=== PATIENT | male | born 1945 | race Caucasian/White ===

== ENCOUNTER → 2020-08-27 12:02 | Outpatient (BNVA) | payer OTHER, SELFPAY | PROVIDERS: PCP Internal Medicine; Referring Provider Internal Medicine; Visit Provider Internal Medicine Gastroenterology | DX: Z76.89 Persons encountering health services in other specified circumstances (principal) ==

== ENCOUNTER → 2020-09-02 10:36 | Outpatient (BNVA) | payer OTHER, SELFPAY | PROVIDERS: PCP Internal Medicine; Referring Provider Internal Medicine; Visit Provider Internal Medicine Cardiovascular Disease | DX: E11.22 Type 2 diabetes mellitus with diabetic chronic kidney disease (principal); I12.9 Hypertensive chronic kidney disease with stage 1 through stage 4 chronic kidney disease, or unspecified chronic kidney disease; I25.10 Atherosclerotic heart disease of native coronary artery without angina pectoris; N18.2 Chronic kidney disease, stage 2 (mild); I48.20 Chronic atrial fibrillation, unspecified; E78.5 Hyperlipidemia, unspecified; E66.9 Obesity, unspecified; R20.0 Anesthesia of skin; Z88.8 Allergy status to other drugs, medicaments and biological substances; Z87.891 Personal history of nicotine dependence; Z79.899 Other long term (current) drug therapy | CPT/HCPCS: 93005 ==

== ENCOUNTER 2020-09-09 13:27 | Outpatient (REF) | payer MEDICARE, SELFPAY ==
--- NOTE | 2020-09-09 13:35 | US_ITS ---
EXAMINATION: NONINVASIVE ASSESSMENT OF THE ARTERIES OF BOTH LOWER EXTREMITIES Costa Garcia MD CLINICAL INFORMATION: Anesthesia of skin TECHNIQUE: Bilateral lower extremity duplex ultrasound was performed with velocity measurements and waveform analysis in the common femoral arteries, profunda femoris arteries, proximal mid and distal superficial femoral arteries, popliteal arteries and tibial vessels. This study was performed only at rest. COMPARISON: None FINDINGS: Velocities in cm/sec and phasicity as well as the presence of plaque are reported below. Some minimal plaque is present in the right common femoral artery and left SFA but waveforms are normal and multiphasic flow is present throughout. RIGHT LEG: Common Femoral: 174 Profunda Femoris: 65 Proximal SFA: 120 Mid SFA: 106 Distal SFA: 108 Popliteal: 71 Tibial: 40 LEFT LEG: Common Femoral: 120 Profunda Femoris: 63 Proximal SFA: 119 Mid SFA: 190 Distal SFA: 89 Popliteal: 100 Tibial: 70 US/US arterial duplex LE IMPRESSION: There is no evidence of any hemodynamically significant lower extremity arterial disease by pressure, waveform or duplex Doppler criteria at rest.
== END 2020-09-09 13:28 | disposition home or self-care (01) ==
LOC: HO.US 13:27
PROVIDERS: PCP Internal Medicine; Visit Provider Internal Medicine Cardiovascular Disease
DX: R20.0 Anesthesia of skin (principal)
CPT/HCPCS: 93925

== ENCOUNTER 2020-11-23 09:00 | Outpatient (REF) | payer MEDICARE, SELFPAY ==
[2020-11-23 12:10] LABS: Estimated Average Glucose 171 mg/dL; Hemoglobin A1c % 7.6 %
== END 2020-11-23 09:01 | disposition home or self-care (01) ==
LOC: HO.LAB 09:00
PROVIDERS: PCP Internal Medicine; Visit Provider Nurse Practitioner Gerontology
DX: E11.22 Type 2 diabetes mellitus with diabetic chronic kidney disease (principal); E11.42 Type 2 diabetes mellitus with diabetic polyneuropathy; N18.2 Chronic kidney disease, stage 2 (mild); E78.5 Hyperlipidemia, unspecified; I10 Essential (primary) hypertension; E66.9 Obesity, unspecified; I25.10 Atherosclerotic heart disease of native coronary artery without angina pectoris; Z87.891 Personal history of nicotine dependence; Z88.8 Allergy status to other drugs, medicaments and biological substances; Z79.4 Long term (current) use of insulin; Z79.899 Other long term (current) drug therapy
CPT/HCPCS: 36415; 83036; Q3014

== ENCOUNTER 2020-12-23 06:12 | Outpatient (REF) | payer MEDICARE, SELFPAY ==
[2020-12-23 06:58] LABS: MANUAL DIFF FLAG NO
[2020-12-23 07:04] LABS: Basophils Absolute Auto 0.1 X10*3/uL (0.0-0.2); Basophils Percent Auto 0.8 % (0-2); Eosinophils Absolute Auto 0.2 X10*3/uL (0.0-0.4); Eosinophils Percent Auto 2.4 % (0-4); Hematocrit 50.8 % (42-52); Hemoglobin 16.8 g/dl (14.0-18.0); Imm Gran Abs Auto 0.03 X10*3/uL (0.00-0.03); Imm Gran Pct Auto 0.4 % (0.0-0.4); Lymphocytes Absolute Auto 2.1 X10*3/uL (1.2-4.9); Lymphocytes Percent Auto 26.3 % (20-40); Mean Corpuscular HGB Conc 33.1 g/dl (31.0-36.0); Mean Corpuscular Hemoglobin 27.4 pg (27.0-33.0); Mean Corpuscular Volume 82.7 fL (80-98); Monocytes Absolute Auto 0.5 X10*3/uL (0.1-1.2); Monocytes Percent Auto 6.1 % (2-11); Platelet Count 188 X10*3/uL (160-400); Red Blood Count 6.14 X10*6/uL (4.60-5.80); Red Cell Distribution Width 14.1 % (11.0-16.0); White Blood Count 7.8 X10*3/uL (4.8-10.8)
[2020-12-23 07:21] LABS: Glucose Urine UA NEG (NEG); Leukocyte Esterase Urine NEG (NEG); Nitrite Urine NEG (NEG); Urine Blood 3+ (NEG); Urine Ketones NEG (NEG); Urine Protein NEG (NEG-TRACE)
[2020-12-23 07:24] LABS: Appearance Urine CLOUDY; Color Urine YELLOW
[2020-12-23 07:37] LABS: Creatinine Urine 85.89 mg/dL; Microalbum/Creatinine Ratio Ur 48.8 ug/mg cr
[2020-12-23 07:41] LABS: Alanine Aminotransferase 17 U/L (0-40); Albumin Level 3.7 g/dL (3.5-5.0); Alkaline Phosphatase 119 U/L (39-117); Aspartate Amino Transferase 14 U/L (5-37); Bilirubin Total 0.6 mg/dL (0.0-1.0); Blood Urea Nitrogen 18 mg/dL (9-16); Calcium 8.7 mg/dL (8.4-10.2); Cholesterol 136 mg/dL; Estimated Glomerular Filt Rate 55; Glucose Fasting 148 mg/dL (60-99); HDL Cholesterol 32 mg/dL; LDL Cholesterol Calculated 72 mg/dl; Total Protein 6.4 g/dL (6.5-8.0); Triglycerides 163 mg/dL
[2020-12-23 07:45] LABS: Anion Gap 14 (12-20); Carbon Dioxide 29 mmol/L (22-29); Chloride 103 mmol/L (96-108); Potassium 3.7 mmol/L (3.3-5.1); Sodium 142 mmol/L (135-145)
[2020-12-23 07:51] LABS: TSH reflex Free T4 3.17 uIU/mL (0.32-4.0)
[2020-12-23 07:52] LABS: Ferritin 104 ng/mL (20-250)
[2020-12-23 09:10] LABS: Bacteria Urine TRACE /LPF; RBC Urine 50-75 /HPF (0); Squamous Epithelial Cell Urine TRACE /LPF
== END 2020-12-23 06:13 | disposition home or self-care (01) ==
LOC: HO.LAB 06:12
PROVIDERS: Internal Medicine Gastroenterology; Visit Provider Internal Medicine
DX: E11.22 Type 2 diabetes mellitus with diabetic chronic kidney disease (principal); N18.2 Chronic kidney disease, stage 2 (mild); D50.0 Iron deficiency anemia secondary to blood loss (chronic); D63.1 Anemia in chronic kidney disease; E66.9 Obesity, unspecified; E78.00 Pure hypercholesterolemia, unspecified; I10 Essential (primary) hypertension; Z79.4 Long term (current) use of insulin
CPT/HCPCS: 36415; 80053; 80061; 81001; 81003; 82043; 82728; 84443; 85025

== ENCOUNTER 2021-01-25 10:47 | Outpatient (REF) | payer MEDICARE, SELFPAY ==
[2021-01-25 14:40] LABS: MANUAL DIFF FLAG NO
[2021-01-25 14:47] LABS: Basophils Absolute Auto 0.1 X10*3/uL (0.0-0.2); Eosinophils Absolute Auto 0.4 X10*3/uL (0.0-0.4); Eosinophils Percent Auto 5.3 % (0-4); Hematocrit 53.1 % (42-52); Hemoglobin 17.1 g/dl (14.0-18.0); Imm Gran Abs Auto 0.04 X10*3/uL (0.00-0.03); Imm Gran Pct Auto 0.5 % (0.0-0.4); Lymphocytes Absolute Auto 1.5 X10*3/uL (1.2-4.9); Lymphocytes Percent Auto 18.5 % (20-40); Mean Corpuscular HGB Conc 32.2 g/dl (31.0-36.0); Mean Corpuscular Hemoglobin 26.9 pg (27.0-33.0); Mean Corpuscular Volume 83.6 fL (80-98); Mean Platelet Volume 10.7 fL (9.4-12.4); Monocytes Absolute Auto 0.6 X10*3/uL (0.1-1.2); Monocytes Percent Auto 6.9 % (2-11); Neutrophils Absolute Auto 5.6 X10*3/uL (2.0-8.3); Neutrophils Percent Auto 67.8 % (45-73); Platelet Count 174 X10*3/uL (160-400); Red Blood Count 6.35 X10*6/uL (4.60-5.80); Red Cell Distribution Width 14.6 % (11.0-16.0); White Blood Count 8.2 X10*3/uL (4.8-10.8)
[2021-01-25 15:31] LABS: Anion Gap 17 (12-20); Blood Urea Nitrogen 17 mg/dL (9-16); Carbon Dioxide 28 mmol/L (22-29); Chloride 104 mmol/L (96-108); Estimated Glomerular Filt Rate > 60; Glucose Random 134 mg/dL (60-115); Potassium 3.8 mmol/L (3.3-5.1); Sodium 145 mmol/L (135-145)
[2021-01-25 15:41] LABS: Glucose Urine UA NEG (NEG); Leukocyte Esterase Urine NEG (NEG); Nitrite Urine NEG (NEG); Urine Blood 3+ (NEG); Urine Ketones NEG (NEG); Urine Protein NEG (NEG-TRACE)
[2021-01-25 15:48] LABS: Appearance Urine CLEAR; Color Urine YELLOW
[2021-01-25 17:02] LABS: RBC Urine 50-75 /HPF (0); WBC Urine 0 /HPF (0-4)
== END 2021-01-25 10:48 | disposition home or self-care (01) ==
LOC: HO.LAB 10:47
PROVIDERS: Internal Medicine; Visit Provider Nurse Practitioner Family
DX: E11.22 Type 2 diabetes mellitus with diabetic chronic kidney disease (principal); I12.9 Hypertensive chronic kidney disease with stage 1 through stage 4 chronic kidney disease, or unspecified chronic kidney disease; N18.2 Chronic kidney disease, stage 2 (mild); N20.0 Calculus of kidney; R31.9 Hematuria, unspecified; Z79.4 Long term (current) use of insulin
CPT/HCPCS: 36415; 80048; 81001; 81003; 85025; 87086

== ENCOUNTER 2021-01-25 10:57 | Outpatient (REF) | payer MEDICARE, SELFPAY | END 2021-01-25 10:58 | disposition home or self-care (01) | LOC: HO.HMGCLDS 10:57 | PROVIDERS: PCP Internal Medicine; Visit Provider Nurse Practitioner Family | DX: Z13.89 Encounter for screening for other disorder (principal) ==

== ENCOUNTER → 2021-02-15 07:14 | Outpatient (REF) | payer MEDICARE, SELFPAY ==
--- NOTE | ~2021-02-15 | US_ITS ---
EXAMINATION: US RETROPERITONEAL LIMITED (RENAL ONLY) CLINICAL INFORMATION: Hematuria. COMPARISON: March 17, 2020 and October 18, 2017 TECHNIQUE: Renal ultrasound FINDINGS: RIGHT KIDNEY: 12.2 x 5.6 x 5.3 cm (SAG x AP x TRV). The kidney is normal in size, contour, and echogenicity. Renal cortical thickness is normal. No calculi or focal parenchymal lesions. No hydronephrosis. Previously noted right renal upper pole cyst is not included on imaging today. LEFT KIDNEY: 11.8 x 5.6 x 5.8 cm (SAG x AP x TRV). The kidney is normal in size, contour, and echogenicity. Renal cortical thickness is normal. No calculi identified. No hydronephrosis. Within the lower pole there is a 1.1 x 0.8 x 1.1 cm hypoechoic lesion which is exophytic without increased distal sound enhancement and I cannot definitely tell whether this may be a cystic or solid lesion. Within the upper pole there is a 2.3 x 2.1 x 1.9 cm hypoechoic structure without distal sound enhancement and with what appears be some septations within it which may represent a complex cyst or solid structure which on previous study measured approximately 1.3 x 1.4 x 1.6 cm in size. US/US renal BI IMPRESSION: 2 left renal lesions which I cannot definitely say represent cysts or minimally complex cyst such as a Bosniak 2 or 2F. MRI may be of help in further evaluation of these findings.
--- NOTE | 2021-02-15 07:17 | CA_ITS ---
Transthoracic Echocardiogram Patient (Last, First, Middle): Kamlesh Clement, Gender: Male Date of : 1945 Age: 75 Procedure Date: 02/15/2021 Procedure Type: Transthoracic Echocardiogram Location: OP Height: 175.26 cm Weight: 118.84 kg BSA: 2.32 m2 Heart Rate: bpm BP: 168 / 74 mmHg [id number] Architect: Referring MD: Delano Rosales MD Symptoms: I25.10 - Atherosclerotic heart disease of [place] coronary artery without angina pectoris Study Quality: Fair ECG Rhythm: Atrial Fibrillation Conclusions: - The left ventricular systolic function is normal. The visually estimated ejection fraction is between 65-70%. - The left atrium is moderately dilated. - There is moderate calcification of the aortic valve. - There is moderate mitral annular calcification. Findings Procedure Information Contrast agent, definity, is being given per protocol without apparent complications. Left Ventricle Normal left ventricular cavity size. The left ventricular systolic function is normal. The visually estimated ejection fraction is between 65-70%. There is no evidence of regional wall motion abnormalities. Diastolic function is indeterminate on the basis of available data. There is focal hypertrophy of the basal septum. Otherwise, there is no significant left ventricular hypertrophy. Right Ventricle Normal right ventricular cavity size and systolic function. Atria The left atrium is moderately dilated. The right atrium is mildly dilated. Aortic Valve There is moderate calcification of the aortic valve. There is no aortic valve stenosis. There is trace (trivial) aortic valve regurgitation. Mitral Valve There is moderate mitral annular calcification. There is trace mitral valve regurgitation. There is no mitral valve stenosis. Pulmonic Valve The pulmonic valve was not well visualized. Tricuspid Valve Normal tricuspid valve structure. There is trace tricuspid valve regurgitation. The pulmonary artery systolic pressure is normal. Great Vessels The aortic annulus, sinuses of valsalva, and asc aorta are normal in size. Venous The inferior vena cava is normal in size and collapses greater than 50% with inspiration. Pericardium/Pleural There is no evidence of pericardial effusion. Prior Study Comparison No significant change compared to prior study dated: 07/01/2019. Measurements 2D Linear Measurements RVIDd: 3.47 RVIDd Index: 1.50 IVSd: 1.56 0.6-0.9/0.6-1.0 cm LVIDd: 4.10 3.9-5.3/4.2-5.9 cm LVIDd Index: 1.77 2.4-3.2/2.2-3.1 cm/m2 LVIDs: 3.06 2.0-3.6 cm LVPWd: 1.61 0.7-1.1 cm Ao Root: 3.20 2.1-3.5 cm LA Diam: 5.00 2.7-3.8/3.0-4.0 cm LAIDs Index: 2.16 1.5-2.3 cm/m2 LV Mass: 327.93 67-162/88-224 g LV Mass Index: 141.35 43-95/49-115 g/m2 LVOT Diam: 1.90 3.0+(-)1.3 cm 2D Systolic Function EF 4C: 61.90 >55% EF 2C: 60.70 >55% EF BiP: 61.10 >55% Aortic Valve AoV Pk David: 1.67 AoV Mn David: 1.19 AoV VTI: 0.32 AoV Pk Grad: 11.00 Aov Mn Grad: 6.00 EVANS Cont.VTI: 1.84 LVOT LVOT Pk David: 0.90 LVOT Mn David: 0.73 LVOT VTI: 0.21 LVOT Pk Grad: 3.00 LVOT Mn Grad: 2.00 LVOT Diam: 1.90 LVOT Area: 2.84 Tricuspid Valve TR Pk David: 2.67 TR Pk Grad: 29.00 RA Press: 3.00 RVSP: 32.00 Great Vessels Aorta Ao Root-2D: 3.20 2.0-3.7 cm Ao Asc: 3.00 2.1-3.4 cm Ao Arch: 3.00 Updated in Other Vendor System with Status of Final Osmar Rodriguez MD electronically signed on 02/15/2021 11:21:24 AM with status of Final
== END ==
LOC: HO.CARD 07:14
PROVIDERS: Visit Provider Internal Medicine Cardiovascular Disease
DX: I48.20 Chronic atrial fibrillation, unspecified (principal); I25.10 Atherosclerotic heart disease of native coronary artery without angina pectoris; I10 Essential (primary) hypertension; N20.0 Calculus of kidney; R31.9 Hematuria, unspecified
CPT/HCPCS: 76775; 93306; Q9957

== ENCOUNTER → 2021-02-25 08:58 | Outpatient (BNVA) | payer MEDICARE, SELFPAY | PROVIDERS: PCP Internal Medicine; Visit Provider Nurse Practitioner Family | DX: I48.20 Chronic atrial fibrillation, unspecified (principal); I25.10 Atherosclerotic heart disease of native coronary artery without angina pectoris; I10 Essential (primary) hypertension; E11.9 Type 2 diabetes mellitus without complications; E78.5 Hyperlipidemia, unspecified; E66.9 Obesity, unspecified; R31.9 Hematuria, unspecified; Z79.01 Long term (current) use of anticoagulants | CPT/HCPCS: 99212 ==

== ENCOUNTER → 2021-03-01 09:22 | Outpatient (BNVA) | payer MEDICARE, SELFPAY | PROVIDERS: PCP Internal Medicine; Visit Provider Nurse Practitioner Gerontology | DX: E11.42 Type 2 diabetes mellitus with diabetic polyneuropathy (principal); Z79.4 Long term (current) use of insulin; E78.5 Hyperlipidemia, unspecified; I10 Essential (primary) hypertension; E66.9 Obesity, unspecified; R74.8 Abnormal levels of other serum enzymes | CPT/HCPCS: 82947; 99212 ==

== ENCOUNTER 2021-03-02 07:45 | Outpatient (REF) | payer MEDICARE, SELFPAY ==
[2021-03-07 22:06] LABS: Alk.Phos Iso. Macrohepatic 0 % (<=0); Alk.Phos Isoenzymes Bone 21 % (28-66); Alk.Phos Isoenzymes Intest 20 % (1-24); Alk.Phos Isoenzymes Liver 58 % (25-69); Alk.Phos Isoenzymes Placental 0 % (<=0); Alk.Phos Isoenzymes Total 125 U/L (35-144)
== END 2021-03-02 07:46 | disposition home or self-care (01) ==
LOC: HO.10HDL 07:45
PROVIDERS: Visit Provider Nurse Practitioner Gerontology
DX: R74.8 Abnormal levels of other serum enzymes (principal)
CPT/HCPCS: 36415; 84080

== ENCOUNTER → 2021-03-11 10:37 | Outpatient (BNVA) | payer MEDICARE, SELFPAY | PROVIDERS: PCP Internal Medicine; Visit Provider Urology | DX: N32.0 Bladder-neck obstruction (principal); C67.9 Malignant neoplasm of bladder, unspecified; R31.9 Hematuria, unspecified; N28.1 Cyst of kidney, acquired | CPT/HCPCS: 99202 ==

== ENCOUNTER 2021-03-19 08:47 | Outpatient (REF) | payer MEDICARE, SELFPAY ==
--- NOTE | ~2021-03-19 | CT_ITS ---
EXAMINATION: CT ABDOMEN AND PELVIS WITHOUT AND WITH CONTRAST CLINICAL INFORMATION: Kidney cysts COMPARISON: Previous renal ultrasound most recent February 2021 TECHNIQUE: Multidetector volumetric imaging was performed of the abdomen and pelvis before and after the IV administration of 85 mL of Omnipaque 350 intravenous contrast. Sagittal and coronal reformatted images were obtained on the technologist's workstation. This CT examination was performed using dose optimization techniques as appropriate, variously including the following: *Automated exposure control *Adjustment of mA and/or kV according to patient size (this includes techniques or standardized protocols for targeted exams where dose is matched to indication/reason for exam; i.e. extremities or head) *Use of iterative reconstruction technique DLP: 1112 mGy-cm FINDINGS: LUNG BASES: The visualized lung bases are unremarkable. LIVER, GALLBLADDER, AND BILIARY TREE: The liver is normal in size, shape, and attenuation. No focal hepatic lesion or biliary ductal dilatation is present. The gallbladder is unremarkable with no evidence of radiopaque gallstones, gallbladder wall thickening, or obvious pericholecystic inflammatory changes. PANCREAS: Unremarkable SPLEEN: Unremarkable ADRENAL GLANDS: Unremarkable KIDNEYS AND URETERS: There is a 1.7 cm low-attenuation lesion exophytic to the upper pole the right kidney. Hounsfield units precontrast measure 12. Hounsfield units postcontrast measure 21. Appearance is suggestive of a complex cyst. The kidneys are otherwise unremarkable. No renal stone, mass or hydronephrosis is seen. BLADDER: There is asymmetric abnormal wall thickening seen along the right UVJ region. There is a high attenuation material seen just medial to this measuring approximately 1.4 cm axial image 192 series 4. This area is not imaged precontrast. It is appearance is concerning for polypoid mass and a small calcification. It is possible this could represent excreted contrast entering the bladder however no other excreted contrast is seen. GASTROINTESTINAL TRACT: There is diverticulosis of the colon. . No evidence of diverticulitis is seen. There are duodenal diverticuli seen. The appendix is normal. The stomach is normal. ABDOMINAL WALL: No significant hernia is appreciated. LYMPH NODES: Normal VASCULAR: There is evidence of atherosclerotic disease. PELVIC VISCERA: The prostate gland is enlarged and measures 5 cm in AP and transverse dimension. OSSEOUS STRUCTURES: Unremarkable CT/CT abdomen pelvis wo/w con IMPRESSION: 1.7 cm complex cyst exophytic to the upper pole of the right kidney. Asymmetric wall thickening along the right posterior lateral bladder wall just superior to the UVJ region and question associated polypoid partially calcified mass measuring 1.4 cm. Enlarged prostate gland. Diverticulosis.
== END 2021-03-19 08:48 | disposition home or self-care (01) ==
LOC: HO.CT 08:47
PROVIDERS: PCP Internal Medicine; Visit Provider Urology
DX: N28.1 Cyst of kidney, acquired (principal)
CPT/HCPCS: 74178

== ENCOUNTER 2021-03-24 06:16 | Outpatient (REF) | payer MEDICARE, SELFPAY ==
[2021-03-24 07:18] LABS: MANUAL DIFF FLAG NO
[2021-03-24 07:21] LABS: Basophils Absolute Auto 0.1 X10*3/uL (0.0-0.2); Basophils Percent Auto 0.6 % (0-2); Eosinophils Absolute Auto 0.2 X10*3/uL (0.0-0.4); Eosinophils Percent Auto 2.4 % (0-4); Hematocrit 45.7 % (42-52); Hemoglobin 14.8 g/dl (14.0-18.0); Imm Gran Abs Auto 0.04 X10*3/uL (0.00-0.03); Imm Gran Pct Auto 0.5 % (0.0-0.4); Lymphocytes Percent Auto 23.8 % (20-40); Mean Corpuscular HGB Conc 32.4 g/dl (31.0-36.0); Mean Corpuscular Hemoglobin 27.4 pg (27.0-33.0); Mean Corpuscular Volume 84.6 fL (80-98); Monocytes Absolute Auto 0.6 X10*3/uL (0.1-1.2); Monocytes Percent Auto 7.1 % (2-11); Neutrophils Absolute Auto 5.6 X10*3/uL (2.0-8.3); Neutrophils Percent Auto 65.6 % (45-73); Platelet Count 170 X10*3/uL (160-400); Red Cell Distribution Width 14.6 % (11.0-16.0); White Blood Count 8.5 X10*3/uL (4.8-10.8)
[2021-03-24 07:28] LABS: Glucose Urine UA NEG (NEG); Leukocyte Esterase Urine NEG (NEG); Nitrite Urine NEG (NEG); Specific Gravity - Urine >= 1.030 (1.005-1.025); Urine Blood 3+ (NEG); Urine Ketones NEG (NEG); Urine Protein 2+ MG/DL (NEG-TRACE)
[2021-03-24 07:37] LABS: Appearance Urine TURBID; Color Urine BROWN
[2021-03-24 07:38] LABS: PH 5.5 (5.0-8.0)
[2021-03-24 07:44] LABS: Estimated Average Glucose 154 mg/dL
[2021-03-24 07:54] LABS: Alanine Aminotransferase 17 U/L (0-40); Albumin Level 3.5 g/dL (3.5-5.0); Alkaline Phosphatase 122 U/L (39-117); Anion Gap 10 (12-20); Aspartate Amino Transferase 14 U/L (5-37); Bilirubin Total 0.5 mg/dL (0.0-1.0); Blood Urea Nitrogen 17 mg/dL (9-16); Calcium 9.3 mg/dL (8.4-10.2); Carbon Dioxide 32 mmol/L (22-29); Chloride 106 mmol/L (96-108); Cholesterol 122 mg/dL; Estimated Glomerular Filt Rate 52; Glucose Fasting 97 mg/dL (60-99); HDL Cholesterol 32 mg/dL; LDL Cholesterol Calculated 59 mg/dl; Potassium 4.3 mmol/L (3.3-5.1); Sodium 144 mmol/L (135-145); Triglycerides 159 mg/dL
[2021-03-24 08:00] LABS: RBC Urine TNTC /HPF (0)
[2021-03-24 08:08] LABS: Creatinine Urine 137.28 mg/dL; Microalbum/Creatinine Ratio Ur 248.3 ug/mg cr
[2021-03-24 08:20] LABS: TSH reflex Free T4 5.34 uIU/mL (0.32-4.0)
[2021-03-24 09:06] LABS: Free T4 (Free Thyroxine) 0.74 ng/dL (0.71-1.85)
== END 2021-03-24 06:17 | disposition home or self-care (01) ==
LOC: HO.LAB 06:16
PROVIDERS: Urology; PCP Internal Medicine; Visit Provider Internal Medicine
DX: I12.9 Hypertensive chronic kidney disease with stage 1 through stage 4 chronic kidney disease, or unspecified chronic kidney disease (principal); E11.22 Type 2 diabetes mellitus with diabetic chronic kidney disease; N18.2 Chronic kidney disease, stage 2 (mild); E78.00 Pure hypercholesterolemia, unspecified; N28.1 Cyst of kidney, acquired; N40.1 Benign prostatic hyperplasia with lower urinary tract symptoms; N13.8 Other obstructive and reflux uropathy; I48.0 Paroxysmal atrial fibrillation; G62.9 Polyneuropathy, unspecified; Z79.4 Long term (current) use of insulin; Z12.5 Encounter for screening for malignant neoplasm of prostate
CPT/HCPCS: 36415; 80053; 80061; 81001; 82043; 83036; 84153; 84439; 84443; 85025

== ENCOUNTER 2021-04-01 07:43 | Outpatient (REF) | payer MEDICARE, SELFPAY ==
[2021-04-01 08:32] LABS: Glucose Urine UA NEG (NEG); Leukocyte Esterase Urine NEG (NEG); Nitrite Urine NEG (NEG); Urine Blood 3+ (NEG); Urine Ketones NEG (NEG); Urine Protein TRACE MG/DL (NEG-TRACE)
[2021-04-01 08:33] LABS: Appearance Urine TURBID; Color Urine AMBER
[2021-04-01 08:53] LABS: Blood Urea Nitrogen 17 mg/dL (9-16); Estimated Glomerular Filt Rate 56
[2021-04-01 08:55] LABS: RBC Urine TNTC /HPF (0); WBC Urine 0 /HPF (0-4)
== END 2021-04-01 07:44 | disposition home or self-care (01) ==
LOC: HO.LAB 07:43
PROVIDERS: PCP Internal Medicine; Visit Provider Urology
DX: N26.1 Atrophy of kidney (terminal) (principal); N28.1 Cyst of kidney, acquired
CPT/HCPCS: 36415; 81001; 82565; 84520

== ENCOUNTER → 2021-04-29 13:51 | Outpatient (BNVA) | payer MEDICARE, SELFPAY | PROVIDERS: PCP Internal Medicine; Visit Provider Urology | DX: N28.1 Cyst of kidney, acquired (principal); C67.9 Malignant neoplasm of bladder, unspecified | CPT/HCPCS: 52000; 99212 ==

== ENCOUNTER 2021-05-02 08:25 | Inpatient (IN) | payer MEDICARE, SELFPAY ==
[2021-05-02] VITALS (17 sets, daily range): BP systolic 87–141; BP diastolic 33–74; PULSE 89–112; RESP 14–24; TEMP 36.8–37; O2SAT 94–98; BMI 40.4
--- NOTE | ~2021-05-02 | XR_ITS ---
EXAMINATION: XR CHEST CLINICAL INFORMATION: Weakness COMPARISON: Chest x-ray 07/01/2019 TECHNIQUE: Frontal view of the chest was obtained. FINDINGS: There is mild cardiomegaly with normal pulmonary vascularity. Both lungs are expanded and clear. No gross bony abnormality. XR/XR chest 1V IMPRESSION: Cardiomegaly. Otherwise no acute process seen.
--- NOTE | ~2021-05-02 | CT_ITS ---
EXAMINATION: CT HEAD WITHOUT CONTRAST CLINICAL INFORMATION: AMS COMPARISON: CT brain 07/01/2019 TECHNIQUE: Contiguous axial imaging was performed from the skull base to vertex without intravenous administration of contrast. This CT examination was performed using dose optimization techniques as appropriate, variously including the following: *Automated exposure control *Adjustment of mA and/or kV according to patient size (this includes techniques or standardized protocols for targeted exams where dose is matched to indication/reason for exam; i.e. extremities or head) *Use of iterative reconstruction technique DLP: 867 mGy-cm FINDINGS: There is no evidence of acute intracranial hemorrhage or territorial infarction. No abnormal mass effect or midline shift is seen. Pina to white matter differentiation is well preserved. No extra-axial fluid collections are identified. The ventricles are normal in size. There is no abnormal attenuation within the brain parenchyma. The osseous structures and soft tissues are normal. The mastoid air cells and visualized portions of the paranasal sinuses are well aerated. CT/CT head/brain wo con IMPRESSION: No acute intracranial process seen. No major change compared to previous study 07/01/2019.
--- NOTE | ~2021-05-02 | CT_ITS ---
EXAMINATION: CT ABDOMEN AND PELVIS WITHOUT CONTRAST CLINICAL INFORMATION: Altered white count. Recent cystoscopy. COMPARISON: None TECHNIQUE: Multidetector volumetric imaging was performed from the superior aspect of the liver through the pubic symphysis. Sagittal and coronal reformatted images were obtained on the technologist's workstation. This CT examination was performed using dose optimization techniques as appropriate, variously including the following: *Automated exposure control *Adjustment of mA and/or kV according to patient size (this includes techniques or standardized protocols for targeted exams where dose is matched to indication/reason for exam; i.e. extremities or head) *Use of iterative reconstruction technique DLP: 1150 mGy-cm FINDINGS: LUNG BASES: There is right middle lobe and bibasilar dependent atelectasis. The heart size is normal. There are coronary artery calcifications present. LIVER, GALLBLADDER, AND BILIARY TREE: The liver is normal in size, shape, and attenuation. No focal hepatic lesion or biliary ductal dilatation is present. The gallbladder is unremarkable with no evidence of radiopaque gallstones, gallbladder wall thickening, or obvious pericholecystic inflammatory changes. PANCREAS: Unremarkable. SPLEEN: Unremarkable. ADRENAL GLANDS: Unremarkable. KIDNEYS AND URETERS: The kidneys are normal in size, shape, and attenuation. No hydronephrosis, hydroureter, or calculi seen. No perinephric stranding. There is a 1.8 x 1.7 cm exophytic lesion upper pole right kidney measuring 12 Hounsfield units. BLADDER: The bladder is nondistended with diffuse bladder wall thickening with a radiopaque curvilinear to round density arising off the right of bladder almost simulating a foreign body or bladder mass measuring 1.9 cm. It was noted on the previous study. The bladder wall in on most 1 cm thick. GASTROINTESTINAL TRACT: There is scattered colonic diverticulosis most prominent in the sigmoid colon without mild mural thickening. Rest of the colon is unremarkable. The small bowel loops unremarkable. There is small duodenal diverticulum present. The appendix is normal. Small bowel loops are normal. Fat stranding is seen surrounding the bladder wall. ABDOMINAL WALL: No significant hernia is appreciated. LYMPH NODES: Normal. VASCULAR: Unremarkable. PELVIC VISCERA: The prostate gland is moderately enlarged. No abnormal pelvic lymph nodes. No free fluid. Nonspecific thickening of the rectal and distal sigmoid wall is noted. OSSEOUS STRUCTURES: Degenerative disc changes with vacuum disc phenomena L4-L5 disc level. There is mild ventral spondylosis lower dorsal and lower lumbar spine. CT/CT abdomen pelvis wo con IMPRESSION: Contracted but abnormal urinary bladder. There is diffuse bladder wall thickening and pericolic bladder fat stranding suggestive of cystitis or inflammatory process. There is a round partially calcified bladder lesion. It was noted on the previous CT abdomen 03/19/2021. Recommend urology consult. There is no bladder perforation or free fluid. Exophytic cyst upper pole right kidney measures 12 Hounsfield units. Diffuse sigmoid and scattered rest of colon diverticulosis.
--- NOTE | 2021-05-02 08:33 | ECG_ITS ---
Test Reason : WEAKNES Blood Pressure : / mmHG Vent. Rate : 095 BPM Atrial Rate : 394 BPM P-R Int : 000 ms QRS Dur : 080 ms QT Int : 346 ms P-R-T Axes : 000 239 108 degrees QTc Int : 434 ms Atrial fibrillation Right superior axis deviation Inferior infarct , age undetermined Abnormal ECG When compared with ECG of 01-APR-2020 17:51, No significant change was found Referred By: Drea Yeh Electronically Signed By:Sharif Forrester
--- NOTE | 2021-05-02 08:35 | ED_ITS ---
HPI - Weakness General Chief complaint: Weakness Stated complaint: weakness, diarrhea Time Seen by Provider: 05/02/21 08:26 Source: patient and EMS Mode of arrival: EMS Limitations: no limitations History of Present Illness HPI Narrative: 75 yo male with hx of afib on eliquis, CAD, HTN, CKD, recurrent bladder cancer plan was for TURBT after reading Urology notes on 04/29, DM, anemia comes in with weakness for the past day or two was trying to ambulate today did not fall per EMS but he was so weak that he defecated on himself, he cannot localize anything to me but family states he has never been this weak before. He is not eating or drinking. Patient had a cystoscopy on 04/29 he states he was never given the antibiotic in the office that was ordered by Dr. Valderrama. Complaint: generalized weakness Onset (ago): day(s) (2) Duration: constant Location: generalized Severity: severe Relieving factors: movement Exacerbating factors: none Context: new medication and recent illness Associated symptoms: confusion, loss of appetite, nausea/vomiting and myalgias Related Data Home Medications Medication Instructions Recorded Confirmed furosemide 20 mg tablet 20 mg PO DAILY 08/20/20 05/02/21 latanoprost 0.005 % eye drops 1 drp OPHTHALMIC (EYE) BEDTIME 08/20/20 04/21/21 lisinopril 40 mg tablet 40 mg PO DAILY 08/25/20 05/02/21 nitroglycerin 0.4 mg sublingual 0.4 mg SUBLINGUAL Q5M PRN 08/25/20 04/21/21 tablet Previous Rx's Medication Instructions Recorded insulin glargine 100 unit/mL 54 unit SUBCUT DAILY 30 Days #20 ml 08/20/20 subcutaneous solution sildenafil 50 mg tablet 50 mg PO DAILY PRN 30 Days #10 tab 08/25/20 tadalafil 20 mg tablet 20 mg PO DAILY PRN 30 Days #10 tab 10/02/20 cholecalciferol (vitamin D3) 25 25 mcg PO DAILY #90 tab 10/07/20 mcg (1,000 unit) tablet metoprolol tartrate 100 mg tablet 100 mg PO BID #180 tab 11/25/20 insulin syringe-needle U-100 1 mL 1 ml MISCELLANEOUS BID #100 ea 12/20/20 31 gauge x 03/21 gabapentin 100 mg capsule 100 mg PO BEDTIME #90 cap 02/11/21 dulaglutide 0.75 mg/0.5 mL 0.75 mg SUBCUT QWEEK 30 Days #2.5 02/19/21 subcutaneous pen injector ml atorvastatin 40 mg tablet 40 mg PO DAILY 90 Days #90 tab 02/22/21 insulin lispro 100 unit/mL See Rx Instructions SUBCUT 03/07/21 subcutaneous solution .COMPLEX 90 Days #120 ml rivaroxaban 20 mg tablet 20 mg PO DAILY #30 tab 03/09/21 tamsulosin 0.4 mg capsule 0.4 mg PO DAILY #30 cap 03/09/21 flash glucose sensor 1 ea TOPICAL Q2W #2 ea 04/07/21 ferrous sulfate 325 mg (65 mg 325 mg PO DAILY #30 tab 04/19/21 iron) tablet terazosin 5 mg capsule 10 mg PO BEDTIME 30 Days #60 cap 04/29/21 Allergies Allergy/AdvReac Type Severity Reaction Status Date / Time colesevelam [From WelChol] AdvReac Mild constipatio Verified 05/02/21 08:41 n Review of Systems Review of Systems: Constitutional : No Weight loss, No Fever, No Chills, pos Fatigue, pos Malaise ENT/Mouth : No sore throat, No Rhinorrhea Eyes: No Eye Pain, No Swelling, No Redness Cardiovascular : No Chest Pain, No SOB, No Dyspnea on Exertion, No Orthopnea, No Edema, No Palpitations Respiratory : No Cough, No Sputum, No Wheezing Gastrointestinal : pos Nausea, No Vomiting, pos Diarrhea, No Constipation, No abdominal Pain, No Hematochezia, No Melena Genitourinary : No Dysuria, No Urinary Frequency, No Hematuria, Musculoskeletal : No joint pain, pos Myalgias, No Joint Swelling Skin : No Skin Lesions, No rash Neuro : pos Weakness, No Numbness, No Dizziness, No Headache Psych : No Anxiety/Panic, No Depression Heme/Lymph: No Bruising, No Bleeding,No Lymphadenopathy Endocrine : No Polyuria, No Polydipsia All other systems reviewed and are negative [facility] Past Medical History Attestation statement: The following information was validated with the patient. 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 Surgical History History of cataract surgery History of endoscopy Hx of colonoscopy Hx of removal of cyst Family History Family History Father Medical history unknown Mother Diabetes Daughter In good health Son In good health Sister In good health Sister In good health Brother In good health Brother In good health Brother In good health Social History Social History Household Members: Spouse Housing: House Alcohol intake: never Patient Tobacco Use Status: Former Tobacco user Use of substances other than those prescribed or required for medical reasons: No Advance Directives: No Advance Directives Information Provided: No service: No Current occupational status: retired Physical Exam Vital Signs: Vital Signs: Last Vital Signs Temp 98.2 F 05/02/21 13:02 Pulse 95 05/02/21 13:31 Resp 18 05/02/21 13:31 BP 111/55 L 05/02/21 14:00 Pulse Ox 96 05/02/21 13:31 Body Mass Index 40.4 Appearance: Alert. Oriented X2. Mild acute distress. Eyes: Pupils equal, round and reactive to light. ENT: Pharynx normal. Neck: Normal inspection. Neck supple. CVS: tachycardic and irregular heart rate and rhythm. Pulses normal. Respiratory: No respiratory distress. Breath sounds normal. Abdomen: Soft and nontender. Skin: Skin warm and dry. pale skin color. Normal skin turgor. Extremities: No lower extremity edema. No calf ttp Neuro: Oriented X 2. No motor deficit. No sensory deficit. seems to be staring off Course Course Course Narrative: patient is obese IBW should be 71kg - at this time 30cc/kg bolus would be 2130 BP 100/55 the patient looks much better, he is mentating much better GCS 15 alert and oriented x 3 now, color improved, BP trending up, repeat lactic acid pending lactic acid trending down focused exam for sepsis performed at 1246pm patient is still with soft blood pressures - did request ICU to evaluate recommends giving albumin BP up to 100 now MAP good, will recheck in half hour BP doing better likely admit to [facility] 111/55 BP over 100 for the last hour, can admit to [facility] reassessed by ICU at 2pm MDM - Weakness MDM Narrative Medical decision making narrative: 75 yo male with hx of afib on eliquis, CAD, HTN, CKD, recurrent bladder cancer plan was for TURBT after reading Urology notes on 04/29, DM, anemia comes in with weakness for the past day or two was trying to ambulate today did not fall per EMS but he was so weak that he defecated on himself, he cannot localize anything to me but family states he has never been this week before had cystoscopy on 04/29 - at this time will obtain labs, 30cc/kg bolus based off IBW, empiric ceftriaxone for possible UTI given recent procedure, cultures, CT scan of head for ICH given confusion, CXR, planned admit Lab Data Result diagrams: 05/02/21 08:54 05/02/21 08:54 Labs: Lab Results 05/02/21 05/02/21 05/02/21 Range/Units 08:53 08:54 08:54 WBC 29.5 H (4.8-10.8) X10*3/uL RBC 5.22 (4.60-5.80) X10*6/uL Hgb 14.7 (14.0-18.0) g/dl Hct 44.6 (42-52) % MCV 85.4 (80-98) fL MCH 28.2 (27.0-33.0) pg MCHC 33.0 (31.0-36.0) g/dl RDW 14.6 (11.0-16.0) % Plt Count 164 (160-400) X10*3/uL MPV 11.8 (9.4-12.4) fL Immature Gran % (Auto) Cancelled Neut % (Auto) Cancelled Lymph % (Auto) Cancelled [place] % (Auto) Cancelled Eos % (Auto) Cancelled Baso % (Auto) Cancelled Lymph # (Auto) Cancelled [place] # (Auto) Cancelled Eos # (Auto) Cancelled Baso # (Auto) Cancelled Abs Immat Gran (auto) Cancelled Absolute Neuts (auto) Cancelled Absolute Nucleated RBC 0.000 (0.0-0.012) X10*3/uL Nucleated RBC % (auto) 0.0 (0.0-0.2) /100WBC Neutrophils % (Manual) 76 H (45-73) % Band Neutrophils % 14 H (3-5) % Lymphocytes % (Manual) 4 L (20-40) % Monocytes % (Manual) 6 (2-11) % Abs Neuts (Manual) 26.6 H (2.2-7.9) X10*3/uL Lymphocytes # (Manual) 1.2 (0.6-4.8) X10*3/uL Monocytes # (Manual) 1.8 H (0.0-1.2) X10*3/uL Platelet Estimate SLIGHTLY DECREASED (NORMAL) Plt Morphology Comment NORMAL RBC Morphology NOTED Acanthocytes (Spur) 1+ (0-2) /OIF PT 19.9 H (10.8-13.0) SEC INR 1.7 H (0.9-1.1) APTT 36.1 (24.1-38.0) SEC Sodium (135-145) mmol/L Potassium (3.3-5.1) mmol/L Chloride (96-108) mmol/L Carbon Dioxide (22-29) mmol/L Anion Gap (12-20) BUN (9-16) mg/dL Creatinine (0.5-1.4) mg/dL Estim Creat Clear Calc Estimated GFR Random Glucose (60-115) mg/dL Lactic Acid (0.5-2.0) mmol/L Lactic Acid Fup @ 2Hr (0.5-2.0) mmol/L Calcium (8.4-10.2) mg/dL Magnesium (1.6-2.6) mg/dL Total Bilirubin (0.0-1.0) mg/dL Direct Bilirubin (0.0-0.5) mg/dL AST (5-37) U/L ALT (0-40) U/L Alkaline Phosphatase (39-117) U/L Troponin I High Sens (<3.5-35.0) ng/L Total Protein (6.5-8.0) g/dL Albumin (3.5-5.0) g/dL Lipase (8-78) U/L Urine Color Urine Appearance Urine pH (5.0-8.0) Ur Specific [place] Urine Protein Urine Glucose (UA) Urine Ketones Urine Blood (NEG) Urine Nitrite Ur Leukocyte Esterase COVID-19 (CHRISTIANO) Negative (Negative) COVID-19 Clin Com See Note 05/02/21 05/02/21 05/02/21 Range/Units 08:54 08:54 08:54 WBC (4.8-10.8) X10*3/uL RBC (4.60-5.80) X10*6/uL Hgb (14.0-18.0) g/dl Hct (42-52) % MCV (80-98) fL MCH (27.0-33.0) pg MCHC (31.0-36.0) g/dl RDW (11.0-16.0) % Plt Count (160-400) X10*3/uL MPV (9.4-12.4) fL Immature Gran % (Auto) Neut % (Auto) Lymph % (Auto) [place] % (Auto) Eos % (Auto) Baso % (Auto) Lymph # (Auto) [place] # (Auto) Eos # (Auto) Baso # (Auto) Abs Immat Gran (auto) Absolute Neuts (auto) Absolute Nucleated RBC (0.0-0.012) X10*3/uL Nucleated RBC % (auto) (0.0-0.2) /100WBC Neutrophils % (Manual) (45-73) % Band Neutrophils % (3-5) % Lymphocytes % (Manual) (20-40) % Monocytes % (Manual) (2-11) % Abs Neuts (Manual) (2.2-7.9) X10*3/uL Lymphocytes # (Manual) (0.6-4.8) X10*3/uL Monocytes # (Manual) (0.0-1.2) X10*3/uL Platelet Estimate (NORMAL) Plt Morphology Comment RBC Morphology Acanthocytes (Spur) /OIF PT (10.8-13.0) SEC INR (0.9-1.1) APTT (24.1-38.0) SEC Sodium 140 (135-145) mmol/L Potassium 4.0 (3.3-5.1) mmol/L Chloride 103 (96-108) mmol/L Carbon Dioxide 22 (22-29) mmol/L Anion Gap 19 (12-20) BUN 32 H D (9-16) mg/dL Creatinine 2.15 H (0.5-1.4) mg/dL Estim Creat Clear Calc 39.2 Estimated GFR 30 Random Glucose 226 H D (60-115) mg/dL Lactic Acid 6.2 H* (0.5-2.0) mmol/L Lactic Acid Fup @ 2Hr (0.5-2.0) mmol/L Calcium 8.6 D (8.4-10.2) mg/dL Magnesium 1.6 (1.6-2.6) mg/dL Total Bilirubin 1.1 H (0.0-1.0) mg/dL Direct Bilirubin 0.6 H (0.0-0.5) mg/dL AST 8 D (5-37) U/L ALT < 6 (0-40) U/L Alkaline Phosphatase 94 D (39-117) U/L Troponin I High Sens 18.2 (<3.5-35.0) ng/L Total Protein 5.9 L (6.5-8.0) g/dL Albumin 3.3 L (3.5-5.0) g/dL Lipase 6 L (8-78) U/L Urine Color Urine Appearance Urine pH (5.0-8.0) Ur Specific [place] Urine Protein Urine Glucose (UA) Urine Ketones Urine Blood (NEG) Urine Nitrite Ur Leukocyte Esterase COVID-19 (CHRISTIANO) (Negative) COVID-19 Clin Com 05/02/21 05/02/21 Range/Units 11:20 13:35 WBC (4.8-10.8) X10*3/uL RBC (4.60-5.80) X10*6/uL Hgb (14.0-18.0) g/dl Hct (42-52) % MCV (80-98) fL MCH (27.0-33.0) pg MCHC (31.0-36.0) g/dl RDW (11.0-16.0) % Plt Count (160-400) X10*3/uL MPV (9.4-12.4) fL Immature Gran % (Auto) Neut % (Auto) Lymph % (Auto) [place] % (Auto) Eos % (Auto) Baso % (Auto) Lymph # (Auto) [place] # (Auto) Eos # (Auto) Baso # (Auto) Abs Immat Gran (auto) Absolute Neuts (auto) Absolute Nucleated RBC (0.0-0.012) X10*3/uL Nucleated RBC % (auto) (0.0-0.2) /100WBC Neutrophils % (Manual) (45-73) % Band Neutrophils % (3-5) % Lymphocytes % (Manual) (20-40) % Monocytes % (Manual) (2-11) % Abs Neuts (Manual) (2.2-7.9) X10*3/uL Lymphocytes # (Manual) (0.6-4.8) X10*3/uL Monocytes # (Manual) (0.0-1.2) X10*3/uL Platelet Estimate (NORMAL) Plt Morphology Comment RBC Morphology Acanthocytes (Spur) /OIF PT (10.8-13.0) SEC INR (0.9-1.1) APTT (24.1-38.0) SEC Sodium (135-145) mmol/L Potassium (3.3-5.1) mmol/L Chloride (96-108) mmol/L Carbon Dioxide (22-29) mmol/L Anion Gap (12-20) BUN (9-16) mg/dL Creatinine (0.5-1.4) mg/dL Estim Creat Clear Calc Estimated GFR Random Glucose (60-115) mg/dL Lactic Acid (0.5-2.0) mmol/L Lactic Acid Fup @ 2Hr 3.2 H* (0.5-2.0) mmol/L Calcium (8.4-10.2) mg/dL Magnesium (1.6-2.6) mg/dL Total Bilirubin (0.0-1.0) mg/dL Direct Bilirubin (0.0-0.5) mg/dL AST (5-37) U/L ALT (0-40) U/L Alkaline Phosphatase (39-117) U/L Troponin I High Sens (<3.5-35.0) ng/L Total Protein (6.5-8.0) g/dL Albumin (3.5-5.0) g/dL Lipase (8-78) U/L Urine Color RED Urine Appearance TURBID Urine pH 6.5 (5.0-8.0) Ur Specific [place] TNP Urine Protein TNP Urine Glucose (UA) TNP Urine Ketones TNP Urine Blood 3+ H (NEG) Urine Nitrite TNP Ur Leukocyte Esterase TNP COVID-19 (CHRISTIANO) (Negative) COVID-19 Clin Com ECG Data Attestation: I personally reviewed and interpreted this ECG as follows: ECG interpretation date: 05/02/21 ECG interpretation time: 08:48 Interpretation: Rate: 95 Rhythm: afib [place]: right Normal P waves. Normal STEPHANIE. Normal QRS complex. ST T wave : nonspecific, no JAIDEN qTC: normal prior studies: no acute ischemia The study has been interpreted contemporaneously by me. . Critical Care Time Critical Care Time Critical Care Time: Yes Total Critical Care Time: 60 Attestation: 2L of IVF resuscitation, empiric antibiotics, review of records I attest to this time spent taking care of the patient Discharge Plan Discharge Clinical Impression: Leukocytosis, Weakness, ANAHI (acute kidney injury), Acidosis, lactic, Acute hypotension Patient Disposition: Admitted As Inpatient
[2021-05-02] MEDS: 0.9 % Sodium Chloride 1,000 ML 999 ML IVCONT ×3 (08:55→10:52)
[2021-05-02 09:02] LABS: Hematocrit 44.6 % (42-52); Hemoglobin 14.7 g/dl (14.0-18.0); Mean Corpuscular Hemoglobin 28.2 pg (27.0-33.0); Mean Corpuscular Volume 85.4 fL (80-98); Mean Platelet Volume 11.8 fL (9.4-12.4); Platelet Count 164 X10*3/uL (160-400); Red Blood Count 5.22 X10*6/uL (4.60-5.80); Red Cell Distribution Width 14.6 % (11.0-16.0); White Blood Count 29.5 X10*3/uL (4.8-10.8)
[2021-05-02 09:14] LABS: INTERNATIONAL NORM RATIO 1.7 (0.9-1.1); Prothrombin Time 19.9 SEC (10.8-13.0)
[2021-05-02] MEDS: Acetaminophen 325 MG TABLET 650 MG PO (09:15)
[2021-05-02] MEDS: cefTRIAXone sodium 1 GM in 0.9 % Sodium Chloride 50 ML IV (09:15)
[2021-05-02 09:16] LABS: Partial Thromboplastin Time 36.1 SEC (24.1-38.0)
[2021-05-02 09:18] LABS: COVID-19 Test Negative (Negative); IDNOW Serial# 9DD0AD1C
[2021-05-02 09:21] LABS: Lactic Acid 6.2 mmol/L (0.5-2.0)
[2021-05-02 09:29] LABS: Troponin-I High Sensitivity 18.2 ng/L (<3.5-35.0)
[2021-05-02 09:31] LABS: Alanine Aminotransferase < 6 U/L (0-40); Albumin Level 3.3 g/dL (3.5-5.0); Alkaline Phosphatase 94 U/L (39-117); Anion Gap 19 (12-20); Aspartate Amino Transferase 8 U/L (5-37); Bilirubin Direct 0.6 mg/dL (0.0-0.5); Bilirubin Total 1.1 mg/dL (0.0-1.0); Blood Urea Nitrogen 32 mg/dL (9-16); Calcium 8.6 mg/dL (8.4-10.2); Carbon Dioxide 22 mmol/L (22-29); Chloride 103 mmol/L (96-108); Creatinine Clr Calc Pharmacy 39.2; Estimated Glomerular Filt Rate 30; Glucose Random 226 mg/dL (60-115); Lipase 6 U/L (8-78); Magnesium 1.6 mg/dL (1.6-2.6); Sodium 140 mmol/L (135-145); Total Protein 5.9 g/dL (6.5-8.0)
--- NOTE | 2021-05-02 09:33 | PC.NURSE ---
pt from home for weakness, states today he was too weak to walk. He is alert, oriented X4. denies pain. Lung sounds clear bilaterally in upper lobes and diminished in bases. Abdomen obese, round, non tender on palaption.
[2021-05-02 09:41] LABS: Band Neutrophils Percent 14 % (3-5); Lymphocytes Absolute Manual 1.2 X10*3/uL (0.6-4.8); Lymphocytes Percent Manual 4 % (20-40); Monocytes Absolute Manual 1.8 X10*3/uL (0.0-1.2); Monocytes Percent Manual 6 % (2-11); Neutrophils Absolute Manual 26.6 X10*3/uL (2.2-7.9); Neutrophils Percent Manual 76 % (45-73)
[2021-05-02 09:43] LABS: Acanthocytes 1+ (0-2) /OIF; Platelet Estimate SLIGHTLY DECREASED (NORMAL); Platelet Morphology Comment NORMAL; RBC Morphology NOTED
[2021-05-02] MEDS: 0.9 % Sodium Chloride 500 ML IV ×2 (09:53→12:35)
[2021-05-02 10:58] LABS: Reflex Lactate? Lactic Acid Added
[2021-05-02 11:55] LABS: ~Lactic Acid-LAB USE ONLY 3.2 mmol/L (0.5-2.0)
--- NOTE | 2021-05-02 12:20 | PC.NURSE ---
called pharmacy to deliver levofloxacin, unavaillable in either ER pyxis.
[2021-05-02] MEDS: levoFLOXacin/D5W 250 MG/50 ML PIGGYBACK 50 MG IV (12:25)
--- NOTE | 2021-05-02 13:06 | PC.NURSE ---
dr. lam at bedside, pt/family aware of plan of care for admission. pt states last ate a little bit on monday, not much po fluids
[2021-05-02] MEDS: Albumin Human 25 % 100 ML IV ×2 (13:20→14:29)
[2021-05-02 13:23] LABS: Reflex Lactate? 2 Y
[2021-05-02 13:57] LABS: PH 6.5 (5.0-8.0); UACC Culture Trigger YES; Urine Blood 3+ (NEG)
[2021-05-02 13:59] LABS: Appearance Urine TURBID; Color Urine RED
[2021-05-02 14:03] LABS: RBC Urine TNTC /HPF (0)
[2021-05-02 14:04] LABS: Amorphous Sediment Urine 3+ /LPF; Bacteria Urine 2+ /LPF; Mucus Urine 1+ /LPF; Squamous Epithelial Cell Urine 1+ /LPF
--- NOTE | 2021-05-02 14:06 | PM.CCN ---
Critical Care Event Note Summary Date of Service: 05/02/21 Code activated: No Narrative: 75-year-old gentleman with recent cystoscopy being admitted for poor p.o. intake and sepsis with likely source. Patient's initial hypotension responded to IV fluid and albumin resuscitation improving to systolic blood pressure in 110's. At this time patient does not require intensive care level of service. Please notify for re-evaluation, if patient's condition changes. Critical Care Time (minutes): 0
[2021-05-02 14:21] LABS: ~Lactic Acid-LAB USE ONLY 2.4 mmol/L (0.5-2.0)
--- NOTE | 2021-05-02 14:28 | P.HPHOSP_ITS ---
History of Present Illness Date of Service: 05/02/21 Chief Complaint: weakness 75M presented with 1-2 days of severe weakness, diarrhea. patient had been feeling well. 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 on evening of 04/30 he started to feel weak, nauseous, decreased appetite, next day started having significant diarrhea. on day of admission, patient felt so weak he was unable to get up from bed. in ED patient was hypotensive 87/33, responded after albumin and 4L of fluid. given levaquin and cefriaxone. WBC 29, lactate 6.2. Review of Systems Review of Systems: Constitutional: Denies fever, denies Chills Eyes: denies blurry vision ENT: denies sore throat CVS: denies chest pain Respiratory: Denies dyspnea GI: diarrhea : denies dysuria MSK: denies neck pain Skin: denies rash Neuro: denies specific motor weakness Psych: denies suicidal ideation Endocrine: denies heat/cold intoleratnce Hematologic: denies easy bleeding Allergy: denies hives [facility] Medical History Benign essential hypertension CAD (coronary artery disease) Chronic anticoagulation Chronic atrial fibrillation Chronic kidney disease (CKD), stage II (mild) Diabetes mellitus Erectile dysfunction History of colon polyps History of penile cancer Hyperlipidemia LDL goal <70 Iron deficiency anemia jail (current) use of insulin Obesity (BMI 30-39.9) Pure hypercholesterolemia 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 Family History Father Medical history unknown Mother Diabetes Daughter In good health Son In good health Sister In good health Sister In good health Brother In good health Brother In good health Brother In good health Surgical History History of cataract surgery History of endoscopy Hx of colonoscopy Hx of removal of cyst Social History Household Members: Spouse Housing: House Alcohol intake: never Patient Tobacco Use Status: Former Tobacco user Use of substances other than those prescribed or required for medical reasons: No Advance Directives: No Advance Directives Information Provided: No service: No Current occupational status: retired Meds Allergies Allergy/AdvReac Type Severity Reaction Status Date / Time colesevelam [From WelChol] AdvReac Mild constipatio Verified 05/02/21 08:41 n Active Medications: Current Medications Generic Name Dose Route Start Last Admin Trade Name Freq PRN Reason Stop Dose Admin Albumin Human 100 mls @ 100 mls/hr 05/02/21 13:15 05/02/21 13:20 Kedbumin 25 % IV 05/02/21 15:14 100 mls/hr Q1H ROBERT Administration Home Medications Medication Instructions Recorded Confirmed Last Taken Type furosemide 20 mg tablet 20 mg PO DAILY 08/20/20 05/02/21 Unknown History latanoprost 0.005 % eye drops 1 drp OPHTHALMIC (EYE) BEDTIME 08/20/20 04/21/21 Unknown History lisinopril 40 mg tablet 40 mg PO DAILY 08/25/20 05/02/21 Unknown History nitroglycerin 0.4 mg sublingual 0.4 mg SUBLINGUAL Q5M PRN 08/25/20 04/21/21 Unknown History tablet Physical Exam Vital Signs and Narrative: Vital Signs: Last Vital Signs Temp 98.2 F 05/02/21 13:02 Pulse 95 05/02/21 13:31 Resp 18 05/02/21 13:31 BP 111/55 L 05/02/21 14:00 Pulse Ox 96 05/02/21 13:31 Body Mass Index 40.4 General: weak, ill appearing, alert HEENT: atraumatic Neck: normal to visual inspection CVS: S1, S2, RRR Resp: CTA bilateral Chest: non tender GI: soft, non tender, non distended : no CVA tenderness Skin: no rashes Extremities: no edema Neuro: Oriented X3, grossly intact Psych: cooperative Results Labs CBC and Chem 7: 05/02/21 08:54 05/02/21 08:54 Labs: Laboratory Results - last 24 hr 05/02/21 05/02/21 05/02/21 08:53 08:54 08:54 MCV 85.4 MCH 28.2 MCHC 33.0 RDW 14.6 Plt Count 164 MPV 11.8 Immature Gran % (Auto) Cancelled Neut % (Auto) Cancelled Lymph % (Auto) Cancelled Tucker % (Auto) Cancelled Eos % (Auto) Cancelled Baso % (Auto) Cancelled Lymph # (Auto) Cancelled Tucker # (Auto) Cancelled Eos # (Auto) Cancelled Baso # (Auto) Cancelled Abs Immat Gran (auto) Cancelled Absolute Neuts (auto) Cancelled Absolute Nucleated RBC 0.000 Nucleated RBC % (auto) 0.0 Neutrophils % (Manual) 76 H Band Neutrophils % 14 H Lymphocytes % (Manual) 4 L Monocytes % (Manual) 6 Abs Neuts (Manual) 26.6 H Lymphocytes # (Manual) 1.2 Monocytes # (Manual) 1.8 H Platelet Estimate SLIGHTLY DECREASED Plt Morphology Comment NORMAL RBC Morphology NOTED Acanthocytes (Spur) 1+ (0-2) PT 19.9 H INR 1.7 H APTT 36.1 Anion Gap Estim Creat Clear Calc Estimated GFR Random Glucose Lactic Acid Lactic Acid Fup @ 2Hr Lactic Acid Fup @ 4Hr Calcium Magnesium Total Bilirubin Direct Bilirubin AST ALT Alkaline Phosphatase Troponin I High Sens Total Protein Albumin Lipase Urine Color Urine Appearance Urine pH Ur Specific [place] Urine Protein Urine Glucose (UA) Urine Ketones Urine Blood Urine Nitrite Ur Leukocyte Esterase Urine RBC Urine WBC Ur Squamous Epith Cells Amorphous Sediment Urine Bacteria Urine Mucus COVID-19 (CHRISTIANO) Negative COVID-19 Clin Com See Note 05/02/21 05/02/21 05/02/21 08:54 08:54 08:54 MCV MCH MCHC RDW Plt Count MPV Immature Gran % (Auto) Neut % (Auto) Lymph % (Auto) Tucker % (Auto) Eos % (Auto) Baso % (Auto) Lymph # (Auto) Tucker # (Auto) Eos # (Auto) Baso # (Auto) Abs Immat Gran (auto) Absolute Neuts (auto) Absolute Nucleated RBC Nucleated RBC % (auto) Neutrophils % (Manual) Band Neutrophils % Lymphocytes % (Manual) Monocytes % (Manual) Abs Neuts (Manual) Lymphocytes # (Manual) Monocytes # (Manual) Platelet Estimate Plt Morphology Comment RBC Morphology Acanthocytes (Spur) PT INR APTT Anion Gap 19 Estim Creat Clear Calc 39.2 Estimated GFR 30 Random Glucose 226 H D Lactic Acid 6.2 H* Lactic Acid Fup @ 2Hr Lactic Acid Fup @ 4Hr Calcium 8.6 D Magnesium 1.6 Total Bilirubin 1.1 H Direct Bilirubin 0.6 H AST 8 D ALT < 6 Alkaline Phosphatase 94 D Troponin I High Sens 18.2 Total Protein 5.9 L Albumin 3.3 L Lipase 6 L Urine Color Urine Appearance Urine pH Ur Specific [place] Urine Protein Urine Glucose (UA) Urine Ketones Urine Blood Urine Nitrite Ur Leukocyte Esterase Urine RBC Urine WBC Ur Squamous Epith Cells Amorphous Sediment Urine Bacteria Urine Mucus COVID-19 (CHRISTIANO) COVID-19 Clin Com 05/02/21 05/02/21 05/02/21 11:20 13:35 13:51 MCV MCH MCHC RDW Plt Count MPV Immature Gran % (Auto) Neut % (Auto) Lymph % (Auto) Tucker % (Auto) Eos % (Auto) Baso % (Auto) Lymph # (Auto) Tucker # (Auto) Eos # (Auto) Baso # (Auto) Abs Immat Gran (auto) Absolute Neuts (auto) Absolute Nucleated RBC Nucleated RBC % (auto) Neutrophils % (Manual) Band Neutrophils % Lymphocytes % (Manual) Monocytes % (Manual) Abs Neuts (Manual) Lymphocytes # (Manual) Monocytes # (Manual) Platelet Estimate Plt Morphology Comment RBC Morphology Acanthocytes (Spur) PT INR APTT Anion Gap Estim Creat Clear Calc Estimated GFR Random Glucose Lactic Acid Lactic Acid Fup @ 2Hr 3.2 H* Lactic Acid Fup @ 4Hr 2.4 H* Calcium Magnesium Total Bilirubin Direct Bilirubin AST ALT Alkaline Phosphatase Troponin I High Sens Total Protein Albumin Lipase Urine Color RED Urine Appearance TURBID Urine pH 6.5 Ur Specific [place] TNP Urine Protein TNP Urine Glucose (UA) TNP Urine Ketones TNP Urine Blood 3+ H Urine Nitrite TNP Ur Leukocyte Esterase TNP Urine RBC TNTC H Urine WBC 76-150 H Ur Squamous Epith Cells 1+ Amorphous Sediment 3+ Urine Bacteria 2+ Urine Mucus 1+ COVID-19 (CHRISTIANO) COVID-19 Clin Com Imaging Radiologist's Impressions: Impressions Chest X-Ray 05/02/21 08:33 IMPRESSION: Cardiomegaly. Otherwise no acute process seen. Head CT 05/02/21 08:38 IMPRESSION: No acute intracranial process seen. No major change compared to previous study 07/01/2019. Abdomen/Pelvis CT 05/02/21 09:15 IMPRESSION: Contracted but abnormal urinary bladder. There is diffuse bladder wall thickening and pericolic bladder fat stranding suggestive of cystitis or inflammatory process. There is a round partially calcified bladder lesion. It was noted on the previous CT abdomen 03/19/2021. Recommend urology consult. There is no bladder perforation or free fluid. Exophytic cyst upper pole right kidney measures 12 Hounsfield units. Diffuse sigmoid and scattered rest of colon diverticulosis. Assessment and Plan (1) Leukocytosis: Qualifiers: Leukocytosis type: bandemia Qualified Code(s): D72.825 - Bandemia Status: Acute 75M presented with weakness severe sepsis poa due to UTI post cystoscopy +/- cdif sepsis exam performed, s/p 30cc/kg fluids continue ceftriaxone, follow up cultures, cdif pcr consult CAD xarelto, statin DM basal bolus insulin ANAHI on CKD II due to hypoperfusion monitor hold nakia-i afib metoprolol xarelto Quality Stroke Does the patient have a stroke diagnosis?: No VTE Prior VTE?: No VTE Risk Level:: Medical - moderate - high VTE Device Contraindication: Treatment Not Indicated VTE Drug Contraindication: N/A - Med Ordered
[2021-05-02 19:10] LABS: CDiff Gene PCR NEGATIVE (Negative)
[2021-05-02 21:50] LABS: Glucose, Whole Blood 182 mg/dL (60-115)
--- NOTE | 2021-05-02 22:19 | PC.NURSE ---
[facility] W/HOSP. PLAN TO HOLD METOPROLOL TONIGHT D/T HYPOTENSION THROUGHOUT THE DAY
[2021-05-02] MEDS: Gabapentin 100 MG CAPSULE PO (22:29)
[2021-05-02] MEDS: Insulin Glargine,Hum.rec.anlog 100 UNIT/ML 10 ML VIAL 15 UNIT SUBCUT (22:36)
[2021-05-03] VITALS (9 sets, daily range): BP systolic 123–159; BP diastolic 59–89; PULSE 86–128; RESP 18–20; TEMP 36.4–37.4; O2SAT 94–99
[2021-05-03] MEDS: Metoprolol Tartrate 100 MG TABLET PO ×2 (04:52→08:26)
--- NOTE | 2021-05-03 05:21 | PC.NURSE ---
ADMIT TO [facility]- APPROX 12AM...ALERT..ORIENTED X3..SPEECH CLEAR....SBP 140'S-150'S...ATRIAL FIB HR 100'S-110'S....SAHNI DRAINING SEDIMENTED LEXIS URINE...DENIES DISCOMFORT..HR TRENDING UPWARDS OVERNIGHT...HR 120'S-130'S...BP STABLE...PATIENT DID NOT RECEIVE LOPRESSOR IN ER DEPT D/T PREVIOUS HYPOTENSION...DR ALFARO UPDATED...PER 9AM LOPRESSOR 100MG PO DOSE GIVEN EARLY AT 5AM..ASYMPTOMATIC..CURRENTLY ATRIAL FIB HR 100'S-110'S ..
[2021-05-03 06:51] LABS: Hematocrit 38.6 % (42-52); Hemoglobin 12.6 g/dl (14.0-18.0); Mean Corpuscular HGB Conc 32.6 g/dl (31.0-36.0); Mean Corpuscular Hemoglobin 27.6 pg (27.0-33.0); Mean Corpuscular Volume 84.5 fL (80-98); Mean Platelet Volume 12.5 fL (9.4-12.4); Platelet Count 127 X10*3/uL (160-400); Red Blood Count 4.57 X10*6/uL (4.60-5.80); Red Cell Distribution Width 14.6 % (11.0-16.0); White Blood Count 21.2 X10*3/uL (4.8-10.8)
[2021-05-03 07:17] LABS: Anion Gap 13 (12-20); Blood Urea Nitrogen 33 mg/dL (9-16); Calcium 7.9 mg/dL (8.4-10.2); Carbon Dioxide 22 mmol/L (22-29); Chloride 110 mmol/L (96-108); Estimated Glomerular Filt Rate 51; Glucose Fasting 176 mg/dL (60-99); Magnesium 1.9 mg/dL (1.6-2.6); Potassium 4.2 mmol/L (3.3-5.1); Sodium 141 mmol/L (135-145)
[2021-05-03 07:39] LABS: Glucose, Whole Blood 197 mg/dL (60-115)
[2021-05-03] MEDS: Insulin Lispro 100 UNIT/ML 3 ML VIAL SUBCUT ×4 (08:23→21:31)
[2021-05-03] MEDS: 0.9 % Sodium Chloride Flush 3 ML SYRINGE IVFLUSH ×3 (08:25→23:37)
[2021-05-03] MEDS: Atorvastatin Calcium 40 MG TABLET PO (08:25)
[2021-05-03] MEDS: Tamsulosin HCL 0.4 MG CAPSULE PO (08:26)
[2021-05-03] MEDS: Rivaroxaban 20 MG TABLET PO (08:26)
[2021-05-03] MEDS: cefTRIAXone sodium 1 GM in 0.9 % Sodium Chloride 50 ML IV (08:28)
--- NOTE | 2021-05-03 10:10 | P.PNIM_ITS ---
Subjective Subjective Date of Service: 05/03/21 Interval History: still weak and having diarrhea, but much improved Cardiovascular Cardiovascular: Reports no additional cardiovascular complaints Respiratory Respiratory: Reports no additional respiratory complaints Physical Exam Vital Signs: Vital Signs: Last Vital Signs Temp 98.7 F 05/03/21 08:00 Pulse 99 05/03/21 08:26 Resp 20 05/03/21 08:00 BP 144/79 H 05/03/21 08:26 Pulse Ox 95 05/03/21 08:00 Body Mass Index 40.4 General: AO X 3, no acute distress, weak appearing Resp: CTA bilateral CVS: S1,S2,RRR GI: soft, non tender, non distended Neuro: motor grossly intact Psych: appropriate affect Objective Data Current Medications Generic Name Dose Route Start Last Admin Trade Name Jacksonq PRN Reason Stop Dose Admin Atorvastatin Calcium 40 mg 05/03/21 09:00 05/03/21 08:25 Atorvastatin Calcium 40 Mg Tablet PO 40 mg DAILY ROBERT Administration Gabapentin 100 mg 05/02/21 21:34 05/02/21 22:29 Gabapentin 100 Mg Capsule PO 100 mg BEDTIME ROBERT Administration Ceftriaxone Sodium 1 gm/ 50 mls @ 100 mls/hr 05/03/21 09:00 05/03/21 08:28 Sodium Chloride IV 100 mls/hr DAILY ROBERT Administration Insulin Glargine 15 unit 05/02/21 21:34 05/02/21 22:36 Insulin Glargine,Hum.Rec.Anlog 100 Unit/Ml 10 Ml Vial SUBCUT 15 unit BEDTIME ROBERT Administration Insulin Human Lispro 0 unit 05/02/21 21:34 05/03/21 08:23 Insulin Lispro 100 Unit/Ml 3 Ml Vial SUBCUT 2 unit QIDACHS ROBERT Administration Protocol Metoprolol Tartrate 100 mg 05/02/21 21:34 05/03/21 08:26 Metoprolol Tartrate 100 Mg Tablet PO 100 mg BID ROBERT Administration Protocol Rivaroxaban 20 mg 05/03/21 09:00 05/03/21 08:26 Rivaroxaban 20 Mg Tablet PO 20 mg DAILY ROBERT Administration Sodium Chloride 3 ml 05/02/21 21:34 05/03/21 08:25 0.9 % Sodium Chloride Flush 3 Ml Syringe IVFLUSH 3 ml QSHIFT ROBERT Administration Tamsulosin HCl 0.4 mg 05/03/21 09:00 05/03/21 08:26 Tamsulosin Hcl 0.4 Mg Capsule PO 0.4 mg DAILY ROBERT Administration Labs CBC & Chem 7: 05/03/21 05:48 05/03/21 05:48 Labs: Laboratory Results - last 24 hr 05/02/21 05/02/21 05/02/21 08:54 11:20 13:35 WBC RBC Hgb Hct MCV MCH MCHC RDW Plt Count MPV Absolute Nucleated RBC Nucleated RBC % (auto) PT 19.9 H INR 1.7 H APTT 36.1 Sodium Potassium Chloride Carbon Dioxide Anion Gap BUN Creatinine Estim Creat Clear Calc Estimated GFR POC Glucose Fasting Glucose Lactic Acid Fup @ 2Hr 3.2 H* Lactic Acid Fup @ 4Hr Calcium Magnesium Urine Color RED Urine Appearance TURBID Urine pH 6.5 Ur Specific [place] TNP Urine Protein TNP Urine Glucose (UA) TNP Urine Ketones TNP Urine Blood 3+ H Urine Nitrite TNP Ur Leukocyte Esterase TNP Urine RBC TNTC H Urine WBC 76-150 H Ur Squamous Epith Cells 1+ Amorphous Sediment 3+ Urine Bacteria 2+ Urine Mucus 1+ C. difficile Tox B Gene 05/02/21 05/02/21 05/02/21 13:51 17:55 21:44 WBC RBC Hgb Hct MCV MCH MCHC RDW Plt Count MPV Absolute Nucleated RBC Nucleated RBC % (auto) PT INR APTT Sodium Potassium Chloride Carbon Dioxide Anion Gap BUN Creatinine Estim Creat Clear Calc Estimated GFR POC Glucose 182 H Fasting Glucose Lactic Acid Fup @ 2Hr Lactic Acid Fup @ 4Hr 2.4 H* Calcium Magnesium Urine Color Urine Appearance Urine pH Ur Specific [place] Urine Protein Urine Glucose (UA) Urine Ketones Urine Blood Urine Nitrite Ur Leukocyte Esterase Urine RBC Urine WBC Ur Squamous Epith Cells Amorphous Sediment Urine Bacteria Urine Mucus C. difficile Tox B Gene NEGATIVE 05/03/21 05/03/21 05/03/21 05:48 05:48 07:19 WBC 21.2 H RBC 4.57 L Hgb 12.6 L Hct 38.6 L MCV 84.5 MCH 27.6 MCHC 32.6 RDW 14.6 Plt Count 127 L MPV 12.5 H Absolute Nucleated RBC 0.000 Nucleated RBC % (auto) 0.0 PT INR APTT Sodium 141 Potassium 4.2 Chloride 110 H Carbon Dioxide 22 Anion Gap 13 BUN 33 H Creatinine 1.36 Estim Creat Clear Calc 62.0 Estimated GFR 51 POC Glucose 197 H Fasting Glucose 176 H D Lactic Acid Fup @ 2Hr Lactic Acid Fup @ 4Hr Calcium 7.9 L D Magnesium 1.9 Urine Color Urine Appearance Urine pH Ur Specific [place] Urine Protein Urine Glucose (UA) Urine Ketones Urine Blood Urine Nitrite Ur Leukocyte Esterase Urine RBC Urine WBC Ur Squamous Epith Cells Amorphous Sediment Urine Bacteria Urine Mucus C. difficile Tox B Gene Microbiology Microbiology Results: Microbiology 05/02/21 Unknown Urine Culture - Final Urine clean catch - Urine [place] top Quality Stroke Does the patient have a stroke diagnosis?: No VTE Prior VTE?: No VTE Risk Level:: Medical - moderate - high VTE Device Contraindication: Treatment Not Indicated VTE Drug Contraindication: N/A - Med Ordered Assessment and Plan (1) Acidosis, lactic: Status: Acute Assessment and Plan: 75M presented with weakness severe sepsis poa due to UTI post cystoscopy received 30cc/kg fluids in ED as well as albumin and lactate and blood pressure improved continue ceftriaxone, follow up cultures eval diarrhea cdif negative can use imodium if needed CAD xarelto, statin DM basal bolus insulin ANAHI on CKD II due to hypoperfusion improving hold nakia-i afib metoprolol xarelto
[2021-05-03 11:03] LABS: Glucose, Whole Blood 226 mg/dL (60-115)
--- NOTE | 2021-05-03 11:54 | MHC.CM.PN ---
CM MET WITH PT WHO REPORTS HE LIVES WITH HIS AND IS INDEPENDENT WITH ALL CARE. PT REPORTS HE HAS A CANE HE USES PRN AND NO OTHER DME WELL NO HOME SERVICES. PT HAS A HCP ON FILE AND HE CONFIRMS HIS PCP IS [facility] R[facility]HE[facility]. PT REPORTS ALTHOUGH HIS HCP NAMES HIS AND DAUGHTER HE WOULD LIKE INFORMATION GIVEN TO HIS DAUGHTER IN LAW AND SON IF THEY CALL WELL. IMM DELIVERED. CURRENT DC PLAN IS HOME WITH NO SERVICES VS HOME WITH [facility] WILL TRANSPORT
[2021-05-03 16:13] LABS: Glucose, Whole Blood 193 mg/dL (60-115)
--- NOTE | 2021-05-03 16:13 | PC.NURSE ---
Skin/Assessment completed today. No skin issues found. Skin is intact and dry.
[2021-05-03 19:57] LABS: Glucose, Whole Blood 181 mg/dL (60-115)
[2021-05-03] MEDS: Gabapentin 100 MG CAPSULE PO (21:29)
[2021-05-03] MEDS: Insulin Glargine,Hum.rec.anlog 100 UNIT/ML 10 ML VIAL 15 UNIT SUBCUT (21:30)
[2021-05-04] VITALS (8 sets, daily range): BP systolic 146–198; BP diastolic 69–94; PULSE 83–111; RESP 18–20; TEMP 36.7–37.1; O2SAT 95–98
[2021-05-04 06:43] LABS: Hematocrit 39.5 % (42-52); Hemoglobin 12.9 g/dl (14.0-18.0); Mean Corpuscular HGB Conc 32.7 g/dl (31.0-36.0); Mean Corpuscular Hemoglobin 27.4 pg (27.0-33.0); Mean Corpuscular Volume 83.9 fL (80-98); Mean Platelet Volume 11.9 fL (9.4-12.4); Platelet Count 156 X10*3/uL (160-400); Red Blood Count 4.71 X10*6/uL (4.60-5.80); Red Cell Distribution Width 14.4 % (11.0-16.0); White Blood Count 15.4 X10*3/uL (4.8-10.8)
[2021-05-04 06:50] LABS: Anion Gap 13 (12-20); Blood Urea Nitrogen 26 mg/dL (9-16); Carbon Dioxide 24 mmol/L (22-29); Chloride 107 mmol/L (96-108); Creatinine Clr Calc Pharmacy 78.8; Estimated Glomerular Filt Rate > 60; Glucose Fasting 166 mg/dL (60-99); Potassium 3.3 mmol/L (3.3-5.1); Sodium 141 mmol/L (135-145)
[2021-05-04 07:33] LABS: Glucose, Whole Blood 161 mg/dL (60-115)
[2021-05-04] MEDS: 0.9 % Sodium Chloride Flush 3 ML SYRINGE IVFLUSH ×3 (08:24→21:01)
[2021-05-04] MEDS: cefTRIAXone sodium 1 GM in 0.9 % Sodium Chloride 50 ML IV (08:25)
[2021-05-04] MEDS: Rivaroxaban 20 MG TABLET PO ×2 (08:25→08:26)
[2021-05-04] MEDS: Insulin Lispro 100 UNIT/ML 3 ML VIAL SUBCUT ×4 (08:25→21:00)
[2021-05-04] MEDS: Metoprolol Tartrate 100 MG TABLET PO ×2 (08:26→21:01)
[2021-05-04] MEDS: Tamsulosin HCL 0.4 MG CAPSULE PO (08:27)
[2021-05-04] MEDS: Atorvastatin Calcium 40 MG TABLET PO (08:27)
[2021-05-04] MEDS: Loperamide HCl 2 MG CAPSULE PO ×3 (09:32→21:00)
--- NOTE | 2021-05-04 11:03 | HO.PM.IMPN ---
Subjective Subjective Date of Service: 05/04/21 Interval History: still with diarrhea Cardiovascular Cardiovascular: Reports no additional cardiovascular complaints Gastrointestinal Gastrointestinal: Reports no additional gastrointestinal complaints Physical Exam Vital Signs: Vital Signs: Last Vital Signs Temp 98.7 F 05/04/21 07:21 Pulse 105 H 05/04/21 08:26 Resp 20 05/04/21 07:21 BP 172/80 H 05/04/21 08:26 Pulse Ox 95 05/04/21 07:21 Body Mass Index 40.4 General: AO X 3, no acute distress, weak appearing Resp: CTA bilateral CVS: S1,S2,RRR GI: soft, non tender, non distended Neuro: motor grossly intact Psych: appropriate affect Objective Data Current Medications Generic Name Dose Route Start Last Admin Trade Name Freq PRN Reason Stop Dose Admin Atorvastatin Calcium 40 mg 05/03/21 09:00 05/04/21 08:27 Atorvastatin Calcium 40 Mg Tablet PO 40 mg DAILY ROBERT Administration Gabapentin 100 mg 05/02/21 21:34 05/03/21 21:29 Gabapentin 100 Mg Capsule PO 100 mg BEDTIME ROBERT Administration Ceftriaxone Sodium 1 gm/ 50 mls @ 100 mls/hr 05/03/21 09:00 05/04/21 09:09 Sodium Chloride IV Infused DAILY ROBERT Infusion Insulin Glargine 15 unit 05/02/21 21:34 05/03/21 21:30 Insulin Glargine,Hum.Rec.Anlog 100 Unit/Ml 10 Ml Vial SUBCUT 15 unit BEDTIME ROBERT Administration Insulin Human Lispro 0 unit 05/02/21 21:34 05/04/21 08:25 Insulin Lispro 100 Unit/Ml 3 Ml Vial SUBCUT 2 unit QIDACHS ROBERT Administration Protocol Loperamide HCl 2 mg 05/03/21 20:52 05/04/21 09:32 Loperamide Hcl 2 Mg Capsule PO 2 mg Q4H PRN Administration Diarrhea Metoprolol Tartrate 100 mg 05/02/21 21:34 05/04/21 08:26 Metoprolol Tartrate 100 Mg Tablet PO 100 mg BID ROBERT Administration Protocol Rivaroxaban 20 mg 05/03/21 09:00 05/04/21 08:26 Rivaroxaban 20 Mg Tablet PO 20 mg DAILY ROBERT Administration Sodium Chloride 3 ml 05/02/21 21:34 05/04/21 08:24 0.9 % Sodium Chloride Flush 3 Ml Syringe IVFLUSH 3 ml QSHIFT ROBERT Administration Tamsulosin HCl 0.4 mg 05/03/21 09:00 05/04/21 08:27 Tamsulosin Hcl 0.4 Mg Capsule PO 0.4 mg DAILY ROBERT Administration Labs CBC & Chem 7: 05/04/21 05:22 05/04/21 05:22 Labs: Laboratory Results - last 24 hr 05/03/21 05/03/21 05/03/21 10:52 16:07 19:51 WBC RBC Hgb Hct MCV MCH MCHC RDW Plt Count MPV Absolute Nucleated RBC Nucleated RBC % (auto) Sodium Potassium Chloride Carbon Dioxide Anion Gap BUN Creatinine Estim Creat Clear Calc Estimated GFR POC Glucose 226 H 193 H 181 H Fasting Glucose Calcium 05/04/21 05/04/21 05/04/21 05:22 05:22 07:23 WBC 15.4 H RBC 4.71 Hgb 12.9 L Hct 39.5 L MCV 83.9 MCH 27.4 MCHC 32.7 RDW 14.4 Plt Count 156 L MPV 11.9 Absolute Nucleated RBC 0.000 Nucleated RBC % (auto) 0.0 Sodium 141 Potassium 3.3 D Chloride 107 Carbon Dioxide 24 Anion Gap 13 BUN 26 H Creatinine 1.07 Estim Creat Clear Calc 78.8 Estimated GFR > 60 POC Glucose 161 H Fasting Glucose 166 H Calcium 8.0 L Microbiology Microbiology Results: Microbiology 05/02/21 08:54 Blood Culture - Preliminary Blood - Venous No growth after 24 hours. 05/02/21 08:53 Blood Culture - Preliminary Blood - Venous No growth after 24 hours. 05/02/21 Unknown Urine Culture - Final Urine clean catch - Urine [place] top Quality Stroke Does the patient have a stroke diagnosis?: No VTE Prior VTE?: No VTE Risk Level:: Medical - moderate - high VTE Device Contraindication: Treatment Not Indicated VTE Drug Contraindication: N/A - Med Ordered Assessment and Plan (1) Acidosis, lactic: Status: Acute Assessment and Plan: 75M presented with weakness severe sepsis present on admission due to UTI post cystoscopy received 30cc/kg fluids in ED as well as albumin and lactate and blood pressure improved continue ceftriaxone, follow up cultures eval diarrhea cdif negative imodium CAD xarelto, statin DM basal bolus insulin ANAHI on CKD II due to hypoperfusion improving holding nakia-i afib metoprolol xarelto
[2021-05-04 11:33] LABS: Glucose, Whole Blood 173 mg/dL (60-115)
[2021-05-04 16:01] LABS: Glucose, Whole Blood 172 mg/dL (60-115)
[2021-05-04 20:10] LABS: Glucose, Whole Blood 215 mg/dL (60-115)
[2021-05-04] MEDS: Gabapentin 100 MG CAPSULE PO (21:00)
[2021-05-04] MEDS: Insulin Glargine,Hum.rec.anlog 100 UNIT/ML 10 ML VIAL 15 UNIT SUBCUT (21:01)
[2021-05-05] VITALS (10 sets, daily range): BP systolic 136–210; BP diastolic 66–96; PULSE 83–117; RESP 18–85; TEMP 36.1–36.9; O2SAT 94–97
[2021-05-05 06:50] LABS: Hematocrit 40.6 % (42-52); Hemoglobin 13.3 g/dl (14.0-18.0); Mean Corpuscular HGB Conc 32.8 g/dl (31.0-36.0); Mean Corpuscular Hemoglobin 27.4 pg (27.0-33.0); Mean Corpuscular Volume 83.5 fL (80-98); Mean Platelet Volume 12.2 fL (9.4-12.4); Platelet Count 147 X10*3/uL (160-400); Red Blood Count 4.86 X10*6/uL (4.60-5.80); Red Cell Distribution Width 14.4 % (11.0-16.0); White Blood Count 11.6 X10*3/uL (4.8-10.8)
[2021-05-05 07:03] LABS: Anion Gap 17 (12-20); Blood Urea Nitrogen 18 mg/dL (9-16); Calcium 8.3 mg/dL (8.4-10.2); Carbon Dioxide 24 mmol/L (22-29); Chloride 105 mmol/L (96-108); Creatinine Clr Calc Pharmacy 81.9; Estimated Glomerular Filt Rate > 60; Glucose Fasting 169 mg/dL (60-99); Potassium 3.7 mmol/L (3.3-5.1); Sodium 142 mmol/L (135-145)
[2021-05-05 07:24] LABS: Glucose, Whole Blood 171 mg/dL (60-115)
[2021-05-05] MEDS: Atorvastatin Calcium 40 MG TABLET PO (08:09)
[2021-05-05] MEDS: Insulin Lispro 100 UNIT/ML 3 ML VIAL SUBCUT ×4 (08:09→21:01)
[2021-05-05] MEDS: 0.9 % Sodium Chloride Flush 3 ML SYRINGE IVFLUSH ×3 (08:09→23:46)
[2021-05-05] MEDS: cefTRIAXone sodium 1 GM in 0.9 % Sodium Chloride 50 ML IV (08:10)
[2021-05-05] MEDS: Rivaroxaban 20 MG TABLET PO (08:10)
[2021-05-05] MEDS: Metoprolol Tartrate 100 MG TABLET PO ×2 (08:13→20:13)
--- NOTE | 2021-05-05 08:34 | PM.UROCN ---
History of Present Illness Consult details Consult date: 05/03/21 Narrative: Kamlesh is a pleasant 75-year-old male recent outpatient cystoscopy appears to have developed UTI due to incomplete emptying admitted and treated with IV antibiotics and improving has known bladder cancer and is being scheduled for TURBT discussed findings again with kamlesh today interestingly microbiology has been negative Review of Systems Constitutional: Constitutional: Denies chills and Denies fever(s) Cardiovascular: Cardiovascular: Reports no additional cardiovascular complaints and Denies syncope Respiratory: Respiratory: Denies cough Gastrointestinal: Gastrointestinal: Denies abdominal pain and Denies heartburn Genitourinary: Genitourinary: Reports as per HPI and Denies change in libido Neurologic: Denies syncope Psychiatric: Psychiatric: Denies change in libido Endocrine: Endocrine: Denies change in libido [facility] Past Medical History Medical History Benign essential hypertension CAD (coronary artery disease) Chronic anticoagulation Chronic atrial fibrillation Chronic kidney disease (CKD), stage II (mild) Diabetes mellitus Erectile dysfunction History of colon polyps History of penile cancer Hyperlipidemia LDL goal <70 Iron deficiency anemia correction (current) use of insulin Obesity (BMI 30-39.9) Pure hypercholesterolemia 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 Family History Family History Father Medical history unknown Mother Diabetes Daughter In good health Son In good health Sister In good health Sister In good health Brother In good health Brother In good health Brother In good health Surgical History Surgical History History of cataract surgery History of endoscopy Hx of colonoscopy Hx of removal of cyst Social History Social History Household Members: Spouse Housing: House Alcohol intake: never Patient Tobacco Use Status: Former Tobacco user Use of substances other than those prescribed or required for medical reasons: No Currently Displaying Signs/Symptoms of Drug Intoxication Withdrawal: No Advance Directives: No Advance Directives Information Provided: No Do you have thoughts of harming others: None Do you have a plan to hurt others: No Plan service: No Current occupational status: retired Meds Allergies Allergy/AdvReac Type Severity Reaction Status Date / Time colesevelam [From [facility]] AdvReac Mild constipatio Verified 05/02/21 08:41 n Active Medications: Current Medications Generic Name Dose Route Start Last Admin Trade Name Rosalino PRN Reason Stop Dose Admin Atorvastatin Calcium 40 mg 05/03/21 09:00 05/05/21 08:09 Atorvastatin Calcium 40 Mg Tablet PO 40 mg DAILY ROBERT Administration Gabapentin 100 mg 05/02/21 21:34 05/04/21 21:00 Gabapentin 100 Mg Capsule PO 100 mg BEDTIME ROBERT Administration Ceftriaxone Sodium 1 gm/ 50 mls @ 100 mls/hr 05/03/21 09:00 05/05/21 08:10 Sodium Chloride IV 100 mls/hr DAILY ROBERT Administration Insulin Glargine 15 unit 05/02/21 21:34 05/04/21 21:01 Insulin Glargine,Hum.Rec.Anlog 100 Unit/Ml 10 Ml Vial SUBCUT 15 unit BEDTIME ROBERT Administration Insulin Human Lispro 0 unit 05/02/21 21:34 05/05/21 08:09 Insulin Lispro 100 Unit/Ml 3 Ml Vial SUBCUT 4 unit QIDACHS ROBERT Administration Protocol Loperamide HCl 2 mg 05/03/21 20:52 05/04/21 21:00 Loperamide Hcl 2 Mg Capsule PO 2 mg Q4H PRN Administration Diarrhea Metoprolol Tartrate 100 mg 05/02/21 21:34 05/05/21 08:13 Metoprolol Tartrate 100 Mg Tablet PO 100 mg BID ROBERT Administration Protocol Rivaroxaban 20 mg 05/03/21 09:00 05/05/21 08:10 Rivaroxaban 20 Mg Tablet PO 20 mg DAILY ROBERT Administration Sodium Chloride 3 ml 05/02/21 21:34 05/05/21 08:09 0.9 % Sodium Chloride Flush 3 Ml Syringe IVFLUSH 3 ml QSHIFT ROBERT Administration Tamsulosin HCl 0.4 mg 05/03/21 09:00 05/04/21 08:27 Tamsulosin Hcl 0.4 Mg Capsule PO 0.4 mg DAILY ROBERT Administration Home Medications Medication Instructions Recorded Confirmed Last Taken Type furosemide 20 mg tablet 20 mg PO DAILY 08/20/20 05/02/21 Unknown History latanoprost 0.005 % eye drops 1 drp OPHTHALMIC (EYE) BEDTIME 08/20/20 04/21/21 Unknown History lisinopril 40 mg tablet 40 mg PO DAILY 08/25/20 05/02/21 Unknown History nitroglycerin 0.4 mg sublingual 0.4 mg SUBLINGUAL Q5M PRN 08/25/20 04/21/21 Unknown History tablet Physical Exam Vital Signs: Vital Signs: Last Vital Signs Temp 98 F 05/05/21 07:09 Pulse 100 05/05/21 08:13 Resp 20 05/05/21 07:09 BP 180/90 H 05/05/21 08:13 Pulse Ox 97 05/05/21 07:09 Body Mass Index 40.4 Const: General: cooperative, healthy appearing, comfortable and no acute distress Orientation/consciousness: patient oriented x3 HENMT: Face and sinus: Yes normal facial exam Mouth: moist mucous membranes Neck: Neck: Yes normal visual inspection, Yes full ROM and Yes trachea midline Chest: Chest palpation & inspection: normal inspection of the chest Resp: Effort & Inspection: normal respiratory effort, able to speak in complete sentences and no respiratory distress GI: Inspection: Yes normal to inspection Back/Spine/Pelvis: Cervical Spine: normal cervical lordosis Thoracic/Lumbar Spine: thoracic and lumbar spine normal to inspection Skin: General skin exam: no rashes or lesions noted Neuro: General: patient oriented x3, gait normal, tone normal and moves all extremities Extrem: General: Yes normal to inspection and Yes capillary refill normal Results Labs Result diagrams: 05/05/21 05:24 05/05/21 05:24 Labs: Abnormal lab results 05/04/21 05/04/21 05/04/21 Range/Units 11:29 15:53 20:00 WBC (4.8-10.8) X10*3/uL Hgb (14.0-18.0) g/dl Hct (42-52) % Plt Count (160-400) X10*3/uL BUN (9-16) mg/dL POC Glucose 173 H 172 H 215 H (60-115) mg/dL Fasting Glucose (60-99) mg/dL Calcium (8.4-10.2) mg/dL 05/05/21 05/05/21 05/05/21 Range/Units 05:24 05:24 07:08 WBC 11.6 H (4.8-10.8) X10*3/uL Hgb 13.3 L (14.0-18.0) g/dl Hct 40.6 L (42-52) % Plt Count 147 L (160-400) X10*3/uL BUN 18 H (9-16) mg/dL POC Glucose 171 H (60-115) mg/dL Fasting Glucose 169 H (60-99) mg/dL Calcium 8.3 L (8.4-10.2) mg/dL Short CBC 05/05/21 Range/Units 05:24 WBC 11.6 H (4.8-10.8) X10*3/uL Hgb 13.3 L (14.0-18.0) g/dl Hct 40.6 L (42-52) % Plt Count 147 L (160-400) X10*3/uL BMP 05/05/21 05:24 Sodium 142 Potassium 3.7 Chloride 105 Carbon Dioxide 24 BUN 18 H Creatinine 1.03 Calcium 8.3 L Urine 05/02/21 Range/Units 13:35 Urine Color RED Urine Appearance TURBID Urine pH 6.5 (5.0-8.0) Ur Specific [place] TNP Urine Protein TNP Urine Glucose (UA) TNP All other labs normal. Assessment and Plan (1) Leukocytosis: Qualifiers: Leukocytosis type: bandemia Qualified Code(s): D72.825 - Bandemia Status: Acute (2) ANAHI (acute kidney injury): Status: Acute (3) Acidosis, lactic: Status: Acute improvement with IV antibiotics and rehydration presumed complicated UTI planning for bladder cancer Procedure Procedures Date of Service Date of Service: 05/03/21
[2021-05-05] MEDS: Tamsulosin HCL 0.4 MG CAPSULE PO (10:50)
[2021-05-05] MEDS: lisinopriL 40 MG TABLET PO (10:50)
[2021-05-05 11:14] LABS: Glucose, Whole Blood 242 mg/dL (60-115)
--- NOTE | 2021-05-05 14:37 | MHC.CM.PN ---
CM INFORMED PT WILL NEED [facility] AT DC FOR NEW [facility]HNI CATH AND BLOOD PRESSURE. REFERRAL PLACED UPON ADMISSION, [facility] FOLLOWING CURRENT DC PLAN IS HOME WITH [facility]
--- NOTE | 2021-05-05 15:34 | HO.PM.IMPN ---
Subjective Subjective Date of Service: 05/05/21 Interval History: the patient was seen and evaluated this morning Laying in bed, feels comfortable overall with burning sensation in the urine Denies any fever, chills or shortness of breath No reported other overnight events. Systemic review: No fever, chills or weakness No chest pain, palpitation No shortness of breath or coughing No abdominal pain, nausea or vomiting still has hematuria in the Marie catheter No any rash or wounds Physical Exam Vital Signs: Vital Signs: Last Vital Signs Temp 97.8 F 05/05/21 15:24 Pulse 97 05/05/21 15:24 Resp 20 05/05/21 15:24 BP 148/67 H 05/05/21 15:24 Pulse Ox 96 05/05/21 15:24 Body Mass Index 40.4 Const: Other: Constitutional : Alert, oriented, not in distress Neck : Normal inspection, Supple Cardiovascular : RRR, S1 S2, no lower extremity edema Respiratory : Good bilateral air entry, no crackles, wheezes or rhonchi Gastrointestinal: soft, lax, Normal bowel sounds, Non tender Skin : Warm/Dry, No rash, hematuria in Marie catheter Neurological : Alert & oriented x3, No focal deficit Objective Data Current Medications Generic Name Dose Route Start Last Admin Trade Name Freq PRN Reason Stop Dose Admin Amlodipine Besylate 5 mg 05/06/21 09:00 Amlodipine Besylate 5 Mg Tablet PO DAILY [facility] Protocol Atorvastatin Calcium 40 mg 05/03/21 09:00 05/05/21 08:09 Atorvastatin Calcium 40 Mg Tablet PO 40 mg DAILY ROBERT Administration Gabapentin 100 mg 05/02/21 21:34 05/04/21 21:00 Gabapentin 100 Mg Capsule PO 100 mg BEDTIME ROBERT Administration Ceftriaxone Sodium 1 gm/ 50 mls @ 100 mls/hr 05/03/21 09:00 05/05/21 10:51 Sodium Chloride IV Infused DAILY ROBERT Infusion Insulin Glargine 15 unit 05/02/21 21:34 05/04/21 21:01 Insulin Glargine,Hum.Rec.Anlog 100 Unit/Ml 10 Ml Vial SUBCUT 15 unit BEDTIME ROBERT Administration Insulin Human Lispro 0 unit 05/02/21 21:34 05/05/21 11:35 Insulin Lispro 100 Unit/Ml 3 Ml Vial SUBCUT 4 unit QIDACHS ROBERT Administration Protocol Loperamide HCl 2 mg 05/03/21 20:52 05/04/21 21:00 Loperamide Hcl 2 Mg Capsule PO 2 mg Q4H PRN Administration Diarrhea Metoprolol Tartrate 100 mg 05/02/21 21:34 05/05/21 08:13 Metoprolol Tartrate 100 Mg Tablet PO 100 mg BID ROBERT Administration Protocol Rivaroxaban 20 mg 05/03/21 09:00 05/05/21 08:10 Rivaroxaban 20 Mg Tablet PO 20 mg DAILY ROBERT Administration Sodium Chloride 3 ml 05/02/21 21:34 05/05/21 08:09 0.9 % Sodium Chloride Flush 3 Ml Syringe IVFLUSH 3 ml QSHIFT ROBERT Administration Tamsulosin HCl 0.4 mg 05/03/21 09:00 05/05/21 10:50 Tamsulosin Hcl 0.4 Mg Capsule PO 0.4 mg DAILY ROBERT Administration Labs CBC & Chem 7: 05/05/21 05:24 05/05/21 05:24 Labs: Laboratory Results - last 24 hr 05/04/21 05/04/21 05/05/21 15:53 20:00 05:24 WBC 11.6 H RBC 4.86 Hgb 13.3 L Hct 40.6 L MCV 83.5 MCH 27.4 MCHC 32.8 RDW 14.4 Plt Count 147 L MPV 12.2 Absolute Nucleated RBC 0.000 Nucleated RBC % (auto) 0.0 Sodium Potassium Chloride Carbon Dioxide Anion Gap BUN Creatinine Estim Creat Clear Calc Estimated GFR POC Glucose 172 H 215 H Fasting Glucose Calcium 05/05/21 05/05/21 05/05/21 05:24 07:08 11:01 WBC RBC Hgb Hct MCV MCH MCHC RDW Plt Count MPV Absolute Nucleated RBC Nucleated RBC % (auto) Sodium 142 Potassium 3.7 Chloride 105 Carbon Dioxide 24 Anion Gap 17 BUN 18 H Creatinine 1.03 Estim Creat Clear Calc 81.9 Estimated GFR > 60 POC Glucose 171 H 242 H Fasting Glucose 169 H Calcium 8.3 L Quality Stroke Does the patient have a stroke diagnosis?: No VTE Prior VTE?: No VTE Risk Level:: Medical - moderate - high VTE Device Contraindication: Treatment Not Indicated VTE Drug Contraindication: N/A - Med Ordered Assessment and Plan (1) Acidosis, lactic: Status: Acute Assessment and Plan: 75M presented with weakness severe sepsis,on admission due to UTI post cystoscopy received 30cc/kg fluids in ED as well as albumin and lactate and blood pressure improved continue ceftriaxone, pending cultures gloria appreciated, for outpatient evaluation diarrhea cdif negative imodium CAD xarelto, statin DM basal bolus insulin ANAHI on CKD II due to hypoperfusion improving holding nakia-i afib metoprolol xarelto
[2021-05-05] MEDS: Acetaminophen 325 MG TABLET 650 MG PO (16:15)
[2021-05-05] MEDS: Phenazopyridine HCL 100 MG TABLET PO (16:21)
[2021-05-05 16:34] LABS: Glucose, Whole Blood 226 mg/dL (60-115)
--- NOTE | 2021-05-05 18:00 | PC.NURSE ---
Patient reported that his alcocer cath was leaking around insertion site 3 times since last night. This afternoon pt sat up in the bed and large amount of urine leaked out on the floor. Patient reported pressure in the lower abdomen prior passing urine. No blood clots noted in the alcocer cath bag or tubing. RN called DR Valderrama and ordered to remove urinary cath and do the voiding trial. Chatheter was removed at 18:00, alcocer bag emptied for 200ml maroon color urine
[2021-05-05] MEDS: Gabapentin 100 MG CAPSULE PO (20:13)
[2021-05-05 20:31] LABS: Glucose, Whole Blood 205 mg/dL (60-115)
[2021-05-05] MEDS: Insulin Glargine,Hum.rec.anlog 100 UNIT/ML 10 ML VIAL 15 UNIT SUBCUT (21:00)
[2021-05-06 03:18] VITALS: BP 150/70; PULSE 94; RESP 18; TEMP 36.4; O2SAT 97
[2021-05-06 06:59] LABS: Hematocrit 39.8 % (42-52); Hemoglobin 13.3 g/dl (14.0-18.0); Mean Corpuscular HGB Conc 33.4 g/dl (31.0-36.0); Mean Corpuscular Hemoglobin 27.9 pg (27.0-33.0); Mean Corpuscular Volume 83.6 fL (80-98); Mean Platelet Volume 11.5 fL (9.4-12.4); Platelet Count 160 X10*3/uL (160-400); Red Blood Count 4.76 X10*6/uL (4.60-5.80); Red Cell Distribution Width 14.2 % (11.0-16.0); White Blood Count 10.4 X10*3/uL (4.8-10.8)
[2021-05-06 07:16] LABS: Glucose, Whole Blood 208 mg/dL (60-115)
[2021-05-06 07:29] VITALS: BP 152/84; PULSE 85; RESP 17; TEMP 36.1; O2SAT 97
[2021-05-06 07:54] LABS: Anion Gap 13 (12-20); Blood Urea Nitrogen 14 mg/dL (9-16); Calcium 8.5 mg/dL (8.4-10.2); Carbon Dioxide 28 mmol/L (22-29); Chloride 105 mmol/L (96-108); Creatinine Clr Calc Pharmacy 89.7; Estimated Glomerular Filt Rate > 60; Glucose Random 197 mg/dL (60-115); Potassium 3.4 mmol/L (3.3-5.1); Sodium 143 mmol/L (135-145)
[2021-05-06] MEDS: Insulin Lispro 100 UNIT/ML 3 ML VIAL SUBCUT (08:45)
[2021-05-06] MEDS: Rivaroxaban 20 MG TABLET PO (08:46)
[2021-05-06] MEDS: Atorvastatin Calcium 40 MG TABLET PO (08:46)
[2021-05-06 08:47] VITALS: BP 152/84; PULSE 85
[2021-05-06] MEDS: Metoprolol Tartrate 100 MG TABLET PO (08:47)
[2021-05-06] MEDS: amLODIPine Besylate 5 MG TABLET PO (08:47)
[2021-05-06] MEDS: Phenazopyridine HCL 100 MG TABLET PO (08:47)
[2021-05-06] MEDS: Tamsulosin HCL 0.4 MG CAPSULE PO (08:47)
[2021-05-06] MEDS: 0.9 % Sodium Chloride Flush 3 ML SYRINGE IVFLUSH (08:48)
[2021-05-06] MEDS: cefTRIAXone sodium 1 GM in 0.9 % Sodium Chloride 50 ML IV (08:48)
--- NOTE | 2021-05-06 11:24 | PM.DS ---
DS: Providers Provider Date of Service: 05/06/21 Date of admission: 05/02/21 14:27 Primary care physician: Guido Andrade MD Consults: 05/02/21 21:34 Consult to Urology Routine Consulting Provider: Aquiles Valderrama Reason for consultation: recent cystoscopy, sepsis, bladder ca planned for TURBT DS: Diagnosis Discharge Diagnosis (1) Acidosis, lactic: Status: Acute (2) ANAHI (acute kidney injury): Status: Acute (3) Weakness: Status: Acute (4) UTI (urinary tract infection): Status: Acute DS: Medications Discharge Medications Home Medications: Home Medications Medication Instructions Recorded Confirmed furosemide 20 mg tablet 20 mg PO DAILY 08/20/20 05/02/21 latanoprost 0.005 % eye drops 1 drp OPHTHALMIC (EYE) BEDTIME 08/20/20 04/21/21 lisinopril 40 mg tablet 40 mg PO DAILY 08/25/20 05/02/21 nitroglycerin 0.4 mg sublingual 0.4 mg SUBLINGUAL Q5M PRN 08/25/20 04/21/21 tablet Previous Rx's Medication Instructions Recorded insulin glargine 100 unit/mL 54 unit SUBCUT DAILY 30 Days #20 ml 08/20/20 subcutaneous solution sildenafil 50 mg tablet 50 mg PO DAILY PRN 30 Days #10 tab 08/25/20 tadalafil 20 mg tablet 20 mg PO DAILY PRN 30 Days #10 tab 10/02/20 cholecalciferol (vitamin D3) 25 25 mcg PO DAILY #90 tab 10/07/20 mcg (1,000 unit) tablet metoprolol tartrate 100 mg tablet 100 mg PO BID #180 tab 11/25/20 insulin syringe-needle U-100 1 mL 1 ml MISCELLANEOUS BID #100 ea 12/20/20 31 gauge x 03/21 gabapentin 100 mg capsule 100 mg PO BEDTIME #90 cap 02/11/21 dulaglutide 0.75 mg/0.5 mL 0.75 mg SUBCUT QWEEK 30 Days #2.5 02/19/21 subcutaneous pen injector ml atorvastatin 40 mg tablet 40 mg PO DAILY 90 Days #90 tab 02/22/21 insulin lispro 100 unit/mL See Rx Instructions SUBCUT 03/07/21 subcutaneous solution .COMPLEX 90 Days #120 ml rivaroxaban 20 mg tablet 20 mg PO DAILY #30 tab 03/09/21 tamsulosin 0.4 mg capsule 0.4 mg PO DAILY #30 cap 03/09/21 flash glucose sensor 1 ea TOPICAL Q2W #2 ea 04/07/21 ferrous sulfate 325 mg (65 mg 325 mg PO DAILY #30 tab 04/19/21 iron) tablet terazosin 5 mg capsule 5 mg PO BEDTIME 30 Days #30 cap 05/05/21 cefuroxime axetil 500 mg PO BID #10 tab 05/06/21 DS: Summary Hospital Course Hospital Course: admission note HPI 75M presented with 1-2 days of severe weakness, diarrhea. patient had been feeling well. 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 on evening of 04/30 he started to feel weak, nauseous, decreased appetite, next day started having significant diarrhea. on day of admission, patient felt so weak he was unable to get up from bed. in ED patient was hypotensive 87/33, responded after albumin and 4L of fluid. given levaquin and cefriaxone. WBC 29, lactate 6.2. Hospital course The patient was admitted to the hospital for severe sepsis secondary to UTI. Treated with IV fluids for lactic acidosis with good response as the blood pressure improved. Treated with IV anti biotics of ceftriaxone at the blood and urine cultures remain negative. Evaluated by urologist Dr. Valderrama who recommended outpatient follow-up for further workup of the bladder masses. Marie catheter was leaking and removed during the hospital stay with the patient able to pass urine freely after that with no reported problems. To be discharged home on 5 more days of Ceftin. Time Spent with Patient Time attestation: Total time spent providing and/or coordinating discharge services: Discharge coordination time: Greater than 30 minutes Quality: Stroke Does the patient have a stroke diagnosis?: No Physical Exam Vital Signs: Vital Signs: Last Vital Signs Temp 97 F 05/06/21 07:29 Pulse 85 05/06/21 08:47 Resp 17 05/06/21 07:29 BP 152/84 H 05/06/21 08:47 Pulse Ox 97 05/06/21 07:29 Body Mass Index 40.4 Const: Other: Constitutional : Alert, oriented, not in distress Neck : Normal inspection, Supple Cardiovascular : RRR, S1 S2, no lower extremity edema Respiratory : Good bilateral air entry, no crackles, wheezes or rhonchi Gastrointestinal: soft, lax, Normal bowel sounds, Non tender Skin : Warm/Dry, No rash Neurological : Alert & oriented x3, No focal deficit DS: Data Data Completed and Pending Labs on day of discharge: Laboratory Results - last 24 hr 05/05/21 05/05/21 05/06/21 16:15 20:22 05:32 WBC 10.4 RBC 4.76 Hgb 13.3 L Hct 39.8 L MCV 83.6 MCH 27.9 MCHC 33.4 RDW 14.2 Plt Count 160 MPV 11.5 Absolute Nucleated RBC 0.000 Nucleated RBC % (auto) 0.0 Sodium Potassium Chloride Carbon Dioxide Anion Gap BUN Creatinine Estim Creat Clear Calc Estimated GFR POC Glucose 226 H 205 H Random Glucose Calcium 05/06/21 05/06/21 05:32 07:09 WBC RBC Hgb Hct MCV MCH MCHC RDW Plt Count MPV Absolute Nucleated RBC Nucleated RBC % (auto) Sodium 143 Potassium 3.4 Chloride 105 Carbon Dioxide 28 Anion Gap 13 BUN 14 Creatinine 0.94 Estim Creat Clear Calc 89.7 Estimated GFR > 60 POC Glucose 208 H Random Glucose 197 H Calcium 8.5 Preliminary micro results at discharge 05/02/21 08:54 Blood Culture - Preliminary Blood - Venous No growth after 48 hours. 05/02/21 08:53 Blood Culture - Preliminary Blood - Venous No growth after 48 hours. Discharge Plan Discharge Patient Disposition: Home, Self-Care Discharge Diagnosis: Urinary tract infection Acute kidney injury Bladder mass Referrals: Jennifer KEYES [Outside] - 1 Week Guido Andrade MD [Primary Care Provider] - 1 Week Discharge Medications: New cefuroxime axetil 500 mg tablet 500 mg PO BID Qty: 10 RF: 0 Continued tadalafil 20 mg tablet 20 mg PO DAILY PRN (Reason: sexual activity) 30 Days Qty: 10 RF: 1 cholecalciferol (vitamin D3) [Vitamin D3] 25 mcg (1,000 unit) tablet 25 mcg PO DAILY Qty: 90 RF: 2 metoprolol tartrate 100 mg tablet 100 mg PO BID Qty: 180 RF: 1 insulin syringe-needle U-100 [BD Insulin Syringe Ultra-Fine] 1 mL 31 gauge x 5/16 syringe 1 ml miscellaneous BID Qty: 100 RF: 2 gabapentin 100 mg capsule 100 mg PO BEDTIME Qty: 90 RF: 0 Trulicity 0.75 mg/0.5 mL pen injector 0.75 mg subcut QWEEK 30 Days Qty: 2.5 RF: 5 atorvastatin 40 mg tablet 40 mg PO DAILY 90 Days Qty: 90 RF: 3 insulin lispro 100 unit/mL solution See Rx Instructions subcut .COMPLEX 90 Days Qty: 120 RF: 3 tamsulosin 0.4 mg capsule 0.4 mg PO DAILY Qty: 30 RF: 2 Xarelto 20 mg tablet 20 mg PO DAILY Qty: 30 RF: 2 flash glucose sensor [FreeStyle Alina 14 Day Sensor] Kit 1 ea topical Q2W Qty: 2 RF: 3 ferrous sulfate [FeroSul] 325 mg (65 mg iron) tablet 325 mg PO DAILY Qty: 30 RF: 3 terazosin 5 mg capsule 5 mg PO BEDTIME 30 Days Qty: 30 RF: 1 nitroglycerin 0.4 mg tablet, sublingual 0.4 mg sublingual Q5M PRNRF: 0 lisinopril 40 mg tablet 40 mg PO DAILY RF: 0 sildenafil 50 mg tablet 50 mg PO DAILY PRN (Reason: sexual activity) 30 Days Qty: 10 RF: 1 latanoprost 0.005 % drops 1 drp ophthalmic (eye) BEDTIME RF: 0 furosemide 20 mg tablet 20 mg PO DAILY RF: 0 Lantus U-100 Insulin 100 unit/mL solution 54 unit subcut DAILY 30 Days Qty: 20 RF: 3 Discharge Orders: Discharge Order (Routine); Ordered 05/06/21 Ordered By: Cordelia Hammer Diet: advance to usual diet Activity on Discharge: As tolerated Stand Alone Forms: Patient Portal Discharge page Care Plan Goals: Read below Health Concerns: Read below Plan of Treatment: you were admitted to the hospital for treatment of urinary tract infection. Found to have acute kidney injury and low blood pressure readings. Treated with IV antibiotics with good response over the course of hospital stay. Assessment: Continue Ceftin for 5 more days To follow-up with Dr. Valderrama as outpatient for treatment plan of the bladder masses
--- NOTE | 2021-05-06 11:30 | MHC.CM.PN ---
Patient has been medically cleared for dc to home today, no services. CM attempted to address second IMM, but Patient had already left the hospital 5 minutes ago (per [employer]).Last IMM addressed on 05/03/21.
== END 2021-05-06 11:15 | disposition home or self-care (01) | DRG 872 ==
LOC: HO.ED 10:39 → HO.EDOVER 14:33 → HO.IMC 23:01
PROVIDERS: Admitting Provider Internal Medicine; Emergency Provider Emergency Medicine; PCP Internal Medicine; Visit Provider Student in an Organized Health Care Education/Training Program
DX: A41.9 Sepsis, unspecified organism (principal); N17.9 Acute kidney failure, unspecified; E87.2 Acidosis; N39.0 Urinary tract infection, site not specified; D72.825 Bandemia; D72.829 Elevated white blood cell count, unspecified; R65.20 Severe sepsis without septic shock; I25.10 Atherosclerotic heart disease of native coronary artery without angina pectoris; I48.91 Unspecified atrial fibrillation; I12.9 Hypertensive chronic kidney disease with stage 1 through stage 4 chronic kidney disease, or unspecified chronic kidney disease; R19.7 Diarrhea, unspecified; C67.9 Malignant neoplasm of bladder, unspecified; E11.22 Type 2 diabetes mellitus with diabetic chronic kidney disease; N18.2 Chronic kidney disease, stage 2 (mild); Z87.891 Personal history of nicotine dependence; Z20.822 Contact with and (suspected) exposure to COVID-19; Z79.4 Long term (current) use of insulin; Z79.899 Other long term (current) drug therapy
CPT/HCPCS: 36415; 70450; 71045; 74176; 80048; 80076; 81001; 81003; 82947; 83605; 83690; 83735; 84484; 85007; 85027; 85610; 85730; 87040; 87086; 87493; 87635; 93005; 99285; J0696; J1956; P9047

== ENCOUNTER 2021-05-31 07:41 | Day surgery (SDC) | payer MEDICARE, SELFPAY ==
[2021-05-24 13:53] VITALS: BMI 40.1
--- NOTE | 2021-05-28 09:42 | P.CONAN_ITS ---
Documented by User: Whitney Roque 05/28/21 09:48 HPI - Anesthesia Eval Consult details Narrative: 75yo M for Bilateral TUR Bladder Tumor with Retrograde Xarelto for afib [facility] [place]06 for urosepsis after diagnostic cysto PMFSH Active Problems Active Problems: All Active Problems (Updated 05/24/21 @ 13:35 by Marleny Cruz) Essential hypertension (Acute) Urinary frequency (Acute) Neuropathy (Acute) Iron deficiency anemia due to chronic blood loss (Acute) CAD (coronary artery disease) (Acute) Hematuria (Acute) Renal stones (Acute) Elevated alkaline phosphatase level (Acute) Bladder cancer (Acute) Bladder outlet obstruction (Acute) Complex renal cyst (Acute) UTI (urinary tract infection) (Acute) Chronic atrial fibrillation (Acute) Diabetes mellitus (Acute) Chronic kidney disease (CKD), stage II (mild) (Acute) Hyperlipidemia LDL goal <70 (Acute) Obesity (BMI 30-39.9) (Acute) Chronic anticoagulation (Acute) History of colon polyps (Acute) Erectile dysfunction (Acute) Benign essential hypertension (Acute) Pure hypercholesterolemia (Acute) Iron deficiency anemia (Acute) 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 (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) Type 2 diabetes mellitus with diabetic chronic kidney disease (Acute) Type 2 diabetes mellitus with diabetic polyneuropathy (Acute) Past Medical History Medical History Anemia Benign essential hypertension CAD (coronary artery disease) Chronic anticoagulation Chronic atrial fibrillation Chronic kidney disease (CKD), stage II (mild) Diabetes mellitus Erectile dysfunction History of colon polyps 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 Hyperlipidemia LDL goal <70 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 Obesity (BMI 30-39.9) On beta nahid at home Pure hypercholesterolemia 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 Family History Family History Father Medical history unknown Mother Diabetes Daughter In good health Son In good health Sister In good health Sister In good health Brother In good health Brother In good health Brother In good health Surgical History Surgical History History of cataract surgery History of cystoscopy History of endoscopy Hx of colonoscopy Hx of removal of cyst Social History Social History Household Members: Spouse Housing: House Are you a primary healthcare project manager to a significant other at home: No Do you presently have visiting nurse or other home services: No Alcohol intake: never Patient Tobacco Use Status: Former Tobacco user Tobacco use type: Cigarette Years Smoked: 40 yrs ago Use of substances other than those prescribed or required for medical reasons: No Have you been hit, kicked, punched, or otherwise hurt by someone within the past year? If so, by whom?: No Are you DNR?: No Advance Directives: No Advance Directives Information Provided: No Advance Directives on File: No Recently lost weight without trying: No Eating poorly because of decreased appetite: No Nutrition Risks: No Nutritional Risk service: No Current occupational status: retired [employer] Allergies Allergy/AdvReac Type Severity Reaction Status Date / Time colesevelam [From WelChol] AdvReac Mild constipatio Verified 05/24/21 13:40 n Home Medications Medication Instructions Recorded Confirmed Last Taken Type furosemide 20 mg tablet 20 mg PO DAILY 08/20/20 05/24/21 Unknown History latanoprost 0.005 % eye drops 1 drp OPHTHALMIC (EYE) BEDTIME 08/20/20 05/24/21 Unknown History lisinopril 40 mg tablet 40 mg PO DAILY 08/25/20 05/24/21 Unknown History nitroglycerin 0.4 mg sublingual 0.4 mg SUBLINGUAL Q5M PRN 08/25/20 05/24/21 Unknown History tablet Lantus U-100 Insulin 54 unit SUBCUT DAILY 05/24/21 05/24/21 Unknown History Exam Exam Date and Time: May 28, 2021 0942 Height,Weight and Vital Signs: Height 5 ft 9 in Weight 123.377 kg Pertinent Lab Results Pertinent Lab Results: Laboratory Tests 05/06/21 05/06/21 05:32 05:32 WBC 10.4 Hgb 13.3 L Hct 39.8 L Plt Count 160 Sodium 143 Potassium 3.4 Chloride 105 Carbon Dioxide 28 BUN 14 Creatinine 0.94 Narrative Narrative: EKG 04/2021 Vent. Rate : 095 BPM Atrial Rate : 394 BPM P-R Int : 000 ms QRS Dur : 080 ms QT Int : 346 ms P-R-T Axes : 000 239 108 degrees QTc Int : 434 ms Atrial fibrillation Right superior axis deviation Inferior infarct , age undetermined Abnormal ECG When compared with ECG of 01-APR-2020 17:51, No significant change was found ECHO 02/2021 Conclusions: - The left ventricular systolic function is normal. The visually estimated ejection fraction is between 65-70%. - The left atrium is moderately dilated. - There is moderate calcification of the aortic valve. - There is moderate mitral annular calcification. 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 Obesity (BMI 30-39.9) On beta nahid at home Pure hypercholesterolemia 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 Family History Family History Father Medical history unknown Mother Diabetes Daughter In good health Son In good health Sister In good health Sister In good health Brother In good health Brother In good health Brother In good health Surgical History Surgical History History of cataract surgery History of cystoscopy History of endoscopy Hx of colonoscopy Hx of removal of cyst Social History Social History Household Members: Spouse Housing: House Are you a primary healthcare project manager to a significant other at home: No Do you presently have visiting nurse or other home services: No Alcohol intake: never Patient Tobacco Use Status: Former Tobacco user Tobacco use type: Cigarette Years Smoked: 40 yrs ago Use of substances other than those prescribed or required for medical reasons: No Have you been hit, kicked, punched, or otherwise hurt by someone within the past year? If so, by whom?: No Are you DNR?: No Advance Directives: No Advance Directives Information Provided: No Advance Directives on File: No Recently lost weight without trying: No Eating poorly because of decreased appetite: No Nutrition Risks: No Nutritional Risk service: No Current occupational status: retired Meds Allergies Allergy/AdvReac Type Severity Reaction Status Date / Time colesevelam [From WelChol] AdvReac Mild constipatio Verified 05/24/21 13:40 n Home Medications Medication Instructions Recorded Confirmed Last Taken Type furosemide 20 mg tablet 20 mg PO DAILY 08/20/20 05/24/21 Unknown History latanoprost 0.005 % eye drops 1 drp OPHTHALMIC (EYE) BEDTIME 08/20/20 05/24/21 Unknown History lisinopril 40 mg tablet 40 mg PO DAILY 08/25/20 05/24/21 Unknown History nitroglycerin 0.4 mg sublingual 0.4 mg SUBLINGUAL Q5M PRN 08/25/20 05/24/21 Unknown History tablet Lantus U-100 Insulin 54 unit SUBCUT DAILY 05/24/21 05/24/21 Unknown History Exam Airway Mallampati Class: II TM Dist: >3cm Neck ROM: Full Assessment and Plan Assessment Anesthesia Assessment: Anesthesia Plan Discussed and Chart Reviewed Final Anesthetic Review NPO: Yes ASA Class: III Final Preanesthetic Review: No Changes in Pt Med Stat, Meds/Allgs Chart Reviewed, Consent Obtained/Reviewed and Anes Risks/Benef Reviewed Patient Risk: Intermediate Procedure Risk: Low Assessment/Block/Sedation in SS: Assess/Block/Sedation-SS Anesthetic Plan Anesthetic Plan: GA Disposition: Standard PACU
[2021-05-31] VITALS (7 sets, daily range): BP systolic 132–149; BP diastolic 63–81; PULSE 66–81; RESP 12–18; TEMP 36.4–36.7; O2SAT 92–99
--- NOTE | ~2021-05-31 | FL_ITS ---
EXAMINATION: XR FLUOROSCOPY WITH IMAGES CLINICAL INFORMATION: TURBT. COMPARISON: CT abdomen 05/02/2021 TECHNIQUE: Fluoroscopy performed by Dr. Aquiles Valderrama. Fluoroscopy time: 0.2 minutes DAP: 5.3 mGy-cm2 Images: 2 FINDINGS: There is contrast opacifying the right and left kidney pelvis with no intraluminal filling defects seen involving either kidney pelvis. There are gas bubbles visualized in the left UPJ and right proximal ureter. Visualized calyces are normal. There are no images of the bladder. FL/FL guidance in OR IMPRESSION: Contrast opacifying the right and left kidney pelvis which appears unremarkable. There are small filling defects in the left UPJ and right proximal ureter, likely gas bubbles.
[2021-05-31 08:29] LABS: Glucose, Whole Blood 152 mg/dL (60-115)
--- NOTE | 2021-05-31 08:48 | MHC.SHP ---
Pre-Procedural Eval Section A Date of Service: 05/31/21 Section B Chief Complaint: malignant neoplasm of bladder Details of Present Illness: Recurrent bladder cancer Initial resection performed 10-15 years ago Relevant Social History: Tobacco Use Present Medications: see Short Stay Collaborative assessment Medical History: Significant History History of Previous Operations: Relevant previous surgery/procedure and date(s) Allergies: Allergies Allergy/AdvReac Type Severity Reaction Status Date / Time colesevelam [From WelChol] AdvReac Mild constipatio Verified 05/24/21 13:40 n Review of Systems Sugical H&P ROS: Negative: Constitution, Cardiovascular, Respiratory, Neurological, Psychiatric, Hem-Onc, Allergic/Immunologic, Gastrointestinal, Genitourinary, Musculoskeletal, Integumentary, Endocrine and Eyes/Ears/Nose/Throat Exam Surgical H&P Exam: Normal: HEENT, Normal: Heart, Normal: Lungs, Normal: Extremities, Normal: Abdomen, Normal: Skin and Normal: Neurological Plan Diagnosis/Plan: Unchanged (TURBT with bilateral retrogrades) I have reviewed the history and physical and performed a pertinent physical examination on my patient. No changes have occurred unless specified.
[2021-05-31] MEDS: Lactated Ringers 1,000 ML 50 ML IVCONT (08:53)
[2021-05-31] MEDS: levoFLOXacin 500 MG TABLET PO (08:55)
--- NOTE | 2021-05-31 09:49 | P.OP_ITS ---
Operative Note Operative Note Date of Service: 05/31/21 Narrative: PreOperative Diagnosis: bladder cancer Post Operative Diagnosis: bladder cancer Procedure: TURBT with bilateral retrograde Surgeon: Dr Aquiles Valderrama Anesthesia: general Indications for procedure: This is a 75-year-old male. Previous bladder cancer approximately 10-15 years ago. Had been cleared by prior urologist. Had episode of hematuria. On examination found to have recurrent lesion on right hand side of dome. Scheduled for TURBT with bilateral retrograde. Risks and benefits were understood. Procedure: After informed consent was verified the patient was brought to the operating room and placed in a supine position. Anesthesia was administered per protocol. The patient was placed in a modified dorsal lithotomy position and prepped and draped in a sterile fashion. Safety pause time-out was performed. Antibiotics were confirmed. Twenty-two Setswana cystoscope was inserted per urethra. Both ureteric orifice were normal position. Due to slight of the orifice the aLBERANZ deflector was required to perform bilateral retrograde. No filling defects were noted. Prompt egress of dye was seen. Slight narrowing was noted of the meatus. This was dilated using a balloon dilator. A 26 Setswana continuous flow well lubricated resectoscope was inserted per urethra. The visual obturator was used in order to minimize potential for urethral damage. The primary lesion was on the right side of the dome and superior portion of the right bladder wall. This was resected fully. This was a large lesion with a satellite lesion. Approximately 5 cm in diameter. Resection was taken down with no visible tumor. Edges were fulgurated. Specimen was irrigated using a Juan syringe and sent for pathology. At the completion of the procedure the bladder was irrigated. The patient Tolerated the procedure well. They were extubated in the operating room and transferred in stable condition to the recovery area. Pathology: Bladder tumor with clot Drains: None
[2021-05-31] MEDS: traMADoL HCL 50 MG TABLET PO (10:39)
== END 2021-05-31 11:26 | disposition home or self-care (01) ==
PROVIDERS: PCP Internal Medicine; Visit Provider Urology
PROC: 0TBB8ZZ Excision of Bladder, Via Natural or Artificial Opening Endoscopic (ICD-10-PCS; CPT 52235; principal; 2021-05-31 09:50)
DX: C67.8 Malignant neoplasm of overlapping sites of bladder (principal); E11.22 Type 2 diabetes mellitus with diabetic chronic kidney disease; I12.9 Hypertensive chronic kidney disease with stage 1 through stage 4 chronic kidney disease, or unspecified chronic kidney disease; N18.2 Chronic kidney disease, stage 2 (mild); E11.42 Type 2 diabetes mellitus with diabetic polyneuropathy; Z85.59 Personal history of malignant neoplasm of other urinary tract organ; I25.10 Atherosclerotic heart disease of native coronary artery without angina pectoris; I48.20 Chronic atrial fibrillation, unspecified; D64.9 Anemia, unspecified; Z79.01 Long term (current) use of anticoagulants; Z79.4 Long term (current) use of insulin; Z79.899 Other long term (current) drug therapy; Z87.891 Personal history of nicotine dependence; Z86.19 Personal history of other infectious and parasitic diseases
CPT/HCPCS: 52235; 82947; 88307; 88342; J1100; J2250; J2370; J2405; J3010; Q9967

== ENCOUNTER → 2021-06-10 09:58 | Outpatient (BNVA) | payer MEDICARE, SELFPAY | PROVIDERS: PCP Internal Medicine; Visit Provider Urology | DX: C67.9 Malignant neoplasm of bladder, unspecified (principal) | CPT/HCPCS: Q3014 ==

== ENCOUNTER → 2021-08-26 08:59 | Outpatient (BNVA) | payer MEDICARE, SELFPAY | PROVIDERS: PCP Internal Medicine; Referring Provider Internal Medicine; Visit Provider Internal Medicine Cardiovascular Disease | DX: I48.20 Chronic atrial fibrillation, unspecified (principal); I25.10 Atherosclerotic heart disease of native coronary artery without angina pectoris | CPT/HCPCS: 99212 ==

== ENCOUNTER → 2021-08-30 09:23 | Outpatient (BNVA) | payer MEDICARE, SELFPAY | PROVIDERS: PCP Internal Medicine; Visit Provider Nurse Practitioner Gerontology | DX: E11.65 Type 2 diabetes mellitus with hyperglycemia (principal); E11.22 Type 2 diabetes mellitus with diabetic chronic kidney disease; E11.42 Type 2 diabetes mellitus with diabetic polyneuropathy; I12.9 Hypertensive chronic kidney disease with stage 1 through stage 4 chronic kidney disease, or unspecified chronic kidney disease; N18.2 Chronic kidney disease, stage 2 (mild); I25.10 Atherosclerotic heart disease of native coronary artery without angina pectoris; E78.00 Pure hypercholesterolemia, unspecified; E66.9 Obesity, unspecified; R80.9 Proteinuria, unspecified; Z68.39 Body mass index [BMI] 39.0-39.9, adult; Z88.8 Allergy status to other drugs, medicaments and biological substances; Z79.4 Long term (current) use of insulin; Z79.899 Other long term (current) drug therapy | CPT/HCPCS: 82947; 83036; 99212 ==

== ENCOUNTER 2021-09-06 05:58 | Day surgery (SDC) | payer MEDICARE, SELFPAY ==
[2021-08-30 14:32] VITALS: BMI 39.7
--- NOTE | 2021-08-31 15:00 | P.CONAN_ITS ---
Documented by User: Whitney Roque NP 08/31/21 15:14 HPI - Anesthesia Eval Consult details Narrative: 76yo M for TUR Bladder Tumor Xarelto for afib Stable at routine cardiology OV 08/26/21 [facility] Active Problems Active Problems: All Active Problems (Updated 08/30/21 @ 10:04 by COLLINS Knowles) Essential hypertension (Acute) Urinary frequency (Acute) Neuropathy (Acute) Iron deficiency anemia due to chronic blood loss (Acute) CAD (coronary artery disease) (Acute) Hematuria (Acute) Renal stones (Acute) Elevated alkaline phosphatase level (Acute) Bladder outlet obstruction (Acute) Complex renal cyst (Acute) UTI (urinary tract infection) (Acute) Bladder cancer (Acute) Chronic atrial fibrillation (Acute) Diabetes mellitus (Acute) Chronic kidney disease (CKD), stage II (mild) (Acute) Hyperlipidemia LDL goal <70 (Acute) Obesity (BMI 30-39.9) (Acute) Chronic anticoagulation (Acute) History of colon polyps (Acute) Erectile dysfunction (Acute) Benign essential hypertension (Acute) Pure hypercholesterolemia (Acute) Iron deficiency anemia (Acute) [facility] (current) use of insulin (Acute) Type 2 diabetes mellitus with diabetic chronic kidney disease (Acute) Type 2 diabetes mellitus with diabetic polyneuropathy (Acute) Past Medical History Medical History Anemia Benign essential hypertension Bladder cancer CAD (coronary artery disease) Chronic anticoagulation Chronic atrial fibrillation Chronic kidney disease (CKD), stage II (mild) Diabetes mellitus Erectile dysfunction History of colon polyps 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 Hyperlipidemia LDL goal <70 Iron deficiency anemia [facility] (current) use of insulin Obesity (BMI 30-39.9) On beta nahid at home Pure hypercholesterolemia 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 Family History Family History Father Medical history unknown Mother Diabetes Daughter In good health Son In good health Sister In good health Sister In good health Brother In good health Brother In good health Brother In good health Surgical History Surgical History History of cataract surgery History of cystoscopy History of endoscopy History of esophagogastroduodenoscopy (EGD) Hx of colonoscopy Hx of cystoscopy Hx of removal of cyst Social History Social History Household Members: Spouse Housing: House Are you a primary patient care assistant to a significant other at home: No Do you presently have visiting nurse or other home services: No Alcohol intake: former Patient Tobacco Use Status: Former Tobacco user Quit Date: age 36 Tobacco use type: Cigarette Years Smoked: 40 yrs ago Use of substances other than those prescribed or required for medical reasons: No Substance Use Type: Former Substance User and Marijuana Have you been hit, kicked, punched, or otherwise hurt by someone within the past year? If so, by whom?: No Are you DNR?: No Advance Directives: Yes Advance Directives Information Provided: Yes Advance Directives on File: Yes Advance Directives Date on File: 07/01/19 Recently lost weight without trying: No Eating poorly because of decreased appetite: No Nutrition Risks: Surgical patient >75years service: No Current occupational status: retired Meds Allergies Allergy/AdvReac Type Severity Reaction Status Date / Time colesevelam [From WelChol] AdvReac Mild constipatio Verified 08/30/21 10:00 n Home Medications Medication Instructions Recorded Confirmed Last Taken Type latanoprost 0.005 % eye drops 1 drp OPHTHALMIC (EYE) BEDTIME 08/20/20 08/30/21 Unknown History nitroglycerin 0.4 mg sublingual 0.4 mg SUBLINGUAL Q5M PRN 08/25/20 08/30/21 Unknown History tablet insulin glargine 100 unit/mL 54 unit SUBCUT QPM 05/24/21 08/30/21 Unknown History subcutaneous solution (Lantus U-100 Insulin) cyanocobalamin (vitamin B-12) 1,000 mcg PO DAILY 06/28/21 08/30/21 Unknown History 1,000 mcg tablet (Vitamin B-12) Exam Exam Date and Time: August 31, 2021 1500 Height,Weight and Vital Signs: Height 5 ft 9 in Weight 122.016 kg Pertinent Lab Results Pertinent Lab Results: Laboratory Tests 05/06/21 05/06/21 05:32 05:32 WBC 10.4 Hgb 13.3 L Hct 39.8 L Plt Count 160 Sodium 143 Potassium 3.4 Chloride 105 Carbon Dioxide 28 BUN 14 Creatinine 0.94 Narrative Narrative: EKG 04/2021 Vent. Rate : 095 BPM ? ? Atrial Rate : 394 BPM ?? P-R Int : 000 ms? QRS Dur : 080 ms ? ? QT Int : 346 ms ? ? ? P-R-T Axes : 000 239 108 degrees ?? QTc Int : 434 ms ? Atrial fibrillation Right superior axis deviation Inferior infarct , age undetermined Abnormal ECG When compared with ECG of 01-APR-2020 17:51, No significant change was found ECHO 02/2021 Conclusions: - The left ventricular systolic function is normal.? The visually estimated ejection fraction is between 65-70%. ? - The left atrium is moderately dilated. ? - There is moderate calcification of the aortic valve. ? - There is moderate mitral annular calcification.?? 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 Hyperlipidemia LDL goal <70 Iron deficiency anemia [facility] (current) use of insulin Obesity (BMI 30-39.9) On beta nahid at home Pure hypercholesterolemia 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 Family History Family History Father Medical history unknown Mother Diabetes Daughter In good health Son In good health Sister In good health Sister In good health Brother In good health Brother In good health Brother In good health Surgical History Surgical History History of cataract surgery History of cystoscopy History of endoscopy History of esophagogastroduodenoscopy (EGD) Hx of colonoscopy Hx of cystoscopy Hx of removal of cyst History of Problems with Anesthesia: No Social History Social History Household Members: Spouse Housing: House Are you a primary patient care assistant to a significant other at home: No Do you presently have visiting nurse or other home services: No Alcohol intake: former Patient Tobacco Use Status: Former Tobacco user Quit Date: age 36 Tobacco use type: Cigarette Years Smoked: 40 yrs ago Use of substances other than those prescribed or required for medical reasons: No Substance Use Type: Former Substance User and Marijuana Have you been hit, kicked, punched, or otherwise hurt by someone within the past year? If so, by whom?: No Are you DNR?: No Advance Directives: Yes Advance Directives Information Provided: Yes Advance Directives on File: Yes Advance Directives Date on File: 07/01/19 Recently lost weight without trying: No Eating poorly because of decreased appetite: No Nutrition Risks: Surgical patient >75years service: No Current occupational status: retired Meds Allergies Allergy/AdvReac Type Severity Reaction Status Date / Time colesevelam [From WelChol] AdvReac Mild constipatio Verified 08/30/21 10:00 n Home Medications Medication Instructions Recorded Confirmed Last Taken Type latanoprost 0.005 % eye drops 1 drp OPHTHALMIC (EYE) BEDTIME 08/20/20 08/30/21 Unknown History nitroglycerin 0.4 mg sublingual 0.4 mg SUBLINGUAL Q5M PRN 08/25/20 08/30/21 Unknown History tablet insulin glargine 100 unit/mL 54 unit SUBCUT QPM 05/24/21 08/30/21 Unknown History subcutaneous solution (Lantus U-100 Insulin) cyanocobalamin (vitamin B-12) 1,000 mcg PO DAILY 06/28/21 08/30/21 Unknown History 1,000 mcg tablet (Vitamin B-12) Exam Airway Mallampati Class: II (Edentulous) TM Dist: >3cm Neck ROM: Full Denture: Upper and Lower Loose/Missing/Broken Teeth: Yes, Upper and Lower Heart: irreg irregular Lungs: CTA Assessment and Plan Assessment Anesthesia Assessment: Anesthesia Plan Discussed Final Anesthetic Review History of Problems with Anesthesia: No ASA Class: III Final Preanesthetic Review: Meds/Allgs Chart Reviewed, Consent Obtained/Reviewed and Anes Risks/Benef Reviewed Patient Risk: Intermediate Procedure Risk: Low Anesthetic Plan Anesthetic Plan: GA Disposition: Standard PACU
[2021-09-06] VITALS (7 sets, daily range): BP systolic 106–161; BP diastolic 51–78; PULSE 68–88; RESP 16–17; TEMP 36.1–36.6; O2SAT 95–99
[2021-09-06 06:22] LABS: Glucose, Whole Blood 159 mg/dL (60-115)
[2021-09-06] MEDS: Lactated Ringers 1,000 ML 100 ML IVCONT (06:30)
--- NOTE | 2021-09-06 07:36 | MHC.SHP ---
Pre-Procedural Eval Section A Date of Service: 09/06/21 Section B Chief Complaint: malignant neoplasm of bladder Details of Present Illness: 3m surveillance Relevant Social History: None Present Medications: see Short Stay Collaborative assessment Medical History: Significant History History of Previous Operations: Relevant previous surgery/procedure and date(s) Allergies: Allergies Allergy/AdvReac Type Severity Reaction Status Date / Time colesevelam [From WelChol] AdvReac Mild constipatio Verified 08/30/21 10:00 n Review of Systems Sugical H&P ROS: Negative: Constitution, Cardiovascular, Respiratory, Neurological, Psychiatric, Hem-Onc, Allergic/Immunologic, Gastrointestinal, Genitourinary, Musculoskeletal, Integumentary, Endocrine and Eyes/Ears/Nose/Throat Exam Surgical H&P Exam: Normal: HEENT, Normal: Heart, Normal: Lungs, Normal: Extremities, Normal: Abdomen, Normal: Skin and Normal: Neurological Plan Diagnosis/Plan: Unchanged (cysto, bladder biopsy and fulgeration) I have reviewed the history and physical and performed a pertinent physical examination on my patient. No changes have occurred unless specified.
[2021-09-06] MEDS: levoFLOXacin 500 MG TABLET PO (07:37)
--- NOTE | 2021-09-06 08:08 | P.OP_ITS ---
Operative Note Operative Note Date of Service: 09/06/21 Narrative: PreOperative Diagnosis: Superficial bladder cancer Post Operative Diagnosis: Superficial bladder cancer Procedure: Cystoscopy with extensive fulguration Surgeon: Dr Aquiles Valderrama Anesthesia: General Indications for procedure: Recurrent high-grade superficial bladder cancer TURBT completed 3 months ago w ith induction gemcitabine. He is here for initial re-evaluation of bladder and TURBT and fulguration as required. Procedure: After informed consent was verified the patient was brought to the operating room and placed in a supine position. Anesthesia was administered per protocol. Patient was placed in modified dorsal lithotomy position and prepped and draped in sterile fashion. Safety pause time-out was performed. Antibiotics being given. Meatal narrowing was present. Meatus was dilated with the meatal dilator. Resectoscope placed into bladder. No abnormality noted the anterior posterior urethra. Bladder was examined in its entirety. Areas of prior scarring was seen. The appeared to be mucosal change on the edges of these areas. One was posterior right bladder wall. Dome left side. High right side bladder wall. Each of these areas were was fulgurated with the TURBT loop taking an area approximately 2-3 cm. No definitive new lesions was seen. He tolerated the procedure well was extubated in operating room transferred in stable condition to recovery area. Will need boost gemcitabine in 1-2 weeks. Pathology: None Drains: None
[2021-09-06] MEDS: Acetaminophen 325 MG TABLET 650 MG PO (08:34)
[2021-09-06] MEDS: Phenazopyridine HCL 100 MG TABLET PO (08:35)
== END 2021-09-06 09:42 | disposition home or self-care (01) ==
PROVIDERS: PCP Internal Medicine; Visit Provider Urology
PROC: 0TBB8ZZ Excision of Bladder, Via Natural or Artificial Opening Endoscopic (ICD-10-PCS; CPT 52235; principal; 2021-09-06 07:30)
DX: C67.9 Malignant neoplasm of bladder, unspecified (principal); E11.22 Type 2 diabetes mellitus with diabetic chronic kidney disease; I12.9 Hypertensive chronic kidney disease with stage 1 through stage 4 chronic kidney disease, or unspecified chronic kidney disease; N18.2 Chronic kidney disease, stage 2 (mild); E11.42 Type 2 diabetes mellitus with diabetic polyneuropathy; Z79.4 Long term (current) use of insulin; D64.9 Anemia, unspecified; N52.9 Male erectile dysfunction, unspecified; D50.9 Iron deficiency anemia, unspecified; I48.20 Chronic atrial fibrillation, unspecified; Z79.01 Long term (current) use of anticoagulants; Z79.899 Other long term (current) drug therapy; Z88.8 Allergy status to other drugs, medicaments and biological substances; Z87.891 Personal history of nicotine dependence
CPT/HCPCS: 52235; 82947; 88307; J1100; J2370; J2405; J3010

== ENCOUNTER → 2021-09-14 09:56 | Outpatient (BNVA) | payer MEDICARE, SELFPAY | PROVIDERS: Visit Provider Urology | DX: C67.9 Malignant neoplasm of bladder, unspecified (principal) | CPT/HCPCS: Q3014 ==

== ENCOUNTER 2021-10-19 07:25 | Outpatient (REF) | payer MEDICARE, SELFPAY ==
[2021-10-19 07:43] LABS: MANUAL DIFF FLAG NO
[2021-10-19 08:14] LABS: Basophils Absolute Auto 0.1 X10*3/uL (0.0-0.2); Basophils Percent Auto 0.9 % (0-2); Eosinophils Absolute Auto 0.3 X10*3/uL (0.0-0.4); Eosinophils Percent Auto 3.4 % (0-4); Hematocrit 46.6 % (42.0-52.0); Hemoglobin 14.9 g/dl (14.0-18.0); Imm Gran Abs Auto 0.02 X10*3/uL (0.00-0.03); Imm Gran Pct Auto 0.3 % (0.0-0.4); Lymphocytes Absolute Auto 1.7 X10*3/uL (1.2-4.9); Lymphocytes Percent Auto 22.7 % (20-40); Mean Corpuscular Hemoglobin 26.5 pg (27.0-33.0); Mean Corpuscular Volume 82.8 fL (80.0-98.0); Mean Platelet Volume 10.9 fL (9.4-12.4); Monocytes Absolute Auto 0.6 X10*3/uL (0.1-1.2); Monocytes Percent Auto 8.1 % (2-11); Neutrophils Absolute Auto 4.9 x10*3/uL (2.0-8.3); Neutrophils Percent Auto 64.6 % (45-73); Platelet Count 178 X10*3/uL (160-400); Red Blood Count 5.63 X10*6/uL (4.60-5.80); Red Cell Distribution Width 15.3 % (11.0-16.0); White Blood Count 7.7 X10*3/uL (4.8-10.8)
[2021-10-19 08:24] LABS: Estimated Average Glucose 157 mg/dL; Hemoglobin A1c % 7.1 %
[2021-10-19 08:43] LABS: Alanine Aminotransferase 12 U/L (0-40); Albumin Level 3.5 g/dL (3.5-5.0); Alkaline Phosphatase 130 U/L (39-117); Anion Gap 13 (12-20); Aspartate Amino Transferase 14 U/L (5-37); Bilirubin Total 0.5 mg/dL (0.0-1.0); Blood Urea Nitrogen 13 mg/dL (9-16); Calcium 9.3 mg/dL (8.4-10.2); Carbon Dioxide 30 mmol/L (22-29); Chloride 104 mmol/L (96-108); Cholesterol 113 mg/dL; Estimated Glomerular Filt Rate 52; Glucose Fasting 124 mg/dL (60-99); HDL Cholesterol 31 mg/dL; LDL Cholesterol Calculated 57 mg/dl; Sodium 143 mmol/L (135-145); Total Protein 6.3 g/dL (6.5-8.0); Triglycerides 128 mg/dL
[2021-10-19 09:05] LABS: Thyroid Stimulating Hormone 3.11 uIU/mL (0.32-4.0); Vitamin D 25-OH Total 35.8 ng/mL (>30)
[2021-10-19 09:33] LABS: Appearance Urine CLEAR; Color Urine YELLOW; Glucose Urine UA 100 MG/DL (NEG); Leukocyte Esterase Urine NEG (NEG); Nitrite Urine NEG (NEG); Specific Gravity - Urine 1.025 (1.005-1.025); UACC Culture Trigger NO; Urine Blood 1+ (NEG); Urine Ketones NEG (NEG); Urine Protein NEG (NEG-TRACE)
[2021-10-19 09:57] LABS: Creatinine Urine 129.11 mg/dL; WBC Urine 0-2 /HPF (0-4)
[2021-10-19 10:28] LABS: Folate 8.3 ng/mL (> or = 4.0); Vitamin B12 701 pg/mL (200-900)
== END 2021-10-19 07:26 | disposition home or self-care (01) ==
LOC: HO.LAB 07:25
PROVIDERS: PCP Internal Medicine; Visit Provider Internal Medicine
DX: E11.22 Type 2 diabetes mellitus with diabetic chronic kidney disease (principal); I12.9 Hypertensive chronic kidney disease with stage 1 through stage 4 chronic kidney disease, or unspecified chronic kidney disease; N18.2 Chronic kidney disease, stage 2 (mild); I48.20 Chronic atrial fibrillation, unspecified; R79.89 Other specified abnormal findings of blood chemistry; E55.9 Vitamin D deficiency, unspecified; E66.9 Obesity, unspecified; E78.00 Pure hypercholesterolemia, unspecified; G62.9 Polyneuropathy, unspecified; D50.8 Other iron deficiency anemias; Z79.4 Long term (current) use of insulin
CPT/HCPCS: 36415; 80053; 80061; 81001; 82043; 82306; 82607; 82746; 83036; 84439; 84443; 85025

== ENCOUNTER 2021-12-08 12:46 | Outpatient (REF) | payer MEDICARE, SELFPAY ==
[2021-12-08 16:42] LABS: Urine Cytology See Pathology rpt
== END 2021-12-08 12:47 | disposition home or self-care (01) ==
LOC: HO.LAB 12:46
PROVIDERS: PCP Internal Medicine; Visit Provider Urology
DX: E11.69 Type 2 diabetes mellitus with other specified complication (principal); N52.1 Erectile dysfunction due to diseases classified elsewhere; Z85.51 Personal history of malignant neoplasm of bladder
CPT/HCPCS: 52000; 88112; 99212

== ENCOUNTER 2022-01-20 12:54 | Outpatient (REF) | payer MEDICARE, SELFPAY ==
--- NOTE | ~2022-01-20 | MR_ITS ---
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 Evaluate for intracranial metastatic disease. COMPARISON: Head CT from 05/02/2021. TECHNIQUE: Multiplanar, multisequence imaging of the brain was performed before and after the intravenous administration of 10 mL of Gadavist. Slightly limited examination with motion artifacts. FINDINGS: No diffusion abnormalities are identified to suggest an acute infarct. The ventricles are normal in size. No mass effect or midline shift is seen. Mild chronic white matter microangiopathic changes noted with generalized parenchymal volume loss. No extra-axial fluid collections are seen. The brainstem and cerebellum are normal. On postcontrast imaging, there is no abnormal parenchymal or leptomeningeal enhancement. The orbits and pituitary axis structures appear normal. The gradient refocused acquisition demonstrates no pathologic magnetic susceptibility artifact to indicate underlying acute or chronic blood products. The craniovertebral junction, marrow signal, and midline structures are normal. The major intracranial flow-voids at the level of the [place] of [place] are preserved. The dural venous sinus flow-voids are maintained. The right-sided mastoid air cells are well aerated. There is a small left-sided mastoid effusion. Mild ethmoid sinus mucosal thickening noted. MR/MR head/brain wo/w con IMPRESSION: Mild chronic white matter microangiopathy. No acute process. No evidence of intracranial metastatic disease.
[2022-01-20 12:40] LABS: Anion Gap 11 (12-20); Blood Urea Nitrogen 11 mg/dL (9-16); Calcium 9.8 mg/dL (8.4-10.2); Carbon Dioxide 31 mmol/L (22-29); Chloride 104 mmol/L (96-108); Estimated Glomerular Filt Rate > 60; Glucose Random 193 mg/dL (60-115); Potassium 4.4 mmol/L (3.3-5.1); Sodium 142 mmol/L (135-145)
== END 2022-01-20 12:55 | disposition home or self-care (01) ==
LOC: HO.MRI 12:54
PROVIDERS: Visit Provider Surgery Surgical Oncology
DX: C4A.9 Merkel cell carcinoma, unspecified (principal)
CPT/HCPCS: 36415; 70553; 80048; A9585

== ENCOUNTER → 2022-02-28 09:18 | Outpatient (BNVA) | payer MEDICARE, SELFPAY | PROVIDERS: PCP Internal Medicine; Visit Provider Nurse Practitioner Gerontology | DX: E11.42 Type 2 diabetes mellitus with diabetic polyneuropathy (principal); E78.5 Hyperlipidemia, unspecified; E66.9 Obesity, unspecified; I10 Essential (primary) hypertension; Z79.4 Long term (current) use of insulin; Z68.39 Body mass index [BMI] 39.0-39.9, adult | CPT/HCPCS: 82947; 99212 ==

== ENCOUNTER 2022-04-21 10:44 | Emergency (ER) | payer MEDICARE, SELFPAY ==
[2022-04-21 10:48] VITALS: BP 107/47; PULSE 98; RESP 16; TEMP 36.5; O2SAT 97; BMI 35.4
--- NOTE | 2022-04-21 11:12 | ED.GENADULT ---
HPI - General Adult General Chief complaint: Skin/Abscess/Foreign Body Stated complaint: lump over l eye brow headache Time Seen by Provider: 04/21/22 11:11 Source: patient and family (daughter) Mode of arrival: ambulatory Limitations: no limitations History of Present Illness HPI narrative: Patient is a 76 year old male presenting to the emergency department today with left eye swelling. Patient states that starting 3 days ago, he began to have left eye pain and today he has a rash above his left eye and his eye lids on his left eye were matted shut this morning. Patient denies any dizziness, lightheadedness, abdominal pain, nausea, vomiting, fever, chills, blurry vision, double vision, loss of vision, chest pain, difficulty breathing, shortness of breath, back pain, night sweats, pain with urination, increased urinary frequency, increased urinary urgency, blood in his urine or stool, syncope or a near syncopal episode, recent trauma or falls, bowel incontinence, bladder incontinence, bowel retention, bladder retention, or any other complaints at this time. Onset (ago): day(s) (3) Location: eyes (left) Radiation: non-radiation Severity: mild Severity scale (1-10): 2 Quality: burning Pain Consistency: constant Relieving factors: none Exacerbating factors: none Associated symptoms: rash Treatments prior to arrival: none Related Data Home Medications Medication Instructions Recorded Confirmed latanoprost 0.005 % eye drops 1 drp ophthalmic (eye) BEDTIME 08/20/20 02/14/22 nitroglycerin 0.4 mg sublingual 0.4 mg sublingual Q5M PRN Chest 08/25/20 02/14/22 tablet Pain cyanocobalamin (vitamin B-12) 1,000 mcg PO DAILY 06/28/21 02/28/22 1,000 mcg tablet (Vitamin B-12) Previous Rx's Medication Instructions Recorded insulin syringe-needle U-100 1 mL 1 ml miscellaneous BID #100 ea 12/20/20 31 gauge x 5/16 (BD Insulin Syringe Ultra-Fine) terazosin 10 mg capsule 10 mg PO BEDTIME 30 days #90 caps 08/25/21 gabapentin 100 mg capsule 100 mg PO TID 90 days #270 caps 08/30/21 rivaroxaban 20 mg tablet (Xarelto) 20 mg PO DAILY #30 tabs 10/22/21 sildenafil 100 mg tablet 100 mg PO DAILY PRN sexual 12/08/21 activity 30 days #30 tabs furosemide 20 mg tablet 20 mg PO DAILY 90 days #90 tabs 01/10/22 lisinopril 40 mg tablet 40 mg PO DAILY #90 tabs 01/10/22 atorvastatin 40 mg tablet 40 mg PO DAILY #30 tabs 01/31/22 metoprolol tartrate 100 mg tablet 100 mg PO BID #180 tabs 02/11/22 flash glucose scanning reader #1 ea 02/28/22 (FreeStyle Alina 2 [place]) flash glucose sensor (FreeStyle #2 ea 02/28/22 Alina 2 Sensor) insulin glargine 100 unit/mL (3 60 unit (0.6 mL) subcut QPM 90 02/28/22 mL) subcutaneous pen (Basaglar days #60 mL KwikPen U-100 Insulin) pen needle, diabetic 32 gauge x #100 ea 02/28/22 (BD Ultra-Fine Madeline Pen Needle) dulaglutide 0.75 mg/0.5 mL 0.75 mg (0.5 mL) subcut QWEEK 30 03/08/22 subcutaneous pen injector days #2.5 mL (Trulicity) insulin lispro 100 unit/mL See Rx Instructions subcut TID 90 03/08/22 subcutaneous solution (Humalog days #40 mL U-100 Insulin) cholecalciferol (vitamin D3) 25 25 mcg PO DAILY #90 tabs 03/28/22 mcg (1,000 unit) tablet (Vitamin D3) ferrous sulfate 325 mg (65 mg 325 mg PO DAILY #30 tabs 03/28/22 iron) tablet (FeroSul) acyclovir 800 mg tablet 800 mg PO 5XD 7 days #35 tabs 04/21/22 erythromycin 5 mg/gram (0.5 %) eye 1 appl ophthalmic (eye) Q4H #3.5 04/21/22 ointment grams Allergies Allergy/AdvReac Type Severity Reaction Status Date / Time colesevelam [From WelChol] AdvReac Mild constipatio Verified 02/28/22 09:43 n Review of Systems Constitutional: Constitutional: Reports no additional constitutional complaints, Denies chills, Denies fever(s) and Denies night sweats Eyes: Eyes: Reports no additional eye complaints, Denies blurry vision, Denies change in vision, Denies diplopia, Reports eye discharge, Denies loss of vision and Reports eye pain ENT: Denies dizziness Cardiovascular: Cardiovascular: Reports no additional cardiovascular complaints, Denies chest pain, Denies lightheadedness, Denies Loss of Consciousness and Denies dyspnea Respiratory: Respiratory: Reports no additional respiratory complaints and Denies dyspnea Gastrointestinal: Gastrointestinal: Reports no additional gastrointestinal complaints, Denies abdominal pain, Denies melena, Denies hematochezia, Denies change in bowel habits and Denies change in stool character Genitourinary: Genitourinary: Reports no additional male genitourinary complaints, Denies hematuria, Denies oliguria, Denies difficulty urinating, Denies dysuria, Denies urinary frequency, Denies urinary hesitancy, Denies urinary incontinence and Denies urinary urgency Musculoskeletal: Musculoskeletal: Reports no additional musculoskeletal complaints, Denies numbness and Denies tingling Neurologic: Denies dizziness, Denies loss of vision, Denies numbness and Denies tingling Psychiatric: Psychiatric: Reports no additional psychiatric complaints Endocrine: Endocrine: Reports no additional endocrine complaints Hematologic/Lymphatic: Hematologic/Lymphatic: Reports no additional hematologic/lymphatic complaints Allergic/Immunologic: Allergic/Immunologic: Reports no additional allergic/immunologic complaints PMF Past Medical History Attestation statement: The following information was validated with the patient. 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 On beta nahid at home Surgical History History of cataract surgery History of cystoscopy History of endoscopy History of esophagogastroduodenoscopy (EGD) History of surgery Hx of colonoscopy Hx of cystoscopy Hx of removal of cyst Family History Family History Father Medical history unknown Mother Diabetes Daughter In good health Son In good health Sister In good health Sister In good health Brother In good health Brother In good health Brother In good health Social History Social History Household Members: Spouse Housing: House Are you a primary healthcare administrator to a significant other at home: No Do you presently have visiting nurse or other home services: No Alcohol intake: former Patient Tobacco Use Status: Former Tobacco user Quit Date: age 36 Tobacco use type: Cigarette Years Smoked: 40 yrs ago e-Cigarette/Vaping Use: Never Used Second Hand Smoke Exposure: Yes Substance Use Type: Former Substance User and Marijuana Advance Directives: Yes Advance Directives on File: Yes Advance Directives Date on File: 09/07/21 service: No Current occupational status: retired Current occupational exposures/hazards: No Cognitive needs: No Hearing needs: No Vision needs: Yes Physical Exam ED Vital Signs: Vital Signs - 24 hr 04/21/22 10:48 Temperature 97.7 F Pulse Rate 98 Respiratory Rate 16 Blood Pressure 107/47 L Pulse Oximetry 97 Oxygen Delivery Method Room Air BMI result Body Mass Index 35.4 Const General: cooperative, no acute distress, alert and awake Nutritional Appearance: well nourished Orientation/consciousness: patient oriented x3 Limitations: no limitations HENMT Head: Yes normal to inspection and Yes atraumatic Ears: hearing grossly normal bilaterally and external ears normal General nose exam: Normal external nose present, no nasal discharge noted and no epistaxis Face and sinus: Yes normal facial exam, No abrasion and No laceration Mouth: Normal oral and palatal mucosa present, no drooling and no muffled voice Eyes Other: shingles type rash above left eye Periorbital: periorbital findings normal Eyelids: Yes eyelids normal Conjunctivae: other (mild injection) Pupils: Equal, round and reactive pupils present EOM: EOMs intact bilaterally Neck Neck: Yes normal visual inspection, Yes full ROM and Yes no lymphadenopathy Chest Chest palpation & inspection: normal inspection of the chest Resp Effort & Inspection: normal respiratory effort and able to speak in complete sentences Auscultation: clear to auscultation bilaterally Cardio Rate: regular rate Rhythm: regular rhythm GI Inspection: Yes normal to inspection Neuro General: patient oriented x3 and moves all extremities Cranial nerves: Yes Equal, round and reactive pupils present Cognition (Neuro): normal cognition Motor exam (neuro): 5/5 motor strength present throughout Sensory Exam: Normal double simultaneous stimulation for sensation Coordination: [id number] test normal Extrem General: Yes normal to inspection, Yes full ROM and Yes capillary refill normal Psych Appearance: grossly normal Mental Status: mental status grossly normal Affect: normal affect Attitude: cooperative Thought process: Normal thought process present Thought content: Normal thought content present Insight: Good insight present (Psych) Medical Decision Making MDM Narrative Medical decision making narrative: Patient is a 76 year old male presenting to the emergency department today with left eye discharge and pain. Patient's physical exam showed green discharge in the left eye as well as a shingles type rash above the left eye. I explained my physical exam findings to the patient and the patient's daughter. I answered all questions asked by the patient and the patient's daughter. I stressed the importance of the patient taking his medication as prescribed. I stressed the importance of the patient following up with his primary care provider and an eyeglass lens grinder. I stressed the importance of the patient returning to the emergency department immediately if his symptoms were to worsen or if he were to develop any dizziness, shortness of breath, difficulty breathing, chest pain, blurry vision, loss of vision, nausea, vomiting, abdominal pain, fever, chills, back pain, or any other complaints. Patient and the patient's daughter verbalized agreement and understanding with this treatment plan and discharge. Differential Diagnosis Differential Diagnosis: herpes zoster conjunctivitis, bacterial conjunctivitis Medical Records Medical records reviewed: Yes I reviewed the patient's medical records. Discharge Plan Discharge Clinical Impression: Acute bacterial conjunctivitis, Herpes zoster conjunctivitis Patient Disposition: Home, Self-Care Instructions: Shingles (ED), Conjunctivitis (ED) Additional Instructions: Follow up with your primary care provider and an seed sales manager. Return to the emergency department immediately if your symptoms worsen or if you develop any dizziness, shortness of breath, difficulty breathing, chest pain, blurry vision, loss of vision, nausea, vomiting, abdominal pain, fever, chills, back pain, or any other complaints. Prescriptions: New erythromycin 5 mg/gram (0.5 %) ointment 1 appl ophthalmic (eye) Q4H Qty: 3.5 0RF acyclovir 800 mg tablet 800 mg PO 5XD 7 Days Qty: 35 0RF Rx Instructions: space evenly during waking hours No Action insulin syringe-needle U-100 [BD Insulin Syringe Ultra-Fine] 1 mL 31 gauge x 5/16 syringe 1 ml miscellaneous BID Qty: 100 2RF terazosin 10 mg capsule 10 mg PO BEDTIME 30 Days Qty: 90 3RF Xarelto 20 mg tablet 20 mg PO DAILY Qty: 30 5RF lisinopril 40 mg tablet 40 mg PO DAILY Qty: 90 0RF furosemide 20 mg tablet 20 mg PO DAILY 90 Days Qty: 90 1RF atorvastatin 40 mg tablet 40 mg PO DAILY Qty: 30 2RF metoprolol tartrate 100 mg tablet 100 mg PO BID Qty: 180 0RF insulin lispro [Humalog U-100 Insulin] 100 unit/mL solution See Rx Instructions subcut TID 90 Days Qty: 40 3RF Rx Instructions: 10 units breakfast, 12 units lunch, 16 units with dinner subcut 3 times a day; Trulicity 0.75 mg/0.5 mL pen injector 0.75 mg subcut QWEEK 30 Days Qty: 2.5 5RF cholecalciferol (vitamin D3) [Vitamin D3] 25 mcg (1,000 unit) tablet 25 mcg PO DAILY Qty: 90 2RF ferrous sulfate [FeroSul] 325 mg (65 mg iron) tablet 325 mg PO DAILY Qty: 30 1RF cyanocobalamin (vitamin B-12) [Vitamin B-12] 1,000 mcg Tablet 1,000 mcg PO DAILY nitroglycerin 0.4 mg tablet, sublingual 0.4 mg sublingual Q5M PRN (Reason: Chest Pain) Rx Instructions: do not exceed 3 doses per episode latanoprost 0.005 % drops 1 drp ophthalmic (eye) BEDTIME gabapentin 100 mg capsule 100 mg PO TID 90 Days Qty: 270 2RF Basaglar KwikPen U-100 Insulin 100 unit/mL (3 mL) insulin pen 60 unit subcut QPM 90 Days Qty: 60 3RF (DME) FreeStyle Alina 2 Sensor Kit See Rx Instructions .ROUTE .MEDSUPPLY Qty: 2 11RF Rx Instructions: As directed every 2 weeks (DME) FreeStyle Alina 2 [place] Misc See Rx Instructions .ROUTE .MEDSUPPLY Qty: 1 0RF Rx Instructions: As directed (DME) pen needle, diabetic [BD Ultra-Fine Madeline Pen Needle] 32 gauge x 5/32 needle See Rx Instructions .ROUTE .MEDSUPPLY Qty: 100 3RF Rx Instructions: As directed once daily sildenafil 100 mg tablet 100 mg PO DAILY PRN (Reason: sexual activity) 30 Days Qty: 30 1RF Rx Instructions: administer 60 minutes before intended activity Referrals: Guido Andrade MD [Primary Care Provider] - Josh Rock [Physician] - Interventions: ED Discharge Assessment Last Done: 04/21/22 11:34 Discharge Date/Time: 04/21/22 11:34 Print Language: Ukrainian
== END 2022-04-21 11:34 | disposition home or self-care (01) ==
PROVIDERS: Emergency Provider Student in an Organized Health Care Education/Training Program; PCP Internal Medicine
DX: H10.32 Unspecified acute conjunctivitis, left eye (principal); B02.31 Zoster conjunctivitis; H57.12 Ocular pain, left eye; E11.22 Type 2 diabetes mellitus with diabetic chronic kidney disease; I12.9 Hypertensive chronic kidney disease with stage 1 through stage 4 chronic kidney disease, or unspecified chronic kidney disease; N18.2 Chronic kidney disease, stage 2 (mild); E78.5 Hyperlipidemia, unspecified; Z79.4 Long term (current) use of insulin; Z85.51 Personal history of malignant neoplasm of bladder
CPT/HCPCS: 99283

== ENCOUNTER 2022-05-21 17:25 | Inpatient (IN) | payer MEDICARE, SELFPAY ==
--- NOTE | ~2022-05-21 | XR_ITS ---
EXAMINATION: XR CHEST CLINICAL INFORMATION: Syncope COMPARISON: 05/02/2021 TECHNIQUE: Frontal view of the chest was obtained. FINDINGS: No acute finding. Lung oh are grossly clear. The cardiac silhouette is comparable to previous. There is no failure. No effusion. XR/XR chest 1V IMPRESSION: Negative acute portable chest
--- NOTE | ~2022-05-21 | CT_ITS ---
EXAMINATION: CT HEAD WITHOUT CONTRAST CLINICAL INFORMATION: Fall on DOAC COMPARISON: MRI brain 01/20/2022 TECHNIQUE: Contiguous axial imaging was performed from the skull base to vertex without intravenous administration of contrast. This CT examination was performed using dose optimization techniques as appropriate, variously including the following: *Automated exposure control *Adjustment of mA and/or kV according to patient size (this includes techniques or standardized protocols for targeted exams where dose is matched to indication/reason for exam; i.e. extremities or head) *Use of iterative reconstruction technique DLP: 750 mGy-cm FINDINGS: There is no evidence of acute intracranial hemorrhage or territorial infarction. No abnormal mass effect or midline shift is seen. [place] to white matter differentiation is well preserved. No extra-axial fluid collections are identified. The ventricles are normal in size. Mild chronic microvascular white matter ischemic changes. The osseous structures and soft tissues are normal. The mastoid air cells and visualized portions of the paranasal sinuses are well aerated. CT/CT head/brain wo con IMPRESSION: No acute intracranial pathology.
[2022-05-21 17:30] VITALS: BP 139/87; PULSE 80; O2SAT 99
[2022-05-21 17:33] VITALS: BP 119/55; PULSE 82; RESP 16; TEMP 36.5; O2SAT 98; BMI 36.8
--- NOTE | 2022-05-21 17:37 | ECG_ITS ---
Test Reason : SYNCOPE Blood Pressure : / mmHG Vent. Rate : 086 BPM Atrial Rate : 000 BPM P-R Int : 000 ms QRS Dur : 078 ms QT Int : 398 ms P-R-T Axes : 000 -74 048 degrees QTc Int : 476 ms Atrial fibrillation Left axis deviation Inferior infarct (cited on or before 02-MAY-2021) Abnormal ECG When compared with ECG of 02-MAY-2021 08:42, Nonspecific T wave abnormality now evident in Inferior leads Referred By: Drea Yeh Electronically Signed By:RENALDO CHAVEZ MD
--- NOTE | 2022-05-21 17:43 | ED_ITS ---
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 He was managed with 100mg TID of gabapentin but continues to c/o L sided pain on his head and face. His PCP increased gabapentin yesterday to 200mg TID. Today he ate potato balls from a restaurant at lunch proceeded to get up and have diarrhea - while this was happening was weak and had near syncopal event. He did not lose consciousness but he did strike his head on the counter. EMS noted BP 55 over palp. BS normal. He is recovering on arrival to ED but appears more sleepy is wondering if it is the gabapentin. MD complaint: almost passed out Onset (ago): minute(s) (just prior to arrival ) -: minutes(s) Prodromal symptoms: lightheaded and other (having diarrhea) Witnessed: Yes - by Bystander () Context: new medication (increased gabapentin yesterday to 200mg TID ) and other (diarrhea started today) Injuries sustained associated with event: head (hit head on side of counter) Current symptoms: other (feels sleepy) Treatments prior to arrival: IV fluids Related Data Home Medications Medication Instructions Recorded Confirmed latanoprost 0.005 % eye drops 1 drp ophthalmic (eye) BEDTIME 08/20/20 02/14/22 nitroglycerin 0.4 mg sublingual 0.4 mg sublingual Q5M PRN Chest 08/25/20 02/14/22 tablet Pain cyanocobalamin (vitamin B-12) 1,000 mcg PO DAILY 06/28/21 02/28/22 1,000 mcg tablet (Vitamin B-12) Previous Rx's Medication Instructions Recorded insulin syringe-needle U-100 1 mL 1 ml miscellaneous BID #100 ea 12/20/20 31 gauge x 5/16 (BD Insulin Syringe Ultra-Fine) terazosin 10 mg capsule 10 mg PO BEDTIME 30 days #90 caps 08/25/21 gabapentin 100 mg capsule 100 mg PO TID 90 days #270 caps 08/30/21 sildenafil 100 mg tablet 100 mg PO DAILY PRN sexual 12/08/21 activity 30 days #30 tabs furosemide 20 mg tablet 20 mg PO DAILY 90 days #90 tabs 01/10/22 flash glucose scanning reader #1 ea 02/28/22 (FreeStyle Alina 2 [place]) flash glucose sensor (FreeStyle #2 ea 02/28/22 Alina 2 Sensor) insulin glargine 100 unit/mL (3 60 unit (0.6 mL) subcut QPM 90 02/28/22 mL) subcutaneous pen (Basaglar days #60 mL KwikPen U-100 Insulin) pen needle, diabetic 32 gauge x #100 ea 02/28/22 (BD Ultra-Fine Madeline Pen Needle) dulaglutide 0.75 mg/0.5 mL 0.75 mg (0.5 mL) subcut QWEEK 30 03/08/22 subcutaneous pen injector days #2.5 mL (Trulicity) insulin lispro 100 unit/mL See Rx Instructions subcut TID 90 03/08/22 subcutaneous solution (Humalog days #40 mL U-100 Insulin) cholecalciferol (vitamin D3) 25 25 mcg PO DAILY #90 tabs 03/28/22 mcg (1,000 unit) tablet (Vitamin D3) acyclovir 800 mg tablet 800 mg PO 5XD 7 days #35 tabs 04/21/22 erythromycin 5 mg/gram (0.5 %) eye 1 appl ophthalmic (eye) Q4H #3.5 04/21/22 ointment grams Xarelto 20 mg tablet (rivaroxaban) 20 mg PO DAILY 90 days #90 tabs 05/17/22 atorvastatin 40 mg tablet 40 mg PO DAILY 90 days #90 tabs 05/17/22 ferrous sulfate 325 mg (65 mg 325 mg PO DAILY 90 days #90 tabs 05/17/22 iron) tablet (FeroSul) lisinopril 40 mg tablet 40 mg PO DAILY 90 days #90 tabs 05/17/22 metoprolol tartrate 100 mg tablet 100 mg PO BID 90 days #180 tabs 05/17/22 pen needle, diabetic 32 gauge x #100 ea 05/17/22 (BD Ultra-Fine Madeline Pen Needle) Allergies Allergy/AdvReac Type Severity Reaction Status Date / Time colesevelam [From WelChol] AdvReac Mild constipatio Verified 05/21/22 17:32 n Review of Systems Review of Systems: Constitutional : No Weight loss, No Fever, No Chills, No Fatigue, No Malaise ENT/Mouth : No sore throat, No Rhinorrhea Eyes: No Eye Pain, No Swelling, No Redness Cardiovascular : No Chest Pain, No SOB, No Dyspnea on Exertion, No Orthopnea, No Edema, No Palpitations Respiratory : No Cough, No Sputum, No Wheezing Gastrointestinal : No Nausea, No Vomiting, pos Diarrhea, No Constipation, No abdominal Pain, No Hematochezia, No Melena Genitourinary : No Dysuria, No Urinary Frequency, No Hematuria, Musculoskeletal : No joint pain, No Myalgias, No Joint Swelling Skin : No Skin Lesions, No rash Neuro : pos Weakness, No Numbness, No Dizziness, pos Headache Psych : No Anxiety/Panic, No Depression Heme/Lymph: No Bruising, No Bleeding,No Lymphadenopathy Endocrine : No Polyuria, No Polydipsia All other systems reviewed and are negative [facility] Past Medical History Attestation statement: The following information was validated with the patient. 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 On beta nahid at home Surgical History History of cataract surgery History of cystoscopy History of endoscopy History of esophagogastroduodenoscopy (EGD) History of surgery Hx of colonoscopy Hx of cystoscopy Hx of removal of cyst Family History Family History Father Medical history unknown Mother Diabetes Daughter In good health Son In good health Sister In good health Sister In good health Brother In good health Brother In good health Brother In good health Social History Social History Household Members: Spouse Housing: House Are you a primary home care coordinator to a significant other at home: No Do you presently have visiting nurse or other home services: No Alcohol intake: current Alcohol intake frequency: holidays/special occasions only Alcohol type: beer Patient Tobacco Use Status: Former Tobacco user Quit Date: age 36 Tobacco use type: Cigarette Years Smoked: 40 yrs ago e-Cigarette/Vaping Use: Never Used Second Hand Smoke Exposure: Yes Use of substances other than those prescribed or required for medical reasons: No Substance Use Type: Former Substance User and Marijuana Advance Directives: Yes Advance Directives on File: Yes Advance Directives Date on File: 09/07/21 service: No Current occupational status: retired Current occupational exposures/hazards: No Cognitive needs: No Hearing needs: No Vision needs: Yes Physical Exam Vital Signs: Vital Signs: Last Vital Signs Temp 97.7 F 05/21/22 17:33 Pulse 88 05/21/22 20:00 Resp 14 05/21/22 20:00 BP 120/48 L 05/21/22 20:00 Pulse Ox 100 05/21/22 20:24 O2 Del Method 05/21/22 20:24 BMI result Body Mass Index 36.8 Appearance: Alert. Oriented X3. Mild acute distress. Eyes: Pupils equal, round and reactive to light. L eye injected but no signs of vesicles noted ENT: Pharynx normal. Neck: Normal inspection. Neck supple. CVS: Normal heart rate and rhythm. Pulses normal. Respiratory: No respiratory distress. Breath sounds normal. Abdomen: Soft and nontender. Skin: Skin warm and dry. pale skin color. Normal skin turgor. Extremities: No lower extremity edema. No calf ttp Neuro: Oriented X 3. No motor deficit. No sensory deficit. 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 At this time episode occured during bowel movement. He denies CP/SOB. He is slightly somnolent possibly side effect of new increase in gabapentin. At this time has no abdominal pain on exam and no GIB symptoms reported. Will obtain EKG, CT head for ICH, labs, IVF. Observation dispo per results and findings. May need admission if he does not improve. Lab Data Result diagrams: 05/21/22 18:15 05/21/22 21:23 Labs: Lab Results 05/21/22 05/21/22 05/21/22 Range/Units 18:15 18:15 18:15 WBC 10.7 (4.8-10.8) X10*3/uL RBC 5.28 (4.60-5.80) X10*6/uL Hgb 14.1 (14.0-18.0) g/dl Hct 43.9 (42.0-52.0) % MCV 83.1 (80.0-98.0) fL MCH 26.7 L (27.0-33.0) pg MCHC 32.1 (31.0-36.0) g/dl RDW 16.2 H (11.0-16.0) % Plt Count 179 (160-400) X10*3/uL MPV 9.9 (9.4-12.4) fL Immature Gran % (Auto) 0.7 H (0.0-0.4) % Neut % (Auto) 84.5 H (45-73) % Lymph % (Auto) 7.2 L (20-40) % [place] % (Auto) 6.6 (2-11) % Eos % (Auto) 0.4 (0-4) % Baso % (Auto) 0.6 (0-2) % Lymph # (Auto) 0.8 L (1.2-4.9) X10*3/uL [place] # (Auto) 0.7 (0.1-1.2) X10*3/uL Eos # (Auto) 0.0 (0.0-0.4) X10*3/uL Baso # (Auto) 0.1 (0.0-0.2) X10*3/uL Abs Immat Gran (auto) 0.07 H (0.00-0.03) X10*3/uL Absolute Neuts (auto) 9.0 H (2.0-8.3) x10*3/uL Absolute Nucleated RBC 0.000 (0.0-0.012) X10*3/uL Nucleated RBC % (auto) 0.0 (0.0-0.2) /100WBC PT (10.0-13.1) SEC INR (0.9-1.1) Sodium 140 (135-145) mmol/L Potassium 4.2 (3.3-5.1) mmol/L Chloride 101 (96-108) mmol/L Carbon Dioxide 26 (22-29) mmol/L Anion Gap 17 (12-20) BUN 17 H D (9-16) mg/dL Creatinine 1.65 H (0.5-1.4) mg/dL Estim Creat Clear Calc 47.9 Estimated GFR 41 Random Glucose 219 H (60-115) mg/dL Lactic Acid (0.5-2.0) mmol/L Lactic Acid F/U @ 2Hr (0.5-2.0) mmol/L Calcium 8.9 D (8.4-10.2) mg/dL Magnesium 1.9 (1.6-2.6) mg/dL Total Bilirubin 0.8 (0.0-1.0) mg/dL Direct Bilirubin 0.3 (0.0-0.5) mg/dL AST 15 (5-37) U/L ALT 11 (0-40) U/L Alkaline Phosphatase 114 (39-117) U/L Troponin I High Sens (<3.5-35.0) ng/L C-Reactive Protein 0.06 (< or = 0.50) mg/dL Total Protein 6.5 (6.5-8.0) g/dL Albumin 3.4 L (3.5-5.0) g/dL Procalcitonin ng/mL COVID-19 (CHRISTIANO) Negative (Negative) COVID-19 Clin Com See Note 05/21/22 05/21/22 05/21/22 Range/Units 18:15 18:15 18:15 WBC (4.8-10.8) X10*3/uL RBC (4.60-5.80) X10*6/uL Hgb (14.0-18.0) g/dl Hct (42.0-52.0) % MCV (80.0-98.0) fL MCH (27.0-33.0) pg MCHC (31.0-36.0) g/dl RDW (11.0-16.0) % Plt Count (160-400) X10*3/uL MPV (9.4-12.4) fL Immature Gran % (Auto) (0.0-0.4) % Neut % (Auto) (45-73) % Lymph % (Auto) (20-40) % [place] % (Auto) (2-11) % Eos % (Auto) (0-4) % Baso % (Auto) (0-2) % Lymph # (Auto) (1.2-4.9) X10*3/uL [place] # (Auto) (0.1-1.2) X10*3/uL Eos # (Auto) (0.0-0.4) X10*3/uL Baso # (Auto) (0.0-0.2) X10*3/uL Abs Immat Gran (auto) (0.00-0.03) X10*3/uL Absolute Neuts (auto) (2.0-8.3) x10*3/uL Absolute Nucleated RBC (0.0-0.012) X10*3/uL Nucleated RBC % (auto) (0.0-0.2) /100WBC PT (10.0-13.1) SEC INR (0.9-1.1) Sodium (135-145) mmol/L Potassium (3.3-5.1) mmol/L Chloride (96-108) mmol/L Carbon Dioxide (22-29) mmol/L Anion Gap (12-20) BUN (9-16) mg/dL Creatinine (0.5-1.4) mg/dL Estim Creat Clear Calc Estimated GFR Random Glucose (60-115) mg/dL Lactic Acid 3.9 H* (0.5-2.0) mmol/L Lactic Acid F/U @ 2Hr (0.5-2.0) mmol/L Calcium (8.4-10.2) mg/dL Magnesium (1.6-2.6) mg/dL Total Bilirubin (0.0-1.0) mg/dL Direct Bilirubin (0.0-0.5) mg/dL AST (5-37) U/L ALT (0-40) U/L Alkaline Phosphatase (39-117) U/L Troponin I High Sens 30.6 (<3.5-35.0) ng/L C-Reactive Protein (< or = 0.50) mg/dL Total Protein (6.5-8.0) g/dL Albumin (3.5-5.0) g/dL Procalcitonin 0.11 ng/mL COVID-19 (CHRISTIANO) (Negative) COVID-19 Clin Com 05/21/22 05/21/22 05/21/22 Range/Units 19:21 19:21 19:21 WBC (4.8-10.8) X10*3/uL RBC (4.60-5.80) X10*6/uL Hgb (14.0-18.0) g/dl Hct (42.0-52.0) % MCV (80.0-98.0) fL MCH (27.0-33.0) pg MCHC (31.0-36.0) g/dl RDW (11.0-16.0) % Plt Count (160-400) X10*3/uL MPV (9.4-12.4) fL Immature Gran % (Auto) (0.0-0.4) % Neut % (Auto) (45-73) % Lymph % (Auto) (20-40) % [place] % (Auto) (2-11) % Eos % (Auto) (0-4) % Baso % (Auto) (0-2) % Lymph # (Auto) (1.2-4.9) X10*3/uL [place] # (Auto) (0.1-1.2) X10*3/uL Eos # (Auto) (0.0-0.4) X10*3/uL Baso # (Auto) (0.0-0.2) X10*3/uL Abs Immat Gran (auto) (0.00-0.03) X10*3/uL Absolute Neuts (auto) (2.0-8.3) x10*3/uL Absolute Nucleated RBC (0.0-0.012) X10*3/uL Nucleated RBC % (auto) (0.0-0.2) /100WBC PT 13.6 H (10.0-13.1) SEC INR 1.2 H (0.9-1.1) Sodium (135-145) mmol/L Potassium (3.3-5.1) mmol/L Chloride (96-108) mmol/L Carbon Dioxide (22-29) mmol/L Anion Gap (12-20) BUN (9-16) mg/dL Creatinine 1.45 H (0.5-1.4) mg/dL Estim Creat Clear Calc 54.5 Estimated GFR 47 Random Glucose (60-115) mg/dL Lactic Acid (0.5-2.0) mmol/L Lactic Acid F/U @ 2Hr (0.5-2.0) mmol/L Calcium (8.4-10.2) mg/dL Magnesium (1.6-2.6) mg/dL Total Bilirubin (0.0-1.0) mg/dL Direct Bilirubin (0.0-0.5) mg/dL AST (5-37) U/L ALT (0-40) U/L Alkaline Phosphatase (39-117) U/L Troponin I High Sens 25.7 (<3.5-35.0) ng/L C-Reactive Protein (< or = 0.50) mg/dL Total Protein (6.5-8.0) g/dL Albumin (3.5-5.0) g/dL Procalcitonin ng/mL COVID-19 (CHRISTIANO) (Negative) COVID-19 Clin Com 05/21/22 05/21/22 05/21/22 Range/Units 21:23 21:23 21:23 WBC (4.8-10.8) X10*3/uL RBC (4.60-5.80) X10*6/uL Hgb (14.0-18.0) g/dl Hct (42.0-52.0) % MCV (80.0-98.0) fL MCH (27.0-33.0) pg MCHC (31.0-36.0) g/dl RDW (11.0-16.0) % Plt Count (160-400) X10*3/uL MPV (9.4-12.4) fL Immature Gran % (Auto) (0.0-0.4) % Neut % (Auto) (45-73) % Lymph % (Auto) (20-40) % [place] % (Auto) (2-11) % Eos % (Auto) (0-4) % Baso % (Auto) (0-2) % Lymph # (Auto) (1.2-4.9) X10*3/uL [place] # (Auto) (0.1-1.2) X10*3/uL Eos # (Auto) (0.0-0.4) X10*3/uL Baso # (Auto) (0.0-0.2) X10*3/uL Abs Immat Gran (auto) (0.00-0.03) X10*3/uL Absolute Neuts (auto) (2.0-8.3) x10*3/uL Absolute Nucleated RBC (0.0-0.012) X10*3/uL Nucleated RBC % (auto) (0.0-0.2) /100WBC PT (10.0-13.1) SEC INR (0.9-1.1) Sodium (135-145) mmol/L Potassium (3.3-5.1) mmol/L Chloride (96-108) mmol/L Carbon Dioxide (22-29) mmol/L Anion Gap (12-20) BUN (9-16) mg/dL Creatinine 1.32 (0.5-1.4) mg/dL Estim Creat Clear Calc 59.9 Estimated GFR 53 Random Glucose (60-115) mg/dL Lactic Acid (0.5-2.0) mmol/L Lactic Acid F/U @ 2Hr 2.4 H* (0.5-2.0) mmol/L Calcium (8.4-10.2) mg/dL Magnesium (1.6-2.6) mg/dL Total Bilirubin (0.0-1.0) mg/dL Direct Bilirubin (0.0-0.5) mg/dL AST (5-37) U/L ALT (0-40) U/L Alkaline Phosphatase (39-117) U/L Troponin I High Sens 77.1 H D (<3.5-35.0) ng/L C-Reactive Protein (< or = 0.50) mg/dL Total Protein (6.5-8.0) g/dL Albumin (3.5-5.0) g/dL Procalcitonin ng/mL COVID-19 (CHRISTIANO) (Negative) COVID-19 Clin Com ECG Data Attestation: I personally reviewed and interpreted this ECG as follows: ECG interpretation date: 05/21/22 ECG interpretation time: 18:05 Interpretation: Rate: 86 Rhythm: afib [place]: left Normal QRS complex. ST T wave : no JAIDEN, nonspecific, inverted t wave aVL qTC: normal prior studies: no acute ischemia The study has been interpreted contemporaneously by me. . Critical Care Time Critical Care Time Critical Care Time: Yes Total Critical Care Time: 60 Attestation: review of records, 2L of IVF, repeat labs, admission I attest to this time spent taking care of the patient Discharge Plan Discharge Clinical Impression: ANAHI (acute kidney injury), Acidosis, lactic, Near syncope, Elevated troponin Patient Disposition: Admitted As Inpatient
[2022-05-21 18:22] VITALS: BP 120/48; PULSE 76; RESP 12; O2SAT 98
[2022-05-21 18:22] LABS: MANUAL DIFF FLAG NO
[2022-05-21 18:24] LABS: Basophils Absolute Auto 0.1 X10*3/uL (0.0-0.2); Basophils Percent Auto 0.6 % (0-2); Eosinophils Percent Auto 0.4 % (0-4); Hematocrit 43.9 % (42.0-52.0); Hemoglobin 14.1 g/dl (14.0-18.0); Imm Gran Abs Auto 0.07 X10*3/uL (0.00-0.03); Imm Gran Pct Auto 0.7 % (0.0-0.4); Lymphocytes Absolute Auto 0.8 X10*3/uL (1.2-4.9); Lymphocytes Percent Auto 7.2 % (20-40); Mean Corpuscular HGB Conc 32.1 g/dl (31.0-36.0); Mean Corpuscular Hemoglobin 26.7 pg (27.0-33.0); Mean Corpuscular Volume 83.1 fL (80.0-98.0); Mean Platelet Volume 9.9 fL (9.4-12.4); Monocytes Absolute Auto 0.7 X10*3/uL (0.1-1.2); Monocytes Percent Auto 6.6 % (2-11); Neutrophils Percent Auto 84.5 % (45-73); Platelet Count 179 X10*3/uL (160-400); Red Blood Count 5.28 X10*6/uL (4.60-5.80); Red Cell Distribution Width 16.2 % (11.0-16.0); White Blood Count 10.7 X10*3/uL (4.8-10.8)
[2022-05-21] MEDS: 0.9 % Sodium Chloride 1,000 ML 999 ML IVCONT (18:26)
[2022-05-21 18:42] LABS: Alanine Aminotransferase 11 U/L (0-40); Albumin Level 3.4 g/dL (3.5-5.0); Alkaline Phosphatase 114 U/L (39-117); Anion Gap 17 (12-20); Aspartate Amino Transferase 15 U/L (5-37); Bilirubin Direct 0.3 mg/dL (0.0-0.5); Bilirubin Total 0.8 mg/dL (0.0-1.0); Blood Urea Nitrogen 17 mg/dL (9-16); C Reactive Protein 0.06 mg/dL (< or = 0.50); Calcium 8.9 mg/dL (8.4-10.2); Carbon Dioxide 26 mmol/L (22-29); Chloride 101 mmol/L (96-108); Creatinine Clr Calc Pharmacy 47.9; Estimated Glomerular Filt Rate 41; Glucose Random 219 mg/dL (60-115); Magnesium 1.9 mg/dL (1.6-2.6); Potassium 4.2 mmol/L (3.3-5.1); Sodium 140 mmol/L (135-145); Total Protein 6.5 g/dL (6.5-8.0)
[2022-05-21 18:43] LABS: Lactic Acid 3.9 mmol/L (0.5-2.0)
[2022-05-21 18:46] LABS: Troponin-I High Sensitivity 30.6 ng/L (<3.5-35.0)
[2022-05-21 18:57] LABS: Procalcitonin 0.11 ng/mL
[2022-05-21] MEDS: 0.9 % Sodium Chloride 1,000 ML 999 ML IV (19:34)
[2022-05-21 19:50] LABS: Creatinine Clr Calc Pharmacy 54.5; Estimated Glomerular Filt Rate 47; INTERNATIONAL NORM RATIO 1.2 (0.9-1.1); Prothrombin Time 13.6 SEC (10.0-13.1)
[2022-05-21 19:55] LABS: COVID-19 Test Negative (Negative)
[2022-05-21 19:57] LABS: Troponin-I High Sensitivity 25.7 ng/L (<3.5-35.0)
[2022-05-21 20:00] VITALS: BP 120/48; PULSE 88; RESP 14; O2SAT 100
[2022-05-21 20:21] LABS: Reflex Lactate? Lactic Acid Added
[2022-05-21 20:24] VITALS: O2SAT 100
--- NOTE | 2022-05-21 20:25 | PC.NURSE ---
pt drowsy, but more alert than on presentation to ED, ox3, vss, ivf running. 20G IV left wrist/AC. lab work pending ends of ivf.
[2022-05-21 21:46] LABS: Creatinine Clr Calc Pharmacy 59.9; Estimated Glomerular Filt Rate 53
[2022-05-21 21:52] LABS: ~Lactic Acid-LAB USE ONLY 2.4 mmol/L (0.5-2.0)
[2022-05-21 22:25] LABS: Troponin-I High Sensitivity 77.1 ng/L (<3.5-35.0)
[2022-05-21 23:22] VITALS: PULSE 86; RESP 12; O2SAT 96
[2022-05-21 23:28] LABS: Reflex Lactate? 2 Y
--- NOTE | 2022-05-21 23:29 | P.HPHOSP_ITS ---
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 Patient's daughter at bedside reports that patient has been having many bottles with cancer and has been fighting 1st bladder cancer than melanoma than now Raji cell carcinoma and has been progressively getting weaker. He is now not eating much, not drin kendrick much, had 3 episodes of diarrhea today, and is overall feeling weak. Apparently patient went to the bathroom 3rd time today and felt too weak to stand therefore he fell to his knees. Patient reports no loss of consciousness, not feeling dizzy, no chest pain, no tachycardia no abdominal pain nausea or vomiting, no urinary symptoms and no lower extremity edema. No numbness tingling. On arrival to the ED patient vitals were significant for blood pressure of 119/55 otherwise unremarkable Labs are significant for WBC count of 10.7, hemoglobin of 14.1, hematocrit 43.9, BUN of 17, creatinine of 1.65 with a baseline around 1.18 lactic acid of 3.9, UA pending, Chest x-ray shows negative results Review of Systems Review of Systems: Yes all other systems are reviewed and are negative [facility] Medical History Anemia Benign essential hypertension Bladder cancer CAD (coronary artery disease) Chronic anticoagulation Chronic atrial fibrillation Chronic kidney disease (CKD), stage II (mild) Diabetes mellitus Erectile dysfunction History of colon polyps 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 Hyperlipidemia LDL goal <70 Iron deficiency anemia skilled nursing (current) use of insulin 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 Obesity (BMI 30-39.9) On beta nahid at home Pure hypercholesterolemia 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 Urinary bladder cancer Family History Father Medical history unknown Mother Diabetes Daughter In good health Son In good health Sister In good health Sister In good health Brother In good health Brother In good health Brother In good health Surgical History History of cataract surgery History of cystoscopy History of endoscopy History of esophagogastroduodenoscopy (EGD) History of surgery Hx of colonoscopy Hx of cystoscopy Hx of removal of cyst Social History Household Members: Spouse Housing: House Are you a primary animal care specialist to a significant other at home: No Do you presently have visiting nurse or other home services: No Alcohol intake: current Alcohol intake frequency: holidays/special occasions only Alcohol type: beer Patient Tobacco Use Status: Former Tobacco user Quit Date: age 36 Tobacco use type: Cigarette Years Smoked: 40 yrs ago e-Cigarette/Vaping Use: Never Used Second Hand Smoke Exposure: Yes Use of substances other than those prescribed or required for medical reasons: No Substance Use Type: Former Substance User and Marijuana Advance Directives: Yes Advance Directives on File: Yes Advance Directives Date on File: 09/07/21 service: No Current occupational status: retired Current occupational exposures/hazards: No Cognitive needs: No Hearing needs: No Vision needs: Yes Meds Allergies Allergy/AdvReac Type Severity Reaction Status Date / Time colesevelam [From WelChol] AdvReac Mild constipatio Verified 05/21/22 17:32 n Active Medications: Current Medications Acetaminophen (Acetaminophen 325 Mg Tablet) 650 mg PO Q6H PRN PRN Reason: Pain, Mild (Pain Scale 1-3) Docusate Sodium (Docusate Sodium 100 Mg Capsule) 100 mg PO DAILY PRN PRN Reason: Constipation Lactated Ringer's (Lr) 1,000 mls @ 100 mls/hr IVCONT .Q10H [facility] Ondansetron HCl (Ondansetron Hcl 4 Mg/2 Ml Vial) 4 mg IVPUSH Q8H PRN PRN Reason: Nausea and Vomiting Oxycodone HCl (Oxycodone Hcl Immed Release 5 Mg Tablet) 5 mg PO Q6H PRN PRN Reason: Pain, Severe (Pain Scale 7-10) Sodium Chloride (0.9 % Sodium Chloride Flush 3 Ml Syringe) 3 ml IVFLUSH QSHIFT [facility] Home Medications Medication Instructions Recorded Confirmed Last Taken Type latanoprost 0.005 % eye drops 1 drp ophthalmic (eye) BEDTIME 08/20/20 02/14/22 Unknown History nitroglycerin 0.4 mg sublingual 0.4 mg sublingual Q5M PRN Chest 08/25/20 02/14/22 Unknown History tablet Pain cyanocobalamin (vitamin B-12) 1,000 mcg PO DAILY 06/28/21 02/28/22 Unknown History 1,000 mcg tablet (Vitamin B-12) Physical Exam Vital Signs and Narrative: Vital Signs: Last Vital Signs Temp 97.7 F 05/21/22 17:33 Pulse 88 05/21/22 20:00 Resp 14 05/21/22 20:00 BP 120/48 L 05/21/22 20:00 Pulse Ox 100 05/21/22 20:24 O2 Del Method 05/21/22 20:24 BMI result Body Mass Index 36.8 Const: Other: Patient appears volume depleted, ill appearing General: cooperative and no acute distress Orientation/consciousness: patient oriented x3 Eyes: General: appearance normal, both eyes and all related structures Resp: Effort & Inspection: normal respiratory effort Auscultation: clear to auscultation bilaterally Cardio: Rate: regular rate Rhythm: regular rhythm GI: Palpation (GI): Soft to palpation Auscultation: normal bowel sounds Skin: Other: Dry mucosal membranes Neuro: General: patient oriented x3 Cognition (Neuro): normal cognition Extrem: General: Yes normal to inspection and Yes no pedal edema Results Labs CBC and Chem 7: 05/21/22 18:15 05/21/22 21:23 Labs: Laboratory Results - last 24 hr 05/21/22 05/21/22 05/21/22 18:15 18:15 18:15 MCV 83.1 MCH 26.7 L MCHC 32.1 RDW 16.2 H Plt Count 179 MPV 9.9 Immature Gran % (Auto) 0.7 H Neut % (Auto) 84.5 H Lymph % (Auto) 7.2 L [place] % (Auto) 6.6 Eos % (Auto) 0.4 Baso % (Auto) 0.6 Lymph # (Auto) 0.8 L [place] # (Auto) 0.7 Eos # (Auto) 0.0 Baso # (Auto) 0.1 Abs Immat Gran (auto) 0.07 H Absolute Neuts (auto) 9.0 H Absolute Nucleated RBC 0.000 Nucleated RBC % (auto) 0.0 PT INR Anion Gap 17 Estim Creat Clear Calc 47.9 Estimated GFR 41 Random Glucose 219 H Lactic Acid Lactic Acid F/U @ 2Hr Calcium 8.9 D Magnesium 1.9 Total Bilirubin 0.8 Direct Bilirubin 0.3 AST 15 ALT 11 Alkaline Phosphatase 114 Troponin I High Sens C-Reactive Protein 0.06 Total Protein 6.5 Albumin 3.4 L Procalcitonin COVID-19 ([facility]) Negative COVID-19 Clin Com See Note 05/21/22 05/21/22 05/21/22 18:15 18:15 18:15 MCV MCH MCHC RDW Plt Count MPV Immature Gran % (Auto) Neut % (Auto) Lymph % (Auto) [place] % (Auto) Eos % (Auto) Baso % (Auto) Lymph # (Auto) [place] # (Auto) Eos # (Auto) Baso # (Auto) Abs Immat Gran (auto) Absolute Neuts (auto) Absolute Nucleated RBC Nucleated RBC % (auto) PT INR Anion Gap Estim Creat Clear Calc Estimated GFR Random Glucose Lactic Acid 3.9 H* Lactic Acid F/U @ 2Hr Calcium Magnesium Total Bilirubin Direct Bilirubin AST ALT Alkaline Phosphatase Troponin I High Sens 30.6 C-Reactive Protein Total Protein Albumin Procalcitonin 0.11 COVID-19 ([facility]IANO) COVID-19 [employer] 05/21/22 05/21/22 05/21/22 19:21 19:21 19:21 MCV MCH MCHC RDW Plt Count MPV Immature Gran % (Auto) Neut % (Auto) Lymph % (Auto) [place] % (Auto) Eos % (Auto) Baso % (Auto) Lymph # (Auto) [place] # (Auto) Eos # (Auto) Baso # (Auto) Abs Immat Gran (auto) Absolute Neuts (auto) Absolute Nucleated RBC Nucleated RBC % (auto) PT 13.6 H INR 1.2 H Anion Gap Estim Creat Clear Calc 54.5 Estimated GFR 47 Random Glucose Lactic Acid Lactic Acid F/U @ 2Hr Calcium Magnesium Total Bilirubin Direct Bilirubin AST ALT Alkaline Phosphatase Troponin I High Sens 25.7 C-Reactive Protein Total Protein Albumin Procalcitonin COVID-19 ([facility]IANO) COVID-19 [employer]) Com 05/21/22 05/21/22 05/21/22 21:23 21:23 21:23 MCV MCH MCHC RDW Plt Count MPV Immature Gran % (Auto) Neut % (Auto) Lymph % (Auto) [place] % (Auto) Eos % (Auto) Baso % (Auto) Lymph # (Auto) [place] # (Auto) Eos # (Auto) Baso # (Auto) Abs Immat Gran (auto) Absolute Neuts (auto) Absolute Nucleated RBC Nucleated RBC % (auto) PT INR Anion Gap Estim Creat Clear Calc 59.9 Estimated GFR 53 Random Glucose Lactic Acid Lactic Acid F/U @ 2Hr 2.4 H* Calcium Magnesium Total Bilirubin Direct Bilirubin AST ALT Alkaline Phosphatase Troponin I High Sens 77.1 H D C-Reactive Protein Total Protein Albumin Procalcitonin COVID-19 ([facility]IANO) COVID-19 Clin Com Imaging Radiologist's Impressions: Impressions Chest X-Ray 05/21/22 18:30 IMPRESSION: Negative acute portable chest Head CT 05/21/22 18:55 IMPRESSION: No acute intracranial pathology. Assessment and Plan (1) ANAHI (acute kidney injury): Status: Acute (2) Acidosis, lactic: Status: Acute (3) Near syncope: Status: Acute (4) Elevated troponin: Status: Acute Plan This is a 76-year-old male with extensive past medical answering including various cancers, diabetes, hypertension presents to the hospital with weakness and near syncopal episode # Near syncope - likely 2/2 dehydration - no syncope - pt will receive IVF - PT/OT prior to discharge # Lactic acidosis - Likely 2/2 dehydration - trending down # ANAHI - 2/2 dehydration - IVF - Follow bmp # Elevated trop - type 2 - no chest pain - no ekg changes - monitor # HTN - stable - continue antihypertensive # DM - LDSSI - Diabetic diet DVT ppx: heparin subq Quality Stroke Does the patient have a stroke diagnosis?: No VTE Prior VTE?: No VTE Risk Level:: Medical - moderate - high VTE Device Contraindication: Treatment Not Indicated VTE Drug Contraindication: N/A - Med Ordered
[2022-05-21] MEDS: oxyCODONE HCl Immed Release 5 MG TABLET PO (23:44)
--- NOTE | 2022-05-22 | ECG_ITS ---
Test Reason : ordered by physician Blood Pressure : / mmHG Vent. Rate : 088 BPM Atrial Rate : 000 BPM P-R Int : 000 ms QRS Dur : 074 ms QT Int : 370 ms P-R-T Axes : 000 127 -22 degrees QTc Int : 447 ms Atrial fibrillation Possible Right ventricular hypertrophy Right axis deviation Cannot rule out Inferior infarct (cited on or before 02-MAY-2021) Abnormal ECG When compared with ECG of 21-MAY-2022 17:57, Right axis deviation Nonspecific T wave abnormality now evident in Anterolateral leads Referred By: Basil Shin Electronically Signed By:Sharif Forrester
[2022-05-22 01:07] LABS: ~Lactic Acid-LAB USE ONLY 3.8 mmol/L (0.5-2.0)
[2022-05-22] MEDS: Lactated Ringers 1,000 ML 100 ML IVCONT ×3 (01:46→22:27)
[2022-05-22] MEDS: 0.9 % Sodium Chloride Flush 3 ML SYRINGE IVFLUSH ×2 (01:49→22:31)
[2022-05-22] MEDS: Acetaminophen 325 MG TABLET 650 MG PO ×2 (01:56→12:47)
--- NOTE | 2022-05-22 02:55 | PC.NURSE ---
RN-RN report called to overflow.
[2022-05-22 03:42] VITALS: BP 173/81; PULSE 92; RESP 16; TEMP 36.3; O2SAT 95
--- NOTE | 2022-05-22 04:59 | PC.NURSE ---
TO OVERFLOW BED 7 FROM MAIN ED...ALERT..ORIENTED X3..RESPIRATIONS EASY..TRANSFERRED SELF FROM [facility] AND WALKED TO BED W/O DIZZYNESS...LR 100 CC/HR...DENIES/OFFERS NO COMPLAINTS...MONITOR CHRONIC ATRIAL FIB CONTROLLED HR..NAPPING AFTER TRANSFER
[2022-05-22 07:14] LABS: Glucose, Whole Blood 166 mg/dL (60-115)
[2022-05-22 07:18] LABS: MANUAL DIFF FLAG NO
[2022-05-22 07:20] LABS: Basophils Percent Auto 0.4 % (0-2); Eosinophils Percent Auto 0.4 % (0-4); Hematocrit 39.3 % (42.0-52.0); Hemoglobin 12.7 g/dl (14.0-18.0); Imm Gran Abs Auto 0.04 X10*3/uL (0.00-0.03); Imm Gran Pct Auto 0.5 % (0.0-0.4); Lymphocytes Percent Auto 11.6 % (20-40); Mean Corpuscular HGB Conc 32.3 g/dl (31.0-36.0); Mean Corpuscular Hemoglobin 26.7 pg (27.0-33.0); Mean Corpuscular Volume 82.7 fL (80.0-98.0); Mean Platelet Volume 9.8 fL (9.4-12.4); Monocytes Absolute Auto 0.6 X10*3/uL (0.1-1.2); Neutrophils Absolute Auto 6.7 x10*3/uL (2.0-8.3); Neutrophils Percent Auto 80.1 % (45-73); Platelet Count 124 X10*3/uL (160-400); Red Blood Count 4.75 X10*6/uL (4.60-5.80); Red Cell Distribution Width 15.8 % (11.0-16.0); White Blood Count 8.3 X10*3/uL (4.8-10.8)
[2022-05-22 07:39] LABS: Anion Gap 15 (12-20); Blood Urea Nitrogen 20 mg/dL (9-16); Calcium 8.4 mg/dL (8.4-10.2); Carbon Dioxide 26 mmol/L (22-29); Chloride 105 mmol/L (96-108); Creatinine Clr Calc Pharmacy 59.4; Estimated Glomerular Filt Rate 52; Glucose Random 174 mg/dL (60-115); Potassium 3.7 mmol/L (3.3-5.1); Sodium 142 mmol/L (135-145)
[2022-05-22 07:41] LABS: Troponin-I High Sensitivity 471.6 ng/L (<3.5-35.0)
[2022-05-22 08:05] VITALS: BP 134/47; PULSE 82; RESP 14; O2SAT 99
--- NOTE | 2022-05-22 08:39 | PHA.MEDREC ---
Pharmacy Consult ? Medication Reconciliation Pharmacy has completed the medication reconciliation.Spoke with via phone who listed off all medications. patient last took meds on 05/21. gabapentin recently increased fro 100 mg tid to 200 mg tid
--- NOTE | 2022-05-22 11:29 | PC.NURSE ---
report given to EDWIN Morrell. pt will be transferred to room 354. transported paged, awaiting response. pt aware of plan.
--- NOTE | 2022-05-22 11:57 | HO.PM.IMPN ---
Subjective Subjective Date of Service: 05/23/22 Interval History: f/u on near syncope, ANAHI, dehydration Interval history: feels better, troponin I is significantly high today yet has no chest pain Review of Systems no syncope, no dizziness, no chest pain Physical Exam Vital Signs: Vital Signs: Last Vital Signs Temp 97.4 F 05/22/22 03:42 Pulse 82 05/22/22 08:05 Resp 14 05/22/22 08:05 BP 134/47 L 05/22/22 08:05 Pulse Ox 99 05/22/22 08:05 O2 Del Method 05/22/22 08:05 BMI result Body Mass Index 36.8 Const: Other: General: AO X 3, no acute distress Resp: CTA bilateral CVS: S1,S2,RRR GI: +BS, NT, no distention Skin: No rash Neuro: motor grossly intact Psych: appropriate affect Objective Data Active Medications Acetaminophen (Acetaminophen 325 Mg Tablet) 650 mg PO Q6H PRN PRN Reason: Pain, Mild (Pain Scale 1-3) Last Admin: 05/22/22 01:56 Dose: 650 mg Documented By: JAMAAL Docusate Sodium (Docusate Sodium 100 Mg Capsule) 100 mg PO DAILY PRN PRN Reason: Constipation Lactated Ringer's (Lr) 1,000 mls @ 100 mls/hr IVCONT .Q10H [facility] Last Admin: 05/22/22 08:36 Dose: 100 mls/hr Documented By: CARI Ondansetron HCl (Ondansetron Hcl 4 Mg/2 Ml Vial) 4 mg IVPUSH Q8H PRN PRN Reason: Nausea and Vomiting Oxycodone HCl (Oxycodone Hcl Immed Release 5 Mg Tablet) 5 mg PO Q6H PRN PRN Reason: Pain, Severe (Pain Scale 7-10) Sodium Chloride (0.9 % Sodium Chloride Flush 3 Ml Syringe) 3 ml IVFLUSH QSHIFT [facility] Last Admin: 05/22/22 08:36 Dose: Not Given Documented By: CARI Non-Admin Reason: IV Running Labs CBC & Chem 7: 05/22/22 07:04 05/22/22 07:04 Labs: Laboratory Results - last 24 hr 05/21/22 05/21/22 05/21/22 18:15 18:15 18:15 MCV 83.1 MCH 26.7 L MCHC 32.1 RDW 16.2 H Plt Count 179 MPV 9.9 Immature Gran % (Auto) 0.7 H Neut % (Auto) 84.5 H Lymph % (Auto) 7.2 L [place] % (Auto) 6.6 Eos % (Auto) 0.4 Baso % (Auto) 0.6 Lymph # (Auto) 0.8 L [place] # (Auto) 0.7 Eos # (Auto) 0.0 Baso # (Auto) 0.1 Abs Immat Gran (auto) 0.07 H Absolute Neuts (auto) 9.0 H Absolute Nucleated RBC 0.000 Nucleated RBC % (auto) 0.0 PT INR Anion Gap 17 Estim Creat Clear Calc 47.9 Estimated GFR 41 POC Glucose Random Glucose 219 H Lactic Acid Lactic Acid F/U @ 2Hr Lactic Acid F/U @ 4Hr Calcium 8.9 D Magnesium 1.9 Total Bilirubin 0.8 Direct Bilirubin 0.3 AST 15 ALT 11 Alkaline Phosphatase 114 Troponin I High Sens C-Reactive Protein 0.06 Total Protein 6.5 Albumin 3.4 L Procalcitonin COVID-19 (CH[facility]STIANO) Negative [email or web address] Com See Note 05/21/22 05/21/22 05/21/22 18:15 18:15 18:15 MCV MCH MCHC RDW Plt Count MPV Immature Gran % (Auto) Neut % (Auto) Lymph % (Auto) [place] % (Auto) Eos % (Auto) Baso % (Auto) Lymph # (Auto) [place] # (Auto) Eos # (Auto) Baso # (Auto) Abs Immat Gran (auto) Absolute Neuts (auto) Absolute Nucleated RBC Nucleated RBC % (auto) PT INR Anion Gap Estim Creat Clear Calc Estimated GFR POC Glucose Random Glucose Lactic Acid 3.9 H* Lactic Acid F/U @ 2Hr Lactic Acid F/U @ 4Hr Calcium Magnesium Total Bilirubin Direct Bilirubin AST ALT Alkaline Phosphatase Troponin I High Sens 30.6 C-Reactive Protein Total Protein Albumin Procalcitonin 0.11 COVID-19 ([facility]STIANO) COVID-Advanced Circulatory 05/21/22 05/21/22 05/21/22 19:21 19:21 19:21 MCV MCH MCHC RDW Plt Count MPV Immature Gran % (Auto) Neut % (Auto) Lymph % (Auto) [place] % (Auto) Eos % (Auto) Baso % (Auto) Lymph # (Auto) [place] # (Auto) Eos # (Auto) Baso # (Auto) Abs Immat Gran (auto) Absolute Neuts (auto) Absolute Nucleated RBC Nucleated RBC % (auto) PT 13.6 H INR 1.2 H Anion Gap Estim Creat Clear Calc 54.5 Estimated GFR 47 POC Glucose Random Glucose Lactic Acid Lactic Acid F/U @ 2Hr Lactic Acid F/U @ 4Hr Calcium Magnesium Total Bilirubin Direct Bilirubin AST ALT Alkaline Phosphatase Troponin I High Sens 25.7 C-Reactive Protein Total Protein Albumin Procalcitonin COVID-19 ([facility]O) COVID-19 Clin Com 05/21/22 05/21/22 05/21/22 21:23 21:23 21:23 MCV MCH MCHC RDW Plt Count MPV Immature Gran % (Auto) Neut % (Auto) Lymph % (Auto) [place] % (Auto) Eos % (Auto) Baso % (Auto) Lymph # (Auto) [place] # (Auto) Eos # (Auto) Baso # (Auto) Abs Immat Gran (auto) Absolute Neuts (auto) Absolute Nucleated RBC Nucleated RBC % (auto) PT INR Anion Gap Estim Creat Clear Calc 59.9 Estimated GFR 53 POC Glucose Random Glucose Lactic Acid Lactic Acid F/U @ 2Hr 2.4 H* Lactic Acid F/U @ 4Hr Calcium Magnesium Total Bilirubin Direct Bilirubin AST ALT Alkaline Phosphatase Troponin I High Sens 77.1 H D C-Reactive Protein Total Protein Albumin Procalcitonin COVID-19 ([facility]O) COVID-19 Clin Com 05/22/22 05/22/22 05/22/22 00:49 07:04 07:04 MCV 82.7 MCH 26.7 L MCHC 32.3 RDW 15.8 Plt Count 124 L D MPV 9.8 Immature Gran % (Auto) 0.5 H Neut % (Auto) 80.1 H Lymph % (Auto) 11.6 L [place] % (Auto) 7.0 Eos % (Auto) 0.4 Baso % (Auto) 0.4 Lymph # (Auto) 1.0 L [place] # (Auto) 0.6 Eos # (Auto) 0.0 Baso # (Auto) 0.0 Abs Immat Gran (auto) 0.04 H Absolute Neuts (auto) 6.7 Absolute Nucleated RBC 0.000 Nucleated RBC % (auto) 0.0 PT INR Anion Gap 15 Estim Creat Clear Calc 59.4 Estimated GFR 52 POC Glucose Random Glucose 174 H Lactic Acid Lactic Acid F/U @ 2Hr Lactic Acid F/U @ 4Hr 3.8 H* Calcium 8.4 Magnesium Total Bilirubin Direct Bilirubin AST ALT Alkaline Phosphatase Troponin I High Sens C-Reactive Protein Total Protein Albumin Procalcitonin COVID-19 ([facility]) COVID-19 Clin Com 05/22/22 05/22/22 07:04 07:08 MCV MCH MCHC RDW Plt Count MPV Immature Gran % (Auto) Neut % (Auto) Lymph % (Auto) [place] % (Auto) Eos % (Auto) Baso % (Auto) Lymph # (Auto) [place] # (Auto) Eos # (Auto) Baso # (Auto) Abs Immat Gran (auto) Absolute Neuts (auto) Absolute Nucleated RBC Nucleated RBC % (auto) PT INR Anion Gap Estim Creat Clear Calc Estimated GFR POC Glucose 166 H Random Glucose Lactic Acid Lactic Acid F/U @ 2Hr Lactic Acid F/U @ 4Hr Calcium Magnesium Total Bilirubin Direct Bilirubin AST ALT Alkaline Phosphatase Troponin I High Sens 471.6 H* D C-Reactive Protein Total Protein Albumin Procalcitonin COVID-19 ([facility]O) COVID-19 Clin Com Assessment and Plan (1) Acidosis, lactic: Status: Resolved Plan 76-year-old male with extensive past medical answering including various cancers, diabetes, hypertension presents to the hospital with weakness and near syncopal episode # Near syncope - Possible d/t dedhydration but ACS need to be ruled out - no syncope - s/p IVF #Elevated troponin NSTEMI vs demand ischemia, underlying CAD -on Xarelto so hold heparin for now, trend troponin -repeat ECG -CArdiology to assess # Lactic acidosis - Likely 2/2 dehydration - trending down # ANAHI - 2/2 dehydration - IVF - Follow bmp # HTN - stable - continue antihypertensive # DM - LDSSI - Diabetic diet DVT ppx: Xarelto Quality Stroke Does the patient have a stroke diagnosis?: No VTE Prior VTE?: No VTE Risk Level:: Medical - moderate - high VTE Device Contraindication: Treatment Not Indicated VTE Drug Contraindication: N/A - Med Ordered
[2022-05-22 12:00] VITALS: BP 105/78; PULSE 94; RESP 16; TEMP 36.4; O2SAT 97
[2022-05-22 12:26] LABS: Glucose, Whole Blood 205 mg/dL (60-115)
[2022-05-22] MEDS: Insulin Lispro 100 UNIT/ML 3 ML VIAL SUBCUT ×2 (12:40→16:41)
[2022-05-22] MEDS: oxyCODONE HCl Immed Release 5 MG TABLET PO (12:46)
[2022-05-22 13:02] LABS: Troponin-I High Sensitivity 464.3 ng/L (<3.5-35.0)
--- NOTE | 2022-05-22 15:01 | MHC.CM.PN ---
CM MET WITH PT AND HIS AT BEDSIDE THEY REPORT PT IS FULLY INDEPENDENT HE USES A CANE AND HAS NO SERVICES AT HOME PT IS NOT COVID VACCINATED, HIS REPORTS THEY HAVE BEEN SCARED DUE TO FRIENDS HAVING SERIOUS REACTIONS PT HAS A HCP ON FILE AND HIS PCP IS [facility] IMM DELIVERED, COPY SENT TO [facility] CURRENT DC PLAN IS HOME TO TRANSPORT
[2022-05-22] MEDS: Morphine Sulfate 4 MG/ML CARTRIDGE 6 MG IVPUSH (15:07)
[2022-05-22] MEDS: Gabapentin 100 MG CAPSULE 200 MG PO ×2 (15:07→22:28)
[2022-05-22 15:33] LABS: Glucose, Whole Blood 176 mg/dL (60-115)
[2022-05-22 16:00] VITALS: BP 166/71; PULSE 82; RESP 15; TEMP 36.6; O2SAT 96
[2022-05-22] MEDS: Rivaroxaban 20 MG TABLET PO (16:41)
[2022-05-22 19:43] VITALS: BP 190/74; PULSE 77; RESP 18; TEMP 36.5; O2SAT 94
[2022-05-22 22:04] LABS: Glucose, Whole Blood 120 mg/dL (60-115)
[2022-05-22] MEDS: Latanoprost 0.005 % Ophth Sol 2.5 ML DROPS 1 DROP EYE-BOTH (22:27)
[2022-05-22] MEDS: Doxazosin Mesylate 2 MG TABLET 8 MG PO (22:28)
[2022-05-22] MEDS: Insulin Glargine,Hum.rec.anlog 100 UNIT/ML 10 ML VIAL 54 UNIT SUBCUT (22:28)
[2022-05-22] MEDS: Metoprolol Tartrate 100 MG TABLET PO (22:28)
[2022-05-22 23:24] VITALS: BP 171/83; PULSE 88; RESP 18; TEMP 36.4; O2SAT 95
[2022-05-23 03:45] VITALS: BP 126/78; PULSE 80; RESP 18; TEMP 36.6; O2SAT 95
[2022-05-23] MEDS: Lactated Ringers 1,000 ML 100 ML IVCONT (06:06)
[2022-05-23 07:06] VITALS: BP 132/80; PULSE 70; RESP 18; TEMP 36.3; O2SAT 97
[2022-05-23 07:41] LABS: Glucose, Whole Blood 127 mg/dL (60-115)
[2022-05-23] MEDS: Gabapentin 100 MG CAPSULE 200 MG PO (08:53)
[2022-05-23] MEDS: Cholecalciferol (Vitamin D3) 25 MCG TABLET PO (08:53)
[2022-05-23] MEDS: Furosemide 20 MG TABLET PO (08:53)
[2022-05-23] MEDS: lisinopriL 40 MG TABLET PO (08:53)
[2022-05-23] MEDS: Ferrous Sulfate 324 MG TABLET.DR PO (08:53)
[2022-05-23] MEDS: Metoprolol Tartrate 100 MG TABLET PO (08:53)
--- NOTE | 2022-05-23 09:40 | HO.PM.IMPN ---
Subjective Subjective Date of Service: 05/23/22 Interval History: f/u on near syncope, anahi, elevated troponin Interval history: no syncope, no chest pain, no sob Review of Systems no sob no chest pain, no dizziness Physical Exam Vital Signs: Vital Signs: Last Vital Signs Temp 97.3 F 05/23/22 07:06 Pulse 70 05/23/22 07:06 Resp 18 05/23/22 07:06 BP 132/80 05/23/22 07:06 Pulse Ox 97 05/23/22 07:06 O2 Del Method 05/23/22 07:06 BMI result Body Mass Index 36.8 Objective Data Active Medications Acetaminophen (Acetaminophen 325 Mg Tablet) 650 mg PO Q6H PRN PRN Reason: Pain, Mild (Pain Scale 1-3) Last Admin: 05/22/22 12:47 Dose: 650 mg Documented By: MIKA Atorvastatin Calcium (Atorvastatin Calcium 40 Mg Tablet) 40 mg PO BEDTIME [facility] Docusate Sodium (Docusate Sodium 100 Mg Capsule) 100 mg PO DAILY PRN PRN Reason: Constipation Doxazosin Mesylate (Doxazosin Mesylate 2 Mg Tablet) 8 mg PO BEDTIME [facility] Last Admin: 05/22/22 22:28 Dose: 8 mg Documented By: BING Ferrous Sulfate (Ferrous Sulfate 324 Mg Tablet.) 324 mg PO DAILY [facility] Last Admin: 05/23/22 08:53 Dose: 324 mg Documented By: KIARA Furosemide (Furosemide 20 Mg Tablet) 20 mg PO DAILY [facility]; Protocol Last Admin: 05/23/22 08:53 Dose: 20 mg Documented By: KIARA Gabapentin (Gabapentin 100 Mg Capsule) 200 mg PO TID [facility] Last Admin: 05/23/22 08:53 Dose: 200 mg Documented By: KIARA Lactated Ringer's (Lr) 1,000 mls @ 100 mls/hr IVCONT .Q10H [facility] Last Admin: 05/23/22 06:06 Dose: 100 mls/hr Documented By: BING Insulin Glargine (Insulin Glargine,Hum.Rec.Anlog 100 Unit/Ml 10 Ml Vial) 54 unit SUBCUT BEDTIME [facility] Last Admin: 05/22/22 22:28 Dose: 54 unit Documented By: BING Insulin Human Lispro (Insulin Lispro 100 Unit/Ml 3 Ml Vial) 0 unit SUBCUT QIDACHS [facility]; Protocol Last Admin: 05/23/22 07:49 Dose: Not Given Documented By: KIARA Non-Admin Reason: No Insulin Coverage Latanoprost (Latanoprost 0.005 % Ophth Clarita 2.5 Ml Drops) 1 drop EYE-BOTH BEDTIME [facility] Last Admin: 05/22/22 22:27 Dose: 1 drop Documented By: BING Lisinopril (Lisinopril 40 Mg Tablet) 40 mg PO DAILY [facility]; Protocol Last Admin: 05/23/22 08:53 Dose: 40 mg Documented By: KIARA Metoprolol Tartrate (Metoprolol Tartrate 100 Mg Tablet) 100 mg PO BID [facility]; Protocol Last Admin: 05/23/22 08:53 Dose: 100 mg Documented By: KIARA Morphine Sulfate (Morphine Sulfate 4 Mg/Ml Cartridge) 6 mg IVPUSH Q6H PRN; Protocol PRN Reason: Pain, Severe (Pain Scale 7-10) Last Admin: 05/22/22 15:07 Dose: 6 mg Documented By: MIKA Nitroglycerin (Nitroglycerin 0.4 Mg Tab.Subl) 0.4 mg SUBLINGUAL Q5M PRN PRN Reason: Chest Pain Ondansetron HCl (Ondansetron Hcl 4 Mg/2 Ml Vial) 4 mg IVPUSH Q8H PRN PRN Reason: Nausea and Vomiting Oxycodone HCl (Oxycodone Hcl Immed Release 5 Mg Tablet) 5 mg PO Q6H PRN PRN Reason: Pain, Severe (Pain Scale 7-10) Last Admin: 05/22/22 12:46 Dose: 5 mg Documented By: MIKA Rivaroxaban (Rivaroxaban 20 Mg Tablet) 20 mg PO DAILY@1700 [facility] Last Admin: 05/22/22 16:41 Dose: 20 mg Documented By: MIKA Sodium Chloride (0.9 % Sodium Chloride Flush 3 Ml Syringe) 3 ml IVFLUSH QSHIFT [facility] Last Admin: 05/23/22 07:21 Dose: Not Given Documented By: KIARA Non-Admin Reason: IV Running Vitamin D (Cholecalciferol (Vitamin D3) 25 Mcg Tablet) 25 mcg PO DAILY [facility] Last Admin: 05/23/22 08:53 Dose: 25 mcg Documented By: KIARA Labs CBC & Chem 7: 05/22/22 07:04 05/22/22 07:04 Labs: Laboratory Results - last 24 hr 05/22/22 05/22/22 05/22/22 12:21 12:28 15:20 POC Glucose 205 H 176 H Troponin I High Sens 464.3 H* 05/22/22 05/23/22 21:48 07:12 POC Glucose 120 H 127 H Troponin I High Sens Microbiology Microbiology Results: Microbiology 05/21/22 18:16 Blood Culture - Preliminary Blood - Venous No growth after 24 hours. 05/21/22 18:31 Blood Culture - Preliminary Blood - Venous No growth after 24 hours. Assessment and Plan (1) Acidosis, lactic: Status: Resolved Plan 76-year-old male with extensive past medical answering including various cancers, diabetes, hypertension presents to the hospital with weakness and near syncopal episode # Near syncope--no further episodes - Possible d/t dedhydration but ACS need to be ruled out - no further episode - s/p IVF--dc #Elevated troponin NSTEMI vs demand ischemia, underlying CAD -on Xarelto so hold heparin for now, repeat trop has trended down -repeat ECG -CArdiology to assess # Lactic acidosis - Likely 2/2 dehydration - trended down # ANAHI--resolved - 2/2 dehydration - IVF - Follow bmp # HTN - stable - continue antihypertensive # DM - LDSSI - Diabetic diet DVT ppx: Xarelto Quality Stroke Does the patient have a stroke diagnosis?: No VTE Prior VTE?: No VTE Risk Level:: Medical - moderate - high VTE Device Contraindication: Treatment Not Indicated VTE Drug Contraindication: N/A - Med Ordered
--- NOTE | 2022-05-23 11:26 | P.CONCA_ITS ---
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 He was not eating and drinking at home and was having diarrhea. He was in the bathroom and when he got out to walk he had a fall. He reports that he did not pass out. Quite vague story. Family was close by who also added that he did not pass out. He was brought to the [facility] where he was diagnosed with kidney injury. His high sensitivity troponin levels were elevated mildly. He is denying any chest discomfort shortness of breath. He was diagnosed with dehydration given kidney injury and lack of p.o. intake and was started on IV fluids. He has been feeling better. 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 Urinary bladder cancer Family History Family History Father Medical history unknown Mother Diabetes Daughter In good health Son In good health Sister In good health Sister In good health Brother In good health Brother In good health Brother In good health Surgical History Surgical History History of cataract surgery History of cystoscopy History of endoscopy History of esophagogastroduodenoscopy (EGD) History of surgery Hx of colonoscopy Hx of cystoscopy Hx of removal of cyst Social History Social History Household Members: Spouse Housing: House Are you a primary technical healthcare consultant to a significant other at home: No Do you presently have visiting nurse or other home services: No Alcohol intake: current Alcohol intake frequency: holidays/special occasions only Alcohol type: beer Patient Tobacco Use Status: Former Tobacco user Quit Date: age 36 Tobacco use type: Cigarette Years Smoked: 40 yrs ago e-Cigarette/Vaping Use: Never Used Second Hand Smoke Exposure: Yes Substance Use Type: Former Substance User and Marijuana Advance Directives Date on File: 09/07/21 service: No Current occupational status: retired Current occupational exposures/hazards: No Cognitive needs: No Hearing needs: No Vision needs: Yes Meds Allergies Allergy/AdvReac Type Severity Reaction Status Date / Time colesevelam [From WelChol] AdvReac Mild constipatio Verified 05/21/22 17:32 n Active Medications: Current Medications Acetaminophen (Acetaminophen 325 Mg Tablet) 650 mg PO Q6H PRN PRN Reason: Pain, Mild (Pain Scale 1-3) Last Admin: 05/22/22 12:47 Dose: 650 mg Atorvastatin Calcium (Atorvastatin Calcium 40 Mg Tablet) 40 mg PO BEDTIME [facility] Docusate Sodium (Docusate Sodium 100 Mg Capsule) 100 mg PO DAILY PRN PRN Reason: Constipation Doxazosin Mesylate (Doxazosin Mesylate 2 Mg Tablet) 8 mg PO BEDTIME [facility] Last Admin: 05/22/22 22:28 Dose: 8 mg Ferrous Sulfate (Ferrous Sulfate 324 Mg Tablet.Dr) 324 mg PO DAILY [facility] Last Admin: 05/23/22 08:53 Dose: 324 mg Furosemide (Furosemide 20 Mg Tablet) 20 mg PO DAILY [facility]; Protocol Last Admin: 05/23/22 08:53 Dose: 20 mg Gabapentin (Gabapentin 100 Mg Capsule) 200 mg PO TID [facility] Last Admin: 05/23/22 08:53 Dose: 200 mg Lactated Ringer's (Lr) 1,000 mls @ 100 mls/hr IVCONT .Q10H [facility] Last Admin: 05/23/22 06:06 Dose: 100 mls/hr Insulin Glargine (Insulin Glargine,Hum.Rec.Anlog 100 Unit/Ml 10 Ml Vial) 54 unit SUBCUT BEDTIME [facility] Last Admin: 05/22/22 22:28 Dose: 54 unit Insulin Human Lispro (Insulin Lispro 100 Unit/Ml 3 Ml Vial) 0 unit SUBCUT QIDACHS [facility]; Protocol Last Admin: 05/23/22 07:49 Dose: Not Given Latanoprost (Latanoprost 0.005 % Ophth Clarita 2.5 Ml Drops) 1 drop EYE-BOTH BEDTIME REPLACED BY [facility] Last Admin: 05/22/22 22:27 Dose: 1 drop Lisinopril (Lisinopril 40 Mg Tablet) 40 mg PO DAILY REPLACED BY [facility]; Protocol Last Admin: 05/23/22 08:53 Dose: 40 mg Metoprolol Tartrate (Metoprolol Tartrate 100 Mg Tablet) 100 mg PO BID REPLACED BY [facility]; Protocol Last Admin: 05/23/22 08:53 Dose: 100 mg Morphine Sulfate (Morphine Sulfate 4 Mg/Ml Cartridge) 6 mg IVPUSH Q6H PRN; Protocol PRN Reason: Pain, Severe (Pain Scale 7-10) Last Admin: 05/22/22 15:07 Dose: 6 mg Nitroglycerin (Nitroglycerin 0.4 Mg Tab.Subl) 0.4 mg SUBLINGUAL Q5M PRN PRN Reason: Chest Pain Ondansetron HCl (Ondansetron Hcl 4 Mg/2 Ml Vial) 4 mg IVPUSH Q8H PRN PRN Reason: Nausea and Vomiting Oxycodone HCl (Oxycodone Hcl Immed Release 5 Mg Tablet) 5 mg PO Q6H PRN PRN Reason: Pain, Severe (Pain Scale 7-10) Last Admin: 05/22/22 12:46 Dose: 5 mg Rivaroxaban (Rivaroxaban 20 Mg Tablet) 20 mg PO DAILY@1700 REPLACED BY [facility] Last Admin: 05/22/22 16:41 Dose: 20 mg Sodium Chloride (0.9 % Sodium Chloride Flush 3 Ml Syringe) 3 ml IVFLUSH QSHIFT REPLACED BY [facility] Last Admin: 05/23/22 07:21 Dose: Not Given Vitamin D (Cholecalciferol (Vitamin D3) 25 Mcg Tablet) 25 mcg PO DAILY REPLACED BY [facility] Last Admin: 05/23/22 08:53 Dose: 25 mcg Home Medications Medication Instructions Recorded Confirmed Last Taken Type latanoprost 0.005 % eye drops 1 drp ophthalmic (eye) BEDTIME 08/20/20 05/22/22 05/21/22 History nitroglycerin 0.4 mg sublingual 0.4 mg sublingual Q5M PRN Chest 08/25/20 05/22/22 05/21/22 History tablet Pain dulaglutide 0.75 mg/0.5 mL 0.75 mg subcut MO@0900 05/22/22 05/22/22 05/21/22 History subcutaneous pen injector (Trulicity) gabapentin 100 mg capsule 200 mg PO TID 05/22/22 05/22/22 05/21/22 History insulin glargine 100 unit/mL 54 unit subcut BEDTIME 05/22/22 05/22/22 05/21/22 History subcutaneous solution (Lantus U-100 Insulin) insulin lispro 100 unit/mL 1 sliding scale dose subcut TIDAC 05/22/22 05/22/22 05/21/22 History subcutaneous solution (Humalog U-100 Insulin) rivaroxaban 20 mg tablet (Xarelto) 20 mg PO DAILY@1700 05/22/22 05/22/22 05/21/22 History Physical Exam Vital Signs: Vital Signs: Last Vital Signs Temp 97.3 F 05/23/22 07:06 Pulse 70 05/23/22 07:06 Resp 18 05/23/22 07:06 BP 132/80 05/23/22 07:06 Pulse Ox 97 05/23/22 07:06 O2 Del Method 05/23/22 07:06 BMI result Body Mass Index 36.8 GENERAL APPEARANCE: in no acute distress, pleasant. NECK: no carotid bruit, no jugular venous distention. HEART: no murmurs, regular rate and rhythm. LUNGS: clear to auscultation bilaterally. ABDOMEN: soft, nontender. EXTREMITIES: no edema. PERIPHERAL PULSES: equal. NEUROLOGIC: No gross deficits, AAO X 3 Objective Labs and Meds Result diagrams: 05/22/22 07:04 05/22/22 07:04 Lab results: Laboratory Results - last 24 hr 05/22/22 05/22/22 05/22/22 12:21 12:28 15:20 POC Glucose 205 H 176 H Troponin I High Sens 464.3 H* 05/22/22 05/23/22 21:48 07:12 POC Glucose 120 H 127 H Troponin I High Sens Assessment and Plan (1) ANAHI (acute kidney injury): Status: Acute (2) Elevated troponin: Status: Acute Plan 76-year-old gentleman with dehydration and fall. We have been asked to comment about the elevated troponin level. He has no chest discomfort shortness of breath. He had kidney injury on presentation. Troponins are likely type 2 from dehydration and probably orthostasis. Agree with gentle hydration. Check orthostatics. If not orthostatic then ambulate the hallways and if feeling better then potentially can go home. Encouraged him to eat and drink normally at home. Thank you for allowing me to participate in the care of your patient. Please feel free to contact me if you have any questions. Procedures Date of Service Date of Service: 05/23/22
[2022-05-23 11:32] VITALS: BP 94/48; PULSE 92
[2022-05-23 11:35] VITALS: BP 140/67; PULSE 79
[2022-05-23 11:35] LABS: Glucose, Whole Blood 208 mg/dL (60-115)
[2022-05-23 11:40] VITALS: BP 147/73; PULSE 74
--- NOTE | 2022-05-23 11:49 | MHC.CM.PN ---
Addendum entered by Diana Bettencourt 05/23/22 13:53: Change in plan, patient to d/c home. Meet with patient and in room, home no services. to transport. Original Note: Per rounds no plan for discharge today, patient requires further testing and Cardiology consult. Case Management will continue to follow for d/c planning needs.
[2022-05-23 12:00] VITALS: BP 147/73; PULSE 74; RESP 20; TEMP 36.3; O2SAT 99
[2022-05-23] MEDS: Insulin Lispro 100 UNIT/ML 3 ML VIAL SUBCUT (12:16)
--- NOTE | 2022-05-23 12:42 | PM.DS ---
DS: Providers Provider Date of Service: 05/23/22 Date of admission: 05/21/22 23:20 Primary care physician: Guido Andrade MD Consults: 05/22/22 11:58 Consult to Cardiology Routine Consulting Provider: Delano Rosales Reason for consultation: Syncope, NSTEMI Has provider been notified: No DS: Diagnosis Discharge Diagnosis (1) ANAHI (acute kidney injury): Status: Acute (2) Elevated troponin: Status: Acute DS: Summary Hospital Course Hospital Course: Chief Complaint: Near syncopal episode This is a 76-year-old male with past medical history of CAD, chronic AFib, CKD, diabetes, melanoma, type 2 diabetes, history of bladder cancer, currently being treated for [place] cell carcinoma on the right forearm for which he completed 6 weeks of chemoradiation within the last a presents the hospital with Near syncopal episode while ambulating to the bathroom.? Patient's daughter at bedside reports that patient has been having many bottles with cancer and has been fighting 1st bladder cancer than melanoma than now [place] cell carcinoma and has been progressively getting weaker.? He is now not eating much, not drinking much, had 3 episodes of diarrhea today, and is overall feeling weak.? Apparently patient went to the bathroom 3rd time today and felt too weak to stand therefore he fell to his knees.? Patient reports no loss of consciousness, not feeling dizzy, no chest pain, no tachycardia no abdominal pain nausea or vomiting, no urinary symptoms and no lower extremity edema.? No numbness tingling.? On arrival to the ED patient vitals were significant for blood pressure of 119/55 otherwise unremarkable Labs are significant for WBC count of 10.7, hemoglobin of 14.1, hematocrit 43.9, BUN of 17, creatinine of 1.65 with a baseline around 1.18 lactic acid of 3.9, UA pending, Chest x-ray shows negative results Hospital course: # Near syncope--likely from dedhydration, no arrythmia noted on monitor, was in acute renal failure and thus pointing possible orthostatic related to dehydration. He felt much better following hydration . Orthostatic at this point are negative. He is eating and drinking. His troponin are were high without chest pain, troponin started at 77 and went up to 471 and came down. He was evaluated by Dr. Forrester from cardiology with thought of likely dehydration leading to likely orthostatic low BP and near syncope. Encourage to drink plenty #Elevated troponin NSTEMI vs demand ischemia, underlying CAD..-likely type 2 PA related to above ( low BP, dehdration),. He never experienced symptoms of any kind and no ischemic changes on ECG # Lactic acidosis - Likely 2/2 dehydration - trended down # ANAHI--due to dehydration, resolved with IVF, initial Cr 1.65 and latest 1.33 as of 05/22 # HTN--continue prior meds # DM - LDSSI - Diabetic diet DVT ppx: Xarelto Time Spent with Patient Time attestation: Total time spent providing and/or coordinating discharge services: Discharge coordination time: Greater than 30 minutes Quality: Safe Use of Opioids Does Pt have an Active Cancer Diagnosis on the Problem List?: No Quality: Stroke Does the patient have a stroke diagnosis?: No Physical Exam Vital Signs: Vital Signs: Last Vital Signs Temp 97.3 F 05/23/22 12:00 Pulse 74 05/23/22 12:00 Resp 20 05/23/22 12:00 BP 147/73 H 05/23/22 12:00 Pulse Ox 99 05/23/22 12:00 O2 Del Method 05/23/22 12:00 BMI result Body Mass Index 36.8 DS: Data Data Completed and Pending Labs on day of discharge: Laboratory Results - last 24 hr 05/22/22 05/22/22 05/22/22 12:28 15:20 21:48 POC Glucose 176 H 120 H Troponin I High Sens 464.3 H* 05/23/22 05/23/22 07:12 11:26 POC Glucose 127 H 208 H Troponin I High Sens Preliminary micro results at discharge 05/21/22 18:16 Blood Culture - Preliminary Blood - Venous No growth after 24 hours. 05/21/22 18:31 Blood Culture - Preliminary Blood - Venous No growth after 24 hours. Discharge Plan Discharge Anticipated Discharge Date/Time: 05/23/22 12:37 Patient Disposition: Home, Self-Care Discharge Diagnosis: Orthostatic HypOtension syncope Referrals: Guido Andrade MD [Primary Care Provider] - 1 Week Discharge Medications: Continued insulin syringe-needle U-100 [BD Insulin Syringe Ultra-Fine] 1 mL 31 gauge x 5/16 syringe 1 ml miscellaneous BID Qty: 100 2RF terazosin 10 mg capsule 10 mg PO BEDTIME 30 Days Qty: 90 3RF furosemide 20 mg tablet 20 mg PO DAILY 90 Days Qty: 90 1RF cholecalciferol (vitamin D3) [Vitamin D3] 25 mcg (1,000 unit) tablet 25 mcg PO DAILY Qty: 90 2RF atorvastatin 40 mg tablet 40 mg PO DAILY 90 Days Qty: 90 1RF ferrous sulfate [FeroSul] 325 mg (65 mg iron) tablet 325 mg PO DAILY 90 Days Qty: 90 1RF lisinopril 40 mg tablet 40 mg PO DAILY 90 Days Qty: 90 1RF metoprolol tartrate 100 mg tablet 100 mg PO BID 90 Days Qty: 180 1RF (DME) pen needle, diabetic [BD Ultra-Fine Madeline Pen Needle] 32 gauge x 5/ needle See Rx Instructions .Route Qty: 100 5RF Rx Instructions: As directed 4 times a day insulin glargine [Lantus U-100 Insulin] 100 unit/mL solution 54 unit subcut BEDTIME insulin lispro [Humalog U-100 Insulin] 100 unit/mL Solution 1 sliding scale dose SUBCUT TIDAC Protocol: Insulin Correction Scale Less than or equal to 110 ---- Give (units): 0 111 to 150 Give (units): 0 151 to 200 Give (units): 2 201 to 250 Give (units): 4 251 to 300 Give (units): 6 301 to 350 Give (units): 8 Greater than 350 Give (units): 10 Call MD if Blood Glucose > : 350 gabapentin 100 mg capsule 200 mg PO TID Xarelto 20 mg tablet 20 mg PO DAILY@1700 Trulicity 0.75 mg/0.5 mL pen injector 0.75 mg subcut MO@0900 nitroglycerin 0.4 mg tablet, sublingual 0.4 mg sublingual Q5M PRN (Reason: Chest Pain) Rx Instructions: do not exceed 3 doses per episode latanoprost 0.005 % drops 1 drp ophthalmic (eye) BEDTIME (DME) FreeStyle Alina 2 Sensor Kit See Rx Instructions .ROUTE .MEDSUPPLY Qty: 2 11RF Rx Instructions: As directed every 2 weeks (DME) FreeStyle Alina 2 [place] Misc See Rx Instructions .ROUTE .MEDSUPPLY Qty: 1 0RF Rx Instructions: As directed (DME) pen needle, diabetic [BD Ultra-Fine Madeline Pen Needle] 32 gauge x 5/32 needle See Rx Instructions .ROUTE .MEDSUPPLY Qty: 100 3RF Rx Instructions: As directed once daily sildenafil 100 mg tablet 100 mg PO DAILY PRN (Reason: sexual activity) 30 Days Qty: 30 1RF Rx Instructions: administer 60 minutes before intended activity Discharge Orders: Discharge Order (Routine); Ordered 05/23/22 Ordered By: Basil Shin Diet: Diabetic diet Activity on Discharge: As tolerated Stand Alone Forms: Patient Portal Discharge page Care Plan Goals: full recovery Health Concerns: acute renal failure orthostatic hypotension elevated cardiac enzymes Plan of Treatment: Drink plenty of fluid and follow up with your Doctor leni week Assessment: As above
== END 2022-05-23 14:50 | disposition home or self-care (01) | DRG 682 ==
LOC: HO.ED 22:33 → HO.EDOVER 23:36 → HO.S3 05-22 10:42
PROVIDERS: Admitting Provider Internal Medicine; Emergency Provider Emergency Medicine; PCP Internal Medicine; Visit Provider Internal Medicine
DX: N17.9 Acute kidney failure, unspecified (principal); I21.A1 Myocardial infarction type 2; E87.2 Acidosis; I48.20 Chronic atrial fibrillation, unspecified; Z85.49 Personal history of malignant neoplasm of other male genital organs; E11.42 Type 2 diabetes mellitus with diabetic polyneuropathy; I12.9 Hypertensive chronic kidney disease with stage 1 through stage 4 chronic kidney disease, or unspecified chronic kidney disease; N18.9 Chronic kidney disease, unspecified; E11.22 Type 2 diabetes mellitus with diabetic chronic kidney disease; Z20.822 Contact with and (suspected) exposure to COVID-19; E78.5 Hyperlipidemia, unspecified; E86.0 Dehydration; I25.10 Atherosclerotic heart disease of native coronary artery without angina pectoris; D50.9 Iron deficiency anemia, unspecified; D63.1 Anemia in chronic kidney disease; I95.9 Hypotension, unspecified; Z85.51 Personal history of malignant neoplasm of bladder; Z92.3 Personal history of irradiation; Z87.891 Personal history of nicotine dependence; Z88.8 Allergy status to other drugs, medicaments and biological substances; Z79.4 Long term (current) use of insulin; Z79.01 Long term (current) use of anticoagulants; Z79.899 Other long term (current) drug therapy
CPT/HCPCS: 36415; 70450; 71045; 80048; 80076; 82565; 82947; 83605; 83735; 84145; 84484; 85025; 85610; 86140; 87040; 87635; 93005; 96360; 96361; 99218; 99285; J2270

== ENCOUNTER 2022-06-04 08:22 | Outpatient (REF) | payer MEDICARE, SELFPAY ==
[2022-06-04 08:37] LABS: Hematocrit 38.5 % (42.0-52.0); Hemoglobin 12.2 g/dl (14.0-18.0); Mean Corpuscular HGB Conc 31.7 g/dl (31.0-36.0); Mean Corpuscular Hemoglobin 27.1 pg (27.0-33.0); Mean Corpuscular Volume 85.6 fL (80.0-98.0); Platelet Count 151 X10*3/uL (160-400); Red Cell Distribution Width 16.5 % (11.0-16.0); White Blood Count 7.1 X10*3/uL (4.8-10.8)
[2022-06-04 09:00] LABS: Anion Gap 14 (12-20); Blood Urea Nitrogen 14 mg/dL (9-16); Calcium 8.7 mg/dL (8.4-10.2); Carbon Dioxide 29 mmol/L (22-29); Chloride 106 mmol/L (96-108); Estimated Glomerular Filt Rate > 60; Glucose Random 96 mg/dL (60-115); Potassium 3.7 mmol/L (3.3-5.1); Sodium 145 mmol/L (135-145)
== END 2022-06-04 08:23 | disposition home or self-care (01) ==
LOC: HO.LAB 08:22
PROVIDERS: PCP Internal Medicine; Visit Provider Physician Assistant
DX: E86.0 Dehydration (principal)
CPT/HCPCS: 36415; 80048; 85027

== ENCOUNTER 2022-06-21 07:08 | Outpatient (REF) | payer MEDICARE, SELFPAY ==
[2022-06-21 07:28] LABS: MANUAL DIFF FLAG NO
[2022-06-21 08:06] LABS: Basophils Absolute Auto 0.1 X10*3/uL (0.0-0.2); Basophils Percent Auto 0.8 % (0-2); Eosinophils Absolute Auto 0.1 X10*3/uL (0.0-0.4); Eosinophils Percent Auto 1.7 % (0-4); Hematocrit 40.9 % (42.0-52.0); Hemoglobin 13.1 g/dl (14.0-18.0); Imm Gran Abs Auto 0.02 X10*3/uL (0.00-0.03); Imm Gran Pct Auto 0.3 % (0.0-0.4); Lymphocytes Absolute Auto 1.1 X10*3/uL (1.2-4.9); Lymphocytes Percent Auto 18.6 % (20-40); Mean Corpuscular Hemoglobin 27.6 pg (27.0-33.0); Mean Corpuscular Volume 86.1 fL (80.0-98.0); Mean Platelet Volume 10.4 fL (9.4-12.4); Monocytes Absolute Auto 0.4 X10*3/uL (0.1-1.2); Monocytes Percent Auto 7.3 % (2-11); Neutrophils Absolute Auto 4.3 x10*3/uL (2.0-8.3); Neutrophils Percent Auto 71.3 % (45-73); Platelet Count 144 X10*3/uL (160-400); Red Blood Count 4.75 X10*6/uL (4.60-5.80); Red Cell Distribution Width 16.4 % (11.0-16.0)
[2022-06-21 08:20] LABS: Estimated Average Glucose 120 mg/dL; Hemoglobin A1c % 5.8 %
[2022-06-21 08:23] LABS: Appearance Urine Clear; Color Urine Yellow; Glucose Urine UA Negative (NEG); Leukocyte Esterase Urine Trace (Negative); Nitrite Urine Negative (Negative); PH 5.5 (5.0-8.0); Urine Blood Negative (Negative); Urine Ketones Trace mg/dL (Negative); Urine Protein Negative (Neg-Trace)
[2022-06-21 08:29] LABS: Bacteria Urine Trace (None Seen); RBC Urine 0-2 /HPF (0-2); WBC Urine 0-5 /HPF (0-5)
[2022-06-21 08:33] LABS: Alanine Aminotransferase 9 U/L (0-40); Albumin Level 3.3 g/dL (3.5-5.0); Alkaline Phosphatase 102 U/L (39-117); Anion Gap 15 (12-20); Aspartate Amino Transferase 12 U/L (5-37); Bilirubin Total 0.6 mg/dL (0.0-1.0); Blood Urea Nitrogen 13 mg/dL (9-16); Calcium 8.7 mg/dL (8.4-10.2); Carbon Dioxide 29 mmol/L (22-29); Chloride 105 mmol/L (96-108); Cholesterol 125 mg/dL; Estimated Glomerular Filt Rate > 60; Glucose Fasting 94 mg/dL (60-99); HDL Cholesterol 37 mg/dL; LDL Cholesterol Calculated 59 mg/dl; Potassium 3.6 mmol/L (3.3-5.1); Sodium 145 mmol/L (135-145); Total Protein 5.9 g/dL (6.5-8.0); Triglycerides 149 mg/dL
[2022-06-21 08:45] LABS: Creatinine Urine 161.57 mg/dL; Microalbum/Creatinine Ratio Ur 22.2 ug/mg cr
[2022-06-21 08:56] LABS: TSH reflex Free T4 2.82 uIU/mL (0.32-4.0); Vitamin D 25-OH Total 32.7 ng/mL (>30)
== END 2022-06-21 07:09 | disposition home or self-care (01) ==
LOC: HO.LAB 07:08
PROVIDERS: PCP Internal Medicine; Visit Provider Internal Medicine
DX: E78.00 Pure hypercholesterolemia, unspecified (principal); E11.9 Type 2 diabetes mellitus without complications; E55.9 Vitamin D deficiency, unspecified; I10 Essential (primary) hypertension
CPT/HCPCS: 36415; 80053; 80061; 81001; 82043; 82306; 83036; 84443; 85025

== ENCOUNTER → 2022-08-08 08:22 | Outpatient (REF) | payer MEDICARE, SELFPAY ==
--- NOTE | 2022-08-08 08:24 | CA_ITS ---
Transthoracic Echocardiogram Patient (Last, First, Middle): Kamlesh Clement, Gender: Male Date of : 1945 Age: 76 Procedure Date: 08/08/2022 Procedure Type: Transthoracic Echocardiogram Location: OP Height: 170.18 cm Weight: 113.4 kg BSA: 2.22 m2 Heart Rate: bpm BP: 138 / 80 mmHg Qa Lead: Referring MD: Delano Rosales MD Ruching Machine Operator: Delano Rosales MD Symptoms: I48.20 - Chronic atrial fibrillation, unspecified Study Quality: Adequate ECG Rhythm: Atrial Fibrillation Conclusions: - 1. Normal LV systolic function with LVEF of 60 65% with severe LVH with elevated filling pressures 2. Severely dilated left atrium 3. Mild aortic stenosis 4. Normal RV systolic pressure 5. Small pericardial effusion near the left ventricle Findings Left Ventricle Normal left ventricular size and systolic function. There is severely increased left ventricular wall thickness. The visually estimated ejection fraction is between 60-65%. Elevated filling pressures. Right Ventricle Normal right ventricular cavity size. Atria The left atrium is severely dilated. There is lipomatous hypertrophy of the interatrial septum. There is no evidence of interatrial shunt. The right atrium is mildly dilated. Aortic Valve The aortic valve was not well visualized. There is moderate calcification of the aortic valve. There is mild aortic valve stenosis. The peak aortic gradient is 13 mmHg.The mean gradient is 7 mmHg. The aortic valve area is 1.82 cm2. There is mild aortic valve regurgitation. Mitral Valve There is mild anterior and moderate posterior mitral leaflet thickening. There is moderate mitral annular calcification. There is trace mitral valve regurgitation. There is no mitral valve stenosis. Pulmonic Valve The pulmonic valve was not well visualized. Tricuspid Valve Likely normal tricuspid valve structure and function. There is mild tricuspid valve regurgitation. The right ventricular systolic pressure is normal. The right ventricular systolic pressure is 18 mmHg. Normal right atrial pressure. There is no evidence of pulmonary hypertension. Great Vessels The aorta was not well visualized. The pulmonary artery was not well visualized. Venous The inferior vena cava is normal in size and collapses greater than 50% with inspiration. Pericardium/Pleural There is a small loculated pericardial effusion overlying the left ventricle. Prior Study Comparison Changes noted compared to prior study. Mild aortic stenosis is present Measurements 2D Linear Measurements IVSd: 1.70 0.6-0.9/0.6-1.0 cm LVIDd: 4.30 3.9-5.3/4.2-5.9 cm LVIDd Index: 1.94 2.4-3.2/2.2-3.1 cm/m2 LVIDs: 2.69 2.0-3.6 cm LVPWd: 1.63 0.7-1.1 cm Ao Root: 3.40 2.1-3.5 cm LA Diam: 5.30 2.7-3.8/3.0-4.0 cm LAIDs Index: 2.39 1.5-2.3 cm/m2 LV Mass: 379.28 67-162/88-224 g LV Mass Index: 170.84 43-95/49-115 g/m2 LVOT Diam: 2.00 3.0+(-)1.3 cm Mitral Valve MV Pk E: 1.20 MV Decel Time: 194.00 E'Lateral: 5.55 E'Medial: 6.64 E/E' Med: 18.10 E/E' Lat: 21.60 PHT: 57.00 MVA PHT: 3.86 Decel Levy: 6.19 Aortic Valve AoV Pk David: 1.81 AoV Mn David: 1.19 AoV VTI: 0.41 AoV Pk Grad: 13.00 Aov Mn Grad: 7.00 EVANS Cont.VTI: 1.82 LVOT LVOT Pk David: 1.02 LVOT Mn David: 0.79 LVOT VTI: 0.24 LVOT Pk Grad: 4.00 LVOT Mn Grad: 3.00 LVOT Diam: 2.00 LVOT Area: 3.14 Diastolic Function MV Pk E: 1.20 E'Medial: 6.64 E/E' Med: 18.10 E' Laterial: 5.55 E/E' Lat: 21.60 Right Ventricle TAPSE (mm): 24.00 TVS' David: 12.00 Tricuspid Valve TR Pk David: 1.94 TR Pk Grad: 15.00 RA Press: 3.00 RVSP: 18.00 Great Vessels Aorta Ao Root-2D: 3.40 2.0-3.7 cm Pulmonary Valve PV Pk David: 1.07 Peak PV Grad: 5.00 Updated in Other Vendor System with Status of Final Delano Rosales MD electronically signed on 08/08/2022 6:45:38 PM with status of Final
== END ==
LOC: HO.CARD 08:22
PROVIDERS: PCP Internal Medicine; Visit Provider Internal Medicine Cardiovascular Disease
DX: I48.20 Chronic atrial fibrillation, unspecified (principal)
CPT/HCPCS: 93306

== ENCOUNTER → 2022-08-29 15:19 | Outpatient (BNVA) | payer MEDICARE, SELFPAY | PROVIDERS: PCP Internal Medicine; Visit Provider Internal Medicine Cardiovascular Disease | DX: I48.20 Chronic atrial fibrillation, unspecified (principal); I25.10 Atherosclerotic heart disease of native coronary artery without angina pectoris; Z79.01 Long term (current) use of anticoagulants | CPT/HCPCS: 99212 ==

== ENCOUNTER → 2022-10-18 08:53 | Outpatient (BNVA) | payer MEDICARE, SELFPAY | PROVIDERS: PCP Internal Medicine; Visit Provider Urology | DX: C67.9 Malignant neoplasm of bladder, unspecified (principal); N32.0 Bladder-neck obstruction; E11.69 Type 2 diabetes mellitus with other specified complication; N52.1 Erectile dysfunction due to diseases classified elsewhere | CPT/HCPCS: 52000; 99212 ==

== ENCOUNTER 2023-01-26 06:53 | Outpatient (REF) | payer MEDICARE, SELFPAY ==
[2023-01-26 07:02] LABS: MANUAL DIFF FLAG NO
[2023-01-26 07:47] LABS: Basophils Absolute Auto 0.1 X10*3/uL (0.0-0.2); Basophils Percent Auto 0.9 % (0-2); Eosinophils Absolute Auto 0.2 X10*3/uL (0.0-0.4); Eosinophils Percent Auto 3.4 % (0-4); Hematocrit 42.2 % (42.0-52.0); Hemoglobin 13.7 g/dl (14.0-18.0); Imm Gran Abs Auto 0.02 X10*3/uL (0.00-0.03); Imm Gran Pct Auto 0.3 % (0.0-0.4); Lymphocytes Absolute Auto 1.2 X10*3/uL (1.2-4.9); Lymphocytes Percent Auto 18.4 % (20-40); Mean Corpuscular HGB Conc 32.5 g/dl (31.0-36.0); Mean Corpuscular Hemoglobin 27.3 pg (27.0-33.0); Mean Corpuscular Volume 84.1 fL (80.0-98.0); Mean Platelet Volume 10.1 fL (9.4-12.4); Monocytes Absolute Auto 0.5 X10*3/uL (0.1-1.2); Monocytes Percent Auto 7.2 % (2-11); Neutrophils Absolute Auto 4.7 x10*3/uL (2.0-8.3); Neutrophils Percent Auto 69.8 % (45-73); Platelet Count 145 X10*3/uL (160-400); Red Blood Count 5.02 X10*6/uL (4.60-5.80); Red Cell Distribution Width 14.7 % (11.0-16.0); White Blood Count 6.7 X10*3/uL (4.8-10.8)
[2023-01-26 07:59] LABS: Estimated Average Glucose 111 mg/dL; Hemoglobin A1c % 5.5 %
[2023-01-26 08:08] LABS: Appearance Urine Clear; Color Urine Yellow; Glucose Urine UA Negative (Negative); Leukocyte Esterase Urine Large (3+) (Negative); Nitrite Urine Negative (Negative); UMIC TRIGGER UACC YES; Urine Blood Moderate (2+) (Negative); Urine Ketones Negative (Negative); Urine Protein Trace mg/dL (Neg-Trace)
[2023-01-26 08:15] LABS: Bacteria Urine None Seen (None Seen); Hyaline Casts Urine 0-2 /LPF (0-2); RBC Urine >20 /HPF (0-2); Squamous Epithelial Cell Urine 0-2 /HPF (0-2); UACC Culture Trigger YES; WBC Urine >50 /HPF (0-5)
[2023-01-26 08:21] LABS: Creatinine Urine 105.62 mg/dL
[2023-01-26 08:35] LABS: Alanine Aminotransferase 12 U/L (0-40); Albumin Level 3.2 g/dL (3.5-5.0); Alkaline Phosphatase 126 U/L (39-117); Anion Gap 14 (12-20); Aspartate Amino Transferase 14 U/L (5-37); Bilirubin Total 0.5 mg/dL (0.0-1.0); Blood Urea Nitrogen 17 mg/dL (9-16); Calcium 8.8 mg/dL (8.4-10.2); Carbon Dioxide 29 mmol/L (22-29); Chloride 107 mmol/L (96-108); Cholesterol 103 mg/dL; Estimated Glomerular Filt Rate > 60; Glucose Fasting 67 mg/dL (60-99); HDL Cholesterol 34 mg/dL; LDL Cholesterol Calculated 52 mg/dl; Potassium 3.4 mmol/L (3.3-5.1); Sodium 147 mmol/L (135-145); Total Protein 5.9 g/dL (6.5-8.0); Triglycerides 85 mg/dL
[2023-01-26 08:41] LABS: Vitamin D 25-OH Total 48.8 ng/mL (>30)
[2023-01-26 11:11] LABS: Free T4 (Free Thyroxine) 0.84 ng/dL (0.71-1.85)
== END 2023-01-26 06:54 | disposition home or self-care (01) ==
LOC: HO.LAB 06:53
PROVIDERS: PCP Internal Medicine; Visit Provider Internal Medicine
DX: E11.9 Type 2 diabetes mellitus without complications (principal); E55.9 Vitamin D deficiency, unspecified; E78.00 Pure hypercholesterolemia, unspecified; I10 Essential (primary) hypertension; R82.90 Unspecified abnormal findings in urine
CPT/HCPCS: 36415; 80053; 80061; 81001; 81003; 82043; 82306; 83036; 84439; 84443; 85025; 87086

== ENCOUNTER → 2023-02-16 09:46 | Outpatient (BNVA) | payer MEDICARE, SELFPAY | PROVIDERS: PCP Internal Medicine; Visit Provider Urology | DX: C67.9 Malignant neoplasm of bladder, unspecified (principal); N32.0 Bladder-neck obstruction; N28.1 Cyst of kidney, acquired; N48.1 Balanitis; I12.9 Hypertensive chronic kidney disease with stage 1 through stage 4 chronic kidney disease, or unspecified chronic kidney disease; E11.22 Type 2 diabetes mellitus with diabetic chronic kidney disease; E11.65 Type 2 diabetes mellitus with hyperglycemia; N18.2 Chronic kidney disease, stage 2 (mild); Z79.4 Long term (current) use of insulin; Z79.899 Other long term (current) drug therapy | CPT/HCPCS: 52000; 99212 ==

== ENCOUNTER 2023-03-01 10:27 | Emergency (ER) | payer MEDICARE, SELFPAY ==
--- NOTE | ~2023-03-01 | CT_ITS ---
EXAMINATION: CT HEAD WITHOUT CONTRAST CLINICAL INFORMATION: Confusion COMPARISON: Previous head CT most recent May 2022 TECHNIQUE: Contiguous axial imaging was performed from the skull base to vertex without intravenous administration of contrast. This CT examination was performed using dose optimization techniques as appropriate, variously including the following: *Automated exposure control *Adjustment of mA and/or kV according to patient size (this includes techniques or standardized protocols for targeted exams where dose is matched to indication/reason for exam; i.e. extremities or head) *Use of iterative reconstruction technique DLP: 716 mGy-cm FINDINGS: There is no evidence of an extra-axial collection. There is no evidence of intra-axial or extra-axial hemorrhage. The ventricles and extra-axial CSF spaces are appropriate. Pina-white matter differentiation is normal. No mass, mass effect or infarct. Review at bone windows is normal. Visualized paranasal sinuses, mastoid air cells and middle ears are clear. CT/CT head/brain wo IV con IMPRESSION: Unremarkable exam.
--- NOTE | ~2023-03-01 | XR_ITS ---
EXAMINATION: XR CHEST CLINICAL INFORMATION: Weakness COMPARISON: Previous chest x-ray most recent May 2022 TECHNIQUE: 2 views of the chest were obtained. FINDINGS: The cardiac silhouette is enlarged but stable. Hilar and mediastinal contours are unremarkable. There is a right jugular port with tip projecting over the SVC. Retrosternal foreign body seen on the lateral view. This is not appreciated on the AP view and location is uncertain. The lungs are clear. No pleural effusion or pneumothorax. Degenerative changes of the spine. XR/XR chest 2V IMPRESSION: Stable enlargement of the cardiac silhouette. Retrosternal foreign body seen on the lateral view not localized on the AP view.
--- NOTE | ~2023-03-01 | CT_ITS ---
EXAMINATION: CT ABDOMEN AND PELVIS WITHOUT CONTRAST CLINICAL INFORMATION: Flank pain COMPARISON: 05/02/2021 TECHNIQUE: Multidetector volumetric imaging was performed from the superior aspect of the liver through the pubic symphysis. Sagittal and coronal reformatted images were obtained on the technologist's workstation. This CT examination was performed using dose optimization techniques as appropriate, variously including the following: *Automated exposure control *Adjustment of mA and/or kV according to patient size (this includes techniques or standardized protocols for targeted exams where dose is matched to indication/reason for exam; i.e. extremities or head) *Use of iterative reconstruction technique DLP: 716 mGy-cm FINDINGS: LUNG BASES: Partially visualized pleural or effusion on the right. Appears small LIVER, GALLBLADDER, AND BILIARY TREE: The liver is normal in size, shape, and attenuation. No focal hepatic lesion or biliary ductal dilatation is present. The gallbladder is unremarkable with no evidence of radiopaque gallstones, gallbladder wall thickening, or obvious pericholecystic inflammatory changes. PANCREAS: Unremarkable. SPLEEN: Unremarkable. ADRENAL GLANDS: Unremarkable. KIDNEYS AND URETERS: No evidence of renal or ureteral stone or obstruction. Probable cyst emanating off the upper pole of the right kidney. BLADDER: Mildly thick-walled bladder. Decompressed. GASTROINTESTINAL TRACT: Diverticulosis. No evidence for diverticulitis. The bowel pattern is nonobstructing. There is no free fluid. The appendix is within normal limits. ABDOMINAL WALL: No significant hernia is appreciated. LYMPH NODES: Some mildly prominent nodes once again seen. Similar to previous. No bulky adenopathy. VASCULAR: Atherosclerotic changes are noted here. PELVIC VISCERA: Prominent prostate. OSSEOUS STRUCTURES: Mild anterolisthesis of L4 and L5 likely degenerative in nature. CT/CT abdomen pelvis wo IV con IMPRESSION: No acute finding. No evidence of renal or ureteral stone or obstruction. No free fluid in the abdomen pelvis and the bowel pattern is nonobstructing. Note is made of a probable small right-sided effusion. Consider chest film Fleischner guidelines were followed.
[2023-03-01 10:38] VITALS: BP 121/55; PULSE 74; RESP 17; TEMP 36.6; O2SAT 97
[2023-03-01 10:41] VITALS: BP 121/55; BP 140/80; PULSE 71; PULSE 74; RESP 16; TEMP 36.6; O2SAT 97; O2SAT 98; BMI 41.7
[2023-03-01 10:46] LABS: Glucose, Whole Blood 66 mg/dL (60-115)
--- NOTE | 2023-03-01 11:02 | ECG_ITS ---
Test Reason : weakness Blood Pressure : / mmHG Vent. Rate : 075 BPM Atrial Rate : 000 BPM P-R Int : 000 ms QRS Dur : 070 ms QT Int : 382 ms P-R-T Axes : 000 -50 021 degrees QTc Int : 426 ms Atrial fibrillation Left axis deviation Inferior infarct (cited on or before 02-MAY-2021) Anterior infarct , age undetermined Abnormal ECG When compared with ECG of 22-MAY-2022 13:09, QRS axis Shifted left Nonspecific T wave abnormality, improved in Inferior leads Nonspecific T wave abnormality no longer evident in Lateral leads Referred By: Ta Mendiola Electronically Signed By:Sharif Forrester
--- NOTE | 2023-03-01 11:12 | ED.GENADULT ---
HPI - General Adult General Chief complaint: Back Pain/Injury Stated complaint: Back pain, AMS per EMS Time Seen by Provider: 03/01/23 10:43 Source: patient, family, EMS, RN notes reviewed and old records reviewed Mode of arrival: EMS History of Present Illness HPI narrative: According the family and the patient himself he was having some confusion generalized weakness this morning. This is a new symptom per family. He has a history significant for bladder cancer for which he is under treatment by Dr. Valderrama. He also gets chemotherapy at [facility] as he has history of melanoma on his right arm and nose. He denies fevers or chills. No dysuria hesitancy or frequency He has been having some right low back pain radiating down his leg. This has been going on for a little over a month. His blood sugar at the house this morning was 107 which is normal for the patient. It was in the 80s for EMS and then 60s on arrival. Despite this he states he feels better than he did this morning. No other precipitating causes of which the patient is aware. Related Data Home Medications Medication Instructions Recorded Confirmed latanoprost 0.005 % eye drops 1 drp ophthalmic (eye) BEDTIME 08/20/20 02/09/23 nitroglycerin 0.4 mg sublingual 0.4 mg sublingual Q5M PRN Chest 08/25/20 02/09/23 tablet Pain acyclovir 800 mg tablet 800 mg PO BID 10/18/22 02/09/23 ofloxacin 0.3 % eye drops 1 drp ophthalmic (eye) QID 10/18/22 02/09/23 prochlorperazine maleate 5 mg mg PO 10/18/22 02/09/23 tablet Previous Rx's Medication Instructions Recorded insulin syringe-needle U-100 1 mL 1 ml miscellaneous BID #100 ea 12/20/20 31 gauge x 5/16 (BD Insulin Syringe Ultra-Fine) sildenafil 100 mg tablet 100 mg PO DAILY PRN sexual 12/08/21 activity 30 days #30 tabs flash glucose scanning reader #1 ea 02/28/22 (FreeStyle Alina 2 [place]) flash glucose sensor (FreeStyle #2 ea 02/28/22 Alina 2 Sensor kit) pen needle, diabetic 32 gauge x #100 ea 02/28/22 5/32 (BD Ultra-Fine Madeline Pen Needle) pen needle, diabetic 32 gauge x #100 ea 05/17/22/32 (BD Ultra-Fine Madeline Pen Needle) polymyxin B sulfate 10,000 1 drp ophthalmic (eye) TID 7 days 06/03/22 unit-trimethoprim 1 mg/mL eye #10 mL drops (Polytrim) ketorolac 0.5 % eye drops 1 drp ophthalmic (eye) QID 2 weeks 06/27/22 #5 mL dulaglutide 0.75 mg/0.5 mL 0.75 mg (0.5 mL) subcut MO@0900 12 10/10/22 subcutaneous pen injector weeks #6 mL (Trulicity) insulin glargine 100 unit/mL 54 unit (0.54 mL) subcut BEDTIME 3 10/10/22 subcutaneous solution (Lantus months #50 mL U-100 Insulin) insulin lispro 100 unit/mL 1 sliding scale dose subcut TIDAC 10/10/22 subcutaneous solution (Humalog 3 months #30 mL U-100 Insulin) rivaroxaban 20 mg tablet (Xarelto) 20 mg PO DAILY@1700 #30 tabs 11/08/22 atorvastatin 40 mg tablet 40 mg PO DAILY 90 days #90 tabs 11/14/22 lisinopril 40 mg tablet 40 mg PO DAILY 90 days #90 tabs 11/14/22 metoprolol tartrate 100 mg tablet 100 mg PO BID 90 days #180 tabs 11/14/22 ferrous sulfate 325 mg (65 mg 325 mg PO DAILY 90 days #90 tabs 11/24/22 iron) tablet (FeroSul) cholecalciferol (vitamin D3) 25 25 mcg PO DAILY #90 tabs 12/20/22 mcg (1,000 unit) tablet (Vitamin D3) gabapentin 100 mg capsule 200 mg PO TID 30 days #180 caps 12/21/22 furosemide 20 mg tablet 20 mg PO DAILY 90 days #90 tabs 01/20/23 betamethasone dipropionate 0.05 % 1 appl topical BID #15 grams 02/16/23 topical ointment terazosin 10 mg capsule 10 mg PO BEDTIME 90 days #90 caps 02/17/23 cephalexin 500 mg capsule 1,000 mg PO BID #28 caps 03/01/23 Allergies Allergy/AdvReac Type Severity Reaction Status Date / Time colesevelam [From WelChol] AdvReac Mild constipatio Verified 02/16/23 09:57 n Review of Systems Constitutional: Constitutional: Denies weakness Comments: No fevers or chills. Positive generalized weakness making difficulty ambulate this morning Cardiovascular: Cardiovascular: Reports no additional cardiovascular complaints Respiratory: Respiratory: Reports no additional respiratory complaints Gastrointestinal: Gastrointestinal: Reports no additional gastrointestinal complaints Genitourinary: Genitourinary: Reports no additional male genitourinary complaints Musculoskeletal: Musculoskeletal: Reports as per HPI and Reports radiating pain into limb Integumentary/Breasts: Skin/Breast: Denies rash Neurologic: Denies weakness [facility] Past Medical History Medical History Anemia Benign essential hypertension Bladder cancer CAD (coronary artery disease) Chronic a-fib Chronic anticoagulation Chronic atrial fibrillation Chronic kidney disease (CKD), stage II (mild) Diabetes mellitus Erectile dysfunction History of colon polyps 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 Hyperlipidemia LDL goal <70 Iron deficiency anemia emt intermediate (current) use of insulin Melanoma of nose Raji cell cancer Obesity (BMI 30-39.9) On beta nahid at home Pure hypercholesterolemia 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 Urinary bladder cancer Surgical History History of cataract surgery History of cystoscopy History of endoscopy History of esophagogastroduodenoscopy (EGD) History of surgery Hx of colonoscopy Hx of cystoscopy Hx of removal of cyst Family History Family History Father Medical history unknown Mother Diabetes Daughter In good health Son In good health Sister In good health Sister In good health Brother In good health Brother In good health Brother In good health Social History Social History Household Members: Spouse Housing: House Are you a primary healthcare liaison to a significant other at home: No Do you presently have visiting nurse or other home services: No Alcohol intake: current Alcohol intake frequency: does not drink Alcohol type: beer Patient Tobacco Use Status: Former Tobacco user Quit Date: age 36 Tobacco use type: Cigarette Years Smoked: 40 yrs ago Smoked in Last 30 Days: No e-Cigarette/Vaping Use: Never Used Second Hand Smoke Exposure: Yes Use of substances other than those prescribed or required for medical reasons: No Substance Use Type: Former Substance User and Marijuana Advance Directives: Yes Advance Directives on File: Yes Advance Directives Date on File: 09/07/21 service: No Current occupational status: retired Current occupational exposures/hazards: No Cognitive needs: Yes (cane) Hearing needs: No Vision needs: Yes Physical Exam ED Vital Signs: Vital Signs - 24 hr 03/01/23 10:38 03/01/23 10:41 03/01/23 14:00 Temperature 97.9 F 97.9 F 97.7 F Pulse Rate 74 74 83 Respiratory Rate 17 16 20 Blood Pressure 121/55 L 121/55 L 110/49 L Pulse Oximetry 97 97 98 Oxygen Delivery Method Room Air Room Air Room Air BMI result Body Mass Index 41.7 Const General: comfortable, no acute distress and alert Resp Other: Clear and equal bilaterally without wheezes rales or rhonchi Cardio Other: Regular rate and rhythm without murmurs rubs or gallops GI Other: Soft nontender nondistended. No suprapubic tenderness Back/Spine/Pelvis Other: Tender lumbar spine and right paraspinous lumbar muscles. No CVA tenderness however Skin Other: Or pink and dry. No acute rash Neuro Other: Nonfocal neuro exam. Patient is alert and oriented and answers questions appropriately Extrem Other: No obvious extremity trauma Medications Administered Discontinued Medications Generic Name Dose Route Start Last Admin Trade Name Freq PRN Reason Stop Dose Admin Sodium Chloride 500 mls @ 500 mls/hr 03/01/23 11:15 03/01/23 14:06 Ns IV 03/01/23 12:14 Infused .Q1H ROBERT Infusion Medical Decision Making Medical Decision Making [facility] Narrative: Patient with mental status changes, generalized weakness, confusion with a history of diabetes and hypoglycemia on arrival to the emergency department. His history is complex and that he also has ongoing treatment for both bladder cancer and malignant melanoma of the skin. He is having low back pain radiating to his leg as well. Urinary obstruction or urinary tract infection is possible and would explain some of the symptoms. Metastatic disease is also possible. Sciatica with degenerative changes. Old abdominal CT scans reviewed do confirm degenerative changes in lumbar spine. Will reorder abdominal scan today for flank pain and review of degenerative changes to the spine and also to rule out lytic lesions. CT of the brain is patient presents with generalized weakness. Lab work IV fluids 15:27. CT scan of brain is unremarkable. CT scan of abdomen likewise with no new findings. It does show degenerative changes lumbar spine but no lytic lesions or mass lesions noted. Chest x-ray shows no new findings. Lab work shows normal CBC. Platelet count mildly low at 143 but this is consistent with his baseline. Chemistries are normal. Glucose is 88. Urinalysis shows greater than 50 white cells with only 6-10 red cells. He is over a month out from his last procedure which means symptoms are more consistent with urinary tract infection. Will start on Keflex and discharged home Lab Data 03/01/23 12:10 03/01/23 12:09 Labs: Lab Results 03/01/23 03/01/23 03/01/23 Range/Units 10:43 12:09 12:09 WBC (4.8-10.8) X10*3/uL RBC (4.60-5.80) X10*6/uL Hgb (14.0-18.0) g/dl Hct (42.0-52.0) % MCV (80.0-98.0) fL MCH (27.0-33.0) pg MCHC (31.0-36.0) g/dl RDW (11.0-16.0) % Plt Count (160-400) X10*3/uL MPV (9.4-12.4) fL Immature Gran % (Auto) (0.0-0.4) % Neut % (Auto) (45-73) % Lymph % (Auto) (20-40) % [place] % (Auto) (2-11) % Eos % (Auto) (0-4) % Baso % (Auto) (0-2) % Lymph # (Auto) (1.2-4.9) X10*3/uL [place] # (Auto) (0.1-1.2) X10*3/uL Eos # (Auto) (0.0-0.4) X10*3/uL Baso # (Auto) (0.0-0.2) X10*3/uL Abs Immat Gran (auto) (0.00-0.03) X10*3/uL Absolute Neuts (auto) (2.0-8.3) x10*3/uL Absolute Nucleated RBC (0.0-0.012) X10*3/uL Nucleated RBC % (auto) (0.0-0.2) /100WBC PT 15.7 H (10.0-13.1) SEC INR 1.4 H (0.9-1.1) Sodium 145 (135-145) mmol/L Potassium 4.1 D (3.3-5.1) mmol/L Chloride 105 (96-108) mmol/L Carbon Dioxide 31 H (22-29) mmol/L Anion Gap 13 (12-20) BUN 15 (9-16) mg/dL Creatinine 1.12 (0.5-1.4) mg/dL Estim Creat Clear Calc 76.6 Estimated GFR > 60 POC Glucose 66 (60-115) mg/dL Random Glucose 88 (60-115) mg/dL Lactic Acid (0.5-2.0) mmol/L Calcium 9.1 (8.4-10.2) mg/dL Total Bilirubin 0.8 (0.0-1.0) mg/dL AST 16 (5-37) U/L ALT 14 (0-40) U/L Alkaline Phosphatase 117 (39-117) U/L Ammonia (13-55) umol/L Troponin I High Sens (<3.5-35.0) ng/L Total Protein 6.3 L (6.5-8.0) g/dL Albumin 3.5 (3.5-5.0) g/dL Urine Color Urine Appearance Urine pH (5.0-9.0) Ur Specific [place] (1.005-1.025) Urine Protein (Neg-Trace) mg/dL Urine Glucose (UA) (Negative) mg/dL Urine Ketones (Negative) mg/dL Urine Blood (Negative) Urine Nitrite (Negative) Ur Leukocyte Esterase (Negative) Urine RBC (0-2) /HPF Urine WBC (0-5) /HPF Ur Squamous Epith Cells (0-2) /HPF Urine Bacteria (None Seen) Hyaline Casts (0-2) /LPF COVID-19 (CHRISTIANO) (Negative) COVID-19 Clin Com 03/01/23 03/01/23 03/01/23 Range/Units 12:09 12:09 12:09 WBC (4.8-10.8) X10*3/uL RBC (4.60-5.80) X10*6/uL Hgb (14.0-18.0) g/dl Hct (42.0-52.0) % MCV (80.0-98.0) fL MCH (27.0-33.0) pg MCHC (31.0-36.0) g/dl RDW (11.0-16.0) % Plt Count (160-400) X10*3/uL MPV (9.4-12.4) fL Immature Gran % (Auto) (0.0-0.4) % Neut % (Auto) (45-73) % Lymph % (Auto) (20-40) % [place] % (Auto) (2-11) % Eos % (Auto) (0-4) % Baso % (Auto) (0-2) % Lymph # (Auto) (1.2-4.9) X10*3/uL [place] # (Auto) (0.1-1.2) X10*3/uL Eos # (Auto) (0.0-0.4) X10*3/uL Baso # (Auto) (0.0-0.2) X10*3/uL Abs Immat Gran (auto) (0.00-0.03) X10*3/uL Absolute Neuts (auto) (2.0-8.3) x10*3/uL Absolute Nucleated RBC (0.0-0.012) X10*3/uL Nucleated RBC % (auto) (0.0-0.2) /100WBC PT (10.0-13.1) SEC INR (0.9-1.1) Sodium (135-145) mmol/L Potassium (3.3-5.1) mmol/L Chloride (96-108) mmol/L Carbon Dioxide (22-29) mmol/L Anion Gap (12-20) BUN (9-16) mg/dL Creatinine (0.5-1.4) mg/dL Estim Creat Clear Calc Estimated GFR POC Glucose (60-115) mg/dL Random Glucose (60-115) mg/dL Lactic Acid 2.3 H* (0.5-2.0) mmol/L Calcium (8.4-10.2) mg/dL Total Bilirubin (0.0-1.0) mg/dL AST (5-37) U/L ALT (0-40) U/L Alkaline Phosphatase (39-117) U/L Ammonia (13-55) umol/L Troponin I High Sens 8.9 (<3.5-35.0) ng/L Total Protein (6.5-8.0) g/dL Albumin (3.5-5.0) g/dL Urine Color Urine Appearance Urine pH (5.0-9.0) Ur Specific [place] (1.005-1.025) Urine Protein (Neg-Trace) mg/dL Urine Glucose (UA) (Negative) mg/dL Urine Ketones (Negative) mg/dL Urine Blood (Negative) Urine Nitrite (Negative) Ur Leukocyte Esterase (Negative) Urine RBC (0-2) /HPF Urine WBC (0-5) /HPF Ur Squamous Epith Cells (0-2) /HPF Urine Bacteria (None Seen) Hyaline Casts (0-2) /LPF COVID-19 (CHRISTIANO) Negative (Negative) COVID-19 Clin Com See Note 03/01/23 03/01/23 03/01/23 Range/Units 12:10 12:51 14:55 WBC 10.1 (4.8-10.8) X10*3/uL RBC 5.14 (4.60-5.80) X10*6/uL Hgb 14.1 (14.0-18.0) g/dl Hct 43.9 (42.0-52.0) % MCV 85.4 (80.0-98.0) fL MCH 27.4 (27.0-33.0) pg MCHC 32.1 (31.0-36.0) g/dl RDW 15.2 (11.0-16.0) % Plt Count 143 L (160-400) X10*3/uL MPV 9.8 (9.4-12.4) fL Immature Gran % (Auto) 0.6 H (0.0-0.4) % Neut % (Auto) 86.0 H (45-73) % Lymph % (Auto) 6.1 L (20-40) % [place] % (Auto) 5.6 (2-11) % Eos % (Auto) 0.9 (0-4) % Baso % (Auto) 0.8 (0-2) % Lymph # (Auto) 0.6 L (1.2-4.9) X10*3/uL [place] # (Auto) 0.6 (0.1-1.2) X10*3/uL Eos # (Auto) 0.1 (0.0-0.4) X10*3/uL Baso # (Auto) 0.1 (0.0-0.2) X10*3/uL Abs Immat Gran (auto) 0.06 H (0.00-0.03) X10*3/uL Absolute Neuts (auto) 8.7 H (2.0-8.3) x10*3/uL Absolute Nucleated RBC 0.000 (0.0-0.012) X10*3/uL Nucleated RBC % (auto) 0.0 (0.0-0.2) /100WBC PT (10.0-13.1) SEC INR (0.9-1.1) Sodium (135-145) mmol/L Potassium (3.3-5.1) mmol/L Chloride (96-108) mmol/L Carbon Dioxide (22-29) mmol/L Anion Gap (12-20) BUN (9-16) mg/dL Creatinine (0.5-1.4) mg/dL Estim Creat Clear Calc Estimated GFR POC Glucose (60-115) mg/dL Random Glucose (60-115) mg/dL Lactic Acid (0.5-2.0) mmol/L Calcium (8.4-10.2) mg/dL Total Bilirubin (0.0-1.0) mg/dL AST (5-37) U/L ALT (0-40) U/L Alkaline Phosphatase (39-117) U/L Ammonia 16 (13-55) umol/L Troponin I High Sens (<3.5-35.0) ng/L Total Protein (6.5-8.0) g/dL Albumin (3.5-5.0) g/dL Urine Color Yellow Urine Appearance Cloudy Urine pH 5.0 (5.0-9.0) Ur Specific [place] 1.015 (1.005-1.025) Urine Protein Trace (Neg-Trace) mg/dL Urine Glucose (UA) Negative (Negative) mg/dL Urine Ketones Trace (Negative) mg/dL Urine Blood Trace H (Negative) Urine Nitrite Negative (Negative) Ur Leukocyte Esterase Large (3+) H (Negative) Urine RBC 6-10 H (0-2) /HPF Urine WBC >50 H (0-5) /HPF Ur Squamous Epith Cells 0-2 (0-2) /HPF Urine Bacteria None Seen (None Seen) Hyaline Casts 3-5 (0-2) /LPF COVID-19 (CHRISTIANO) (Negative) COVID-19 Clin Com Discharge Plan Discharge Clinical Impression: Diabetes mellitus, Sciatica, Back pain, Urinary tract infection Patient Disposition: Home, Self-Care Instructions: Urinary Tract Infection in Men (DC), Sciatica (ED), Back Pain (ED), Type 2 Diabetes in the Older Adult (ED) Additional Instructions: Drink plenty of water. Continue to monitor blood sugar closely. You may increase her gabapentin to help control your sciatic pain. I am going to refer you to [place] your spine and sport. Call [phone] to make an appointment Keflex and is an antibiotic to treat the urinary tract infection Be sure to talk to your primary care physician about glucose monitoring and insulin dosage and possible changes in strategy as needed Prescriptions: New cephalexin 500 mg capsule 1,000 mg PO BID Qty: 28 0RF No Action insulin syringe-needle U-100 [BD Insulin Syringe Ultra-Fine] 1 mL 31 gauge x 5/16 syringe 1 ml miscellaneous BID Qty: 100 2RF (DME) pen needle, diabetic [BD Ultra-Fine Madeline Pen Needle] 32 gauge x 5/32 needle See Rx Instructions .Route Qty: 100 5RF Rx Instructions: As directed 4 times a day Xarelto 20 mg tablet 20 mg PO DAILY@1700 Qty: 30 11RF atorvastatin 40 mg tablet 40 mg PO DAILY 90 Days Qty: 90 1RF lisinopril 40 mg tablet 40 mg PO DAILY 90 Days Qty: 90 1RF metoprolol tartrate 100 mg tablet 100 mg PO BID 90 Days Qty: 180 1RF ferrous sulfate [FeroSul] 325 mg (65 mg iron) tablet 325 mg PO DAILY 90 Days Qty: 90 1RF cholecalciferol (vitamin D3) [Vitamin D3] 25 mcg (1,000 unit) tablet 25 mcg PO DAILY Qty: 90 2RF gabapentin 100 mg capsule 200 mg PO TID 30 Days Qty: 180 3RF furosemide 20 mg tablet 20 mg PO DAILY 90 Days Qty: 90 1RF terazosin 10 mg capsule 10 mg PO BEDTIME 90 Days Qty: 90 1RF nitroglycerin 0.4 mg tablet, sublingual 0.4 mg sublingual Q5M PRN (Reason: Chest Pain) Rx Instructions: do not exceed 3 doses per episode ketorolac 0.5 % drops 1 drp ophthalmic (eye) QID 14 Days Qty: 5 0RF polymyxin B sulf-trimethoprim [Polytrim] 10,000 unit- 1 mg/mL drops 1 drp ophthalmic (eye) TID 7 Days Qty: 10 0RF Rx Instructions: while awake; do not exceed 6 doses in 24 hours Trulicity 0.75 mg/0.5 mL pen injector 0.75 mg subcut MO@0900 84 Days Qty: 6 3RF insulin lispro [Humalog U-100 Insulin] 100 unit/mL solution 1 sliding scale dose SUBCUT TIDAC 90 Days Qty: 30 3RF Protocol: Insulin Correction Scale Less than or equal to 110 ---- Give (units): 0 111 to 150 Give (units): 0 151 to 200 Give (units): 2 201 to 250 Give (units): 4 251 to 300 Give (units): 6 301 to 350 Give (units): 8 Greater than 350 Give (units): 10 Call MD if Blood Glucose > : 350 insulin glargine [Lantus U-100 Insulin] 100 unit/mL solution 54 unit subcut BEDTIME 90 Days Qty: 50 3RF latanoprost 0.005 % drops 1 drp ophthalmic (eye) BEDTIME (DME) FreeStyle Alina 2 Sensor Kit See Rx Instructions .ROUTE .MEDSUPPLY Qty: 2 11RF Rx Instructions: As directed every 2 weeks (DME) FreeStyle Alina 2 [place] Mis See Rx Instructions .ROUTE .MEDSUPPLY Qty: 1 0RF Rx Instructions: As directed (DME) pen needle, diabetic [BD Ultra-Fine Madeline Pen Needle] 32 gauge x 5/32 needle See Rx Instructions .ROUTE .MEDSUPPLY Qty: 100 3RF Rx Instructions: As directed once daily sildenafil 100 mg tablet 100 mg PO DAILY PRN (Reason: sexual activity) 30 Days Qty: 30 1RF Rx Instructions: administer 60 minutes before intended activity prochlorperazine maleate 5 mg tablet PO acyclovir 800 mg tablet 800 mg PO BID ofloxacin 0.3 % drops 1 drp ophthalmic (eye) QID betamethasone dipropionate 0.05 % ointment 1 appl topical BID Qty: 15 0RF Rx Instructions: Thin coat 2 times per day
[2023-03-01 12:21] LABS: MANUAL DIFF FLAG NO
[2023-03-01 12:23] LABS: Basophils Absolute Auto 0.1 X10*3/uL (0.0-0.2); Basophils Percent Auto 0.8 % (0-2); Eosinophils Absolute Auto 0.1 X10*3/uL (0.0-0.4); Eosinophils Percent Auto 0.9 % (0-4); Hematocrit 43.9 % (42.0-52.0); Hemoglobin 14.1 g/dl (14.0-18.0); Imm Gran Abs Auto 0.06 X10*3/uL (0.00-0.03); Imm Gran Pct Auto 0.6 % (0.0-0.4); Lymphocytes Absolute Auto 0.6 X10*3/uL (1.2-4.9); Lymphocytes Percent Auto 6.1 % (20-40); Mean Corpuscular HGB Conc 32.1 g/dl (31.0-36.0); Mean Corpuscular Hemoglobin 27.4 pg (27.0-33.0); Mean Corpuscular Volume 85.4 fL (80.0-98.0); Mean Platelet Volume 9.8 fL (9.4-12.4); Monocytes Absolute Auto 0.6 X10*3/uL (0.1-1.2); Monocytes Percent Auto 5.6 % (2-11); Neutrophils Absolute Auto 8.7 x10*3/uL (2.0-8.3); Platelet Count 143 X10*3/uL (160-400); Red Blood Count 5.14 X10*6/uL (4.60-5.80); Red Cell Distribution Width 15.2 % (11.0-16.0); White Blood Count 10.1 X10*3/uL (4.8-10.8)
[2023-03-01 12:32] LABS: INTERNATIONAL NORM RATIO 1.4 (0.9-1.1); Prothrombin Time 15.7 SEC (10.0-13.1)
[2023-03-01 12:38] LABS: Alanine Aminotransferase 14 U/L (0-40); Albumin Level 3.5 g/dL (3.5-5.0); Alkaline Phosphatase 117 U/L (39-117); Anion Gap 13 (12-20); Aspartate Amino Transferase 16 U/L (5-37); Bilirubin Total 0.8 mg/dL (0.0-1.0); Blood Urea Nitrogen 15 mg/dL (9-16); Calcium 9.1 mg/dL (8.4-10.2); Carbon Dioxide 31 mmol/L (22-29); Chloride 105 mmol/L (96-108); Creatinine Clr Calc Pharmacy 76.6; Estimated Glomerular Filt Rate > 60; Glucose Random 88 mg/dL (60-115); Potassium 4.1 mmol/L (3.3-5.1); Sodium 145 mmol/L (135-145); Total Protein 6.3 g/dL (6.5-8.0)
[2023-03-01 12:40] LABS: Lactic Acid 2.3 mmol/L (0.5-2.0)
[2023-03-01 12:45] LABS: Troponin-I High Sensitivity 8.9 ng/L (<3.5-35.0)
[2023-03-01 12:52] LABS: COVID-19 Test Negative (Negative); IDNOW Serial# 08D9AD1C
[2023-03-01] MEDS: 0.9 % Sodium Chloride 500 ML IV (12:57)
[2023-03-01 13:01] LABS: Ammonia 16 umol/L (13-55)
[2023-03-01 14:00] VITALS: BP 110/49; PULSE 83; RESP 20; TEMP 36.5; O2SAT 98
[2023-03-01 14:19] LABS: Reflex Lactate? Lactic Acid Added
[2023-03-01 15:12] LABS: Appearance Urine Cloudy; Color Urine Yellow; Glucose Urine UA Negative (Negative); Leukocyte Esterase Urine Large (3+) (Negative); Nitrite Urine Negative (Negative); Specific Gravity - Urine 1.015 (1.005-1.025); UMIC TRIGGER UACC YES; Urine Blood Trace (Negative); Urine Ketones Trace mg/dL (Negative); Urine Protein Trace mg/dL (Neg-Trace)
[2023-03-01 15:17] LABS: Bacteria Urine None Seen (None Seen); Squamous Epithelial Cell Urine 0-2 /HPF (0-2); UACC Culture Trigger YES; WBC Urine >50 /HPF (0-5)
[2023-03-01 15:31] LABS: ~Lactic Acid-LAB USE ONLY 1.9 mmol/L (0.5-2.0)
== END 2023-03-01 16:10 | disposition home or self-care (01) ==
PROVIDERS: Emergency Provider Emergency Medicine; PCP Internal Medicine
DX: M54.40 Lumbago with sciatica, unspecified side (principal); N39.0 Urinary tract infection, site not specified; I48.91 Unspecified atrial fibrillation; M79.604 Pain in right leg; R51.9 Headache, unspecified; E11.9 Type 2 diabetes mellitus without complications; Z20.822 Contact with and (suspected) exposure to COVID-19; Z20.828 Contact with and (suspected) exposure to other viral communicable diseases; Z79.899 Other long term (current) drug therapy; Z87.891 Personal history of nicotine dependence; Z79.4 Long term (current) use of insulin
CPT/HCPCS: 51798; 70450; 71046; 74176; 80053; 81001; 82140; 82947; 83605; 84484; 85025; 85610; 87040; 87086; 87635; 93005; 96360; 99284; 99285

== ENCOUNTER 2023-03-08 18:41 | Emergency (ER) | payer OTHER, MEDICARE, SELFPAY ==
[2023-03-08 18:51] VITALS: BP 144/82; PULSE 86; RESP 18; TEMP 37.2; O2SAT 100; BMI 31.7
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
[2023-03-08] MEDS: Bacitracin Oint 0.9 GM PACKET 1 APPL TOPICAL (19:50)
== END 2023-03-08 19:55 | disposition home or self-care (01) ==
PROVIDERS: Emergency Provider Internal Medicine; PCP Internal Medicine
DX: S50.811A Abrasion of right forearm, initial encounter (principal); V43.62XA Car passenger injured in collision with other type car in traffic accident, initial encounter; Y93.89 Activity, other specified; I10 Essential (primary) hypertension; Y92.410 Unspecified street and highway as the place of occurrence of the external cause; Y99.9 Unspecified external cause status; Z79.4 Long term (current) use of insulin; Z79.02 Long term (current) use of antithrombotics/antiplatelets; Z79.899 Other long term (current) drug therapy
CPT/HCPCS: 99282; 99283

== ENCOUNTER → 2023-03-17 10:56 | Outpatient (BNVA) | payer MEDICARE, SELFPAY | PROVIDERS: PCP Internal Medicine; Visit Provider Urology | DX: N48.1 Balanitis (principal); C67.9 Malignant neoplasm of bladder, unspecified | CPT/HCPCS: 52000; 99212 ==

== ENCOUNTER 2023-06-13 09:45 | Outpatient (AMB) | payer MEDICARE, SELFPAY ==
[2023-06-13 09:47] VITALS: BP 122/76; PULSE 81; O2SAT 96; BMI 39.6
--- NOTE | 2023-06-13 09:47 | A.OFFPC_ITS ---
Vital Signs 06/13/23 09:47 Height 5 ft 6 in Weight 245 lb 6 oz BMI 39.6 BP 122/76 Blood Pressure Location Lt brachial Position Sitting Pulse 81 Pulse Source Pulse Oximeter Pulse Oximetry (%) 96 Oxygen Delivery Method Room Air Intake Visit Reasons: HTN, CAD, AF, bladder CA, hyperlipidemia, DM Technology Program Manager Required: No Accompanied by: Self / Same As Patient Allergies colesevelam [From WelChol] Adverse Reaction (Mild, Verified 06/13/23 10:29) constipation Medication List - Last Reconciled 06/13/23 by Guido Andrade MD acyclovir 800 mg PO BID atorvastatin 40 mg PO DAILY 90 days betamethasone dipropionate 0.05% 1 appl topical BID cholecalciferol (vitamin D3) (Vitamin D3) 25 mcg PO DAILY dulaglutide (Trulicity) 0.75 mg (0.5 mL) subcut MO@0900 12 weeks duloxetine 30 mg PO DAILY 90 days ferrous sulfate (FeroSul) 325 mg PO DAILY 90 days flash glucose scanning reader (ToutpostStyle Alina 2 [place]) As directed flash glucose sensor (FreeStyle Alina 2 Sensor kit) As directed every 2 weeks furosemide 20 mg PO DAILY 90 days gabapentin 200 mg (2 x 100 mg) PO TID 30 days insulin glargine (Lantus U-100 Insulin) 46 units subcut BEDTIME insulin lispro (Humalog U-100 Insulin) 1 sliding scale dose See Protocol subcut TIDAC 3 months insulin lispro (Humalog KwikPen (U-100) Insulin) 2 units with breakfast, 2 units with lunch and 10 units with dinner as instructed subcutaneously 3 times a day; insulin syringe-needle U-100 (BD Insulin Syringe Ultra-Fine) 1 mL miscellaneous BID ketorolac 0.5% 1 drp ophthalmic (eye) QID 2 weeks latanoprost 0.005% 1 drp ophthalmic (eye) BEDTIME lisinopril 40 mg PO DAILY 90 days metoprolol tartrate 100 mg PO BID 90 days nitroglycerin 0.4 mg sublingual Q5M PRN ofloxacin 0.3% 1 drp ophthalmic (eye) QID pen needle, diabetic (BD Ultra-Fine Madeline Pen Needle) As directed 4 times a day pen needle, diabetic (BD Ultra-Fine Madeline Pen Needle) As directed once daily prochlorperazine maleate mg PO rivaroxaban (Xarelto) 20 mg PO DAILY@1700 sildenafil 100 mg PO DAILY PRN 30 days terazosin 10 mg PO BEDTIME 90 days Tobacco use date assessed: 06/13/23 Fall risk assessment: No Falls in past year Last assessed Fall Risk: 06/13/23 Dental Screening Dental Screen Date: 06/13/23 Did you have a dental visit in the last 12 months?: No Did you have a dental problem in the last 6 months where you did not have access to dental care?: No Was dental information given to patient?: No HPI HTN, CAD, AF, bladder CA, hyperlipidemia, DM HPI Details Patient comes in today for his follow up visit States that he feels okay but his feels that patient is very depressed all the time lately Patient states that his days are often filled up with numerous doctors' appointments and he does feel tired of seeing doctors often although he still tries to keep his appointments as he is aware that they are important to help keep him going He denies any headaches or dizziness Denies any chest pains, no SOB No nausea/vomiting, no abdominal pain No change in bowel habits noted States that he was finally seen by Dr. Fontaine a few weeks ago for diabetes/endocrinology consultation and he will now continue to follow up with Dr. 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 Hyperlipidemia LDL goal <70 Iron deficiency anemia [facility] (current) use of insulin Melanoma of nose [place] cell cancer Obesity (BMI 30-39.9) On beta nahid at home Pure hypercholesterolemia 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 Urinary bladder cancer Surgical History History of cataract surgery History of cystoscopy History of endoscopy History of esophagogastroduodenoscopy (EGD) History of surgery Hx of colonoscopy Hx of cystoscopy Hx of removal of cyst Family History Father Medical history unknown Mother Diabetes Daughter In good health Son In good health Sister In good health Sister In good health Brother In good health Brother In good health Brother In good health Social History Household Members: Spouse Housing: House Are you a primary career and transition teacher to a significant other at home: No Do you presently have visiting nurse or other home services: No Alcohol intake: current Alcohol intake frequency: does not drink Alcohol type: beer Patient Tobacco Use Status: Former Tobacco user Quit Date: age 36 Tobacco use type: Cigarette Years Smoked: 40 yrs ago e-Cigarette/Vaping Use: Never Used Second Hand Smoke Exposure: Yes Substance Use Type: Former Substance User and Marijuana Advance Directives Date on File: 09/07/21 service: No Current occupational status: retired Current occupational exposures/hazards: No Cognitive needs: Yes (cane) Hearing needs: No Vision needs: Yes Questionnaire PHQ-9 Over the last 2 weeks, how often have you been bothered by any of the following problems? 1. Little interest or pleasure in doing things: not at all 2. Feeling down, depressed, or hopeless: several days 3. Trouble falling or staying asleep, or sleeping too much: not at all 4. Feeling tired or having little energy: several days 5. Poor appetite or overeating: several days 6. Feeling bad about yourself - or that you are a failure or have let yourself or your family down: several days 7. Trouble concentrating on things, such as reading the newspaper or watching television: not at all 8. Moving or speaking so slowly that other people could have noticed. Or the opposite - being so fidgety or restless that you have been moving around a lot more than usual: not at all 9. Thoughts that you would be better off or of hurting yourself in some way: not at all Total score: 4 Depression Screening Interpretation: Positive Depression Screening Follow-up: Existing condition and New Medication prescribed 64908 - PHQ-9 Billing: Yes Source: Developed by Drs. Rich Garrido, Kym Rodriguez, Conrad Barraza and colleagues, with an educational micheline from [employer]. Thrive Questionnaire Date Thrive assessed: 06/13/23 I am a: Patient What is your living situation today?: I have a steady place to live Within the past 12 months, did the food you bought not last and you didn't have the money to get more?: Never true Within the past 12 months, did you worry whether your food would run out before you got money to buy more?: Never true Do you have trouble paying for medicines?: No Do you have trouble getting transportation to medical appointments?: No Do you have trouble paying your heating and electricity bill?: No Do you have trouble taking care of your child, family member or friend?: No Do you have trouble with day-to-day activities such as bathing, preparing meals, shopping, managing finances, etc.?: No Are you currently unemployed and looking for a job?: No Are you interested in more education?: No Please select the resources that you would like help with: None Currently or been in a relationship where the following occur: no concerns reported AUDIT C Alcohol Use Questionnaire (AUDIT-C) 1. How often do you have a drink containing alcohol?: Never Total Score: 0 Score Reviewed/Action Taken: Yes MARKUS-7 AMB Questionnaire MARKUS-7 Date MARKUS - 7 assessed: 06/13/23 Feeling nervous, anxious, or on edge: 0 = Not at all Not being able to stop or control worryin = Not at all Worrying too much about different things: 0 = Not at all Trouble relaxin = Not at all Being so restless that it is hard to sit still: 0 = Not at all Becoming easily annoyed or irritable: 0 = Not at all Feeling afraid as if something awful might happen: 0 = Not at all Total MARKUS-7 score (0-4 normal; 5-9 mild; 10-14 moderate; 15-21 severe): 0 Source: Developed by Drs. Rich Garrido, Kym Rodriguez, Conrad Barraza and colleagues, with an educational micheline from [employer]. Review of Systems Const Reports fatigue, Denies fever(s) and Denies headache(s) ENT Denies dysphagia, Denies dizziness, Denies otalgia, Denies headache(s), Denies odynophagia, Denies sinus pain and Denies sore throat Card Denies chest pain, Denies palpitations and Denies dyspnea Resp Denies cough and Denies dyspnea GI Denies abdominal pain, Denies constipation, Denies dysphagia, Denies heartburn, Denies diarrhea, Denies nausea, Denies odynophagia and Denies vomiting Denies dysuria, Denies nocturia and Denies urinary frequency Musc Denies back pain Neuro Details: (+) bilateral leg pain Denies dizziness and Denies headache(s) Psych Reports depression Endo Reports fatigue and Denies palpitations Physical exam (Primary Care) Vital Signs: Last Vital Signs Pulse 81 06/13/23 09:47 BP 122/76 06/13/23 09:47 Pulse Ox 96 06/13/23 09:47 Oxygen Delivery Method Room Air 06/13/23 09:47 BMI result Body Mass Index 39.6 Tobacco/Smoking Status: Tobacco use Status Tobacco use date assessed 06/13/23 06/13/23 09:54 Patient Tobacco Use Status Former Tobacco user 06/13/23 09:54 Tobacco use type Cigarette 06/13/23 09:54 e-Cigarette/Vaping Use Never Used 06/13/23 09:54 PHQ-9: PHQ-9 Score PHQ-9: Total score 4 06/13/23 10:15 Depression Screening Interpretation: Positive Depression Screening Follow-up: Existing condition and New Medication prescribed Thrive Assessment: Date of Thrive Assessment Date Thrive assessed 06/13/23 06/13/23 09:54 Currently or been in a relationship where the following occur: no concerns reported Const General: no acute distress and alert HENMT Ears: TM's normal bilaterally and EAC's normal Throat: Yes posterior oropharynx normal and Yes tonsils normal (no TP congestion noted) Neck Neck: Yes no lymphadenopathy and Yes supple Resp Auscultation: clear to auscultation bilaterally, no rales and no wheezes Cardio Rhythm: abnormal rhythm irregularly irregular Heart sounds: no murmurs GI Palpation (GI): Soft to palpation and nontender Auscultation: normal bowel sounds Extrem General: Yes no clubbing, cyanosis or edema Results AMB Hemoglobin A1c AMB Hemoglobin A1c 6.9 % Last Edit by Beata Alex on 06/13/23 10:16 Results Reviewed Results Reviewed: Laboratory Last Values Hgb A1c (Clinic) 6.9 % (4.0-6.0) H 06/13/23 10:02 Assessment and Plan Assessment & Plan (1) Type 2 diabetes mellitus with diabetic chronic kidney disease: Code(s): E11.22 - Type 2 diabetes mellitus with diabetic chronic kidney disease Qualifiers: Diabetes mellitus intermission coordinator insulin use: with assisted use Chronic kidney disease stage: stage 2 (mild) Qualified Code(s): E11.22 - Type 2 diabetes mellitus with diabetic chronic kidney disease; N18.2 - Chronic kidney disease, stage 2 (mild); 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 Fontaine for endocrinology consult and he was finally seen a few weeks ago and will now continue to follow up with Dr. Fontaine regularly for his diabetes management (2) Pure hypercholesterolemia: Code(s): E78.00 - Pure hypercholesterolemia, unspecified Plan: Patient did not get his follow up labs done as he was reportedly mistakenly advised by the office when he called up a week ago to inquire about his labs that he already had them done Reinforced low cholesterol diet Continue Atorvastatin 40 mg QD Will just have patient recheck his labs in 4 months for follow up (current lab orders are updated and printed out and handed to patient to use in a few months) (3) Chronic atrial fibrillation: Code(s): I48.20 - Chronic atrial fibrillation, unspecified Plan: Patient is currently still in atrial fibrillation but remains rate-controlled Continue Metoprolol 100 mg BID Continue Xarelto 20 mg QD for thromboembolism prevention Follow up with cardiology as scheduled (4) Benign essential hypertension: Code(s): I10 - Essential (primary) hypertension Plan: Reinforced low sodium diet - goal is systolic BP of at least 130 mm or less Continue Metoprolol 100 mg BID and Lisinopril 40 mg QD (5) Urinary bladder cancer: Comment: Low-grade recurrent Code(s): C67.9 - Malignant neoplasm of bladder, unspecified Qualifiers: Bladder location: unspecified site Qualified Code(s): C67.9 - Malignant neoplasm of bladder, unspecified Plan: Patient is still receiving intravesical chemotherapy for his bladder cancer Follow up with urology as scheduled (6) 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 Code(s): C4A.9 - Raji cell carcinoma, unspecified Plan: S/P radiation therapy of the right forearm Metastatic workup for his recently diagnosed dermatologic cancer appears to be negative Follow up with radiation oncology as scheduled (7) Neuropathy: Code(s): G62.9 - Polyneuropathy, unspecified Plan: Patient still reports experiencing increased pain in both legs often Continue Gabapentin 200 mg TID Will be started on Duloxetine today for his mood disorder; is advised that Duloxetine may also help with his chronic leg pain somewhat (8) Mood disorder: Code(s): F39 - Unspecified mood [affective] disorder Plan: Will start patient on a trial of Duloxetine 30 mg QD (9) Obesity (BMI 30-39.9): Code(s): E66.9 - Obesity, unspecified Plan: Reinforced diet/exercise as tolerated/ lose weight Plan Follow up in 4 months Orders: Orders AMB Hemoglobin A1c Today Z13.9 - Encounter for screening, unspecified Medications: New duloxetine 30 mg PO DAILY 90 days 90 caps 1RF Refilled cholecalciferol (vitamin D3) (Vitamin D3) 25 mcg PO DAILY 90 tabs 2RF Coding Level of Care Code Est Pt Level 4 (25114) Diagnoses Type 2 diabetes mellitus with diabetic chronic kidney disease E11.22; N18.2; Z79.4 Diabetes mellitus assisted insulin use: with intermission coordinator use Chronic kidney disease stage: stage 2 (mild) Pure hypercholesterolemia E78.00 Chronic atrial fibrillation I48.20 Benign essential hypertension I10 Urinary bladder cancer C67.9 Bladder location: unspecified site [place] cell cancer C4A.9 Neuropathy G62.9 Mood disorder F39 Obesity (BMI 30-39.9) E66.9
== END 2023-06-13 10:41 | disposition home or self-care (01) ==
PROVIDERS: PCP Internal Medicine; Visit Provider Internal Medicine
DX: E11.22 Type 2 diabetes mellitus with diabetic chronic kidney disease (principal); N18.2 Chronic kidney disease, stage 2 (mild); Z79.4 Long term (current) use of insulin; I48.20 Chronic atrial fibrillation, unspecified; E78.00 Pure hypercholesterolemia, unspecified; I12.9 Hypertensive chronic kidney disease with stage 1 through stage 4 chronic kidney disease, or unspecified chronic kidney disease; C67.9 Malignant neoplasm of bladder, unspecified; C4A.9 Merkel cell carcinoma, unspecified; G62.9 Polyneuropathy, unspecified; F39 Unspecified mood [affective] disorder; E66.9 Obesity, unspecified
CPT/HCPCS: 83036; 99214

== ENCOUNTER 2023-07-20 09:52 | Outpatient (AMB) | payer MEDICARE, SELFPAY ==
--- NOTE | 2023-07-20 09:55 | A.OFFVIS_ITS ---
Intake Intake Visit Reasons: 4m/cysto Intake Note: Patient is present for Cystoscopy Urology Med: Sildenafil, Terazosin Antibiotic Allergy: None Blood Thinner: None Pharmacy: [facility] C[facility] used during Procedure LOT#: [id number] EXP: 03/19/2025 Allergies colesevelam [From WelChol] Adverse Reaction (Mild, Verified 06/13/23 10:29) constipation HPI HPI Comments 2 History of Present Illness Details Kamlesh is a pleasant male. He is a patient of Dr. Andrade. He is seen for the following urologic conditions - complex renal cyst - weakness of stream - hematuria - bladder cancer 2 year check cysto normal Switch to Q 6 month Stable bladder emptying Bladder cancer initial diagnosis 2009 recurrent 2020 high-grade superficial Prior history of superficial bladder cancer - managed with [facility] Underwent surveillance cystoscopy for 10 years stopping in 2014 Cystoscopy - 04/26 recurrent bladder lesion, 12/28 NAD, 01/26 NAD TURBT - 05/26 T1 high-grade bladder cancer, 09/26 chronic inflammation Immunotherapy - 05/26 gemcitabine 6 week induction, 12/28 3 week boost, 02/26 3 week boost Therapeutic plan - 2 6 month follow-up to 5 years Complex renal cyst Left-sided renal complex cyst Imaging - 04/26 CT scan left side 2cm simple renal cyst Bladder outlet obstruction Initial symptoms Weak stream, Nocturia 2-3, Bother 3 Good response to terazosin 5 mg Continue medications PFSH Medical History Anemia Benign essential hypertension Bladder cancer CAD (coronary artery disease) Chronic a-fib Chronic anticoagulation Chronic atrial fibrillation Chronic kidney disease (CKD), stage II (mild) Diabetes mellitus Erectile dysfunction History of colon polyps 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 Hyperlipidemia LDL goal <70 Iron deficiency anemia [facility] (current) use of insulin Melanoma of nose Dixon cell cancer Obesity (BMI 30-39.9) On beta nahid at home Pure hypercholesterolemia 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 Urinary bladder cancer Surgical History History of cataract surgery History of cystoscopy History of endoscopy History of esophagogastroduodenoscopy (EGD) History of surgery Hx of colonoscopy Hx of cystoscopy Hx of removal of cyst Family History Father Medical history unknown Mother Diabetes Daughter In good health Son In good health Sister In good health Sister In good health Brother In good health Brother In good health Brother In good health Social History Household Members: Spouse Housing: House Are you a primary pediatric critical care nurse to a significant other at home: No Do you presently have visiting nurse or other home services: No Alcohol intake: current Alcohol intake frequency: does not drink Alcohol type: beer Patient Tobacco Use Status: Former Tobacco user Quit Date: age 36 Tobacco use type: Cigarette Years Smoked: 40 yrs ago e-Cigarette/Vaping Use: Never Used Second Hand Smoke Exposure: Yes Substance Use Type: Former Substance User and Marijuana Advance Directives Date on File: 09/07/21 service: No Current occupational status: retired Current occupational exposures/hazards: No Cognitive needs: Yes (cane) Hearing needs: No Vision needs: Yes Review of Systems Const Denies chills and Denies fever(s) Card Reports no additional complaints and Denies syncope Resp Denies cough GI Denies abdominal pain and Denies heartburn Reports as per HPI and Denies change in libido Neuro Denies syncope Psych Denies change in libido Endo Denies change in libido Physical Exam Const General: cooperative, healthy appearing, comfortable and no acute distress Orientation/consciousness: patient oriented x3 HEENT Face and sinus: Yes normal facial exam Mouth: moist mucous membranes Neck Neck: Yes normal visual inspection, Yes full ROM and Yes trachea midline Chest Chest palpation & inspection: normal inspection of the chest Resp Effort & Inspection: normal respiratory effort, able to speak in complete sentences and no respiratory distress GI Inspection: Yes normal to inspection Back/Spine/Pelvis Cervical Spine: normal cervical lordosis Thoracic/Lumbar Spine: thoracic and lumbar spine normal to inspection Skin General skin exam: no rashes or lesions noted Neuro General: patient oriented x3, gait normal, tone normal and moves all extremities Extrem General: Yes normal to inspection and Yes capillary refill normal Office Procedures Cystoscopy Consent Discussed risk and benefit or proposed procedure with the patient. Information consent for procedure given to the patient. Discussed technical aspects, risks, benefits and alternatives in full. Addressed all of the patient's questions and concerns regarding the procedure. The patient demonstrated knowledge and understanding. They wish to proceed with this procedure. Preparation The patient was prepped in the usual manner. A erecting crane operator was present and in the room. Genitalia was prepped with betadine solution in a sterile manner. Lidocaine Jelly 2% was placed into the urethra and 16Fr flexible Olympus cystoscope was inserted into the meatus after adequate lubrication. Procedure Meatus uncircumcised Urethra anterior posterior urethra normal Prostatic Urethra mild hyperplasia Bladder examination with retroflexion of cystoscope Bladder Orifices normal shape and position Bladder Capacity medium Trabeculations grade 1 Cellule Formation - Diverticulum Formation - Mucosal Erythema - Bladder Tumor - [id number] DISPOSABLE SCOPE URO-G FLEXIBLE SCOPE Procedure code (CPT) selection complete Office Meds lidocaine HCl 2 % mucosal jelly in applicator Performing Provider: Aquiles Valderrama MD Performing Location: [facility] [place] [facility] Administered by: Anupama Iyer RN on 07/20/23 10:26 Dose Route Admin Location Dispensed Lot Number Expiration Date [employer] 10 mL intra-urethral 10 mL nitrofurantoin monohydrate/macrocrystals 100 mg capsule Performing Provider: Aquiles Valderrama MD Performing Location: [facility] [place] [facility] Administered by: Anupama Iyer RN on 07/20/23 10:26 Dose Route Admin Location Dispensed Lot Number Expiration Date [employer] 100 mg PO 1 cap naproxen 500 mg tablet Performing Provider: Aquiles Valderrama MD Performing Location: [facility] [place] [facility] Administered by: Anupama Iyer RN on 07/20/23 10:26 Dose Route Admin Location Dispensed Lot Number Expiration Date [employer] 500 mg PO 1 tab Assessment & Plan Assessment & Plan (1) Bladder outlet obstruction: Code(s): N32.0 - Bladder-neck obstruction (2) Bladder cancer: Comment: 05/26 recurrent high-grade superficial bladder cancer Code(s): C67.9 - Malignant neoplasm of bladder, unspecified Plan Six month follow-up check cystoscopy Orders: Orders AMB Cystoscopy Today C67.9 - Malignant neoplasm of bladder, unspecified Patient Instructions: Imaging studies, laboratory and physical exam results were discussed and reviewed in detail. No major barriers to patient understanding were identified. An opportunity to ask questions regarding the treatment plan was provided. All questions were answered. The patient expressed understanding and agreement with the above treatment plan. The patient is aware they should contact our office by phone for worsening of their current condition or the appearance of new urologic symptoms. Compliance is encouraged with any medications and followup testing that is ordered. It is a privilege to participate in the urologic care of your patient. If you have any questions or concerns regarding treatment for the above conditions, or other urologic issues, please do not hesitate to contact me. The office telephone contact is [phone]. This note is constructed using voice recognition software. While every effort has been made to ensure accuracy health and safety trainer errors may have been included. Yours sincerely, Dr Aquiles Valderrama MD, [facility] - [facility]rology Providers of Expert, Compassionate Care for the Genitourinary System Coding Level of Care Code Est Pt Level 3 (85424) Diagnoses Bladder outlet obstruction N32.0 Bladder cancer C67.9 CPT Codes Cystoscopy - CPT: 28630-[id number] ([id number])
== END 2023-07-20 10:35 | disposition home or self-care (01) ==
PROVIDERS: PCP Internal Medicine; Visit Provider Urology
DX: C4A.9 Merkel cell carcinoma, unspecified (principal); N32.0 Bladder-neck obstruction
CPT/HCPCS: 52000

== ENCOUNTER → 2023-07-20 09:52 | Outpatient (BNVA) | payer MEDICARE, SELFPAY | PROVIDERS: Visit Provider Urology | DX: C67.9 Malignant neoplasm of bladder, unspecified (principal); N32.0 Bladder-neck obstruction | CPT/HCPCS: 52000 ==

== ENCOUNTER 2023-08-31 12:51 | Outpatient (AMB) | payer MEDICARE, SELFPAY ==
--- NOTE | 2023-08-31 12:58 | MHC.OFFVIS ---
Intake Vital Signs 08/31/23 12:59 Height 5 ft 6 in Weight 242 lb 8.136 oz BMI 39.1 BP 120/80 Blood Pressure Location Lt brachial Position Sitting Pulse 69 Intake Visit Reasons: 1yr f/up Intake Note: 1 year follow-up with ekg c/o fatigue from DM med changes Pump Tester Required: No Osteology Teacher: Osteology Teacher Present Accompanied by: Spouse Allergies colesevelam [From WelChol] Adverse Reaction (Mild, Verified 06/13/23 10:29) constipation Medication List - Last Reconciled 08/31/23 by Delano Rosales MD acyclovir 800 mg PO BID atorvastatin 40 mg PO DAILY 90 days betamethasone dipropionate 0.05% 1 appl topical BID cholecalciferol (vitamin D3) (Vitamin D3) 25 mcg PO DAILY dulaglutide (Trulicity) 0.75 mg (0.5 mL) subcut MO@0900 12 weeks duloxetine 30 mg PO DAILY 90 days ferrous sulfate (FeroSul) 325 mg PO DAILY 90 days flash glucose scanning reader (SettlewareStyle Alina 2 [place]) As directed flash glucose sensor (FreeStyle Alina 2 Sensor kit) As directed every 2 weeks furosemide 20 mg PO DAILY 90 days gabapentin 200 mg (2 x 100 mg) PO TID 30 days insulin glargine (Lantus U-100 Insulin) 46 units subcut BEDTIME insulin lispro (Humalog U-100 Insulin) 1 sliding scale dose See Protocol subcut TIDAC 3 months insulin lispro (Humalog KwikPen (U-100) Insulin) 2 units with breakfast, 2 units with lunch and 10 units with dinner as instructed subcutaneously 3 times a day; insulin syringe-needle U-100 (BD Insulin Syringe Ultra-Fine) 1 mL miscellaneous BID ketorolac 0.5% 1 drp ophthalmic (eye) QID 2 weeks latanoprost 0.005% 1 drp ophthalmic (eye) BEDTIME lisinopril 40 mg PO DAILY 90 days metoprolol tartrate 100 mg PO BID 90 days nitroglycerin 0.4 mg sublingual Q5M PRN ofloxacin 0.3% 1 drp ophthalmic (eye) QID pen needle, diabetic (BD Ultra-Fine Madeline Pen Needle) As directed 4 times a day pen needle, diabetic (BD Ultra-Fine Madeline Pen Needle) As directed once daily prochlorperazine maleate mg PO rivaroxaban (Xarelto) 20 mg PO DAILY@1700 [SHOWER CHAIR As directed] sildenafil 100 mg PO DAILY PRN 30 days terazosin 10 mg PO BEDTIME 90 days HPI HPI Comments History of Present Illness Details Kamlesh zaragoza comes for follow-up. Patient denies any orthopnea, PND, leg edema, worsening shortness of breath. Does complain of fatigue since change in his diabetic medications. He also is currently getting chemotherapy for his cancer. He denies any lightheadedness, syncope recently. Denies any exertional chest pain. Takes all his medications. No bleeding issues or neurologic events. 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 CAD (coronary artery disease) Hyperlipidemia LDL goal <70 Type 2 diabetes mellitus with diabetic polyneuropathy Diabetes mellitus Surgical History History of surgery History of esophagogastroduodenoscopy (EGD) Hx of cystoscopy History of cystoscopy Hx of colonoscopy History of cataract surgery History of endoscopy Hx of removal of cyst Family History Father Medical history unknown Mother Diabetes Daughter In good health Son In good health Sister In good health Sister In good health Brother In good health Brother In good health Brother In good health Social History Household Members: Spouse Housing: House Are you a primary physician locums urgent care to a significant other at home: No Do you presently have visiting nurse or other home services: No Alcohol intake: current Alcohol intake frequency: does not drink Alcohol type: beer Patient Tobacco Use Status: Former Tobacco user Quit Date: age 36 Tobacco use type: Cigarette Years Smoked: 40 yrs ago e-Cigarette/Vaping Use: Never Used Second Hand Smoke Exposure: Yes Substance Use Type: Former Substance User and Marijuana Advance Directives Date on File: 09/07/21 service: No Current occupational status: retired Current occupational exposures/hazards: No Cognitive needs: Yes (cane) Hearing needs: No Vision needs: Yes Review of Systems Const Denies chills, Denies fatigue, Denies fever(s), Denies frequent falls, Denies weakness, Denies weight gain and Denies weight loss ENT Denies dizziness Card Denies chest pain, Denies leg edema, Denies lightheadedness, Denies palpitations, Denies dyspnea, Denies dyspnea on exertion, Denies orthopnea and Denies other (loss of consciousness) Resp Denies cough, Denies dyspnea and Denies dyspnea on exertion GI Denies hematochezia and Denies change in stool character Musc Denies abnormal gait, Denies muscle weakness, Denies numbness, Denies radiating pain into limb and Denies tingling Neuro Denies abnormal gait, Denies dizziness, Denies frequent falls, Denies numbness, Denies tingling and Denies weakness Endo Denies fatigue and Denies palpitations Physical Exam Vital Signs: Last Vital Signs Pulse 69 08/31/23 12:59 BP 120/80 08/31/23 12:59 BMI result Body Mass Index 39.1 Const General: cooperative, comfortable and no acute distress Nutritional Appearance: obese and other (Frail appearing) Orientation/consciousness: patient oriented x3 Limitations: ambulation with cane Neck Neck: Yes normal visual inspection and Yes no JVD Carotids: normal carotid upstroke Chest Chest palpation & inspection: normal inspection of the chest Resp Effort & Inspection: normal respiratory effort Auscultation: clear to auscultation bilaterally, no crackles, no rales, no rhonchi, no wheezes and diminished lung sounds Cardio Other: Heart tones irregularly irregular Jugular venous distension: no JVD Rate: regular rate Heart sounds: S1 normal heart sound present, S2 normal heart sound present, no gallops, no murmurs and no rubs Peripheral pulses: Peripheral pulses 2+ throughout GI Inspection: Yes normal to inspection Neuro General: patient oriented x3 Extrem General: Yes normal to inspection, No no pedal edema and No calf tenderness Office Procedures EKG Details: EKG shows atrial fibrillation with left posterior fascicular block 69682-[id number], Complete Assessment & Plan Assessment & Plan (1) Chronic atrial fibrillation: Code(s): I48.20 - Chronic atrial fibrillation, unspecified Plan: Patient with longstanding chronic atrial fibrillation with significant left atrial enlargement without signs or symptoms of heart failure. At this point time will continue pursue rate control approach. Unlikely that rhythm control will be successful. Continue full oral anticoagulation, currently on Xarelto 20 mg daily. Semi annual renal function test should be pursued. (2) CAD (coronary artery disease): Comment: No current symptoms. Continue aggressive medical management. Code(s): I25.10 - Atherosclerotic heart disease of [place] coronary artery without angina pectoris Plan: CAD, nonobstructive without any symptoms of angina at this point in time. Currently on full oral anticoagulation continue the same. Avoid antiplatelet agent. Blood pressure is currently well optimized target goal LDL less than 70 mg/dL. Aggressive control of diabetes recommended. (3) LVH (left ventricular hypertrophy): Code(s): I51.7 - Cardiomegaly Plan: Noted significant left ventricular wall thickness increased despite adequate blood pressure control. Could be related hypertensive heart disease, longstanding and/or diabetic cardiomyopathy. Although cardiac amyloidosis needs to be ruled out. Will suggest a PYP scan for the same. This will be performed in near future. Further treatment based on findings Will follow up in the clinic in 1 year's time, sooner p.r.n.. Thank you for allowing me to partake in his care Orders: Orders NM TC PYP cardiac amyloidosis Today I48.20 - Chronic atrial fibrillation, unspecified, I51.7 - Cardiomegaly Medications: Refilled rivaroxaban (Xarelto) 20 mg PO DAILY@1700 30 tabs 11RF I48.20 - Chronic atrial fibrillation, unspecified Coding Level of Care Code Est Pt Level 4 (06334) Diagnoses Chronic atrial fibrillation I48.20 CAD (coronary artery disease) I25.10 LVH (left ventricular hypertrophy) I51.7 CPT Codes EKG - CPT: 07085-[id number], Complete ([id number])
[2023-08-31 12:59] VITALS: BP 120/80; PULSE 69; BMI 39.1
== END 2023-08-31 13:16 | disposition home or self-care (01) ==
PROVIDERS: Visit Provider Internal Medicine Cardiovascular Disease
DX: I48.20 Chronic atrial fibrillation, unspecified (principal); I25.10 Atherosclerotic heart disease of native coronary artery without angina pectoris; I51.7 Cardiomegaly
CPT/HCPCS: 93010; 99214

== ENCOUNTER → 2023-08-31 12:51 | Outpatient (BNVA) | payer MEDICARE, SELFPAY | PROVIDERS: Visit Provider Internal Medicine Cardiovascular Disease | DX: I48.20 Chronic atrial fibrillation, unspecified (principal); I25.10 Atherosclerotic heart disease of native coronary artery without angina pectoris; I44.5 Left posterior fascicular block; I51.7 Cardiomegaly; I10 Essential (primary) hypertension | CPT/HCPCS: 93005; 99212 ==

== ENCOUNTER → 2023-09-12 09:46 | Outpatient (REF) | payer MEDICARE, SELFPAY ==
--- NOTE | ~2023-09-12 | NM_ITS ---
EXAMINATION: TC-PYP CARDIAC STUDY CLINICAL INFORMATION: Evaluation for cardiac amyloidosis. 78 years old Male with heart failure and atrial fibrillation COMPARISON None available. TECHNIQUE: 25 mCi of Tc-99m pyrophosphate was injected intravenously. Planar images of the chest were obtained in the anterior and left lateral views at 3 hours. SPECT-CT images of the chest were also obtained. The total DLP 154 mGy-cm FINDINGS: 1. Image Quality: Fair 2. Semi-quantitative visual scoring of the cardiac uptake is performed as follows: 0 = absent cardiac uptake and intense bone uptake 3. H-CL Ratio if Applicable: nA 4. Ancillary Finds: Extensive calcification noted in coronary arteries NM/NM TC PYP cardiac amyloidosis IMPRESSION: 1. No evidence MYOCARDIAL uptake suggestive of absence of ATTR type amyloidosis 2. Please note that the Tc-99m PYP is more sensitive in detecting transthyretin-related cardiac amyloidosis than that of light-chain cardiac amyloidosis.
== END ==
LOC: HO.NUCMED 09:46
PROVIDERS: PCP Internal Medicine; Visit Provider Internal Medicine Cardiovascular Disease
DX: I48.20 Chronic atrial fibrillation, unspecified (principal); I51.7 Cardiomegaly
CPT/HCPCS: 78803; A9538

== ENCOUNTER → 2023-09-12 09:47 | Outpatient (BNV) | payer MEDICARE, SELFPAY | PROVIDERS: PCP Internal Medicine; Visit Provider Internal Medicine Cardiovascular Disease | DX: I48.20 Chronic atrial fibrillation, unspecified (principal) | CPT/HCPCS: 78803 ==

== ENCOUNTER 2023-12-08 07:22 | Outpatient (REF) | payer MEDICARE, SELFPAY ==
[2023-12-08 07:51] LABS: MANUAL DIFF FLAG NO
[2023-12-08 08:24] LABS: Basophils Absolute Auto 0.1 X10*3/uL (0.0-0.2); Basophils Percent Auto 0.8 % (0-2); Eosinophils Absolute Auto 0.3 X10*3/uL (0.0-0.4); Eosinophils Percent Auto 4.1 % (0-4); Hematocrit 37.9 % (42.0-52.0); Hemoglobin 12.2 g/dl (14.0-18.0); Imm Gran Abs Auto 0.04 X10*3/uL (0.00-0.03); Imm Gran Pct Auto 0.5 % (0.0-0.4); Lymphocytes Absolute Auto 1.2 X10*3/uL (1.2-4.9); Lymphocytes Percent Auto 14.7 % (20-40); Mean Corpuscular HGB Conc 32.2 g/dl (31.0-36.0); Mean Corpuscular Hemoglobin 29.3 pg (27.0-33.0); Mean Corpuscular Volume 90.9 fL (80.0-98.0); Mean Platelet Volume 10.7 fL (9.4-12.4); Monocytes Absolute Auto 0.5 X10*3/uL (0.1-1.2); Monocytes Percent Auto 6.7 % (2-11); Neutrophils Absolute Auto 5.8 x10*3/uL (2.0-8.3); Neutrophils Percent Auto 73.2 % (45-73); Platelet Count 177 X10*3/uL (160-400); Red Blood Count 4.17 X10*6/uL (4.60-5.80); Red Cell Distribution Width 14.1 % (11.0-16.0); White Blood Count 7.9 X10*3/uL (4.8-10.8)
[2023-12-08 08:25] LABS: Appearance Urine Cloudy; Color Urine Yellow; Glucose Urine UA Negative (Negative); Leukocyte Esterase Urine Large (3+) (Negative); Nitrite Urine Negative (Negative); Specific Gravity - Urine 1.015 (1.005-1.025); UMIC TRIGGER UACC YES; Urine Blood Moderate (2+) (Negative); Urine Ketones Negative (Negative); Urine Protein Trace mg/dL (Neg-Trace)
[2023-12-08 08:27] LABS: Estimated Average Glucose 140 mg/dL; Hemoglobin A1C 150.4105 umol/L; Hemoglobin A1c % 6.5 % (<6.0)
[2023-12-08 08:50] LABS: Bacteria Urine 2+ (None Seen); Hyaline Casts Urine 0-2 /LPF (0-2); RBC Urine >20 /HPF (0-2); UACC Culture Trigger YES; WBC Urine >50 /HPF (0-5)
[2023-12-08 09:04] LABS: Creatinine Urine 94.48 mg/dL; Microalbum/Creatinine Ratio Ur 95.2 ug/mg cr (<30)
[2023-12-08 09:05] LABS: Alanine Aminotransferase 17 U/L (0-40); Albumin Level 3.2 g/dL (3.5-5.0); Alkaline Phosphatase 117 U/L (39-117); Anion Gap 12 (12-20); Aspartate Amino Transferase 17 U/L (5-37); Bilirubin Total 0.3 mg/dL (0.0-1.0); Blood Urea Nitrogen 15 mg/dL (9-16); Calcium 8.9 mg/dL (8.4-10.2); Carbon Dioxide 29 mmol/L (22-29); Chloride 106 mmol/L (96-108); Cholesterol 111 mg/dL (<200); Estimated Glomerular Filt Rate > 60; Glucose Fasting 146 mg/dL (60-99); HDL Cholesterol 33 mg/dL (>40); LDL Cholesterol Calculated 52 mg/dL (<100); Potassium 4.2 mmol/L (3.3-5.1); Sodium 143 mmol/L (135-145); Total Protein 6.2 g/dL (6.5-8.0); Triglycerides 134 mg/dL (<150)
[2023-12-08 09:21] LABS: Vitamin D 25-OH Total 36.4 ng/mL (>30)
== END 2023-12-08 07:23 | disposition home or self-care (01) ==
LOC: HO.LAB 07:22
PROVIDERS: PCP Internal Medicine; Visit Provider Internal Medicine
DX: E11.9 Type 2 diabetes mellitus without complications (principal); E55.9 Vitamin D deficiency, unspecified; R30.0 Dysuria; E78.00 Pure hypercholesterolemia, unspecified
CPT/HCPCS: 36415; 80053; 80061; 81001; 82043; 82306; 82570; 83036; 85025; 87086

== ENCOUNTER 2023-12-11 15:14 | Outpatient (AMB) | payer MEDICARE, SELFPAY ==
--- NOTE | 2023-12-11 15:15 | A.OFFPC_ITS ---
Vital Signs 12/11/23 15:16 Height 5 ft 6 in Weight 241 lb 6 oz BMI 39.0 BP 118/62 Blood Pressure Location Lt brachial Position Sitting Pulse 68 Pulse Source Pulse Oximeter Pulse Oximetry (%) 97 Oxygen Delivery Method Room Air Intake Visit Reasons: DM, hyperlipidemia, HTN, rescheduled from 10/26 Financial Developer Required: No Accompanied by: Self / Same As Patient Allergies colesevelam [From WelChol] Adverse Reaction (Mild, Verified 12/11/23 16:03) constipation Medication List - Last Reconciled 12/11/23 by Guido Andrade MD acyclovir 800 mg PO BID atorvastatin 40 mg PO DAILY 90 days betamethasone dipropionate 0.05% 1 appl topical BID cholecalciferol (vitamin D3) (Vitamin D3) 25 mcg PO DAILY dulaglutide (Trulicity) 0.75 mg (0.5 mL) subcut MO@0900 12 weeks duloxetine 30 mg PO DAILY 90 days ferrous sulfate (FeroSul) 325 mg PO DAILY 90 days flash glucose scanning reader (GeniusMatcherStyle Alina 2 Braxton) As directed flash glucose sensor (FreeStyle Alina 2 Sensor kit) As directed every 2 weeks furosemide 20 mg PO DAILY 90 days gabapentin 200 mg (2 x 100 mg) PO TID 30 days insulin glargine (Lantus U-100 Insulin) 46 units subcut BEDTIME insulin lispro (Humalog U-100 Insulin) 1 sliding scale dose See Protocol subcut TIDAC 3 months insulin lispro (Humalog KwikPen (U-100) Insulin) 2 units with breakfast, 2 units with lunch and 10 units with dinner as instructed subcutaneously 3 times a day; insulin syringe-needle U-100 (BD Insulin Syringe Ultra-Fine) 1 mL miscellaneous BID ketorolac 0.5% 1 drp ophthalmic (eye) QID 2 weeks latanoprost 0.005% 1 drp ophthalmic (eye) BEDTIME lisinopril 40 mg PO DAILY 90 days metoprolol tartrate 100 mg PO BID 90 days nitroglycerin 0.4 mg sublingual Q5M PRN pen needle, diabetic (BD Ultra-Fine Madeline Pen Needle) As directed 4 times a day pen needle, diabetic (BD Ultra-Fine Madeline Pen Needle) As directed once daily prochlorperazine maleate mg PO rivaroxaban (Xarelto) 20 mg PO DAILY@1700 [SHOWER CHAIR As directed] sildenafil 100 mg PO DAILY PRN 30 days terazosin 10 mg PO BEDTIME 90 days Tobacco use date assessed: 12/11/23 Fall risk assessment: No Falls in past year Last assessed Fall Risk: 12/11/23 Dental Screening Dental Screen Date: 12/11/23 Did you have a dental visit in the last 12 months?: No Did you have a dental problem in the last 6 months where you did not have access to dental care?: No Was dental information given to patient?: No HPI DM, hyperlipidemia, HTN, rescheduled from 10/26 HPI Details Patient comes in today for his follow up visit States that he feels okay and is currently still receiving immunotherapy for his 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 He has been on Pembrolizumab immunotherapy since 10/2022 and appear to be tolerating his treatments well although his states that his blood pressure has been running very low lately when checked and she finds patient often very tired and sometimes somnolent and slow to respond Patient admits that he would sometimes doze off to sleep in the middle of the day even though he sleeps well at night Admits that he has been feeling slightly more fatigued than usual often lately but he denies any dizziness or lightheadedness He denies any headaches Denies any chest pains, no increased shortness of breath No nausea /vomiting, no abdominal pain No change in bowel habits noted Had his follow-up labs done a few days ago - to discuss his results [facility] Medical History Chronic a-fib [place] cell cancer 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 On beta nahid at home Anemia Bladder cancer Chronic atrial fibrillation Chronic anticoagulation History of colon polyps Erectile dysfunction Chronic kidney disease (CKD), stage II (mild) Obesity (BMI 30-39.9) Benign essential hypertension Pure hypercholesterolemia Iron deficiency anemia long-term (current) use of insulin 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 CAD (coronary artery disease) Hyperlipidemia LDL goal <70 Type 2 diabetes mellitus with diabetic polyneuropathy Diabetes mellitus Surgical History History of surgery History of esophagogastroduodenoscopy (EGD) Hx of cystoscopy History of cystoscopy Hx of colonoscopy History of cataract surgery History of endoscopy Hx of removal of cyst Family History Father Medical history unknown Mother Diabetes Daughter In good health Son In good health Sister In good health Sister In good health Brother In good health Brother In good health Brother In good health Social History Household Members: Spouse Housing: House Are you a primary critical care unit nurse to a significant other at home: No Do you presently have visiting nurse or other home services: No Alcohol intake: current Alcohol intake frequency: does not drink Alcohol type: beer Comment: medicated in pacu Patient Tobacco Use Status: Former Tobacco user Quit Date: age 36 Tobacco use type: Cigarette Years Smoked: 40 yrs ago e-Cigarette/Vaping Use: Never Used Second Hand Smoke Exposure: Yes Substance Use Type: Former Substance User and Marijuana Advance Directives Date on File: 09/07/21 service: No Current occupational status: retired Current occupational exposures/hazards: No Cognitive needs: Yes (cane) Hearing needs: No Vision needs: Yes Questionnaire PHQ-9 Over the last 2 weeks, how often have you been bothered by any of the following problems? 1. Little interest or pleasure in doing things: not at all 2. Feeling down, depressed, or hopeless: several days 3. Trouble falling or staying asleep, or sleeping too much: not at all 4. Feeling tired or having little energy: several days 5. Poor appetite or overeating: several days 6. Feeling bad about yourself - or that you are a failure or have let yourself or your family down: several days 7. Trouble concentrating on things, such as reading the newspaper or watching television: not at all 8. Moving or speaking so slowly that other people could have noticed. Or the opposite - being so fidgety or restless that you have been moving around a lot more than usual: not at all 9. Thoughts that you would be better off or of hurting yourself in some way: not at all Total score: 4 Depression Screening Interpretation: Positive Depression Screening Follow-up: Existing condition and In treatment Depression Screening Done: Yes 79252 - PHQ-9 Billing: Yes Source: Developed by Drs. Rich Garrido, Kym Rodriguez, Conrad Barraza and colleagues, with an educational micheline from [employer]. Thrive Questionnaire Date Thrive assessed: 12/11/23 I am a: Patient What is your living situation today?: I have a steady place to live Within the past 12 months, did the food you bought not last and you didn't have the money to get more?: Never true Within the past 12 months, did you worry whether your food would run out before you got money to buy more?: Never true Do you have trouble paying for medicines?: No Do you have trouble getting transportation to medical appointments?: No Do you have trouble paying your heating and electricity bill?: No Do you have trouble taking care of your child, family member or friend?: No Do you have trouble with day-to-day activities such as bathing, preparing meals, shopping, managing finances, etc.?: No Are you currently unemployed and looking for a job?: No Are you interested in more education?: No Please select the resources that you would like help with: None Currently or been in a relationship where the following occur: no concerns reported THRIVE Score: 0 AUDIT C Alcohol Use Questionnaire (AUDIT-C) 1. How often do you have a drink containing alcohol?: Never Total Score: 0 Score Reviewed/Action Taken: Yes MARKUS-7 AMB Questionnaire MARKUS-7 Date MARKUS - 7 assessed: 12/11/23 Feeling nervous, anxious, or on edge: 0 = Not at all Not being able to stop or control worryin = Not at all Worrying too much about different things: 0 = Not at all Trouble relaxin = Not at all Being so restless that it is hard to sit still: 0 = Not at all Becoming easily annoyed or irritable: 0 = Not at all Feeling afraid as if something awful might happen: 0 = Not at all Total MARKUS-7 score (0-4 normal; 5-9 mild; 10-14 moderate; 15-21 severe): 0 Source: Developed by Kym De Jesus Kurt Kroenke and colleagues, with an educational micheline from [employer] Review of Systems Const Denies chills, Reports fatigue, Denies fever(s) and Denies headache(s) ENT Denies dysphagia, Denies dizziness, Denies otalgia, Denies headache(s), Denies neck pain, Denies odynophagia and Denies sore throat Card Denies chest pain, Denies palpitations and Denies dyspnea Resp Denies cough and Denies dyspnea GI Denies abdominal pain, Denies constipation, Denies dysphagia, Denies heartburn, Denies diarrhea, Denies nausea, Denies odynophagia and Denies vomiting Denies dysuria, Denies nocturia and Denies urinary frequency Musc Denies back pain and Denies neck pain Neuro Details: (+) bilateral leg pain Denies dizziness and Denies headache(s) Psych Reports depression (better on Rx) Endo Reports fatigue and Denies palpitations Physical exam (Primary Care) Vital Signs: Last Vital Signs Pulse 68 12/11/23 15:16 BP 118/62 12/11/23 15:16 Pulse Ox 97 12/11/23 15:16 Oxygen Delivery Method Room Air 12/11/23 15:16 BMI result Body Mass Index 39.0 Tobacco/Smoking Status: Tobacco use Status Tobacco use date assessed 12/11/23 12/11/23 15:17 Patient Tobacco Use Status Former Tobacco user 12/11/23 15:17 Tobacco use type Cigarette 12/11/23 15:17 e-Cigarette/Vaping Use Never Used 12/11/23 15:17 PHQ-9: PHQ-9 Score PHQ-9: Total score 4 12/11/23 16:10 Depression Screening Interpretation: Positive Depression Screening Follow-up: Existing condition and In treatment Thrive Assessment: Date of Thrive Assessment Date Thrive assessed 12/11/23 12/11/23 15:17 Currently or been in a relationship where the following occur: no concerns reported Const General: no acute distress and alert HENMT Ears: TM's normal bilaterally and EAC's normal Throat: Yes posterior oropharynx normal and Yes tonsils normal (no TP congestion noted) Neck Neck: Yes no lymphadenopathy and Yes supple Resp Auscultation: clear to auscultation bilaterally, no rales and no wheezes Cardio Rhythm: abnormal rhythm irregularly irregular Heart sounds: no murmurs GI Palpation (GI): Soft to palpation and nontender Auscultation: normal bowel sounds Skin Other: (+) cluster of small reddish and slightly raised nodules on the right forearm Extrem General: Yes no clubbing, cyanosis or edema Results Reviewed Results Reviewed: Laboratory Tests 12/08/23 12/08/23 07:26 07:50 WBC 7.9 Hgb 12.2 L Hct 37.9 L Plt Count 177 Sodium 143 Potassium 4.2 Creatinine 1.12 Estimated GFR > 60 Fasting Glucose 146 H Hemoglobin A1c % 6.5 H AST 17 ALT 17 Triglycerides 134 Cholesterol 111 LDL Cholesterol, Calc 52 HDL Cholesterol 33 L 25-OH Vitamin D Total 36.4 Ur Specific [place] 1.015 Urine Protein Trace Urine Glucose (UA) Negative Urine Blood Moderate (2+) H Urine Nitrite Negative Assessment and Plan Assessment & Plan (1) Type 2 diabetes mellitus with diabetic chronic kidney disease: Code(s): E11.22 - Type 2 diabetes mellitus with diabetic chronic kidney disease Qualifiers: Chronic kidney disease stage: stage 2 (mild) Diabetes mellitus correction insulin use: with correction use Qualified Code(s): E11.22 - Type 2 diabetes mellitus with diabetic chronic kidney disease; N18.2 - Chronic kidney disease, stage 2 (mild); 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 Fontaine) as scheduled for his diabetes management (2) Pure hypercholesterolemia: Code(s): E78.00 - Pure hypercholesterolemia, unspecified Plan: Results of his labs done a few days ago reviewed and discussed with patient Reinforced low cholesterol diet Continue Atorvastatin 40 mg QD Will recheck his labs and fasting lipids in 4 months for follow up (3) Chronic atrial fibrillation: Code(s): I48.20 - Chronic atrial fibrillation, unspecified Plan: Patient is currently still in atrial fibrillation but remains rate-controlled; he has had no acute symptoms related to his AF Continue Metoprolol 100 mg BID Continue Xarelto 20 mg QD for thromboembolism prevention Follow up with cardiology as scheduled (4) Benign essential hypertension: Code(s): I10 - Essential (primary) hypertension Plan: Reinforced low sodium diet - goal is systolic BP of at least 130 mm or less Continue Metoprolol 100 mg BID Will try lowering his Lisinopril from 40 mg to 30 mg QD due to his recent bouts of low blood pressure and related symptoms Patient is reminded to continue monitoring his blood pressure regularly (5) Urinary bladder cancer: Comment: Low-grade recurrent Code(s): C67.9 - Malignant neoplasm of bladder, unspecified Qualifiers: Bladder location: unspecified site Qualified Code(s): C67.9 - Malignant neoplasm of bladder, unspecified Plan: S/P intravesical chemotherapy (BCG) for his bladder cancer in 2020 Follow up with urology as scheduled (6) [place] cell cancer: Comment: of the right forearm - diagnosed by biopsy Code(s): C4A.9 - Raji cell carcinoma, unspecified Plan: S/P radiation therapy of the right forearm and axilla from 02/2022 to 03/2022 He was diagnosed with recurrent Raji Cell carcinoma in 08/2022 and PET scan done in 09/2022 revealed (+) axillary adenopathy and multiple sites of probable bone metastatic disease Patient has been started on Pembrolizumab immunotherapy for his recurrent Raji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 on 10/06/2022 and he is currently still on the same treatment and appears to be tolerating his immunotherapy well, follow-up with oncology as scheduled (7) Neuropathy: Code(s): G62.9 - Polyneuropathy, unspecified Plan: Patient still reports experiencing pain in both legs but symptoms have been better controlled on current Rx Continue Gabapentin 200 mg TID and Duloxetine 30 mg QD (8) Mood disorder: Code(s): F39 - Unspecified mood [affective] disorder Plan: Patient's states that his mood and depression have improved a lot lately on Rx Continue Duloxetine 30 mg QD (9) Obesity (BMI 30-39.9): Code(s): E66.9 - Obesity, unspecified Plan: Reinforced diet/exercise as tolerated/ lose weight Plan Follow up in 4 months Orders: Orders Lipid Panel 4 Months E78.00 - Pure hypercholesterolemia, unspecified Hemoglobin A1c 4 Months E11.9 - Type 2 diabetes mellitus without complications Microalbumin, Random (w Creat) 4 Months E11.9 - Type 2 diabetes mellitus without complications UA CC w/rflx Micro + Cult 4 Months R30.0 - Dysuria Vitamin D 25-OH Total 4 Months E55.9 - Vitamin D deficiency, unspecified Complete Blood Count Auto Diff 4 Months D64.9 - Anemia, unspecified Comprehensive [place]. Panel Fast 4 Months E78.00 - Pure hypercholesterolemia, unspecified TSH reflex Free T4 4 Months E78.00 - Pure hypercholesterolemia, unspecified Vitamin B12 and Folate 4 Months E53.8 - Deficiency of other specified B group vitamins Medications: Changed From lisinopril 40 mg PO DAILY 90 days 90 tabs 1RF I10 - Essential (primary) hypertension To lisinopril 30 mg PO DAILY 90 days 90 tabs 1RF I10 - Essential (primary) hypertension Coding Level of Care Code Est Pt Level 4 (76228) Diagnoses Type 2 diabetes mellitus with stage 2 chronic kidney disease, with long-term current use of insulin E11.22; N18.2; Z79.4 Chronic kidney disease stage: stage 2 (mild) 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
[2023-12-11 15:16] VITALS: BP 118/62; PULSE 68; O2SAT 97; BMI 39.0
== END 2023-12-11 16:14 | disposition home or self-care (01) ==
PROVIDERS: PCP Internal Medicine; Visit Provider Internal Medicine
DX: I12.9 Hypertensive chronic kidney disease with stage 1 through stage 4 chronic kidney disease, or unspecified chronic kidney disease (principal); E11.22 Type 2 diabetes mellitus with diabetic chronic kidney disease; N18.2 Chronic kidney disease, stage 2 (mild); Z79.4 Long term (current) use of insulin; I48.20 Chronic atrial fibrillation, unspecified; C67.9 Malignant neoplasm of bladder, unspecified; C4A.9 Merkel cell carcinoma, unspecified; F39 Unspecified mood [affective] disorder; E78.00 Pure hypercholesterolemia, unspecified; G62.9 Polyneuropathy, unspecified; E66.9 Obesity, unspecified
CPT/HCPCS: 99214

== ENCOUNTER 2024-02-08 08:53 | Outpatient (REF) | payer MEDICARE, SELFPAY ==
[2024-02-08 16:37] LABS: Urine Cytology See Pathology rpt
== END 2024-02-08 08:54 | disposition home or self-care (01) ==
LOC: HO.LAB 08:53
PROVIDERS: PCP Internal Medicine; Visit Provider Urology
DX: C67.9 Malignant neoplasm of bladder, unspecified (principal); N48.1 Balanitis
CPT/HCPCS: 52000; 81003; 88112; 99212

== ENCOUNTER 2024-02-08 08:53 | Outpatient (AMB) | payer MEDICARE, SELFPAY ==
--- NOTE | 2024-02-08 09:06 | A.OFFVIS_ITS ---
Intake Intake Visit Reasons: 6m/cysto(Confirmed) Intake Note: Patient presents today for a Cystoscopy Meds: Sildenafil,Terazosin Allergies to Antibiotic: No Known Allergies Blood Thinner: None Urinalysis test clear for Cysto? Yes Disposable Uro-G Cystoscope Cannula: Lot: [id number] Exp: 09/14/2026 Oncology Registrar Required: No Accompanied by: Self / Same As Patient Allergies colesevelam [From WelChol] Adverse Reaction (Mild, Verified 02/08/24 09:23) constipation Medication List - Last Reconciled 02/08/24 by Aquiles Valderrama MD acyclovir 800 mg PO BID atorvastatin 40 mg PO DAILY 90 days betamethasone dipropionate 0.05% 1 appl topical BID cholecalciferol (vitamin D3) (Vitamin D3) 25 mcg PO DAILY dulaglutide (Trulicity) 0.75 mg (0.5 mL) subcut MO@0900 12 weeks duloxetine 30 mg PO DAILY 90 days ferrous sulfate (FeroSul) 325 mg PO DAILY 90 days flash glucose scanning reader (Zenputyle Alina 2 [place]) As directed flash glucose sensor (FreeStyle Alina 2 Sensor kit) As directed every 2 weeks furosemide 20 mg PO DAILY 90 days gabapentin 200 mg (2 x 100 mg) PO TID 30 days insulin glargine (Lantus U-100 Insulin) 46 units subcut BEDTIME insulin lispro (Humalog U-100 Insulin) 1 sliding scale dose See Protocol subcut TIDAC 3 months insulin lispro (Humalog KwikPen (U-100) Insulin) 2 units with breakfast, 2 units with lunch and 10 units with dinner as instructed subcutaneously 3 times a day; insulin syringe-needle U-100 (BD Insulin Syringe Ultra-Fine) 1 mL miscellaneous BID ketorolac 0.5% 1 drp ophthalmic (eye) QID 2 weeks latanoprost 0.005% 1 drp ophthalmic (eye) BEDTIME lisinopril 30 mg PO DAILY 90 days metoprolol tartrate 100 mg PO BID 90 days nitroglycerin 0.4 mg sublingual Q5M PRN pen needle, diabetic (BD Ultra-Fine Madeline Pen Needle) As directed 4 times a day pen needle, diabetic (BD Ultra-Fine Madeline Pen Needle) As directed once daily prochlorperazine maleate mg PO rivaroxaban (Xarelto) 20 mg PO DAILY@1700 [SHOWER CHAIR As directed] sildenafil 100 mg PO DAILY PRN 30 days sulfamethoxazole-trimethoprim 800-160 mg (Bactrim DS) 1 tab PO BID 5 days terazosin 10 mg PO BEDTIME 90 days HPI HPI Comments History of Present Illness Details Kamlesh is a pleasant male. He is a patient of Dr. Andrade. He is seen for the following urologic conditions - complex renal cyst - weakness of stream - hematuria - bladder cancer Q.6 month cysto check Has balanitis - antibiotics to be given Bladder cancer initial diagnosis 2009 recurrent 2020 high-grade superficial Prior history of superficial bladder cancer - managed with [facility] Underwent surveillance cystoscopy for 10 years stopping in 2014 Cystoscopy - 04/26 recurrent bladder lesion, 12/28 NAD, 01/26 NAD TURBT - 05/26 T1 high-grade bladder cancer, 09/26 chronic inflammation Immunotherapy - 05/26 gemcitabine 6 week induction, 12/28 3 week boost, 02/26 3 week boost Therapeutic plan - 6 month follow-up to 5 years Complex renal cyst Left-sided renal complex cyst Imaging - 04/26 CT scan left side 2cm simple renal cyst Bladder outlet obstruction Initial symptoms Weak stream, Nocturia 2-3, Bother 3 Good response to terazosin 5 mg Continue medications PFSH Medical History Chronic 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 On beta nahid at home Anemia Bladder cancer Chronic atrial fibrillation Chronic anticoagulation History of colon polyps Erectile dysfunction Chronic kidney disease (CKD), stage II (mild) Obesity (BMI 30-39.9) Benign essential hypertension Pure hypercholesterolemia 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 CAD (coronary artery disease) Hyperlipidemia LDL goal <70 Type 2 diabetes mellitus with diabetic polyneuropathy Diabetes mellitus Surgical History History of surgery History of esophagogastroduodenoscopy (EGD) Hx of cystoscopy History of cystoscopy Hx of colonoscopy History of cataract surgery History of endoscopy Hx of removal of cyst Family History Father Medical history unknown Mother Diabetes Daughter In good health Son In good health Sister In good health Sister In good health Brother In good health Brother In good health Brother In good health Social History Household Members: Spouse Housing: House Are you a primary care consultant to a significant other at home: No Do you presently have visiting nurse or other home services: No Alcohol intake: current Alcohol intake frequency: does not drink Alcohol type: beer Comment: medicated in pacu Patient Tobacco Use Status: Former Tobacco user Quit Date: age 36 Tobacco use type: Cigarette Years Smoked: 40 yrs ago e-Cigarette/Vaping Use: Never Used Second Hand Smoke Exposure: Yes Substance Use Type: Former Substance User and Marijuana Advance Directives Date on File: 09/07/21 service: No Current occupational status: retired Current occupational exposures/hazards: No Cognitive needs: Yes (cane) Hearing needs: No Vision needs: Yes Office Procedures Cystoscopy Consent Discussed risk and benefit or proposed procedure with the patient. Information consent for procedure given to the patient. Discussed technical aspects, risks, benefits and alternatives in full. Addressed all of the patient's questions and concerns regarding the procedure. The patient demonstrated knowledge and understanding. They wish to proceed with this procedure. Preparation The patient was prepped in the usual manner. A field account manager was present and in the room. Genitalia was prepped with betadine solution in a sterile manner. Lidocaine Jelly 2% was placed into the urethra and 16Fr flexible Olympus cystoscope was inserted into the meatus after adequate lubrication. Procedure Meatus uncircumcised, balanitis Urethra anterior posterior urethra normal Prostatic Urethra unremarkable Bladder examination with retroflexion of cystoscope Bladder Orifices normal shape and position Bladder Capacity medium Trabeculations - Cellule Formation - Diverticulum Formation - Mucosal Erythema - Bladder Tumor small lesion left side [id number] DISPOSABLE SCOPE URO-G FLEXIBLE SCOPE Procedure code (CPT) selection complete Office Meds lidocaine HCl 2 % mucosal jelly in applicator Performing Provider: Aquiles Valderrama MD Performing Location: [facility] [place] [facility] Administered by: Anupama Moore RN on 02/08/24 09:20 Dose Route Admin Location Dispensed Lot Number Expiration Date [facility] Lining [place]usher 10 mL intra-urethral 10 mL nitrofurantoin monohydrate/macrocrystals 100 mg capsule Performing Provider: Aquiles Valderrama MD Performing Location: [facility] [place] [facility] Administered by: Anupama Moore RN on 02/08/24 09:20 Dose Route Admin Location Dispensed Lot Number Expiration Date NDC Lining Brusher 100 mg PO 1 cap naproxen 500 mg tablet Performing Provider: Aquiles Valderrama MD Performing Location: [facility] [place] [facility] Administered by: Anupama Moore RN on 02/08/24 09:20 Dose Route Admin Location Dispensed Lot Number Expiration Date NDC L[place]her 500 mg PO 1 tab Results AMB Urinalysis, Automated UA Leukoctes 70 Wai/uL Last Edit by Tarah Kahn CMA on 02/08/24 09:22 UA Nitrite Negative Last Edit by Tarah Kahn CMA on 02/08/24 09: 22 UA Urobilinogen 0.2 mg/dL Last Edit by Tarah Kahn CMA on 4 09:22 UA Protein 0 mg/dL Last Edit by Tarah Kahn CMA on 02/08/24 09:22 UA pH 6.0 Last Edit by Tarah Kahn CMA on 02/08/24 09:22 UA Blood 25 Javan/uL Last Edit by Tarah Kahn CMA on 02/08/24 09:22 UA Specific [place] 1.015 Last Edit by Tarah Kahn CMA on 09:22 UA Ketone Negative Last Edit by Tarah Kahn CMA on 02/08/24 09:2 2 UA Bilirubin 0 mg/dL Last Edit by Tarah Kahn CMA on 02/08/24 09: 22 UA Glucose 0 mg/dL Last Edit by Tarah Kahn CMA on 02/08/24 09:22 Results Reviewed Results Reviewed: Laboratory Last Values Urine pH (Auto) 6.0 02/08/24 09:20 Specific [place] (Auto) 1.015 02/08/24 09:20 Urine Protein (Auto) 0 mg/dL 02/08/24 09:20 Glucose (UA)(Auto) 0 mg/dL 02/08/24 09:20 Urine Ketones (Auto) Negative 02/08/24 09:20 Urine Blood (Auto) 25 Javan/uL 02/08/24 09:20 Urine Nitrite (Auto) Negative 02/08/24 09:20 Urine Bilirubin (Auto) 0 mg/dL 02/08/24 09:20 Urine Urobilinogen (Auto) 0.2 mg/dL 02/08/24 09:20 Leukocyte Esterase (Auto) 70 Wai/uL 02/08/24 09:20 Assessment & Plan Assessment & Plan (1) Balanitis: Code(s): N48.1 - Balanitis (2) Urinary bladder cancer: Comment: Low-grade recurrent Code(s): C67.9 - Malignant neoplasm of bladder, unspecified Qualifiers: Bladder location: unspecified site Qualified Code(s): C67.9 - Malignant neoplasm of bladder, unspecified Plan Risks, benefits and alternatives to therapy were discussed. These include but are not limited to infection, bleeding, damage to local organs and tissues, need for further interventions. Anesthetic risks regarding cardiac arrhythmia, blood clots, and potential mortality were discussed. The patient understands the typical recovery time and the outpatient nature of the procedure. After consideration of these risks the patient gives full informed consent and they wish to move ahead with the procedure. Cystoscopy, biopsy, fulguration, mitomycin C with cytarabine Orders: Orders AMB Urinalysis Automated Today R33.9 - Retention of urine, unspecified AMB Cystoscopy Today C67.9 - Malignant neoplasm of bladder, unspecified, R35.0 - Frequency of micturition Urine Cytology Today C67.9 - Malignant neoplasm of bladder, unspecified Medications: New sulfamethoxazole-trimethoprim 800-160 mg (Bactrim DS) 1 tab PO BID 10 tabs 0RF 5 days N39.0 - Urinary tract infection, site not specified, N48.1 - Balanitis Patient Instructions: Imaging studies, laboratory and physical exam results were discussed and reviewed in detail. No major barriers to patient understanding were identified. An opportunity to ask questions regarding the treatment plan was provided. All questions were answered. The patient expressed understanding and agreement with the above treatment plan. The patient is aware they should contact our office by phone for worsening of their current condition or the appearance of new urologic symptoms. Compliance is encouraged with any medications and followup testing that is ordered. It is a privilege to participate in the urologic care of your patient. If you have any questions or concerns regarding treatment for the above conditions, or other urologic issues, please do not hesitate to contact me. The office telephone contact is [phone]. This note is constructed using voice recognition software. While every effort has been made to ensure accuracy plate shop helper errors may have been included. Yours sincerely, Dr Aquiles Valderrama MD, [facility] [place] [facility]rology Providers of Expert, Compassionate Care for the Genitourinary System Coding Level of Care Code Est Pt Level 4 (49800) Diagnoses Balanitis N48.1 Malignant neoplasm of urinary bladder, unspecified site C67.9 Bladder location: unspecified site CPT Codes Cystoscopy - CPT: 11724-[id number] ([id number])
== END 2024-02-08 09:45 | disposition home or self-care (01) ==
PROVIDERS: PCP Internal Medicine; Visit Provider Urology
DX: N48.1 Balanitis (principal); R35.0 Frequency of micturition; R33.9 Retention of urine, unspecified; C67.9 Malignant neoplasm of bladder, unspecified
CPT/HCPCS: 52000; 99214

== ENCOUNTER 2024-02-22 13:16 | Inpatient (IN) | payer MEDICARE, SELFPAY ==
--- NOTE | ~2024-02-22 | XR_ITS ---
EXAMINATION: XR CHEST CLINICAL INFORMATION: Hypotension and sepsis COMPARISON: Chest radiograph 03/01/2023 TECHNIQUE: Frontal view of the chest was obtained. FINDINGS: The heart is enlarged. Small pleural effusions are present. There is new consolidation seen in the left lower lobe with a nodular masslike areas seen in the mid left lung. Small bilateral pleural effusions are seen. A right jugular chest wall port is present with its tip at the SVC/RA junction. XR/XR chest 1V IMPRESSION: 1. New left lower lobe consolidation with small bilateral pleural effusions. 2. Nodular masslike area in the mid left lung.
--- NOTE | ~2024-02-22 | CT_ITS ---
EXAMINATION: CT CHEST WITH CONTRAST CLINICAL INFORMATION: Rule out mass COMPARISON: Previous chest x-ray most recent from earlier the same day. TECHNIQUE: Multidetector volumetric CT imaging of the chest was obtained after the administration of 65 mL of Omnipaque 350 intravenous contrast without immediate adverse reactions. Axial MIP volume rendering provided. Sagittal and coronal reformatted images were obtained. This CT examination was performed using dose optimization techniques as appropriate, variously including the following: *Automated exposure control *Adjustment of mA and/or kV according to patient size (this includes techniques or standardized protocols for targeted exams where dose is matched to indication/reason for exam; i.e. extremities or head) *Use of iterative reconstruction technique DLP: 410 mGy-cm FINDINGS: LUNGS: There are coalescent nodular opacities in the left upper and lower lobe with some air bronchograms. This probably represents pneumonia. There is peripheral scarring and pleural focal pleural thickening in the anterior right upper lobe probably related to chest wall radiation. MEDIASTINUM: Right jugular port with tip projecting over the SVC. Enlarged heart. Moderate Coronary artery calcification. Trace pericardial effusion or thickening. No enlarged hilar or mediastinal lymph nodes. Normal caliber thoracic aorta. PLEURA: Moderate right pleural effusion and very small left pleural effusion. There is focal right pleural thickening adjacent to the anterior lateral right upper lobe, question representing post radiation changes. AXILLA: No lymphadenopathy. No chest wall mass. UPPER ABDOMEN: 1 cm low attenuation OSSEOUS STRUCTURES: Degenerative changes of the spine. Increased sclerosis in the right side of the manubrium. Correlation with clinical history recommended. This could be further evaluated with bone scan if clinically indicated. CT/CT chest w IV con IMPRESSION: Coalescent nodular opacities in the left upper and left lower lobes with some air bronchograms. This probably represents pneumonia. Moderate right and very small left pleural effusions. Enlarged heart and coronary artery calcification. Increased sclerosis in the right side of the manubrium. Correlation with clinical history recommended. This could be further evaluated with bone scan if clinically indicated. Fleischner guidelines were followed.
[2024-02-22 13:24] VITALS: BP 74/48; PULSE 73; O2SAT 98
[2024-02-22 13:27] VITALS: BP 84/37; PULSE 68; RESP 14; TEMP 36.7; O2SAT 96; BMI 35.4
--- NOTE | 2024-02-22 13:32 | ECG_ITS ---
Test Reason : WEAKNESS Blood Pressure : / mmHG Vent. Rate : 074 BPM Atrial Rate : 000 BPM P-R Int : 000 ms QRS Dur : 080 ms QT Int : 388 ms P-R-T Axes : 000 -50 100 degrees QTc Int : 430 ms Atrial fibrillation Left axis deviation Inferior infarct (cited on or before 02-MAY-2021) Abnormal ECG When compared with ECG of 01-MAR-2023 11:33, Nonspecific T wave abnormality now evident in Lateral leads Referred By: Milagros Barton Electronically Signed By:LONG [place]
--- NOTE | 2024-02-22 13:35 | ED.WEAKNESS ---
HPI - Weakness General Chief complaint: Weakness Stated complaint: WEAK,POOR PO INTAKE PER EMS Time Seen by Provider: 02/22/24 13:17 Source: patient and EMS Mode of arrival: EMS Limitations: no limitations History of Present Illness HPI Narrative: patient comes to the emergency room complaining of generalized weakness started last night. Patient denies chest pain or shortness of breath, no nausea vomiting or diarrhea , denies fever or chills.. According to EMS, the family reported that the patient has not been eating and drinking as he should. 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 Patient states that to his knowledge she has not been sick, he has feels weak. Per EMS, when they arrived to the patient's residence, patient's blood pressure was in the mid 70s. Patient received 500 mL of fluid. On arrival to the ED, patient's blood pressure 84 systolic. Related Data Home Medications ?Medication ?Instructions ?Recorded ?Confirmed latanoprost 0.005 % eye drops 1 drp ophthalmic (eye) BEDTIME 08/20/20 02/08/24 nitroglycerin 0.4 mg sublingual 0.4 mg sublingual Q5M PRN Chest 08/25/20 02/08/24 tablet Pain acyclovir 800 mg tablet 800 mg PO BID 10/18/22 02/08/24 prochlorperazine maleate 5 mg mg PO 10/18/22 02/08/24 tablet insulin glargine 100 unit/mL 46 unit subcut BEDTIME 03/11/23 02/08/24 subcutaneous solution (Lantus U-100 Insulin) Previous Rx's ?Medication ?Instructions ?Recorded insulin syringe-needle U-100 1 mL 1 ml miscellaneous BID #100 ea 12/20/20 31 gauge x 16 (BD Insulin Syringe Ultra-Fine) sildenafil 100 mg tablet 100 mg PO DAILY PRN sexual 12/08/21 activity 30 days #30 tabs pen needle, diabetic 32 gauge x #100 ea 02/28/2232 (BD Ultra-Fine Madeline Pen Needle) ketorolac 0.5 % eye drops 1 drp ophthalmic (eye) QID 2 weeks 06/27/22 #5 mL dulaglutide 0.75 mg/0.5 mL 0.75 mg (0.5 mL) subcut MO@0900 12 10/10/22 subcutaneous pen injector weeks #6 mL (Trulicity) insulin lispro 100 unit/mL 1 sliding scale dose subcut TIDAC 10/10/22 subcutaneous solution (Humalog 3 months #30 mL U-100 Insulin) flash glucose sensor (FreeStyle #2 ea 03/07/23 Alina 2 Sensor kit) insulin lispro 100 unit/mL See Rx Instructions subcut TID #15 03/13/23 subcutaneous pen (Humalog KwikPen mL (U-100) Insulin) betamethasone dipropionate 0.05 % 1 appl topical BID #15 grams 03/20/23 topical ointment flash glucose scanning reader #1 ea 04/04/23 (FreeStyle Alina 2 [place]) pen needle, diabetic 32 gauge x #100 ea 06/05/23 (BD Ultra-Fine Madeline Pen Needle) cholecalciferol (vitamin D3) 25 25 mcg PO DAILY #90 tabs 06/13/23 mcg (1,000 unit) tablet (Vitamin D3) SHOWER CHAIR #1 ea 06/15/23 rivaroxaban 20 mg tablet (Xarelto) 20 mg PO DAILY@1700 #90 tabs 10/27/23 atorvastatin 40 mg tablet 40 mg PO DAILY 90 days #90 tabs 11/07/23 metoprolol tartrate 100 mg tablet 100 mg PO BID 90 days #180 tabs 11/07/23 ferrous sulfate 325 mg (65 mg 325 mg PO DAILY 90 days #90 tabs 11/13/23 iron) tablet (FeroSul) duloxetine 30 mg capsule,delayed 30 mg PO DAILY 90 days #90 caps 11/20/23 release lisinopril 30 mg tablet 30 mg PO DAILY 90 days #90 tabs 12/11/23 furosemide 20 mg tablet 20 mg PO DAILY 90 days #90 tabs 12/20/23 gabapentin 100 mg capsule 200 mg (2 x 100 mg) PO TID 30 days 12/26/23 #180 caps sulfamethoxazole 800 1 tab PO BID 5 days #10 tabs 02/08/24 mg-trimethoprim 160 mg tablet (Bactrim DS) terazosin 10 mg capsule 10 mg PO BEDTIME 90 days #90 caps 02/09/24 Allergies Allergy/AdvReac Type Severity Reaction Status Date / Time colesevelam [From WelChol] AdvReac Mild constipatio Verified 02/22/24 13:27 n Review of Systems Review of Systems: Constitutional : No Weight loss, No Fever, No Chills, No Night Sweats, Complaining of weakness ENT/Mouth : No Hearing loss, No Ear Pain, No Nasal Congestion, No Sinus Pain, No Hoarseness, No sore throat, No Rhinorrhea, No Swallowing Difficulty Eyes: No Eye Pain, No Swelling, No Redness, No Foreign Body, No Discharge, No Vision Changes Cardiovascular : No Chest Pain, No SOB, No Dyspnea on Exertion, No Orthopnea, No Edema, No Palpitations Respiratory : No Cough, No Sputum, No Wheezing, No Smoke Exposure, No Dyspnea Gastrointestinal : No Nausea, No Vomiting, No Diarrhea, No Constipation, No abdominal Pain, No Hematochezia, No Melena Genitourinary : no irregular bleeding, No Dysuria, No Urinary Frequency, No Hematuria, No Urinary Incontinence, No Urgency, No Flank Pain, No Urinary Flow Changes, No Hesitancy Musculoskeletal : No joint pain, No Myalgias, No Joint Swelling Skin : No Skin Lesions, No rash Neuro : No Weakness, No Numbness, No Paresthesias, No Loss of Consciousness, No Dizziness, No Headache Psych : No Anxiety/Panic, No Depression, No SI/HI/AH/VH, No Social Issues, Heme/Lymph: No Bruising, No Bleeding,No Lymphadenopathy Endocrine : No Polyuria, No Polydipsia, No Temperature Intolerance PMFSH Past Medical History Medical History Chronic a-fib [place] cell cancer 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 On beta nahid at home Anemia Bladder cancer Chronic atrial fibrillation Chronic anticoagulation History of colon polyps Erectile dysfunction Chronic kidney disease (CKD), stage II (mild) Obesity (BMI 30-39.9) Benign essential hypertension Pure hypercholesterolemia Iron deficiency anemia half-way (current) use of insulin 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 CAD (coronary artery disease) Hyperlipidemia LDL goal <70 Type 2 diabetes mellitus with diabetic polyneuropathy Diabetes mellitus Surgical History History of surgery History of esophagogastroduodenoscopy (EGD) Hx of cystoscopy History of cystoscopy Hx of colonoscopy History of cataract surgery History of endoscopy Hx of removal of cyst Family History Family History Father Medical history unknown Mother Diabetes Daughter In good health Son In good health Sister In good health Sister In good health Brother In good health Brother In good health Brother In good health Social History Social History Household Members: Spouse Housing: House Are you a primary zoo caretaker to a significant other at home: No Do you presently have visiting nurse or other home services: No Alcohol intake: current Alcohol intake frequency: does not drink Alcohol type: beer Comment: medicated in pacu Patient Tobacco Use Status: Former Tobacco user Quit Date: age 36 Tobacco use type: Cigarette Years Smoked: 40 yrs ago e-Cigarette/Vaping Use: Never Used Second Hand Smoke Exposure: Yes Substance Use Type: Former Substance User and Marijuana Advance Directives: Yes Advance Directives on File: Yes Advance Directives Date on File: 09/07/21 service: No Current occupational status: retired Current occupational exposures/hazards: No Cognitive needs: Yes (cane) Hearing needs: No Vision needs: Yes Physical Exam Vital Signs: Vital Signs: Last Vital Signs Temp 97.7 F 02/22/24 15:10 Pulse 76 02/22/24 15:10 Resp 18 02/22/24 15:10 BP 125/44 L 02/22/24 15:10 Pulse Ox 97 02/22/24 15:10 O2 Del Method Room Air 02/22/24 15:10 BMI result Body Mass Index 35.4 Const: Other: Appearance: Alert. Oriented X3. No acute distress. Eyes: Pupils equal, round and reactive to light. ENT: Pharynx normal. Neck: Normal inspection. Neck supple. No lymph nodes noted. No crepitus CVS: Normal heart rate and rhythm. Pulses normal. Normal S1 and S2 Respiratory: No respiratory distress. Breath sounds normal. No Wheezing. No rales Abdomen: Soft and nontender. No rigidity. No distention. Skin: Skin warm and dry. patient seems a bit pale, Normal skin turgor. Extremities: No lower extremity edema. No Lacerations. No Rash Neuro: Oriented X 3. No motor deficit. No sensory deficit. Moving all extremities. No slurred speech. CN 2 through 12 grossly intact Psych: calm, cooperative, normal affect Course Course Course Narrative: - on arrival, patient is alert and oriented x3, complaining of weakness, no chest pain or shortness of breath, no nausea vomiting diarrhea fever or chills. Patient's blood pressure 84/37 after 500 mL of fluid. - All of patient's labs and imaging pending. Etiology of hypotension unclear at this time. sepsis is not suspected at this time. - Patient receiving additional 2 L of normal saline, total of 2500 mL Medications Administered Generic Name Dose Route Start Last Admin Trade Name Freq PRN Reason Stop Dose Admin Azithromycin 500 mg/ Sodium 250 mls @ 125 mls/hr 02/22/24 14:10 02/22/24 15:04 Chloride IV 02/22/24 16:09 125 mls/hr ONCE ONE Administration Discontinued Medications Generic Name Dose Route Start Last Admin Trade Name Freq PRN Reason Stop Dose Admin Sodium Chloride 2,000 mls @ 999 mls/hr 02/22/24 13:31 02/22/24 14:33 Ns IVCONT 02/22/24 15:31 Infused .Q2H1M ONE Infusion Ceftriaxone Sodium 1 gm/ 50 mls @ 100 mls/hr 02/22/24 14:10 02/22/24 15:00 Sodium Chloride IV 02/22/24 14:39 Infused ONCE ONE Infusion Medical Decision Making Medical Decision Making [facility] Narrative: - At this time, 14:10, patient's is in the room with the patient. According to the patient's , the patient has been coughing all night. All of patient's labs and imaging are still pending. We we will treat the patient empirically with IV antibiotics, ceftriaxone and azithromycin. Patient already received 2.5 L of normal saline, patient has an ideal weight of 68 kg. Patient is obese. Patient reports no chest pain or shortness of breath. Patient's oxygen saturation remains in the high 90s at this time on room air. Blood pressure did improve to 113 systolic. - my interpretation of labs: Patient's white blood cell count is elevated 12.7 , chemistry within normal limits, BNP elevated 229 - my interpretation of chest x-ray, left lower lobe pneumonia - before we received the lab results, patient receive 2.5 L of normal saline, ceftriaxone and azithromycin. To patient's knowledge and his 's, patient has not been diagnosed with CHF. However, today his x-ray shows bilateral pleural effusions which are on the smaller side. But also BNP is slightly elevated, no previous labs for comparison. - I discussed the patient with Dr. Hammer, patient being admitted. Patient agrees with plan - Dr. Rodrigues will review patient's record and admit the patient. Also discussed with doctors know that the x-ray report shows a masslike area in the left middle lobe. We will go ahead and order a CT scan with contrast. Differential Diagnosis Differential Diagnoses: The differential diagnosis associated with the presentation includes ( pneumonia, CHF, viral URI) Admission/Observation Consideration of admission/observation: Escalation of care including admission/observation considered Consult Healthcare Provider Management of the patient was discussed with: Hospitalist Lab Data MDM Lab Attestation statement: I reviewed the patient's lab results. 02/22/24 14:31 02/22/24 14:31 Labs: Lab Results 02/22/24 02/22/24 Range/Units 14:14 14:31 WBC 12.7 H (4.8-10.8) X10*3/uL RBC 4.08 L (4.60-5.80) X10*6/uL Hgb 11.9 L (14.0-18.0) g/dl Hct 37.1 L (42.0-52.0) % MCV 90.9 (80.0-98.0) fL MCH 29.2 (27.0-33.0) pg MCHC 32.1 (31.0-36.0) g/dl RDW 14.2 (11.0-16.0) % Plt Count 134 L (160-400) X10*3/uL MPV 10.5 (9.4-12.4) fL Immature Gran % (Auto) 0.8 H (0.0-0.4) % Neut % (Auto) 87.4 H (45-73) % Lymph % (Auto) 4.6 L (20-40) % [place] % (Auto) 6.7 (2-11) % Eos % (Auto) 0.1 (0-4) % Baso % (Auto) 0.4 (0-2) % Lymph # (Auto) 0.6 L (1.2-4.9) X10*3/uL [place] # (Auto) 0.9 (0.1-1.2) X10*3/uL Eos # (Auto) 0.0 (0.0-0.4) X10*3/uL Baso # (Auto) 0.1 (0.0-0.2) X10*3/uL Abs Immat Gran (auto) 0.10 H (0.00-0.03) X10*3/uL Absolute Neuts (auto) 11.1 H (2.0-8.3) x10*3/uL Absolute Nucleated RBC 0.000 (0.0-0.012) X10*3/uL Nucleated RBC % (auto) 0.0 (0.0-0.2) /100WBC PT 15.6 H (11.1-13.3) SEC INR 1.3 H (0.9-1.1) Sodium 142 (135-145) mmol/L Potassium 4.4 (3.3-5.1) mmol/L Chloride 108 (96-108) mmol/L Carbon Dioxide 30 H (22-29) mmol/L Anion Gap 8 L (12-20) BUN 14 (9-16) mg/dL Creatinine 1.03 (0.5-1.4) mg/dL Estim Creat Clear Calc 73.0 Estimated GFR > 60 Random Glucose 173 H (60-115) mg/dL Lactic Acid 2.0 (0.5-2.0) mmol/L Calcium 8.1 L D (8.4-10.2) mg/dL Magnesium 1.7 (1.6-2.6) mg/dL Total Bilirubin 0.6 (0.0-1.0) mg/dL Direct Bilirubin 0.3 (0.0-0.5) mg/dL AST 13 (5-37) U/L ALT 12 (0-40) U/L Alkaline Phosphatase 101 (39-117) U/L Troponin I High Sens 6.7 (<3.5-35.0) ng/L B-Natriuretic Peptide 229 H (<100) pg/mL Total Protein 5.8 L (6.5-8.0) g/dL Albumin 3.0 L (3.5-5.0) g/dL COVID-19 (CHRISTIANO) Negative (Negative) COVID-19 Clin Com See Note Independent Interpretation I performed an independent interpretation of an: EKG ( my interpretation of EKG, atrial fibrillation, heart rate 74, no ST segment depression or elevation, no T-wave inversion, QTC 430) and Plain X-Ray Radiology Impression Discussion of test interpretation with radiology: I have reviewed the radiologist's reading. Radiologist Impression: FINDINGS: The heart is enlarged. Small pleural effusions are present. There is new consolidation seen in the left lower lobe with a nodular masslike areas seen in the mid left lung. Small bilateral pleural effusions are seen. A right jugular chest wall port is present with its tip at the SVC/RA junction. XR/XR chest 1V IMPRESSION: 1. New left lower lobe consolidation with small bilateral pleural effusions. 2. Nodular masslike area in the mid left lung. Independent Historian Clinical information obtained from an independent historian. History obtained from or confirmed by: Spouse Critical Care Time Critical Care Time Critical Care Time: Yes Total Critical Care Time: 75 Attestation: I have personally provided critical care time. Time includes review of lab data, radiology results, discussion with consultants, and monitoring for potential decompensation. Intervention performed as documented. Discharge Plan Discharge Clinical Impression: Pneumonia, CHF (congestive heart failure) Patient Disposition: Admitted As Inpatient Prescriptions: No Action insulin syringe-needle U-100 [BD Insulin Syringe Ultra-Fine] 1 mL 31 gauge x 5/16 syringe 1 ml miscellaneous BID Qty: 100 2RF (DME) FreeStyle Alina 2 Sensor Kit See Rx Instructions .ROUTE .MEDSUPPLY Qty: 2 11RF Rx Instructions: As directed every 2 weeks insulin lispro [Humalog KwikPen Insulin] 100 unit/mL insulin pen See Rx Instructions subcut TID Qty: 15 12RF Rx Instructions: 2 units with breakfast, 2 units with lunch and 10 units with dinner as instructed subcutaneously 3 times a day; betamethasone dipropionate 0.05 % ointment 1 appl topical BID Qty: 15 0RF Rx Instructions: Thin coat 2 times per day (DME) FreeStyle Alina 2 [place] Mis See Rx Instructions .ROUTE .MEDSUPPLY Qty: 1 5RF Rx Instructions: As directed (DME) pen needle, diabetic [BD Ultra-Fine Madeline Pen Needle] 32 gauge x 5/32 needle See Rx Instructions .Route Qty: 100 5RF Rx Instructions: As directed 4 times a day (DME) SHOWER CHAIR See Rx Instructions .Route .MEDSUPPLY Qty: 1 0RF Rx Instructions: As directed Xarelto 20 mg tablet 20 mg PO DAILY@1700 Qty: 90 3RF atorvastatin 40 mg tablet 40 mg PO DAILY 90 Days Qty: 90 1RF metoprolol tartrate 100 mg tablet 100 mg PO BID 90 Days Qty: 180 1RF ferrous sulfate [FeroSul] 325 mg (65 mg iron) tablet 325 mg PO DAILY 90 Days Qty: 90 1RF duloxetine 30 mg capsule,delayed release(DR/EC) 30 mg PO DAILY 90 Days Qty: 90 1RF furosemide 20 mg tablet 20 mg PO DAILY 90 Days Qty: 90 1RF gabapentin 100 mg capsule 200 mg PO TID 30 Days Qty: 180 3RF terazosin 10 mg capsule 10 mg PO BEDTIME 90 Days Qty: 90 1RF nitroglycerin 0.4 mg tablet, sublingual 0.4 mg sublingual Q5M PRN (Reason: Chest Pain) Rx Instructions: do not exceed 3 doses per episode ketorolac 0.5 % drops 1 drp ophthalmic (eye) QID 14 Days Qty: 5 0RF insulin glargine [Lantus U-100 Insulin] 100 unit/mL solution 46 unit subcut BEDTIME Trulicity 0.75 mg/0.5 mL pen injector 0.75 mg subcut MO@0900 84 Days Qty: 6 3RF insulin lispro [Humalog U-100 Insulin] 100 unit/mL solution 1 sliding scale dose SUBCUT TIDAC 90 Days Qty: 30 3RF Protocol: Insulin Correction Scale Less than or equal to 110 ---- Give (units): 0 111 to 150 Give (units): 0 151 to 200 Give (units): 2 201 to 250 Give (units): 4 251 to 300 Give (units): 6 301 to 350 Give (units): 8 Greater than 350 Give (units): 10 Call MD if Blood Glucose > : 350 cholecalciferol (vitamin D3) [Vitamin D3] 25 mcg (1,000 unit) tablet 25 mcg PO DAILY Qty: 90 2RF lisinopril 30 mg tablet 30 mg PO DAILY 90 Days Qty: 90 1RF latanoprost 0.005 % drops 1 drp ophthalmic (eye) BEDTIME (DME) pen needle, diabetic [BD Ultra-Fine Madeline Pen Needle] 32 gauge x 5/32 needle See Rx Instructions .ROUTE .MEDSUPPLY Qty: 100 3RF Rx Instructions: As directed once daily sildenafil 100 mg tablet 100 mg PO DAILY PRN (Reason: sexual activity) 30 Days Qty: 30 1RF Rx Instructions: administer 60 minutes before intended activity prochlorperazine maleate 5 mg tablet PO acyclovir 800 mg tablet 800 mg PO BID nitrofurantoin monohyd/m-cryst 100 mg capsule 100 mg PO ONCE Qty: 1 0RF lidocaine HCl 2 % jelly in applicator 10 ml intra-urethral ONCE Qty: 10 0RF sulfamethoxazole-trimethoprim [Bactrim DS] 800-160 mg tablet 1 tab PO BID 5 Days Qty: 10 0RF Print Language: Indonesian
[2024-02-22] MEDS: 0.9 % Sodium Chloride 2,000 ML 999 ML IVCONT (13:44)
[2024-02-22] MEDS: cefTRIAXone sodium 1 GM in 0.9 % Sodium Chloride 50 ML IV (14:33)
[2024-02-22 14:34] LABS: COVID-19 Test Negative (Negative); IDNOW Serial# 152EDE1D
[2024-02-22 14:35] LABS: MANUAL DIFF FLAG NO
[2024-02-22 14:43] LABS: Basophils Absolute Auto 0.1 X10*3/uL (0.0-0.2); Basophils Percent Auto 0.4 % (0-2); Eosinophils Percent Auto 0.1 % (0-4); Hematocrit 37.1 % (42.0-52.0); Hemoglobin 11.9 g/dl (14.0-18.0); Imm Gran Pct Auto 0.8 % (0.0-0.4); Lymphocytes Absolute Auto 0.6 X10*3/uL (1.2-4.9); Lymphocytes Percent Auto 4.6 % (20-40); Mean Corpuscular HGB Conc 32.1 g/dl (31.0-36.0); Mean Corpuscular Hemoglobin 29.2 pg (27.0-33.0); Mean Corpuscular Volume 90.9 fL (80.0-98.0); Mean Platelet Volume 10.5 fL (9.4-12.4); Monocytes Absolute Auto 0.9 X10*3/uL (0.1-1.2); Monocytes Percent Auto 6.7 % (2-11); Neutrophils Absolute Auto 11.1 x10*3/uL (2.0-8.3); Neutrophils Percent Auto 87.4 % (45-73); Platelet Count 134 X10*3/uL (160-400); Red Blood Count 4.08 X10*6/uL (4.60-5.80); Red Cell Distribution Width 14.2 % (11.0-16.0); White Blood Count 12.7 X10*3/uL (4.8-10.8)
[2024-02-22 14:47] LABS: INTERNATIONAL NORM RATIO 1.3 (0.9-1.1); Prothrombin Time 15.6 SEC (11.1-13.3)
[2024-02-22 14:53] LABS: Alanine Aminotransferase 12 U/L (0-40); Alkaline Phosphatase 101 U/L (39-117); Anion Gap 8 (12-20); Aspartate Amino Transferase 13 U/L (5-37); Bilirubin Direct 0.3 mg/dL (0.0-0.5); Bilirubin Total 0.6 mg/dL (0.0-1.0); Blood Urea Nitrogen 14 mg/dL (9-16); Calcium 8.1 mg/dL (8.4-10.2); Carbon Dioxide 30 mmol/L (22-29); Chloride 108 mmol/L (96-108); Estimated Glomerular Filt Rate > 60; Glucose Random 173 mg/dL (60-115); Magnesium 1.7 mg/dL (1.6-2.6); Potassium 4.4 mmol/L (3.3-5.1); Sodium 142 mmol/L (135-145); Total Protein 5.8 g/dL (6.5-8.0)
[2024-02-22 14:57] LABS: B Type Natriuretic Peptide 229 pg/mL (<100); Troponin-I High Sensitivity 6.7 ng/L (<3.5-35.0)
[2024-02-22] MEDS: Azithromycin 500 MG in 0.9 % Sodium Chloride 250 ML 125 MG IV (15:04)
[2024-02-22 15:10] VITALS: BP 125/44; PULSE 76; RESP 18; TEMP 36.5; O2SAT 97
--- NOTE | 2024-02-22 16:23 | P.HPHOSP_ITS ---
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 Patient describes not having the appetite he should or drinking as he should in the several days prior to arrival. EMS arrived the scene presents blood pressure was in the 70s but responded to volume repletion. In the emergency room he is remained hemodynamically stable. 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 On beta nahid at home Anemia Bladder cancer Chronic atrial fibrillation Chronic anticoagulation History of colon polyps Erectile dysfunction Chronic kidney disease (CKD), stage II (mild) Obesity (BMI 30-39.9) Benign essential hypertension Pure hypercholesterolemia Iron deficiency anemia FDC (current) use of insulin 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 CAD (coronary artery disease) Hyperlipidemia LDL goal <70 Type 2 diabetes mellitus with diabetic polyneuropathy Diabetes mellitus Family History Father Medical history unknown Mother Diabetes Daughter In good health Son In good health Sister In good health Sister In good health Brother In good health Brother In good health Brother In good health Surgical History History of surgery History of esophagogastroduodenoscopy (EGD) Hx of cystoscopy History of cystoscopy Hx of colonoscopy History of cataract surgery History of endoscopy Hx of removal of cyst Social History Household Members: Spouse Housing: House Are you a primary ambulatory care coordinator to a significant other at home: No Do you presently have visiting nurse or other home services: No Alcohol intake: current Alcohol intake frequency: does not drink Alcohol type: beer Comment: medicated in pacu Patient Tobacco Use Status: Former Tobacco user Quit Date: age 36 Tobacco use type: Cigarette Years Smoked: 40 yrs ago e-Cigarette/Vaping Use: Never Used Second Hand Smoke Exposure: Yes Substance Use Type: Former Substance User and Marijuana Advance Directives: Yes Advance Directives on File: Yes Advance Directives Date on File: 09/07/21 service: No Current occupational status: retired Current occupational exposures/hazards: No Cognitive needs: Yes (cane) Hearing needs: No Vision needs: Yes Meds Allergies Allergy/AdvReac Type Severity Reaction Status Date / Time colesevelam [From WelChol] AdvReac Mild constipatio Verified 02/22/24 13:27 n Active Medications: Current Medications Acetaminophen (Acetaminophen 325 Mg Tablet) 650 mg PO Q6H PRN PRN Reason: Pain, Mild (Pain Scale 1-3) Glucose (Glucose Gel 15 Gm Gel..Gram.) 15 gm PO Q15M PRN; Protocol PRN Reason: per Hypoglycemia Standing Ord. Dextrose (D10) 250 mls @ 750 mls/hr IV Q15M PRN; Protocol PRN Reason: per Hypoglycemia Standing Ord. Doxycycline Hyclate 100 mg/ (Sodium Chloride) 250 mls @ 166.67 mls/hr IV Q12H ROBERT Ceftriaxone Sodium 1 gm/ (Sodium Chloride) 50 mls @ 100 mls/hr IV Q24H [facility] Insulin Human Lispro (Insulin Lispro 100 Unit/Ml 3 Ml Vial) 0 unit SUBCUT QIDACHS [facility]; Protocol Ondansetron HCl (Ondansetron Hcl 4 Mg/2 Ml Vial) 4 mg IVPUSH Q8H PRN PRN Reason: Nausea and Vomiting Sodium Chloride (0.9 % Sodium Chloride Flush 3 Ml Syringe) 3 ml IVFLUSH QSHIFT [facility] Home Medications ?Medication ?Instructions ?Recorded ?Confirmed ?Last Taken ?Type latanoprost 0.005 % eye drops 1 drp ophthalmic (eye) BEDTIME 08/20/20 02/08/24 05/21/22 History nitroglycerin 0.4 mg sublingual 0.4 mg sublingual Q5M PRN Chest 08/25/20 02/08/24 05/21/22 History tablet Pain acyclovir 800 mg tablet 800 mg PO BID 10/18/22 02/08/24 Unknown History prochlorperazine maleate 5 mg mg PO 10/18/22 02/08/24 Unknown History tablet insulin glargine 100 unit/mL 46 unit subcut BEDTIME 03/11/23 02/08/24 Unknown History subcutaneous solution (Lantus U-100 Insulin) Physical Exam 2 Vital Signs and Narrative: Vital Signs: Last Vital Signs Temp 97.7 F 02/22/24 15:10 Pulse 76 02/22/24 15:10 Resp 18 02/22/24 15:10 BP 125/44 L 02/22/24 15:10 Pulse Ox 97 02/22/24 15:10 O2 Del Method Room Air 02/22/24 15:10 BMI result Body Mass Index 35.4 Const: Other: Awake alert no acute distress Resp: Other: Dense left lower lobe crackles with scattered wheezes throughout Cardio: Other: No S4; positive S1-S2; no S3 murmurs rubs or gallops GI: Other: Soft nontender nondistended normoactive bowel sounds Extrem: Other: No edema bilaterally Results Labs 02/22/24 14:31 02/22/24 14:31 Labs: Laboratory Results - last 24 hr 02/22/24 02/22/24 14:14 14:31 MCV 90.9 MCH 29.2 MCHC 32.1 RDW 14.2 Plt Count 134 L MPV 10.5 Immature Gran % (Auto) 0.8 H Neut % (Auto) 87.4 H Lymph % (Auto) 4.6 L [place] % (Auto) 6.7 Eos % (Auto) 0.1 Baso % (Auto) 0.4 Lymph # (Auto) 0.6 L [place] # (Auto) 0.9 Eos # (Auto) 0.0 Baso # (Auto) 0.1 Abs Immat Gran (auto) 0.10 H Absolute Neuts (auto) 11.1 H Absolute Nucleated RBC 0.000 Nucleated RBC % (auto) 0.0 PT 15.6 H INR 1.3 H Anion Gap 8 L Estim Creat Clear Calc 73.0 Estimated GFR > 60 Random Glucose 173 H Lactic Acid 2.0 Calcium 8.1 L D Magnesium 1.7 Total Bilirubin 0.6 Direct Bilirubin 0.3 AST 13 ALT 12 Alkaline Phosphatase 101 Troponin I High Sens 6.7 B-Natriuretic Peptide 229 H Total Protein 5.8 L Albumin 3.0 L COVID-19 (CHRISTIANO) Negative COVID-19 Clin Com See Note Imaging Radiologist's Impressions: Impressions Chest X-Ray 02/22/24 13:50 IMPRESSION: 1. New left lower lobe consolidation with small bilateral pleural effusions. 2. Nodular masslike area in the mid left lung. 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 intake over the last several days. Presented to ER somewhat hypotensive EN route that responded to volume. In the emergency room hemodynamically stable. Workup consistent with left lower lobe pneumonia 1. Left lower lobe pneumonia -ceftriaxone/doxycycline (1) -formal read of x-ray demonstrates nodular masslike area and mid lower lobe on left; CT scan ordered to delineate -titrate O2 to maintain sats greater than equal to 90% 2. Persistent atrial fibrillation -acceptable control on current therapies -Xarelto 20 mg daily -adjust therapies as clinically indicated 3. Essential hypertension -acceptable control on current therapies -adjust as indicated 4. CKD 2 -stable and well compensated -follow renals/divgalents Full code Xarelto Requires at least 2 midnights of inpatient stay going forward to treat left lower lobe pneumonia with IV antibiotics. This can not be achieved a lesser acute setting Quality Stroke Does the patient have a stroke diagnosis?: No VTE Prior VTE?: No VTE Risk Level:: Medical - moderate - high VTE Device Contraindication: Treatment Not Indicated VTE Drug Contraindication: N/A - Med Ordered
[2024-02-22 16:26] LABS: Influenza A PCR NEGATIVE (Negative); Influenza B PCR NEGATIVE (Negative); Resp Syncy Virus RNA Qual PCR NEGATIVE (Negative); SARS COV2 PCR INHOUSE NEGATIVE (Negative)
[2024-02-22] MEDS: Doxycycline Hyclate 100 MG in 0.9 % Sodium Chloride 250 ML 166.67 MG IV (17:02)
[2024-02-22] MEDS: iohexoL 350 MG/ML 100 ML INFUS..BTL IV (17:41)
[2024-02-22 17:50] VITALS: BP 128/51; PULSE 77; RESP 18; TEMP 36.6; O2SAT 96
--- NOTE | 2024-02-22 18:25 | PC.NURSE ---
patient ambulated to and from the bathroom with a walker, patient has steady gait.
[2024-02-22 18:30] LABS: Appearance Urine Clear; Color Urine Yellow; Glucose Urine UA Negative (Negative); Leukocyte Esterase Urine Moderate (2+) (Negative); Nitrite Urine Negative (Negative); PH 5.5 (5.0-9.0); Specific Gravity - Urine 1.025 (1.005-1.025); UMIC TRIGGER UACC YES; Urine Blood Negative (Negative); Urine Ketones Negative (Negative); Urine Protein Negative (Neg-Trace)
[2024-02-22 18:34] LABS: Bacteria Urine None Seen (None Seen); Hyaline Casts Urine 0-2 /LPF (0-2); RBC Urine 0-2 /HPF (0-2); Squamous Epithelial Cell Urine 0-2 /HPF (0-2); UACC Culture Trigger YES; WBC Urine 21-50 /HPF (0-5)
[2024-02-22 19:02] LABS: Glucose, Whole Blood 157 mg/dL (60-115)
--- NOTE | 2024-02-22 19:07 | PC.NURSE ---
assumed care of the pt at 1900
--- NOTE | 2024-02-22 19:37 | PHA.MEDREC ---
Pharmacy Consult ? Medication Reconciliation Pharmacy has completed the medication reconciliation. was a good historian, she provided an outdated list from September 2023. She states she administers latanoprost every evening to his RIGHT eye every evening however pharmacy claims history states RIGHT eye.
[2024-02-22] MEDS: Insulin Lispro 100 UNIT/ML 3 ML VIAL SUBCUT (20:34)
[2024-02-22 20:36] LABS: Glucose, Whole Blood 202 mg/dL (60-115)
[2024-02-22 21:00] LABS: Amphetamine Screen Urine Not Detected (Not Detect); Barbiturates, Urine Not Detected (Not Detect); Benzodiazepines Screen Urine Not Detected (Not Detect); Buprenorphine Scr Not Detected (Not Detect); Cannabinoid Screen Urine POSITIVE (Not Detect); Cocaine Screen Urine Not Detected (Not Detect); Fentanyl, urine Not Detected (Not Detect); Methadone Screen, Urine Not Detected (Not Detect); Opiate Screen Urine Not Detected (Not Detect); Oxycodone Screen Urine Not Detected (Not Detect); Phencyclidine Screen Urine Not Detected (Not Detect)
--- NOTE | 2024-02-22 21:01 | PC.NURSE ---
pt ambulated to and from bathroom with steady gait using walker. back in room, changed into hospital gown and placed on monitoring manager. pt appears to be sob with ambulation however denies difficulty breathing. pt medicated with insulin per mar for poc of 202. resting comfortably, offers no current complaints. call terrazas within reach, plan of care ongoing.
[2024-02-22 21:05] VITALS: BP 133/54; PULSE 78; RESP 18; TEMP 36.8; O2SAT 97
--- NOTE | 2024-02-23 01:40 | MHC.EDTECH ---
patient belongings list completed
[2024-02-23 05:27] LABS: MANUAL DIFF FLAG NO
[2024-02-23 05:29] LABS: Basophils Percent Auto 0.4 % (0-2); Eosinophils Absolute Auto 0.1 X10*3/uL (0.0-0.4); Eosinophils Percent Auto 0.5 % (0-4); Hematocrit 35.5 % (42.0-52.0); Hemoglobin 11.3 g/dl (14.0-18.0); Imm Gran Abs Auto 0.07 X10*3/uL (0.00-0.03); Imm Gran Pct Auto 0.7 % (0.0-0.4); Lymphocytes Absolute Auto 0.8 X10*3/uL (1.2-4.9); Lymphocytes Percent Auto 7.2 % (20-40); Mean Corpuscular HGB Conc 31.8 g/dl (31.0-36.0); Mean Platelet Volume 10.8 fL (9.4-12.4); Monocytes Absolute Auto 0.8 X10*3/uL (0.1-1.2); Monocytes Percent Auto 7.6 % (2-11); Neutrophils Percent Auto 83.6 % (45-73); Platelet Count 136 X10*3/uL (160-400); Red Cell Distribution Width 14.4 % (11.0-16.0); White Blood Count 10.7 X10*3/uL (4.8-10.8)
[2024-02-23] MEDS: Doxycycline Hyclate 100 MG in 0.9 % Sodium Chloride 250 ML 166.67 MG IV ×2 (05:40→16:14)
[2024-02-23 05:46] LABS: Alanine Aminotransferase 12 U/L (0-40); Alkaline Phosphatase 93 U/L (39-117); Anion Gap 12 (12-20); Aspartate Amino Transferase 12 U/L (5-37); Bilirubin Total 0.7 mg/dL (0.0-1.0); Blood Urea Nitrogen 14 mg/dL (9-16); Calcium 8.7 mg/dL (8.4-10.2); Carbon Dioxide 26 mmol/L (22-29); Chloride 107 mmol/L (96-108); Creatinine Clr Calc Pharmacy 73.7; Estimated Glomerular Filt Rate > 60; Glucose Random 183 mg/dL (60-115); Sodium 141 mmol/L (135-145); Total Protein 5.8 g/dL (6.5-8.0)
[2024-02-23 06:27] VITALS: BP 144/69; PULSE 90; RESP 19; TEMP 36.9; O2SAT 92
[2024-02-23] MEDS: 0.9 % Sodium Chloride Flush 3 ML SYRINGE IVFLUSH ×2 (07:08→20:57)
[2024-02-23 07:14] LABS: Glucose, Whole Blood 168 mg/dL (60-115)
[2024-02-23] MEDS: Insulin Lispro 100 UNIT/ML 3 ML VIAL SUBCUT ×4 (07:14→20:57)
--- NOTE | 2024-02-23 08:18 | PC.NURSE ---
Alert and oriented, ate well for breakfast, denies pain or discomfort
[2024-02-23] MEDS: DULoxetine HCl 30 MG CAPSULE.DR PO (11:28)
[2024-02-23] MEDS: Furosemide 20 MG TABLET PO (11:29)
[2024-02-23] MEDS: Gabapentin 100 MG CAPSULE 200 MG PO ×3 (11:29→20:56)
[2024-02-23] MEDS: Cholecalciferol (Vitamin D3) 25 MCG TABLET PO (11:29)
[2024-02-23] MEDS: lisinopriL 40 MG TABLET PO (11:29)
[2024-02-23] MEDS: Atorvastatin Calcium 40 MG TABLET PO (11:29)
[2024-02-23] MEDS: Metoprolol Tartrate 100 MG TABLET PO ×2 (11:29→20:57)
[2024-02-23 11:46] LABS: Glucose, Whole Blood 206 mg/dL (60-115)
--- NOTE | 2024-02-23 11:53 | PC.NURSE ---
oob to recliner chair, medicated per mar, at bedside
--- NOTE | 2024-02-23 12:57 | MHC.CM.PN ---
pt lives with and dgter had no servies is not expected to need servies when dcd has a ride home
[2024-02-23] MEDS: cefTRIAXone sodium 1 GM in 0.9 % Sodium Chloride 50 ML IV (13:45)
--- NOTE | 2024-02-23 14:32 | P.PNIM_ITS ---
Subjective Subjective Date of Service: 02/23/24 Interval History: No acute issues overall. Tolerant of therapies. Some improvement since admission Review of Systems Denies chest pain Denies shortness of breath Denies nausea vomiting diarrhea Denies fever chills Admits to weakness that is progressive Physical Exam 2 Vital Signs: Vital Signs: Last Vital Signs Temp 98.4 F 02/23/24 06:27 Pulse 90 02/23/24 06:27 Resp 19 02/23/24 06:27 BP 144/69 H 02/23/24 06:27 Pulse Ox 92 02/23/24 06:27 O2 Del Method Room Air 02/23/24 06:27 BMI result Body Mass Index 35.4 Const: Other: Awake alert no acute distress Resp: Other: Dense left lower lobe crackles with scattered wheezes throughout Cardio: Other: No S4; positive S1-S2; no S3 murmurs rubs or gallops GI: Other: Soft nontender nondistended normoactive bowel sounds Extrem: Other: No edema bilaterally Objective Data Active Medications Acetaminophen (Acetaminophen 325 Mg Tablet) 650 mg PO Q6H PRN PRN Reason: Pain, Mild (Pain Scale 1-3) Atorvastatin Calcium (Atorvastatin Calcium 40 Mg Tablet) 40 mg PO DAILY [facility] Last Admin: 02/23/24 11:29 Dose: 40 mg Documented By: MUSTAPHA Doxazosin Mesylate (Doxazosin Mesylate 2 Mg Tablet) 8 mg PO BEDTIME [facility] Duloxetine HCl (Duloxetine Hcl 30 Mg Capsule.) 30 mg PO DAILY [facility] Last Admin: 02/23/24 11:28 Dose: 30 mg Documented By: MUSTAPHA Ferrous Sulfate (Ferrous Sulfate 324 Mg Tablet.) 324 mg PO DAILY [facility] Furosemide (Furosemide 20 Mg Tablet) 20 mg PO DAILY [facility]; Protocol Last Admin: 02/23/24 11:29 Dose: 20 mg Documented By: MUSTAPHA Gabapentin (Gabapentin 100 Mg Capsule) 200 mg PO TID [facility] Last Admin: 02/23/24 11:29 Dose: 200 mg Documented By: MUSTAPHA Glucose (Glucose Gel 15 Gm Gel..Gram.) 15 gm PO Q15M PRN; Protocol PRN Reason: per Hypoglycemia Standing Ord. Dextrose (D10) 250 mls @ 750 mls/hr IV Q15M PRN; Protocol PRN Reason: per Hypoglycemia Standing Ord. Doxycycline Hyclate 100 mg/ (Sodium Chloride) 250 mls @ 166.67 mls/hr IV Q12H [facility] Last Infusion: 02/23/24 07:14 Dose: Infused Documented By: MUSTAPHA Ceftriaxone Sodium 1 gm/ (Sodium Chloride) 50 mls @ 100 mls/hr IV Q24H [facility] Last Admin: 02/23/24 13:45 Dose: 100 mls/hr Documented By: MUSTAPHA Insulin Human Lispro (Insulin Lispro 100 Unit/Ml 3 Ml Vial) 0 unit SUBCUT QIDACHS [facility]; Protocol Last Admin: 02/23/24 13:43 Dose: 4 unit Documented By: MUSTAPHA Latanoprost (Latanoprost 0.005 % Ophth [place] 2.5 Ml Drops) 1 drop EYE-RIGHT BEDTIME [facility] Lisinopril (Lisinopril 40 Mg Tablet) 40 mg PO DAILY [facility]; Protocol Last Admin: 02/23/24 11:29 Dose: 40 mg Documented By: MUSTAPHA Metoprolol Tartrate (Metoprolol Tartrate 100 Mg Tablet) 100 mg PO BID [facility]; Protocol Last Admin: 02/23/24 11:29 Dose: 100 mg Documented By: MUSTAPHA Moxifloxacin HCl (Moxifloxacin Hcl 0.5 % Oph [place] 3 Ml Drpbtl) 1 drop EYE-LEFT BID [facility] Nitroglycerin (Nitroglycerin 0.4 Mg Tab.Subl) 0.4 mg SUBLINGUAL Q5M PRN PRN Reason: Chest Pain Ondansetron HCl (Ondansetron Hcl 4 Mg/2 Ml Vial) 4 mg IVPUSH Q8H PRN PRN Reason: Nausea and Vomiting Prednisolone Acetate (Prednisolone Acetate 1 % Oph Susp 5 Ml Drpbtl) 1 drop EYE-LEFT BID [facility] Rivaroxaban (Rivaroxaban 20 Mg Tablet) 20 mg PO DAILY@1700 [facility] Sodium Chloride (0.9 % Sodium Chloride Flush 3 Ml Syringe) 3 ml IVFLUSH QSHIFT [facility] Last Admin: 02/23/24 07:08 Dose: 3 ml Documented By: MUSTAPHA Vitamin D (Cholecalciferol (Vitamin D3) 25 Mcg Tablet) 25 mcg PO DAILY [facility] Last Admin: 02/23/24 11:29 Dose: 25 mcg Documented By: MUSTAPHA Labs 02/23/24 04:51 02/23/24 04:51 Labs: Laboratory Results - last 24 hr 02/22/24 02/22/24 02/22/24 14:14 14:31 15:40 MCV 90.9 MCH 29.2 MCHC 32.1 RDW 14.2 Plt Count 134 L MPV 10.5 Immature Gran % (Auto) 0.8 H Neut % (Auto) 87.4 H Lymph % (Auto) 4.6 L [place] % (Auto) 6.7 Eos % (Auto) 0.1 Baso % (Auto) 0.4 Lymph # (Auto) 0.6 L [place] # (Auto) 0.9 Eos # (Auto) 0.0 Baso # (Auto) 0.1 Abs Immat Gran (auto) 0.10 H Absolute Neuts (auto) 11.1 H Absolute Nucleated RBC 0.000 Nucleated RBC % (auto) 0.0 PT 15.6 H INR 1.3 H Anion Gap 8 L Estim Creat Clear Calc 73.0 Estimated GFR > 60 POC Glucose Random Glucose 173 H Lactic Acid 2.0 Calcium 8.1 L D Magnesium 1.7 Total Bilirubin 0.6 Direct Bilirubin 0.3 AST 13 ALT 12 Alkaline Phosphatase 101 Troponin I High Sens 6.7 B-Natriuretic Peptide 229 H Total Protein 5.8 L Albumin 3.0 L Urine Color Urine Appearance Urine pH Ur Specific [place] Urine Protein Urine Glucose (UA) Urine Ketones Urine Blood Urine Nitrite Ur Leukocyte Esterase Urine RBC Urine WBC Ur Squamous Epith Cells Urine Bacteria Hyaline Casts Urine Opiates Screen Ur Buprenorphine Scrn Ur Oxycodone Screen Urine Methadone Screen Urine Fentanyl Screen Ur Barbiturates Screen Ur Phencyclidine Scrn Ur Amphetamines Screen U Benzodiazepines Scrn Urine Cocaine Screen U Marijuana (THC) Screen COVID-19 (CHRISTIANO) Negative COVID-19 Clin Com See Note Influenza Type A (PCR) NEGATIVE Influenza Type B (PCR) NEGATIVE RSV RNA Qual (PCR) NEGATIVE SARS-CoV-2 RNA (RT-PCR) NEGATIVE 02/22/24 02/22/24 02/22/24 18:23 18:57 20:27 MCV MCH MCHC RDW Plt Count MPV Immature Gran % (Auto) Neut % (Auto) Lymph % (Auto) [place] % (Auto) Eos % (Auto) Baso % (Auto) Lymph # (Auto) [place] # (Auto) Eos # (Auto) Baso # (Auto) Abs Immat Gran (auto) Absolute Neuts (auto) Absolute Nucleated RBC Nucleated RBC % (auto) PT INR Anion Gap Estim Creat Clear Calc Estimated GFR POC Glucose 157 H 202 H Random Glucose Lactic Acid Calcium Magnesium Total Bilirubin Direct Bilirubin AST ALT Alkaline Phosphatase Troponin I High Sens B-Natriuretic Peptide Total Protein Albumin Urine Color Yellow Urine Appearance Clear Urine pH 5.5 Ur Specific [place] 1.025 Urine Protein Negative Urine Glucose (UA) Negative Urine Ketones Negative Urine Blood Negative Urine Nitrite Negative Ur Leukocyte Esterase Moderate (2+) H Urine RBC 0-2 Urine WBC 21-50 H Ur Squamous Epith Cells 0-2 Urine Bacteria None Seen Hyaline Casts 0-2 Urine Opiates Screen Not Detected Ur Buprenorphine Scrn Not Detected Ur Oxycodone Screen Not Detected Urine Methadone Screen Not Detected Urine Fentanyl Screen Not Detected Ur Barbiturates Screen Not Detected Ur Phencyclidine Scrn Not Detected Ur Amphetamines Screen Not Detected U Benzodiazepines Scrn Not Detected Urine Cocaine Screen Not Detected U Marijuana (THC) Screen POSITIVE H COVID-19 (CHRISTIANO) COVID-19 Clin Com Influenza Type A (PCR) Influenza Type B (PCR) RSV RNA Qual (PCR) SARS-CoV-2 RNA (RT-PCR) 02/23/24 02/23/24 02/23/24 04:51 07:08 11:40 MCV 91.0 MCH 29.0 MCHC 31.8 RDW 14.4 Plt Count 136 L MPV 10.8 Immature Gran % (Auto) 0.7 H Neut % (Auto) 83.6 H Lymph % (Auto) 7.2 L [place] % (Auto) 7.6 Eos % (Auto) 0.5 Baso % (Auto) 0.4 Lymph # (Auto) 0.8 L [place] # (Auto) 0.8 Eos # (Auto) 0.1 Baso # (Auto) 0.0 Abs Immat Gran (auto) 0.07 H Absolute Neuts (auto) 9.0 H Absolute Nucleated RBC 0.000 Nucleated RBC % (auto) 0.0 PT INR Anion Gap 12 Estim Creat Clear Calc 73.7 Estimated GFR > 60 POC Glucose 168 H 206 H Random Glucose 183 H Lactic Acid Calcium 8.7 D Magnesium Total Bilirubin 0.7 Direct Bilirubin AST 12 ALT 12 Alkaline Phosphatase 93 Troponin I High Sens B-Natriuretic Peptide Total Protein 5.8 L Albumin 3.0 L Urine Color Urine Appearance Urine pH Ur Specific [place] Urine Protein Urine Glucose (UA) Urine Ketones Urine Blood Urine Nitrite Ur Leukocyte Esterase Urine RBC Urine WBC Ur Squamous Epith Cells Urine Bacteria Hyaline Casts Urine Opiates Screen Ur Buprenorphine Scrn Ur Oxycodone Screen Urine Methadone Screen Urine Fentanyl Screen Ur Barbiturates Screen Ur Phencyclidine Scrn Ur Amphetamines Screen U Benzodiazepines Scrn Urine Cocaine Screen U Marijuana (THC) Screen COVID-19 (CHRISTIANO) COVID-19 Clin Com Influenza Type A (PCR) Influenza Type B (PCR) RSV RNA Qual (PCR) SARS-CoV-2 RNA (RT-PCR) Microbiology Microbiology Results: Microbiology 02/22/24 18:35 Urine Culture - Preliminary Urine clean catch No growth to date. 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 intake over the last several days. Presented to ER somewhat hypotensive EN route that responded to volume. In the emergency room hemodynamically stable. Workup consistent with left lower lobe pneumonia 1. Left lower lobe pneumonia -ceftriaxone/doxycycline (2) -formal read of x-ray demonstrates nodular masslike area and mid lower lobe on left; CT scan consistent with infiltrates -titrate O2 to maintain sats greater than equal to 90% 2. Persistent atrial fibrillation -acceptable control on current therapies -Xarelto 20 mg daily -adjust therapies as clinically indicated 3. Essential hypertension -acceptable control on current therapies -adjust as indicated 4. CKD 2 -stable and well compensated -follow renals/divgalents Full code Xarelto Requires at least 2 midnights of inpatient stay going forward to treat left lower lobe pneumonia with IV antibiotics. This can not be achieved a lesser acute setting Quality Stroke Does the patient have a stroke diagnosis?: No VTE Prior VTE?: No VTE Risk Level:: Medical - moderate - high VTE Device Contraindication: Treatment Not Indicated VTE Drug Contraindication: N/A - Med Ordered
[2024-02-23 14:53] VITALS: BP 159/77; PULSE 75; RESP 18; TEMP 36.4; O2SAT 94
[2024-02-23 15:27] VITALS: BMI 36.2
[2024-02-23] MEDS: Rivaroxaban 20 MG TABLET PO (16:14)
[2024-02-23 16:17] LABS: Glucose, Whole Blood 255 mg/dL (60-115)
[2024-02-23 19:55] VITALS: BP 140/96; PULSE 81; RESP 18; TEMP 36.6; O2SAT 93
[2024-02-23 20:11] LABS: Glucose, Whole Blood 215 mg/dL (60-115)
[2024-02-23] MEDS: Doxazosin Mesylate 2 MG TABLET 8 MG PO (20:56)
[2024-02-23] MEDS: prednisoLONE Acetate 1 % Oph Susp 5 ML DRPBTL 1 DROP EYE-LEFT (21:58)
[2024-02-23] MEDS: Moxifloxacin HCl 0.5 % Oph Sol 3 ML DRPBTL 1 DROP EYE-LEFT (21:58)
[2024-02-23] MEDS: Latanoprost 0.005 % Ophth Sol 2.5 ML DROPS 1 DROP EYE-RIGHT (21:58)
[2024-02-24 03:09] VITALS: BP 116/57; PULSE 89; RESP 18; TEMP 36.2; O2SAT 94
[2024-02-24] MEDS: Doxycycline Hyclate 100 MG in 0.9 % Sodium Chloride 250 ML 166.67 MG IV (04:43)
[2024-02-24 07:15] LABS: Glucose, Whole Blood 219 mg/dL (60-115)
[2024-02-24 07:24] VITALS: BP 132/64; PULSE 87; RESP 16; TEMP 36; O2SAT 93
[2024-02-24] MEDS: Insulin Lispro 100 UNIT/ML 3 ML VIAL SUBCUT (08:04)
[2024-02-24 08:05] VITALS: BP 132/64; PULSE 87
[2024-02-24] MEDS: Metoprolol Tartrate 100 MG TABLET PO (08:05)
[2024-02-24] MEDS: Cholecalciferol (Vitamin D3) 25 MCG TABLET PO (08:05)
[2024-02-24] MEDS: lisinopriL 40 MG TABLET PO (08:05)
[2024-02-24] MEDS: Furosemide 20 MG TABLET PO (08:05)
[2024-02-24] MEDS: DULoxetine HCl 30 MG CAPSULE.DR PO (08:05)
[2024-02-24] MEDS: Gabapentin 100 MG CAPSULE 200 MG PO (08:05)
[2024-02-24] MEDS: Atorvastatin Calcium 40 MG TABLET PO (08:06)
[2024-02-24] MEDS: 0.9 % Sodium Chloride Flush 3 ML SYRINGE IVFLUSH (08:06)
[2024-02-24] MEDS: Moxifloxacin HCl 0.5 % Oph Sol 3 ML DRPBTL 1 DROP EYE-LEFT (08:06)
[2024-02-24] MEDS: Ferrous Sulfate 324 MG TABLET.DR PO (08:06)
[2024-02-24] MEDS: prednisoLONE Acetate 1 % Oph Susp 5 ML DRPBTL 1 DROP EYE-LEFT (08:06)
--- NOTE | 2024-02-24 10:31 | P.DS_ITS ---
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 Patient describes not having the appetite he should or drinking as he should in the several days prior to arrival. EMS arrived the scene presents blood pressure was in the 70s but responded to volume repletion. In the emergency room he is remained hemodynamically stable. Workup consistent with left lower lobe pneumonia(confirmed by CT) Hospital course Patient admitted to general medical floor and treated with ceftriaxone and doxycycline. Over the next 48 hours he improved; ambulating without O2 requirement. Blood cultures have been negative. At this point in time he is medically acceptable to be discharged on oral antibiotics and follow up with his PCP Time Attestation Discharge Coordination Time (in mins): 35 Quality: Safe Use of Opioids Does Pt have an Active Cancer Diagnosis on the Problem List?: Yes Opioid Measure Date for [facility] Report: 01/25/24 Opioid Measure Time for [facility] Report: 10:33 Quality: Stroke Does the patient have a stroke diagnosis?: No Physical Exam Vital Signs: Vital Signs: Last Vital Signs Temp 96.8 F 02/24/24 07:24 Pulse 87 02/24/24 08:05 Resp 16 02/24/24 07:24 BP 132/64 02/24/24 08:05 Pulse Ox 93 02/24/24 07:24 O2 Del Method Room Air 02/24/24 07:24 BMI result Body Mass Index 36.2 Const: Other: Awake alert no acute distress Resp: Other: Dense left lower lobe crackles with scattered wheezes throughout Cardio: Other: No S4; positive S1-S2; no S3 murmurs rubs or gallops GI: Other: Soft nontender nondistended normoactive bowel sounds Extrem: Other: No edema bilaterally DS: Data Data Completed and Pending Labs on day of discharge: Laboratory Results - last 24 hr 02/23/24 02/23/24 02/23/24 11:40 16:13 20:06 POC Glucose 206 H 255 H 215 H 02/24/24 07:05 POC Glucose 219 H Preliminary micro results at discharge 02/22/24 14:31 Blood Culture - Preliminary Blood - Venous No growth after 24 hours. 02/22/24 14:14 Blood Culture - Preliminary Blood - Venous No growth after 24 hours. Discharge Plan Discharge Anticipated Discharge Date/Time: 02/24/24 10:26 Patient Disposition: Home, Self-Care Discharge Diagnosis: Left lower lobe infiltrate Referrals: Guido Andrade MD [Primary Care Provider] - 1 Week Discharge Medications: New cefuroxime axetil 500 mg tablet 500 mg PO BID 10 Days Qty: 20 0RF doxycycline hyclate 100 mg tablet 100 mg PO BID 10 Days Qty: 20 0RF Continued (DME) FreeStyle Alina 2 Sensor Kit See Rx Instructions .ROUTE .MEDSUPPLY Qty: 2 11RF Rx Instructions: As directed every 2 weeks (DME) FreeStyle Alina 2 [place] Misc See Rx Instructions .ROUTE .MEDSUPPLY Qty: 1 5RF Rx Instructions: As directed (DME) pen needle, diabetic [BD Ultra-Fine Madeline Pen Needle] 32 gauge x 5/32 needle See Rx Instructions .Route Qty: 100 5RF Rx Instructions: As directed 4 times a day (DME) SHOWER CHAIR See Rx Instructions .Route .MEDSUPPLY Qty: 1 0RF Rx Instructions: As directed atorvastatin 40 mg tablet 40 mg PO DAILY 90 Days Qty: 90 1RF metoprolol tartrate 100 mg tablet 100 mg PO BID 90 Days Qty: 180 1RF ferrous sulfate [FeroSul] 325 mg (65 mg iron) tablet 325 mg PO DAILY 90 Days Qty: 90 1RF duloxetine 30 mg capsule,delayed release(DR/EC) 30 mg PO DAILY 90 Days Qty: 90 1RF furosemide 20 mg tablet 20 mg PO DAILY 90 Days Qty: 90 1RF gabapentin 100 mg capsule 200 mg PO TID 30 Days Qty: 180 3RF terazosin 10 mg capsule 10 mg PO BEDTIME 90 Days Qty: 90 1RF lisinopril 40 mg tablet 40 mg PO DAILY Xarelto 20 mg tablet 20 mg PO DAILY@1700 prednisolone acetate 1 % drops,suspension 1 drp ophthalmic-Left BID moxifloxacin 0.5 % drops 1 drp ophthalmic-Left BID Trulicity 1.5 mg/0.5 mL Pen Injector 1.5 mg SUBCUT QWEEK insulin lispro [Humalog U-100 Insulin] 100 unit/mL solution 1 sliding scale dose SUBCUT TIDAC Protocol: Insulin Correction Scale Less than or equal to 110 ---- Give (units): 2 111 to 150 Give (units): 4 151 to 200 Give (units): 6 201 to 250 Give (units): 8 251 to 300 Give (units): 10 301 to 350 Give (units): 10 Greater than 350 Give (units): 10 Call MD if Blood Glucose > : 300 Patient Comments: Sliding scale: 70-100: 2 units; 101-150: 4 units; 151-200: 6 units; 201-250: 8 units; 250-300: 10 units ibuprofen [Advil] 200 mg Tablet 200 mg PO Q6H PRN (Reason: Pain) nitroglycerin 0.4 mg tablet, sublingual 0.4 mg sublingual Q5M PRN (Reason: Chest Pain) Rx Instructions: do not exceed 3 doses per episode insulin glargine [Lantus U-100 Insulin] 100 unit/mL solution 40 unit subcut BEDTIME cholecalciferol (vitamin D3) [Vitamin D3] 25 mcg (1,000 unit) tablet 25 mcg PO DAILY Qty: 90 2RF latanoprost 0.005 % drops 1 drp ophthalmic-Right BEDTIME (DME) pen needle, diabetic [BD Ultra-Fine Madeline Pen Needle] 32 gauge x 5/32 needle See Rx Instructions .ROUTE .MEDSUPPLY Qty: 100 3RF Rx Instructions: As directed once daily Discharge Orders: Discharge Order (Routine); Ordered 02/24/24 Ordered By: Josh Rodrigues Stand Alone Forms: Patient Portal Discharge page Print Language: Yakut Care Plan Goals: Complete course of Ceftin twice daily for 10 days along with doxycycline twice daily for 10 days Health Concerns: Resume all your medicines taken before the hospital Plan of Treatment: Follow-up with Dr. Andrade next available appointment Assessment: See discharge summary
--- NOTE | 2024-02-24 11:35 | MHC.CM.PN ---
HOME - SELF CARE TO TRANSPORT
--- NOTE | 2024-02-24 12:56 | P.CDIM_ITS ---
PROVIDER RESPONSE TEXT: To clarify, the appropriate diagnosis supported by the clinical indicators: Systolic: chronic QUERY TEXT: PHYSICIAN'S DOCUMENTATION REQUEST Date of Query: 02/23/2024 11:12 AM EDT Patient Name: Kamlesh Clement Admit Date: 02/22/2024 Dear Josh Rodrigues, A review of the medical record indicates additional documentation may be needed. Please review below and update the documentation accordingly. Clinical Indicators: ED 02/21 - Past medical history - Congestive heart failure BNP 229 H Home medications: Furosemide 20 mg tablet daily History of echo performed Please provide further specificity regarding the most likely type and acuity of CHF you are evaluatin g, treating, or monitoring. Systolic Please specify if Acute, Chronic, or Acute on chronic, or Unable to determine Diastolic Please specify if Acute, Chronic, or Acute on chronic, or Unable to determine Combined Systolic/Diastolic Please specify if Acute, Chronic, or Acute on chronic, or Unable to determine Other (explain) Clinically unable to determine (explain) Thank you, Sidra Stratton, CCS, CDIS Use of terms such as suspected, likely, concern for, or probable (associated with a specific diagnosi s that is being evaluated, monitored, or treated as if it exists) are acceptable and can be coded in the inpatient se tting, when documented at the time of discharge. Please use your independent medical judgment in providing your response. THIS QUERY IS PART OF THE PERMANENT MEDICAL RECORD
== END 2024-02-24 11:12 | disposition home or self-care (01) | DRG 194 ==
LOC: HO.ED 15:57 → HO.EDOVER 16:30 → HO.S3 02-23 13:13
PROVIDERS: Admitting Provider Hospitalist; Emergency Provider Emergency Medicine; PCP Internal Medicine; Visit Provider Hospitalist
DX: J18.9 Pneumonia, unspecified organism (principal); I13.0 Hypertensive heart and chronic kidney disease with heart failure and stage 1 through stage 4 chronic kidney disease, or unspecified chronic kidney disease; I48.19 Other persistent atrial fibrillation; I50.22 Chronic systolic (congestive) heart failure; C67.9 Malignant neoplasm of bladder, unspecified; N18.2 Chronic kidney disease, stage 2 (mild); I25.10 Atherosclerotic heart disease of native coronary artery without angina pectoris; E11.22 Type 2 diabetes mellitus with diabetic chronic kidney disease; E11.42 Type 2 diabetes mellitus with diabetic polyneuropathy; Z20.822 Contact with and (suspected) exposure to COVID-19; Z87.891 Personal history of nicotine dependence; Z85.821 Personal history of Merkel cell carcinoma; Z79.4 Long term (current) use of insulin; Z79.01 Long term (current) use of anticoagulants; Z79.899 Other long term (current) drug therapy
CPT/HCPCS: 0241U; 36415; 71045; 71260; 80048; 80053; 80076; 80307; 81001; 82947; 83605; 83735; 83880; 84484; 85025; 85610; 87040; 87086; 87635; 93005; 99285; J0456; J0696; Q9967

== ENCOUNTER → 2024-02-22 13:32 | Outpatient (BNV) | payer MEDICARE, SELFPAY | PROVIDERS: Admitting Provider Hospitalist; Emergency Provider Emergency Medicine; PCP Internal Medicine; Visit Provider Internal Medicine | DX: I48.91 Unspecified atrial fibrillation (principal) | CPT/HCPCS: 93010 ==

== ENCOUNTER → 2024-02-22 16:29 | Outpatient (BNV) | payer MEDICARE, SELFPAY | PROVIDERS: Admitting Provider Hospitalist; Emergency Provider Emergency Medicine; PCP Internal Medicine; Visit Provider Hospitalist | DX: J18.9 Pneumonia, unspecified organism (principal); I48.20 Chronic atrial fibrillation, unspecified; E11.42 Type 2 diabetes mellitus with diabetic polyneuropathy; Z79.4 Long term (current) use of insulin | CPT/HCPCS: 99223; 99233; 99239 ==

== ENCOUNTER 2024-03-07 12:33 | Outpatient (AMB) | payer MEDICARE, SELFPAY ==
[2024-03-07 12:40] VITALS: BP 108/62; PULSE 72; O2SAT 100; BMI 34.7
--- NOTE | 2024-03-07 12:40 | MHC.PC.OV ---
Vital Signs 03/07/24 12:40 Height 5 ft 9 in Weight 235 lb 0.4 oz BMI 34.7 BP 108/62 Blood Pressure Location Lt brachial Position Sitting Pulse 72 Pulse Source Pulse Oximeter Pulse Oximetry (%) 100 Oxygen Delivery Method Room Air Intake Visit Reasons: [facility] 02/26 Intake Note: Patient is here for hospital discharge follow up. 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: No Allergies colesevelam [From WelChol] Adverse Reaction (Mild, Verified 03/08/24 00:03) constipation Medication List - Last Reconciled 03/08/24 by Guido Andrade MD atorvastatin 40 mg PO DAILY 90 days cefuroxime axetil 500 mg PO BID 10 days cholecalciferol (vitamin D3) (Vitamin D3) 25 mcg PO DAILY doxycycline hyclate 100 mg PO BID 10 days dulaglutide (Trulicity) 1.5 mg subcut QWEEK duloxetine 30 mg PO DAILY 90 days ferrous sulfate (FeroSul) 325 mg PO DAILY 90 days flash glucose scanning reader (KeenSkimStyle Alina 2 [place]) As directed flash glucose sensor (FreeStyle Alina 2 Sensor kit) As directed every 2 weeks furosemide 20 mg PO DAILY 90 days gabapentin 200 mg (2 x 100 mg) PO TID 30 days ibuprofen (Advil) 200 mg PO Q6H PRN insulin glargine (Lantus U-100 Insulin) 40 units subcut BEDTIME insulin lispro (Humalog U-100 Insulin) 1 sliding scale dose See Protocol subcut TIDAC latanoprost 0.005% 1 drp ophthalmic-Right BEDTIME lisinopril 40 mg PO DAILY metoprolol tartrate 100 mg PO BID 90 days moxifloxacin 0.5% 1 drp ophthalmic-Left BID nitroglycerin 0.4 mg sublingual Q5M PRN pen needle, diabetic (BD Ultra-Fine Madeline Pen Needle) As directed 4 times a day pen needle, diabetic (BD Ultra-Fine Madeline Pen Needle) As directed once daily prednisolone acetate 1% 1 drp ophthalmic-Left BID rivaroxaban (Xarelto) 20 mg PO DAILY@1700 [SHOWER CHAIR As directed] terazosin 10 mg PO BEDTIME 90 days Tobacco use date assessed: 03/07/24 Fall risk assessment: No Falls in past year Last assessed Fall Risk: 03/07/24 Dental Screening Dental Screen Date: 12/11/23 [facility] 02/26 HPI Details Patient comes in today for his HDF follow up visit He was admitted briefly to [facility] a couple of weeks ago for pneumonia after he was brought to the ER by EMT for increasing weakness and dehydration Per EMT report, he was found to have systolic BP in the 70s when they first evaluated him Work ups done in the ER confirmed the presence of pneumonia on chest CT and he was admitted for medical management He was initially started on IV Ceftriaxone and Doxycycline and patient's symptoms improved rapidly to where he was able to be discharged home a couple of days later; he did not require oxygen supplementation during his hospital stay He was sent home on oral Ceftin and oral Doxycycline x 10 days and he just finished both Abx a couple of days ago His treatment for his recurrent bladder cancer also had to be postponed due to his recent admission and pneumonia and he is now scheduled to start his treatment with intravesical mitomycin C next month on 04/15/2024 Patient states that he currently feels okay He denies any headaches or dizziness Denies any chest pains, no SOB No nausea/vomiting, no abdominal pain No change in bowel habits noted TCM TCM Information Date of Discharge 02/24/24 Discharged From [facility] Interactive Contact Date (Reference documentation from this date) 03/07/24 [facility] Medical History CHF (congestive heart failure) Essential hypertension Chronic a-fib [place] cell cancer 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 On beta nahid at home Anemia Bladder cancer Chronic atrial fibrillation Chronic anticoagulation History of colon polyps Erectile dysfunction Chronic kidney disease (CKD), stage II (mild) Obesity (BMI 30-39.9) Benign essential hypertension Pure hypercholesterolemia Iron deficiency anemia 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 CAD (coronary artery disease) Hyperlipidemia LDL goal <70 Type 2 diabetes mellitus with diabetic polyneuropathy Diabetes mellitus Surgical History History of surgery History of esophagogastroduodenoscopy (EGD) Hx of cystoscopy History of cystoscopy Hx of colonoscopy History of cataract surgery History of endoscopy Hx of removal of cyst Family History Father Medical history unknown Mother Diabetes Daughter In good health Son In good health Sister In good health Sister In good health Brother In good health Brother In good health Brother In good health Social History Household Members: Family Housing: House Are you a primary career coach to a significant other at home: No Do you presently have visiting nurse or other home services: No Alcohol intake: current Alcohol intake frequency: does not drink Alcohol type: beer Comment: medicated in pacu Patient Tobacco Use Status: Former Tobacco user Quit Date: age 36 Tobacco use type: Cigarette Years Smoked: 40 yrs ago e-Cigarette/Vaping Use: Never Used Second Hand Smoke Exposure: Yes Substance Use Type: Former Substance User and Marijuana Advance Directives Date on File: 09/07/21 service: No Current occupational status: retired Current occupational exposures/hazards: No Cognitive needs: Yes (cane) Hearing needs: No Vision needs: Yes Questionnaire Thrive Questionnaire Date Thrive assessed: 02/23/24 I am a: Patient What is your living situation today?: I have a steady place to live Within the past 12 months, did the food you bought not last and you didn't have the money to get more?: Never true Within the past 12 months, did you worry whether your food would run out before you got money to buy more?: Never true Do you have trouble paying for medicines?: No Do you have trouble getting transportation to medical appointments?: No Do you have trouble paying your heating and electricity bill?: No Do you have trouble taking care of your child, family member or friend?: No Do you have trouble with day-to-day activities such as bathing, preparing meals, shopping, managing finances, etc.?: No Are you currently unemployed and looking for a job?: No Are you interested in more education?: No Please select the resources that you would like help with: None Currently or been in a relationship where the following occur: no concerns reported THRIVE Score: 0 AUDIT C Alcohol Use Questionnaire (AUDIT-C) 1. How often do you have a drink containing alcohol?: Never 3. How often do you have six or more drinks on one occasion?: Never Total Score: 0 Score Reviewed/Action Taken: Yes MARKUS-7 AMB Questionnaire MARKUS-7 Date MARKUS - 7 assessed: 12/11/23 Source: Developed by Drs. Rich Garrido, Kym Rodriguez, Conrad Barraza and colleagues, with an educational micheline from [employer]. Review of Systems Const Denies chills, Reports fatigue, Denies fever(s) and Denies headache(s) ENT Denies dysphagia, Denies dizziness, Denies otalgia, Denies headache(s), Denies neck pain, Denies odynophagia and Denies sore throat Card Denies chest pain, Denies palpitations and Denies dyspnea Resp Denies cough and Denies dyspnea GI Denies abdominal pain, Denies constipation, Denies dysphagia, Denies heartburn, Denies diarrhea, Denies nausea, Denies odynophagia and Denies vomiting Denies dysuria, Denies nocturia and Denies urinary frequency Musc Denies back pain and Denies neck pain Neuro Details: (+) bilateral leg pain Denies dizziness and Denies headache(s) Psych Reports depression (better on Rx) Endo Reports fatigue and Denies palpitations Physical exam (Primary Care) Vital Signs: Last Vital Signs Pulse 72 03/07/24 12:40 BP 108/62 03/07/24 12:40 Pulse Ox 100 03/07/24 12:40 Oxygen Delivery Method Room Air 03/07/24 12:40 BMI result Body Mass Index 34.7 Tobacco/Smoking Status: Tobacco use Status Tobacco use date assessed 03/07/24 03/07/24 12:47 Patient Tobacco Use Status Former Tobacco user 03/07/24 12:42 Tobacco use type Cigarette 03/07/24 12:42 e-Cigarette/Vaping Use Never Used 03/07/24 12:42 Thrive Assessment: Date of Thrive Assessment Date Thrive assessed 02/23/24 03/07/24 12:42 Currently or been in a relationship where the following occur: no concerns reported Const General: no acute distress and alert HENMT Ears: TM's normal bilaterally and EAC's normal Throat: Yes posterior oropharynx normal and Yes tonsils normal (no TP congestion noted) Neck Neck: Yes no lymphadenopathy and Yes supple Thyroid: Thyroid normal Resp Auscultation: clear to auscultation bilaterally, no rales and no wheezes Cardio Rate: regular rate Rhythm: abnormal rhythm irregularly irregular Heart sounds: no murmurs GI Palpation (GI): Soft to palpation and nontender Auscultation: normal bowel sounds General: Yes no CVA tenderness Back/Spine/Pelvis Back: no CVA tenderness Extrem General: Yes no clubbing, cyanosis or edema Assessment and Plan Assessment & Plan (1) Pneumonia: Code(s): J18.9 - Pneumonia, unspecified organism Qualifiers: Laterality: left Lung location: lower lobe of lung Pneumonia type: due to unspecified organism Qualified Code(s): J18.9 - Pneumonia, unspecified organism Plan: Resolving Patient just completed Abx Tx witl oral Ceftin and Doxycycline Chest CT done a couple of weeks ago revealed (+) coalescent nodular opacities in the left upper and left lower lobes with some air bronchograms, which probably represents pneumonia. There are also moderate right and very small left pleural effusions Will send patient for repeat chest x-rays in a couple of weeks for follow up (2) Dehydration: Code(s): E86.0 - Dehydration Plan: Patient also appeared to be quite dehydrated last month when he was diagnosed with pneumonia, as evidenced by his low systolic BP in the 70s when he was initially assessed by cut off sawyer Have encouraged him to make sure he increases his oral fluid intake daily/regularly (3) Chronic atrial fibrillation: Code(s): I48.20 - Chronic atrial fibrillation, unspecified Plan: Patient is currently still in atrial fibrillation but remains rate-controlled; he has had no acute symptoms related to his AF Continue Metoprolol 100 mg BID Continue Xarelto 20 mg QD for thromboembolism prevention Follow up with cardiology as scheduled (4) Urinary bladder cancer: Comment: Low-grade recurrent Code(s): C67.9 - Malignant neoplasm of bladder, unspecified Qualifiers: Bladder location: unspecified site Qualified Code(s): C67.9 - Malignant neoplasm of bladder, unspecified Plan: Recurrence diagnosed a few months ago S/P intravesical chemotherapy (BCG) initially for his bladder cancer back in 2020 He will be starting intravesical Tx again with Mitomycin C next month on 04/15/2024 - his original Tx had to be postponed and rescheduled due to his recent bout with pneumonia Follow up with urology as scheduled (5) Type 2 diabetes mellitus with diabetic chronic kidney disease: Code(s): E11.22 - Type 2 diabetes mellitus with diabetic chronic kidney disease Qualifiers: Diabetes mellitus press tender long goods insulin use: with press tender long goods use Chronic kidney disease stage: stage 2 (mild) Qualified Code(s): E11.22 - Type 2 diabetes mellitus with diabetic chronic kidney disease; N18.2 - Chronic kidney disease, stage 2 (mild); Z79.4 - MCC (current) use of insulin Plan: HgbA1c was at 6.5% on his labs done a couple of months ago (in-office HgbA1c was previously at 6.9%) - goal is <7.0% Reinforced diabetic diet Continue Lantus 46 units daily at bedtime, Humalog 2 units with breakfast and lunch and 10 units with dinner and Trulicity 0.75 mg once a week Follow up with endocrinology (Dr. 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 Code(s): C4A.9 - Raji cell carcinoma, unspecified Plan: S/P radiation therapy of the right forearm and axilla from 02/2022 to 03/2022 He was diagnosed with recurrent [place] Cell carcinoma in 08/2022 and PET scan done in 09/2022 revealed (+) axillary adenopathy and multiple sites of probable bone metastatic disease Patient has been started on Pembrolizumab immunotherapy for his recurrent Raji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 on 10/06/2022 and he is currently still on the same treatment and appears to be tolerating his immunotherapy well, follow-up with oncology as scheduled (9) Neuropathy: Code(s): G62.9 - Polyneuropathy, unspecified Plan: Patient still reports experiencing pain in both legs but symptoms have been better controlled on current Rx Continue Gabapentin 200 mg TID and Duloxetine 30 mg QD (10) Mood disorder: Code(s): F39 - Unspecified mood [affective] disorder Plan: Patient's states that his mood and depression have improved a lot on his Rx Continue Duloxetine 30 mg QD (11) Obesity (BMI 30-39.9): Code(s): E66.9 - Obesity, unspecified Plan: Reinforced diet; exercise and weight are impractical / unrealistic at this time due to patient's multiple comorbidities and issues (including neuropathy) Plan Follow up as scheduled next month Orders: Orders XR chest 2V 2 Weeks J18.9 - Pneumonia, unspecified organism Coding Level of Care Code TCM Mod MDM <= 14 Days Diagnoses Pneumonia of left lower lobe due to infectious organism J18.9 Laterality: left Lung location: lower lobe of lung Pneumonia type: due to unspecified organism Dehydration E86.0 Chronic atrial fibrillation I48.20 Malignant neoplasm of urinary bladder, unspecified site C67.9 Bladder location: unspecified site Type 2 diabetes mellitus with stage 2 chronic kidney disease, with long-term current use of insulin E11.22; N18.2; Z79.4 Diabetes mellitus press tender long goods insulin use: with half-way use Chronic kidney disease stage: stage 2 (mild) Pure hypercholesterolemia E78.00 Benign essential hypertension I10 Raji cell cancer C4A.9 Neuropathy G62.9 Mood disorder F39 Obesity (BMI 30-39.9) E66.9
== END 2024-03-07 13:09 | disposition home or self-care (01) ==
PROVIDERS: PCP Internal Medicine; Visit Provider Internal Medicine
DX: J18.9 Pneumonia, unspecified organism (principal); E86.0 Dehydration; I48.20 Chronic atrial fibrillation, unspecified; C67.9 Malignant neoplasm of bladder, unspecified; E11.22 Type 2 diabetes mellitus with diabetic chronic kidney disease; N18.2 Chronic kidney disease, stage 2 (mild); Z79.4 Long term (current) use of insulin; E78.00 Pure hypercholesterolemia, unspecified; I12.9 Hypertensive chronic kidney disease with stage 1 through stage 4 chronic kidney disease, or unspecified chronic kidney disease; C4A.9 Merkel cell carcinoma, unspecified; G62.9 Polyneuropathy, unspecified; F39 Unspecified mood [affective] disorder
CPT/HCPCS: 99214

== ENCOUNTER 2024-03-21 09:08 | Outpatient (REF) | payer MEDICARE, SELFPAY ==
--- NOTE | ~2024-03-21 | XR_ITS ---
EXAMINATION: XR CHEST CLINICAL INFORMATION: Pneumonia, unspecified organism COMPARISON: Chest 02/22/2024 TECHNIQUE: 2 views of the chest were obtained. FINDINGS: Interval resolution of previously noted left lower lobe pneumonia. The lungs are clear. No focal consolidation, interstitial pulmonary edema or pneumothorax. Stable mild enlargement of the cardiac silhouette. No left pleural effusion. There is mild blunting of the right costophrenic angle which can be seen with pleural thickening or small pleural effusion. A right jugular chest wall port is present with its tip at the SVC/RA junction. XR/XR chest 2V IMPRESSION: 1. Interval resolution of previously noted left lower lobe pneumonia. 2. Mild blunting of the right costophrenic angle which can be seen with pleural thickening or small pleural effusion.
== END 2024-03-21 09:09 | disposition home or self-care (01) ==
LOC: HO.XRAY 09:08
PROVIDERS: PCP Internal Medicine; Visit Provider Internal Medicine
DX: J18.9 Pneumonia, unspecified organism (principal)
CPT/HCPCS: 71046

== ENCOUNTER 2024-04-15 10:26 | Day surgery (SDC) | payer MEDICARE, SELFPAY ==
[2024-04-11 13:26] VITALS: BMI 34.8
--- NOTE | 2024-04-11 14:46 | P.CONAN_ITS ---
Documented by User: Whitney Roque NP 04/12/24 09:40 HPI - Anesthesia Eval Consult details Narrative: 78yo M for Cystoscopy Bladder Fulguration with mytomicin and cytartabine Xarelto for afib - ok'd to hold per cardiology [facility] [place] for afib, CAD, cardiomegaly. Last office visit 08/2023. Stable for 1 year routine f/u. [facility] admit 02/21-02/24/24 with pna. Had post d/c f/u with pcp 03/07/24 - abx completed, repeat cxr shows resolution of previous pna. Anesthesia Pre-Procedure Meds Is the patient on any of the following meds?: GLP1/DPP4 PMFSH Active Problems Active Problems: All Active Problems Pneumonia (Acute) LVH (left ventricular hypertrophy) (Acute) Mood disorder (Acute) Balanitis (Acute) Herpes zoster keratitis, left eye (Acute) Conjunctivitis (Acute) Diarrhea (Acute) Dehydration (Acute) Syncope and collapse (Acute) Skin cancer of arm (Acute) Erectile dysfunction associated with type 2 diabetes mellitus (Acute) UTI (urinary tract infection) (Acute) Complex renal cyst (Acute) Bladder outlet obstruction (Acute) Elevated alkaline phosphatase level (Acute) Renal stones (Acute) Hematuria (Acute) CAD (coronary artery disease) (Acute) Iron deficiency anemia due to chronic blood loss (Acute) Neuropathy (Acute) Urinary frequency (Acute) [place] cell cancer (Acute) Urinary bladder cancer (Acute) Bladder cancer (Acute) Chronic atrial fibrillation (Acute) Diabetes mellitus (Acute) Hyperlipidemia LDL goal <70 (Acute) Obesity (BMI 30-39.9) (Acute) Chronic anticoagulation (Acute) History of colon polyps (Acute) Erectile dysfunction (Acute) Benign essential hypertension (Acute) Pure hypercholesterolemia (Acute) Iron deficiency anemia (Acute) long-term (current) use of insulin (Acute) Type 2 diabetes mellitus with diabetic chronic kidney disease (Acute) Past Medical History Medical History History of recent pneumonia (02/24/24) CHF (congestive heart failure) Chronic 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 On beta nahid at home Anemia Bladder cancer Chronic atrial fibrillation Chronic anticoagulation History of colon polyps Erectile dysfunction Chronic kidney disease (CKD), stage II (mild) Obesity (BMI 30-39.9) Benign essential hypertension Pure hypercholesterolemia Iron deficiency anemia 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 CAD (coronary artery disease) Hyperlipidemia LDL goal <70 Essential hypertension Type 2 diabetes mellitus with diabetic polyneuropathy Diabetes mellitus Family History Family History Father Medical history unknown Mother Diabetes Daughter In good health Son In good health Sister In good health Sister In good health Brother In good health Brother In good health Brother In good health Surgical History Surgical History History of surgery History of esophagogastroduodenoscopy (EGD) Hx of cystoscopy History of cystoscopy Hx of colonoscopy History of cataract surgery History of endoscopy Hx of removal of cyst History of Problems with Anesthesia: No Social History Social History (Updated 04/11/24 @ 13:25 by Chandni Gomez RN) Household Members: Spouse and Family Housing: House Are you a primary insurance healthcare representative to a significant other at home: No Do you presently have visiting nurse or other home services: No Alcohol intake: current Alcohol intake frequency: holidays/special occasions only Alcohol type: beer Comment: medicated in pacu Patient Tobacco Use Status: Former Tobacco user Tobacco use type: Cigarette Years Smoked: 20 Smoked in Last 30 Days: No e-Cigarette/Vaping Use: Never Used Second Hand Smoke Exposure: Yes Use of substances other than those prescribed or required for medical reasons: No Have you been hit, kicked, punched, or otherwise hurt by someone within the past year? If so, by whom?: No Are you DNR?: No Advance Directives: No Advance Directives Information Provided: Yes Advance Directives on File: Yes Advance Directives Date on File: 09/07/21 Recently lost weight without trying: No Nutrition Risks: Surgical patient >75years service: No Current occupational status: retired Current occupational exposures/hazards: No Cognitive needs: Yes (cane) Hearing needs: No Vision needs: Yes Meds Allergies Allergy/AdvReac Type Severity Reaction Status Date / Time colesevelam [From WelChol] AdvReac Mild constipatio Verified 04/15/24 10:58 n Home Medications ?Medication ?Instructions ?Recorded ?Confirmed ?Last Taken ?Type latanoprost 0.005 % eye drops 1 drp ophthalmic-Right BEDTIME 08/20/20 04/11/24 02/22/24 History nitroglycerin 0.4 mg sublingual 0.4 mg sublingual Q5M PRN Chest 08/25/20 04/11/24 05/21/22 History tablet Pain insulin glargine 100 unit/mL 40 unit subcut BEDTIME 03/11/23 04/11/24 02/22/24 H istory subcutaneous solution (Lantus U-100 Insulin) dulaglutide 1.5 mg/0.5 mL 1.5 mg subcut .QMONDAY 02/22/24 04/11/24 04/08/24 History subcutaneous pen injector (Trulicity) ibuprofen 200 mg tablet (Advil) 200 mg PO Q6H PRN Pain 02/22/24 04/11/24 Unknown History insulin lispro 100 unit/mL 1 sliding scale dose subcut TIDAC 02/22/24 04/11/24 02/21/24 History subcutaneous solution (Humalog U-100 Insulin) lisinopril 40 mg tablet 40 mg PO DAILY 02/22/24 04/11/24 02/22/24 History moxifloxacin 0.5 % eye drops 1 drp ophthalmic-Left BID 02/22/24 04/11/24 History prednisolone acetate 1 % eye 1 drp ophthalmic-Left BID 02/22/24 04/11/24 02/21/24 History drops,suspension rivaroxaban 20 mg tablet (Xarelto) 20 mg PO DAILY@1700 02/22/24 04/11/24 04/12/24 History Exam Height,Weight and Vital Signs: Height 5 ft 9 in Weight 107.048 kg Pertinent Lab Results Pertinent Lab Results: Laboratory Tests 02/23/24 04:51 WBC 10.7 Hgb 11.3 L Hct 35.5 L Plt Count 136 L Sodium 141 Potassium 4.0 Chloride 107 Carbon Dioxide 26 BUN 14 Creatinine 1.02 Narrative Narrative: XR chest 2V 03/2024 IMPRESSION: 1. Interval resolution of previously noted left lower lobe pneumonia. 2. Mild blunting of the right costophrenic angle which can be seen with pleural thickening or small pleural effusion. EKG 02/2024 Vent. Rate : 074 BPM Atrial Rate : 000 BPM P-R Int : 000 ms QRS Dur : 080 ms QT Int : 388 ms P-R-T Axes : 000 -50 100 degrees QTc Int : 430 ms Atrial fibrillation Left axis deviation Inferior infarct (cited on or before 02-MAY-2021) Abnormal ECG When compared with ECG of 01-MAR-2023 11:33, Nonspecific T wave abnormality now evident in Lateral leads ECHO 2021 Conclusions: - 1. Normal LV systolic function with LVEF of 60 65% with severe LVH with elevated filling pressures 2. Severely dilated left atrium 3. Mild aortic stenosis 4. Normal RV systolic pressure 5. 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 On beta nahid at home Anemia Bladder cancer Chronic atrial fibrillation Chronic anticoagulation History of colon polyps Erectile dysfunction Chronic kidney disease (CKD), stage II (mild) Obesity (BMI 30-39.9) Benign essential hypertension Pure hypercholesterolemia Iron deficiency anemia long-term (current) use of insulin 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 CAD (coronary artery disease) Hyperlipidemia LDL goal <70 Essential hypertension Type 2 diabetes mellitus with diabetic polyneuropathy Diabetes mellitus Family History Family History Father Medical history unknown Mother Diabetes Daughter In good health Son In good health Sister In good health Sister In good health Brother In good health Brother In good health Brother In good health Family history of problems with anesthesia: No Surgical History Surgical History History of surgery History of esophagogastroduodenoscopy (EGD) Hx of cystoscopy History of cystoscopy Hx of colonoscopy History of cataract surgery History of endoscopy Hx of removal of cyst Social History Social History (Updated 04/11/24 @ 13:25 by Chandni Gomez RN) Household Members: Spouse and Family Housing: House Are you a primary insurance healthcare representative to a significant other at home: No Do you presently have visiting nurse or other home services: No Alcohol intake: current Alcohol intake frequency: holidays/special occasions only Alcohol type: beer Comment: medicated in pacu Patient Tobacco Use Status: Former Tobacco user Tobacco use type: Cigarette Years Smoked: 20 Smoked in Last 30 Days: No e-Cigarette/Vaping Use: Never Used Second Hand Smoke Exposure: Yes Use of substances other than those prescribed or required for medical reasons: No Have you been hit, kicked, punched, or otherwise hurt by someone within the past year? If so, by whom?: No Are you DNR?: No Advance Directives: No Advance Directives Information Provided: Yes Advance Directives on File: Yes Advance Directives Date on File: 09/07/21 Recently lost weight without trying: No Nutrition Risks: Surgical patient >75years service: No Current occupational status: retired Current occupational exposures/hazards: No Cognitive needs: Yes (cane) Hearing needs: No Vision needs: Yes Meds Allergies Allergy/AdvReac Type Severity Reaction Status Date / Time colesevelam [From WelChol] AdvReac Mild constipatio Verified 04/15/24 10:58 n Home Medications ?Medication ?Instructions ?Recorded ?Confirmed ?Last Taken ?Type latanoprost 0.005 % eye drops 1 drp ophthalmic-Right BEDTIME 08/20/20 04/11/24 02/22/24 History nitroglycerin 0.4 mg sublingual 0.4 mg sublingual Q5M PRN Chest 08/25/20 04/11/24 05/21/22 History tablet Pain insulin glargine 100 unit/mL 40 unit subcut BEDTIME 03/11/23 04/11/24 02/22/24 History subcutaneous solution (Lantus U-100 Insulin) dulaglutide 1.5 mg/0.5 mL 1.5 mg subcut .QMONDAY 02/22/24 04/11/24 04/08/24 History subcutaneous pen injector (Trulicity) ibuprofen 200 mg tablet (Advil) 200 mg PO Q6H PRN Pain 02/22/24 04/11/24 Unknown History insulin lispro 100 unit/mL 1 sliding scale dose subcut TIDAC 02/22/24 04/11/24 02/21/24 History subcutaneous solution (Humalog U-100 Insulin) lisinopril 40 mg tablet 40 mg PO DAILY 02/22/24 04/11/24 02/22/24 History moxifloxacin 0.5 % eye drops 1 drp ophthalmic-Left BID 02/22/24 04/11/24 02/21/24 History prednisolone acetate 1 % eye 1 drp ophthalmic-Left BID 02/22/24 04/11/24 02/21/24 History drops,suspension rivaroxaban 20 mg tablet (Xarelto) 20 mg PO DAILY@1700 02/22/24 04/11/24 04/12/24 History Exam Airway Mallampati Class: II TM Dist: <=3cm (very anterior, no neck, poss diff mask airway, definite diff direct laryngoscopy) Neck ROM: Full Denture: Upper and Lower Heart: ok. afib. Lungs: ok Assessment and Plan Assessment Anesthesia Assessment: Anesthesia Plan Discussed Final Anesthetic Review Family History of Problems with Anesthesia: No NPO: Yes ASA Class: III Final Preanesthetic Review: No Changes in Pt Med Stat, Meds/Allgs Chart Reviewed, Consent Obtained/Reviewed and Anes Risks/Benef Reviewed Patient Risk: High Procedure Risk: Low Anesthetic Plan Anesthetic Plan: GA and Agree w/ Assess. and Plan Disposition: Standard PACU
[2024-04-15] VITALS (13 sets, daily range): BP systolic 118–197; BP diastolic 59–88; PULSE 51–71; RESP 16; TEMP 36.1–36.2; O2SAT 93–98; BMI 34.3
[2024-04-15] MEDS: Lactated Ringers 1,000 ML 50 ML IVCONT (11:34)
--- NOTE | 2024-04-15 12:42 | MHC.SHP ---
Pre-Procedural Eval Section A - 24 Hr Update-Section A only Date of Service: 04/15/24 The patient is an INPATIENT: No Changes since office visit: No Cold of Flu in the past 2 weeks, No New Medical Problems, No Changes in Medication and No Patient answered all questions The patient has been examined within 24 hours of the surgical procedure. The History & Physical has been completed within 30 days and I have reviewed it.: No Section B - Complete if H&P > 30 days Chief Complaint: Malignant neoplasm of bladder, unspecified Details of Present Illness: Small recurrent tumor Relevant Family History (Specify if Yes): No Relevant Social History: Tobacco Use Present Medications: see Short Stay Collaborative assessment Medical History: No relevant PMH History of Previous Operations: Relevant previous surgery/procedure and date(s) Allergies: Allergies Allergy/AdvReac Type Severity Reaction Status Date / Time colesevelam [From WelChol] AdvReac Mild constipatio Verified 04/15/24 10:58 n Review of Systems Sugical H&P ROS: Negative: Constitution Exam Surgical H&P Exam: Normal: HEENT Plan Diagnosis/Plan: Unchanged (Cystoscopy, bladder biopsy, fulguration, installation) I have reviewed the history and physical and performed a pertinent physical examination on my patient. No changes have occurred unless specified. Time Spent With Patient Time: Total time managing care of this patient today ____ minutes.
--- NOTE | 2024-04-15 14:42 | W.PM.OPN ---
Operative Note Operative Note Date of Service: 04/15/24 Narrative: PreOperative Diagnosis: bladder cancer Post Operative Diagnosis: bladder cancer Procedure: cystoscopy, bladder biopsy, fulguration Surgeon: Dr Aquiles Valderrama Anesthesia: LMA Indications for procedure: Superficial bladder cancer. Here for cystoscopy, bladder biopsy. Evaluation. Procedure: After informed consent was verified the patient was brought to the operating room and placed in a supine position. Anesthesia was administered per protocol. The patient was placed in modified dorsal lithotomy position and prepped and draped in a sterile fashion. Safety pause time-out was performed. Antibiotics being given. Cystoscopy was performed. Lesion posterior wall was biopsied and fulgurated. Using narrow band imaging a 2nd suspicious was biopsied. Two other areas were fulgurated. At the completion of the procedure the bladder was irrigated. The cystoscope was removed. A [address] Marie catheter was inserted into the bladder. 10 cc was placed in the balloon. 40 mg of mitomycin-C and cytarabine was instilled into the bladder. The flow from the catheter was left clamped. The inflow to the catheter was attached to a 3 L normal saline bag. The patient tolerated the procedure well. They were extubated in the operating room and transferred in stable condition to the recovery area. Mitomycin-C will remain in the bladder for 1 hour. At the completion of 1 hour the clamp will be removed. The mitomycin-C will be allowed to egress to the urine collection bag. The 3 L bag of normal saline will be run at maximum rate through the bladder in order to dilute any residual mitomycin-C. The Marie catheter will then be removed. The patient tolerated the procedure well. They were extubated in operating room and transferred in stable conditions recovery area. Pathology: Bladder biopsies Drains: None
== END 2024-04-15 16:07 | disposition home or self-care (01) ==
PROVIDERS: PCP Internal Medicine; Visit Provider Urology
PROC: 0T5B8ZZ Destruction of Bladder, Via Natural or Artificial Opening Endoscopic (ICD-10-PCS; CPT 52224; principal; 2024-04-15 12:20)
DX: C67.9 Malignant neoplasm of bladder, unspecified (principal); E11.22 Type 2 diabetes mellitus with diabetic chronic kidney disease; I12.9 Hypertensive chronic kidney disease with stage 1 through stage 4 chronic kidney disease, or unspecified chronic kidney disease; N18.2 Chronic kidney disease, stage 2 (mild); I48.20 Chronic atrial fibrillation, unspecified; Z79.01 Long term (current) use of anticoagulants; Z79.4 Long term (current) use of insulin; Z79.899 Other long term (current) drug therapy
CPT/HCPCS: 52224; 51720; 88305; 88342; J1956; J2704; J3010; J9100; J9280

== ENCOUNTER → 2024-04-15 10:26 | Outpatient (BNV) | payer MEDICARE, SELFPAY | PROVIDERS: PCP Internal Medicine; Visit Provider Urology | DX: C67.9 Malignant neoplasm of bladder, unspecified (principal) | CPT/HCPCS: 52224 ==

== ENCOUNTER 2024-04-26 13:24 | Outpatient (AMB) | payer MEDICARE, SELFPAY ==
[2024-04-26 13:25] VITALS: BP 110/52; PULSE 70; O2SAT 97; BMI 35.0
--- NOTE | 2024-04-26 13:25 | A.OFFPC_ITS ---
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 Required: No Allergies colesevelam [From WelChol] Adverse Reaction (Mild, Verified 04/26/24 14:30) constipation Medication List - Last Reconciled 04/26/24 by Guido Andrade MD atorvastatin 40 mg PO DAILY 90 days cholecalciferol (vitamin D3) (Vitamin D3) 25 mcg PO DAILY dulaglutide (Trulicity) 1.5 mg subcut .QMONDAY duloxetine 30 mg PO DAILY 90 days ferrous sulfate (FeroSul) 325 mg PO DAILY 90 days flash glucose scanning reader (Space SciencesStyle Alina 2 [place]) As directed flash glucose sensor (FreeStyle Alina 2 Sensor kit) As directed every 2 weeks furosemide 20 mg PO DAILY 90 days gabapentin 200 mg (2 x 100 mg) PO TID 30 days ibuprofen (Advil) 200 mg PO Q6H PRN insulin glargine (Lantus U-100 Insulin) 40 units subcut BEDTIME insulin lispro (Humalog U-100 Insulin) 1 sliding scale dose See Protocol subcut TIDAC latanoprost 0.005% 1 drp ophthalmic-Right BEDTIME lisinopril 40 mg PO DAILY metoprolol tartrate 100 mg PO BID 90 days moxifloxacin 0.5% 1 drp ophthalmic-Left BID nitroglycerin 0.4 mg sublingual Q5M PRN pen needle, diabetic (BD Ultra-Fine Madeline Pen Needle) As directed 4 times a day pen needle, diabetic (BD Ultra-Fine Madeline Pen Needle) As directed once daily prednisolone acetate 1% 1 drp ophthalmic-Left BID rivaroxaban (Xarelto) 20 mg PO DAILY@1700 [SHOWER CHAIR As directed] terazosin 10 mg PO BEDTIME 90 days Tobacco use date assessed: 04/26/24 Fall risk assessment: No Falls in past year Last assessed Fall Risk: 04/26/24 Dental Screening Dental Screen Date: 12/11/23 HPI Raji cell carcinoma, HTN, hyperlipidemia, DM HPI Details Patient comes in today for his follow up visit States that he currently feels okay and appears to have recovered completely from the bout with pneumonia that he had early last month Recently underwent bladder fulguration for his recurrent bladder cancer with Dr. Valderrama a couple of weeks ago and that his surgery went okay He relates that he suddenly felt very dizzy and lightheaded when he got out of the car and was walking into the office a while ago and had to hug the wall coming in here - his thinks that he got dehydrated as it is very hot and humid outside and patient did not drink much fluids earlier today States that his dizziness has now subsided; he denies any headaches Denies any chest pains, no increased SOB No nausea/vomiting, no abdominal pain No change in bowel habits noted His states that she called up the other day asking if he has labs to do before his appointment today and was reportedly told by someone that he did not need to get any labs done so he was not able to get his follow up labs done as he was supposed to [facility] Medical History History of recent pneumonia (02/24/24) CHF (congestive heart failure) Chronic 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 On beta nahid at home Anemia Bladder cancer Chronic atrial fibrillation Chronic anticoagulation History of colon polyps Erectile dysfunction Chronic kidney disease (CKD), stage II (mild) Obesity (BMI 30-39.9) Benign essential hypertension Pure hypercholesterolemia Iron deficiency anemia [facility] (current) use of insulin 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 CAD (coronary artery disease) Hyperlipidemia LDL goal <70 Essential hypertension Type 2 diabetes mellitus with diabetic polyneuropathy Diabetes mellitus Surgical History History of surgery History of esophagogastroduodenoscopy (EGD) Hx of cystoscopy History of cystoscopy Hx of colonoscopy History of cataract surgery History of endoscopy Hx of removal of cyst Family History Father Medical history unknown Mother Diabetes Daughter In good health Son In good health Sister In good health Sister In good health Brother In good health Brother In good health Brother In good health Social History Household Members: Spouse and Family Housing: House Are you a primary animal care service worker to a significant other at home: No Do you presently have visiting nurse or other home services: No Alcohol intake: current Alcohol intake frequency: holidays/special occasions only Alcohol type: beer Comment: medicated in pacu Patient Tobacco Use Status: Former Tobacco user Tobacco use type: Cigarette Years Smoked: 20 e-Cigarette/Vaping Use: Never Used Second Hand Smoke Exposure: Yes Advance Directives Date on File: 09/07/21 service: No Current occupational status: retired Current occupational exposures/hazards: No Cognitive needs: Yes (cane) Hearing needs: No Vision needs: Yes Questionnaire Thrive Questionnaire Date Thrive assessed: 02/23/24 I am a: Patient What is your living situation today?: I have a steady place to live Within the past 12 months, did the food you bought not last and you didn't have the money to get more?: Never true Within the past 12 months, did you worry whether your food would run out before you got money to buy more?: Never true Do you have trouble paying for medicines?: No Do you have trouble getting transportation to medical appointments?: No Do you have trouble paying your heating and electricity bill?: No Do you have trouble taking care of your child, family member or friend?: No Do you have trouble with day-to-day activities such as bathing, preparing meals, shopping, managing finances, etc.?: No Are you currently unemployed and looking for a job?: No Are you interested in more education?: No Please select the resources that you would like help with: None Currently or been in a relationship where the following occur: no concerns reported THRIVE Score: 0 AUDIT C Alcohol Use Questionnaire (AUDIT-C) 1. How often do you have a drink containing alcohol?: Never 3. How often do you have six or more drinks on one occasion?: Never Total Score: 0 Score Reviewed/Action Taken: Yes MARKUS-7 AMB Questionnaire MARKUS-7 Date MARKUS - 7 assessed: 12/11/23 Source: Developed by Drs. Rich Garrido, Kym Rodriguez, Conrad Barraza and colleagues, with an educational micheline from [employer]. Review of Systems Const Denies chills, Reports fatigue, Denies fever(s) and Denies headache(s) ENT Denies dysphagia, Reports dizziness (earlier today but this has subsided), Denies otalgia, Denies headache(s), Denies neck pain, Denies odynophagia and Denies sore throat Card Denies chest pain, Denies palpitations and Denies dyspnea Resp Denies cough and Denies dyspnea GI Denies abdominal pain, Denies constipation, Denies dysphagia, Denies heartburn, Denies diarrhea, Denies nausea, Denies odynophagia and Denies vomiting Denies dysuria, Denies nocturia and Denies urinary frequency Musc Denies back pain and Denies neck pain Skin/Breast Denies rash Neuro Details: (+) bilateral leg pain Reports dizziness (earlier today but this has subsided) and Denies headache(s) Psych Denies depression (better on Rx) Endo Reports fatigue and Denies palpitations Physical exam (Primary Care) Vital Signs: Last Vital Signs Pulse 70 04/26/24 13:25 BP 110/52 L 04/26/24 13:25 Pulse Ox 97 04/26/24 13:25 Oxygen Delivery Method Room Air 04/26/24 13:25 BMI result Body Mass Index 35.0 Tobacco/Smoking Status: Tobacco use Status Tobacco use date assessed 04/26/24 04/26/24 13:26 Patient Tobacco Use Status Former Tobacco user 04/26/24 13:26 Tobacco use type Cigarette 04/26/24 13:26 e-Cigarette/Vaping Use Never Used 04/26/24 13:26 Thrive Assessment: Date of Thrive Assessment Date Thrive assessed 02/23/24 04/26/24 13:26 Currently or been in a relationship where the following occur: no concerns reported Const General: no acute distress and alert HENMT Ears: TM's normal bilaterally and EAC's normal Throat: Yes posterior oropharynx normal and Yes tonsils normal (no TP congestion noted) Neck Neck: Yes no lymphadenopathy and Yes supple Thyroid: Thyroid normal Resp Auscultation: clear to auscultation bilaterally, no rales and no wheezes Cardio Rate: regular rate Rhythm: abnormal rhythm irregularly irregular Heart sounds: no murmurs GI Palpation (GI): Soft to palpation and nontender Auscultation: normal bowel sounds General: Yes no CVA tenderness Back/Spine/Pelvis Back: no CVA tenderness Extrem General: Yes no clubbing, cyanosis or edema Results AMB Hemoglobin A1c AMB Hemoglobin A1c 7.1 % Last Edit by BRIA Sheehan on 04/26/24 13:43 Results Reviewed Results Reviewed: Laboratory Last Values Hgb A1c (Clinic) 7.1 % (4.0-6.0) H 04/26/24 13:00 Laboratory Tests 12/08/23 02/23/24 04/26/24 07:50 04:51 13:00 WBC 10.7 Hgb 11.3 L Hct 35.5 L Plt Count 136 L Sodium 141 Potassium 4.0 Creatinine 1.02 Estimated GFR > 60 Random Glucose 183 H Hgb A1c (Clinic) 7.1 H Hemoglobin A1c % 6.5 H Calcium 8.7 D AST 12 ALT 12 Assessment and Plan Assessment & Plan (1) Type 2 diabetes mellitus with diabetic chronic kidney disease: Code(s): E11.22 - Type 2 diabetes mellitus with diabetic chronic kidney disease Qualifiers: Diabetes mellitus salvage determiner insulin use: with salvage determiner use Chronic kidney disease stage: stage 2 (mild) Qualified Code(s): E11.22 - Type 2 diabetes mellitus with diabetic chronic kidney disease; N18.2 - Chronic kidney disease, stage 2 (mild); Z79.4 - assisted (current) use of insulin Plan: His in-office HgbA1c today is at 7.1% (HgbA1c was at 6.5% a few months ago) - goal is <7.0% Reinforced diabetic diet He is advised that it is not unexpected that his HgbA1c went up recently, considering that he had a bout with pneumonia last month and underwent bladder fulguration just a couple of weeks ago Continue Lantus 46 units daily at bedtime, Humalog 2 units with breakfast and lunch and 10 units with dinner and Trulicity 0.75 mg once a week for now Follow up with endocrinology (Dr. Fontaine) as scheduled for his diabetes management (2) Pure hypercholesterolemia: Code(s): E78.00 - Pure hypercholesterolemia, unspecified Plan: He was not able to get his follow up labs done as his reportedly called up the other day asking if he has labs to do before his appointment today and was reportedly told by someone that he did not need to get any labs done Reinforced low cholesterol diet Continue Atorvastatin 40 mg QD Will recheck his labs and fasting lipids in 4 months for follow up - will just have patient use his current orders (updated and printed out and handed to patient) for his next lab draw (3) Benign essential hypertension: Code(s): I10 - Essential (primary) hypertension Plan: Reinforced low sodium diet - goal is systolic BP of at least 130 mm or less Continue Metoprolol 100 mg BID Will try lowering his Lisinopril from 40 mg to 30 mg QD due to his recent bouts of low blood pressure and related symptoms Patient is reminded to continue monitoring his blood pressure regularly (4) Chronic atrial fibrillation: Code(s): I48.20 - Chronic atrial fibrillation, unspecified Plan: Patient is currently still in atrial fibrillation but remains rate-controlled; he has had no acute symptoms related to his AF Continue Metoprolol 100 mg BID Continue Xarelto 20 mg QD for thromboembolism prevention Follow up with cardiology as scheduled (5) Urinary bladder cancer: Comment: Low-grade recurrent Code(s): C67.9 - Malignant neoplasm of bladder, unspecified Qualifiers: Bladder location: unspecified site Qualified Code(s): C67.9 - Malignant neoplasm of bladder, unspecified Plan: S/P intravesical chemotherapy (BCG) for his bladder cancer in 2020 and just had bladder fulguration a couple of weeks ago on 04/15/2024 Follow up with urology as scheduled (6) 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 Code(s): C4A.9 - Raji cell carcinoma, unspecified Plan: S/P radiation therapy of the right forearm and axilla from 02/2022 to 03/2022 He was diagnosed with recurrent Boyd Cell carcinoma in 08/2022 and PET scan done in 09/2022 revealed (+) axillary adenopathy and multiple sites of probable bone metastatic disease Patient has been started on Pembrolizumab immunotherapy for his recurrent Boyd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 on 10/06/2022 and he is currently still on the same treatment and appears to be tolerating his immunotherapy well, follow-up with oncology as scheduled (7) Neuropathy: Code(s): G62.9 - Polyneuropathy, unspecified Plan: Patient still reports experiencing pain in both legs but symptoms have been better controlled on current Rx Continue Gabapentin 200 mg TID and Duloxetine 30 mg QD (8) Mood disorder: Code(s): F39 - Unspecified mood [affective] disorder Plan: Patient's states that his mood and depression have improved a lot lately on Rx Continue Duloxetine 30 mg QD (9) Obesity (BMI 30-39.9): Code(s): E66.9 - Obesity, unspecified Plan: Reinforced diet/exercise as tolerated/ lose weight Plan Follow up in 4 months Orders: Orders AMB Hemoglobin A1c Today E11.9 - Type 2 diabetes mellitus without complications Coding Level of Care Code Est Pt Level 4 (26827) Complex EM visit Add On G2211 Diagnoses Type 2 diabetes mellitus with stage 2 chronic kidney disease, with long-term current use of insulin E11.22; N18.2; Z79.4 Diabetes mellitus usp insulin use: with usp use Chronic kidney disease stage: stage 2 (mild) Pure hypercholesterolemia E78.00 Benign essential hypertension I10 Chronic atrial fibrillation I48.20 Malignant neoplasm of urinary bladder, unspecified site C67.9 Bladder location: unspecified site Raji cell cancer C4A.9 Neuropathy G62.9 Mood disorder F39 Obesity (BMI 30-39.9) E66.9
== END 2024-04-26 14:31 | disposition home or self-care (01) ==
PROVIDERS: PCP Internal Medicine; Visit Provider Internal Medicine
DX: I12.9 Hypertensive chronic kidney disease with stage 1 through stage 4 chronic kidney disease, or unspecified chronic kidney disease (principal); E11.22 Type 2 diabetes mellitus with diabetic chronic kidney disease; N18.2 Chronic kidney disease, stage 2 (mild); Z79.4 Long term (current) use of insulin; I48.20 Chronic atrial fibrillation, unspecified; E78.00 Pure hypercholesterolemia, unspecified; C67.9 Malignant neoplasm of bladder, unspecified; C4A.9 Merkel cell carcinoma, unspecified; F39 Unspecified mood [affective] disorder; E66.9 Obesity, unspecified; G62.9 Polyneuropathy, unspecified
CPT/HCPCS: 83036; 99214; G2211

== ENCOUNTER 2024-04-30 09:45 | Outpatient (AMB) | payer MEDICARE, SELFPAY ==
--- NOTE | 2024-04-30 09:53 | A.OFFVIS_ITS ---
Intake Visit Reasons: Bladder Biopsy- follow up Intake Note: Patient is present for bladder biosy F/U Urology Medication:furosemide Antibiotic Allergy:none Blood Thinner:none PT states it herrera when he urinates and urinating frequently. Engineering Technician Required: No Allergies colesevelam [From WelChol] Adverse Reaction (Mild, Verified 04/30/24 09:55) constipation Medication List - Last Reconciled 04/30/24 by Aquiles Valderrama MD atorvastatin 40 mg PO DAILY 90 days cholecalciferol (vitamin D3) (Vitamin D3) 25 mcg PO DAILY dulaglutide (Trulicity) 1.5 mg subcut .QMONDAY duloxetine 30 mg PO DAILY 90 days ferrous sulfate (FeroSul) 325 mg PO DAILY 90 days flash glucose scanning reader (TP[employer]Style Alina 2 [place]) As directed flash glucose sensor (FreeStyle Alina 2 Sensor kit) As directed every 2 weeks furosemide 20 mg PO DAILY 90 days gabapentin 200 mg (2 x 100 mg) PO TID 30 days ibuprofen (Advil) 200 mg PO Q6H PRN insulin glargine (Lantus U-100 Insulin) 40 units subcut BEDTIME insulin lispro (Humalog U-100 Insulin) 1 sliding scale dose See Protocol subcut TIDAC latanoprost 0.005% 1 drp ophthalmic-Right BEDTIME lisinopril 40 mg PO DAILY metoprolol tartrate 100 mg PO BID 90 days moxifloxacin 0.5% 1 drp ophthalmic-Left BID nitroglycerin 0.4 mg sublingual Q5M PRN pen needle, diabetic (BD Ultra-Fine Madeline Pen Needle) As directed 4 times a day pen needle, diabetic (BD Ultra-Fine Madeline Pen Needle) As directed once daily phenazopyridine 100 mg PO Q8H PRN 14 days prednisolone acetate 1% 1 drp ophthalmic-Left BID rivaroxaban (Xarelto) 20 mg PO DAILY@1700 [SHOWER CHAIR As directed] terazosin 10 mg PO BEDTIME 90 days HPI Comments Details: Kamlesh is a pleasant male. He is a patient of Dr. Andrade. He is seen for the following urologic conditions - complex renal cyst - weakness of stream - hematuria - bladder cancer Recent bladder biopsy with diagnosis of treatment effect. 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 Imaging - 04/26 CT scan left side 2cm simple renal cyst Bladder outlet obstruction Initial symptoms Weak stream, Nocturia 2-3, Bother 3 Good response to terazosin 5 mg Continue medications PFSH Medical History History of recent pneumonia (02/24/24) CHF (congestive heart failure) Chronic a-fib [place] cell cancer 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 On beta nahid at home Anemia Bladder cancer Chronic atrial fibrillation Chronic anticoagulation History of colon polyps Erectile dysfunction Chronic kidney disease (CKD), stage II (mild) Obesity (BMI 30-39.9) Benign essential hypertension Pure hypercholesterolemia Iron deficiency anemia [facility] (current) use of insulin 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 CAD (coronary artery disease) Hyperlipidemia LDL goal <70 Essential hypertension Type 2 diabetes mellitus with diabetic polyneuropathy Diabetes mellitus Surgical History History of surgery History of esophagogastroduodenoscopy (EGD) Hx of cystoscopy History of cystoscopy Hx of colonoscopy History of cataract surgery History of endoscopy Hx of removal of cyst Family History Father Medical history unknown Mother Diabetes Daughter In good health Son In good health Sister In good health Sister In good health Brother In good health Brother In good health Brother In good health Social History Household Members: Spouse and Family Housing: House Are you a primary client care specialist to a significant other at home: No Do you presently have visiting nurse or other home services: No Alcohol intake: current Alcohol intake frequency: holidays/special occasions only Alcohol type: beer Comment: medicated in pacu Patient Tobacco Use Status: Former Tobacco user Tobacco use type: Cigarette Years Smoked: 20 e-Cigarette/Vaping Use: Never Used Second Hand Smoke Exposure: Yes Advance Directives Date on File: 09/07/21 service: No Current occupational status: retired Current occupational exposures/hazards: No Cognitive needs: Yes (cane) Hearing needs: No Vision needs: Yes Review of Systems Const Denies chills and Denies fever(s) Card Reports no additional complaints and Denies syncope Resp Denies cough GI Denies abdominal pain and Denies heartburn Reports as per HPI and Denies change in libido Neuro Denies syncope Psych Denies change in libido Endo Denies change in libido Physical Exam Const General: cooperative, healthy appearing, comfortable and no acute distress Orientation/consciousness: patient oriented x3 HEENT Face and sinus: Yes normal facial exam Mouth: moist mucous membranes Neck Neck: Yes normal visual inspection, Yes full ROM and Yes trachea midline Chest Chest palpation & inspection: normal inspection of the chest Resp Effort & Inspection: normal respiratory effort, able to speak in complete sentences and no respiratory distress GI Inspection: Yes normal to inspection Back/Spine/Pelvis Cervical Spine: normal cervical lordosis Thoracic/Lumbar Spine: thoracic and lumbar spine normal to inspection Skin General skin exam: no rashes or lesions noted Neuro General: patient oriented x3, gait normal, tone normal and moves all extremities Extrem General: Yes normal to inspection and Yes capillary refill normal Assessment & Plan Assessment & Plan (1) Urinary urgency: Code(s): R39.15 - Urgency of urination Category: Medical (2) Bladder cancer: Comment: 05/26 recurrent high-grade superficial bladder cancer Code(s): C67.9 - Malignant neoplasm of bladder, unspecified Category: Medical Plan Current urge frequency Add Pyridium 4 month follow-up Medications: New phenazopyridine 100 mg PO Q8H PRN 20 tabs 0RF pain 14 days R39.15 - Urgency of urination Patient Instructions: Imaging studies, laboratory and physical exam results were discussed and reviewed in detail. No major barriers to patient understanding were identified. An opportunity to ask questions regarding the treatment plan was provided. All questions were answered. The patient expressed understanding and agreement with the above treatment plan. The patient is aware they should contact our office by phone for worsening of their current condition or the appearance of new urologic symptoms. Compliance is encouraged with any medications and followup testing that is ordered. It is a privilege to participate in the urologic care of your patient. If you have any questions or concerns regarding treatment for the above conditions, or other urologic issues, please do not hesitate to contact me. The office telepho ne contact is [phone]. This note is constructed using voice recognition software. While every effort has been made to ensure accuracy consumer marketing analyst errors may have been included. Yours sincerely, Dr Aquiles Valderrama MD, [facility] - Urology Providers of Expert, Compassionate Care for the Genitourinary System Coding Level of Care Code Est Pt Level 3 (58780) Diagnoses Urinary urgency R39.15 Bladder cancer C67.9
== END 2024-04-30 10:19 | disposition home or self-care (01) ==
PROVIDERS: PCP Internal Medicine; Visit Provider Urology
DX: R39.15 Urgency of urination (principal); C67.9 Malignant neoplasm of bladder, unspecified
CPT/HCPCS: 99213

== ENCOUNTER → 2024-04-30 09:45 | Outpatient (BNVA) | payer MEDICARE, SELFPAY | PROVIDERS: PCP Internal Medicine; Visit Provider Urology | DX: C67.9 Malignant neoplasm of bladder, unspecified (principal); R39.15 Urgency of urination | CPT/HCPCS: 99212 ==

== ENCOUNTER 2024-05-31 12:12 | Outpatient (REF) | payer MEDICARE, SELFPAY ==
[2024-05-31 12:20] LABS: Appearance Urine Clear; Color Urine Yellow; Glucose Urine UA Negative (Negative); Leukocyte Esterase Urine Small (1+) (Negative); Nitrite Urine Negative (Negative); Specific Gravity - Urine 1.015 (1.005-1.025); UMIC TRIGGER UA YES; Urine Blood Large (3+) (Negative); Urine Ketones Negative (Negative); Urine Protein Trace mg/dL (Neg-Trace)
[2024-05-31 12:26] LABS: Bacteria Urine None Seen (None Seen); RBC Urine >20 /HPF (0-2); Squamous Epithelial Cell Urine 0-2 /HPF (0-2); WBC Urine 21-50 /HPF (0-5)
== END 2024-05-31 12:13 | disposition home or self-care (01) ==
LOC: HO.LNP 12:12
PROVIDERS: Visit Provider Urology
DX: R39.15 Urgency of urination (principal); N39.0 Urinary tract infection, site not specified; R35.0 Frequency of micturition
CPT/HCPCS: 81001; 87086

== ENCOUNTER 2024-08-06 08:51 | Outpatient (REF) | payer MEDICARE, SELFPAY ==
[2024-08-06 09:19] LABS: MANUAL DIFF FLAG NO
[2024-08-06 10:01] LABS: Basophils Absolute Auto 0.1 X10*3/uL (0.0-0.2); Basophils Percent Auto 0.7 % (0-2); Eosinophils Absolute Auto 0.3 X10*3/uL (0.0-0.4); Eosinophils Percent Auto 3.1 % (0-4); Hematocrit 42.7 % (42.0-52.0); Hemoglobin 13.7 g/dl (14.0-18.0); Imm Gran Abs Auto 0.16 X10*3/uL (0.00-0.03); Imm Gran Pct Auto 1.9 % (0.0-0.4); Lymphocytes Absolute Auto 1.1 X10*3/uL (1.2-4.9); Lymphocytes Percent Auto 13.6 % (20-40); Mean Corpuscular HGB Conc 32.1 g/dl (31.0-36.0); Mean Corpuscular Hemoglobin 27.5 pg (27.0-33.0); Mean Corpuscular Volume 85.6 fL (80.0-98.0); Mean Platelet Volume 10.4 fL (9.4-12.4); Monocytes Absolute Auto 0.6 X10*3/uL (0.1-1.2); Monocytes Percent Auto 7.1 % (2-11); Neutrophils Absolute Auto 6.1 x10*3/uL (2.0-8.3); Neutrophils Percent Auto 73.6 % (45-73); Platelet Count 250 X10*3/uL (160-400); Red Blood Count 4.99 X10*6/uL (4.60-5.80); Red Cell Distribution Width 14.1 % (11.0-16.0); White Blood Count 8.3 X10*3/uL (4.8-10.8)
[2024-08-06 10:05] LABS: Appearance Urine Clear; Color Urine Yellow; Glucose Urine UA 500 mg/dL (Negative); Leukocyte Esterase Urine Negative (Negative); Nitrite Urine Negative (Negative); Specific Gravity - Urine 1.015 (1.005-1.025); Urine Blood Negative (Negative); Urine Ketones Negative (Negative); Urine Protein Negative (Neg-Trace)
[2024-08-06 10:24] LABS: Estimated Average Glucose 169 mg/dL; Hemoglobin A1C 202.1159 umol/L; Hemoglobin A1c % 7.5 % (<6.0); Total Hemoglobin (HGBA1C) 3462.5226 umol/L
[2024-08-06 10:40] LABS: Microalbum/Creatinine Ratio Ur 30.8 ug/mg cr (<30)
[2024-08-06 10:57] LABS: Alanine Aminotransferase 20 U/L (0-40); Albumin Level 3.1 g/dL (3.5-5.0); Alkaline Phosphatase 136 U/L (39-117); Anion Gap 14 (12-20); Aspartate Amino Transferase 21 U/L (5-37); Bilirubin Total 0.4 mg/dL (0.0-1.0); Blood Urea Nitrogen 15 mg/dL (9-16); Carbon Dioxide 31 mmol/L (22-29); Chloride 103 mmol/L (96-108); Cholesterol 110 mg/dL (<200); Estimated Glomerular Filt Rate > 60; Glucose Fasting 123 mg/dL (60-99); HDL Cholesterol 30 mg/dL (>40); LDL Cholesterol Calculated 59 mg/dL (<100); Potassium 4.1 mmol/L (3.3-5.1); Sodium 144 mmol/L (135-145); Total Protein 6.7 g/dL (6.5-8.0); Triglycerides 109 mg/dL (<150)
[2024-08-06 11:15] LABS: Folate 8.3 ng/mL (> or = 4.0); Vitamin B12 1370 pg/mL (200-900)
[2024-08-06 11:16] LABS: TSH reflex Free T4 2.72 uIU/mL (0.32-4.0); Vitamin D 25-OH Total 42.9 ng/mL (>30)
== END 2024-08-06 08:52 | disposition home or self-care (01) ==
LOC: HO.LAB 08:51
PROVIDERS: PCP Internal Medicine; Visit Provider Internal Medicine
DX: E11.9 Type 2 diabetes mellitus without complications (principal); R30.0 Dysuria; E55.9 Vitamin D deficiency, unspecified; D64.9 Anemia, unspecified; E78.00 Pure hypercholesterolemia, unspecified; E53.8 Deficiency of other specified B group vitamins
CPT/HCPCS: 36415; 80053; 80061; 81003; 82043; 82306; 82570; 82607; 82746; 83036; 84443; 85025

== ENCOUNTER 2024-08-30 10:42 | Outpatient (AMB) | payer MEDICARE, SELFPAY ==
--- NOTE | 2024-08-30 10:54 | MHC.PC.OV ---
Vital Signs 08/30/24 10:56 Height 5 ft 9 in Weight 236 lb BMI 34.8 BP 130/66 Blood Pressure Location Lt brachial Position Sitting Pulse 58 Pulse Source Pulse Oximeter Pulse Oximetry (%) 94 Intake Visit Reasons: 4mth f/u Intake Note: Patient is here to follow up on DM, CAD, HTN, Hypercholesterolemia. Pt decline flu shot today. Milk Treater Required: No Sheeter Machine Operator: Present Accompanied by: Spouse Allergies colesevelam [From WelChol] Adverse Reaction (Mild, Verified 08/30/24 11:56) constipation Medication List - Last Reconciled 08/30/24 by Guido Andrade MD atorvastatin 40 mg PO DAILY 90 days blood-glucose meter,continuous (FreeStyle Alina 3 [place]) As directed blood-glucose sensor (FreeStyle Alina 3 Plus Sensor device) As directed blood-glucose sensor (FreeStyle Alina 3 Sensor device) As directed cholecalciferol (vitamin D3) (Vitamin D3) 25 mcg PO DAILY codeine-guaifenesin 10-100 mg/5 mL 5 mL PO Q6H PRN dulaglutide (Trulicity) 1.5 mg subcut .QMONDAY duloxetine 30 mg PO DAILY 90 days ferrous sulfate (FeroSul) 325 mg PO DAILY 90 days flash glucose scanning reader (FreeStyle Alina 2 [place]) As directed flash glucose sensor (FreeStyle Alina 2 Sensor kit) As directed every 2 weeks furosemide 20 mg PO DAILY 90 days gabapentin 200 mg (2 x 100 mg) PO TID 30 days ibuprofen (Advil) 200 mg PO Q6H PRN insulin glargine (Lantus U-100 Insulin) 40 units subcut BEDTIME insulin lispro (Humalog U-100 Insulin) 1 sliding scale dose See Protocol subcut TIDAC latanoprost 0.005% 1 drp ophthalmic-Right BEDTIME lisinopril 40 mg PO DAILY 90 days metoprolol tartrate 100 mg PO BID 90 days moxifloxacin 0.5% 1 drp ophthalmic-Left BID nitroglycerin 0.4 mg sublingual Q5M PRN pen needle, diabetic (BD Ultra-Fine Madeline Pen Needle) As directed 4 times a day pen needle, diabetic (BD Ultra-Fine Madeline Pen Needle) As directed once daily phenazopyridine 100 mg PO Q8H PRN 14 days prednisolone acetate 1% 1 drp ophthalmic-Left BID rivaroxaban (Xarelto) 20 mg PO DAILY@1700 [SHOWER CHAIR As directed] terazosin 10 mg PO BEDTIME 90 days Tobacco use date assessed: 08/30/24 Fall risk assessment: No Falls in past year Last assessed Fall Risk: 08/30/24 Dental Screening Dental Screen Date: 12/11/23 HPI 4mth f/u HPI Details Patient comes in today for his follow up visit States that he is still undergoing immunotherapy with Pembrolizumab every 6 weeks and is overall tolerating his treatments although he reports feeling tired a lot lately States that he will be receiving his last done of Keytruda in late October / early November and is hoping that he will not need any further treatments afterwards He has also been experiencing increased (chronic) pain in his knees and legs and reportedly had MRI done in [place] recently and was told that his pain is mostly due to some degenerative arthritis (?) and there is nothing much to do at this point except takes some meds to help control his symptoms He denies any headaches or dizziness Denies any chest pains, no SOB No nausea/vomiting, no abdominal pain No change in bowel habits noted He had his follow up labs done a few weeks ago - to discuss his results [facility] Medical History History of recent pneumonia (02/24/24) CHF (congestive heart failure) Chronic 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 On beta nahid at home Anemia Bladder cancer Chronic atrial fibrillation Chronic anticoagulation History of colon polyps Erectile dysfunction Chronic kidney disease (CKD), stage II (mild) Obesity (BMI 30-39.9) Benign essential hypertension Pure hypercholesterolemia Iron deficiency anemia senior living (current) use of insulin 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 CAD (coronary artery disease) Hyperlipidemia LDL goal <70 Essential hypertension Type 2 diabetes mellitus with diabetic polyneuropathy Diabetes mellitus Surgical History History of surgery History of esophagogastroduodenoscopy (EGD) Hx of cystoscopy History of cystoscopy Hx of colonoscopy History of cataract surgery History of endoscopy Hx of removal of cyst Family History Father Medical history unknown Mother Diabetes Daughter In good health Son In good health Sister In good health Sister In good health Brother In good health Brother In good health Brother In good health Social History Household Members: Spouse and Family Housing: House Are you a primary urgent care physician to a significant other at home: No Do you presently have visiting nurse or other home services: No Alcohol intake: current Alcohol intake frequency: holidays/special occasions only Alcohol type: beer Comment: medicated in pacu Patient Tobacco Use Status: Former Tobacco user Tobacco use type: Cigarette Years Smoked: 20 e-Cigarette/Vaping Use: Never Used Second Hand Smoke Exposure: Yes Advance Directives Date on File: 09/07/21 service: No Current occupational status: retired Current occupational exposures/hazards: No Cognitive needs: Yes (cane) Hearing needs: No Vision needs: Yes Questionnaire Thrive Questionnaire Date Thrive assessed: 02/23/24 THRIVE Score: 0 MARKUS-7 AMB Questionnaire MARKUS-7 Date MARKUS - 7 assessed: 12/11/23 Source: Developed by Drs. Rich Garrido, Kym Rodriguez, Conrad Barraza and colleagues, with an educational micheline from [email or web address]. Review of Systems Const Denies chills, Reports fatigue, Denies fever(s) and Denies headache(s) ENT Denies dysphagia, Denies dizziness, Denies otalgia, Denies headache(s), Denies neck pain, Denies odynophagia and Denies sore throat Card Denies chest pain, Denies palpitations and Denies dyspnea Resp Denies chest congestion, Denies cough and Denies dyspnea GI Denies abdominal pain, Denies constipation, Denies dysphagia, Denies heartburn, Denies diarrhea, Denies nausea, Denies odynophagia and Denies vomiting Denies dysuria, Denies nocturia and Denies urinary frequency Musc Denies back pain and Denies neck pain Skin/Breast Denies rash Neuro Details: (+) bilateral leg pain Denies dizziness and Denies headache(s) Psych Denies depression (better on Rx) Endo Reports fatigue and Denies palpitations Physical exam (Primary Care) Vital Signs: Last Vital Signs Pulse 58 08/30/24 10:56 BP 130/66 08/30/24 10:56 Pulse Ox 94 08/30/24 10:56 BMI result Body Mass Index 34.8 Tobacco/Smoking Status: Tobacco use Status Tobacco use date assessed 08/30/24 08/30/24 11:00 Patient Tobacco Use Status Former Tobacco user 08/30/24 11:00 Tobacco use type Cigarette 08/30/24 11:00 e-Cigarette/Vaping Use Never Used 08/30/24 11:00 Thrive Assessment: Date of Thrive Assessment Date Thrive assessed 02/23/24 08/30/24 11:00 Const General: no acute distress and alert HENMT Ears: TM's normal bilaterally and EAC's normal Throat: Yes posterior oropharynx normal and Yes tonsils normal (no TP congestion noted) Neck Neck: Yes no lymphadenopathy and Yes supple Thyroid: Thyroid normal Resp Auscultation: clear to auscultation bilaterally, no rales and no wheezes Cardio Rate: regular rate Rhythm: abnormal rhythm irregularly irregular Heart sounds: no murmurs GI Palpation (GI): Soft to palpation and nontender Auscultation: normal bowel sounds General: Yes no CVA tenderness Back/Spine/Pelvis Back: no CVA tenderness Extrem General: Yes no clubbing, cyanosis or edema Results Reviewed Results Reviewed: Laboratory Tests 08/06/24 08/06/24 09:17 09:18 WBC 8.3 Hgb 13.7 L D Hct 42.7 D Plt Count 250 D Sodium 144 Potassium 4.1 Creatinine 1.08 Estimated GFR > 60 Fasting Glucose 123 H Hemoglobin A1c % 7.5 H Calcium 9.0 AST 21 ALT 20 Triglycerides 109 Cholesterol 110 LDL Cholesterol, Calc 59 HDL Cholesterol 30 L Vitamin B12 1370 H 25-OH Vitamin D Total 42.9 TSH 2.72 Ur Specific [place] 1.015 Urine Protein Negative Urine Glucose (UA) 500 H Urine Blood Negative Urine Nitrite Negative Ur Leukocyte Esterase Negative Microalb/Creat Ratio 30.8 H Coding Level of Care Code Est Pt Level 4 (92761) Diagnoses Type 2 diabetes mellitus with stage 2 chronic kidney disease, with long-term current use of insulin E11.22; N18.2; Z79.4 Diabetes mellitus nursing home insulin use: with nursing home use Chronic kidney disease stage: stage 2 (mild) Pure hypercholesterolemia E78.00 Benign essential hypertension I10 Chronic atrial fibrillation I48.20 Malignant neoplasm of urinary bladder, unspecified site C67.9 Bladder location: unspecified site Monson cell cancer C4A.9 Neuropathy G62.9 Mood disorder F39 Obesity (BMI 30-39.9) E66.9 Assessment & Plan Assessment & Plan (1) Type 2 diabetes mellitus with diabetic chronic kidney disease: Code(s): E11.22 - Type 2 diabetes mellitus with diabetic chronic kidney disease Category: Medical Qualifiers: Diabetes mellitus nursing home insulin use: with director long term care use Chronic kidney disease stage: stage 2 (mild) Qualified Code(s): E11.22 - Type 2 diabetes mellitus with diabetic chronic kidney disease; N18.2 - Chronic kidney disease, stage 2 (mild); Z79.4 - senior living (current) use of insulin Plan: His HgbA1c was at 7.5% on his labs done a few weeks ago (in-office HgbA1c was at 7.1% a few months ago) - goal is <7.0% Reinforced diabetic diet Have advised him that his ongoing immunotherapy may also be affecting his blood sugar but cautioned that he has gone from 6.5% earlier this year to 7.5% now Continue Lantus 46 units daily at bedtime, Humalog 2 units with breakfast and lunch and 10 units with dinner and Trulicity 0.75 mg once a week for now Follow up with endocrinology (Dr. Fontaine) as scheduled for his diabetes management (2) Pure hypercholesterolemia: Code(s): E78.00 - Pure hypercholesterolemia, unspecified Category: Medical Plan: Results of his labs done a few weeks ago reviewed and discussed with patient Reinforced low cholesterol diet Continue Atorvastatin 40 mg QD Will recheck his labs and fasting lipids in 4 months for follow up - (3) Benign essential hypertension: Code(s): I10 - Essential (primary) hypertension Category: Medical Plan: Reinforced low sodium diet - goal is systolic BP of at least 130 mm or less Continue Metoprolol 100 mg BID and Lisinopril 30 mg QD - dose was lowered a few months ago due to his recurrent bouts of low blood pressure and related symptoms back then Patient is reminded to continue monitoring his blood pressure regularly (4) Chronic atrial fibrillation: Code(s): I48.20 - Chronic atrial fibrillation, unspecified Category: Medical Plan: Patient is currently still in atrial fibrillation but remains rate-controlled; he has had no acute symptoms related to his AF Continue Metoprolol 100 mg BID Continue Xarelto 20 mg QD for thromboembolism prevention Follow up with cardiology as scheduled (5) Urinary bladder cancer: Comment: Low-grade recurrent Code(s): C67.9 - Malignant neoplasm of bladder, unspecified Category: Medical Qualifiers: Bladder location: unspecified site Qualified Code(s): C67.9 - Malignant neoplasm of bladder, unspecified Plan: S/P intravesical chemotherapy (BCG) for his bladder cancer in 2020 and had bladder fulguration a few months ago on 04/15/2024 Follow up with urology as scheduled for continuing management and surveillance (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 Code(s): C4A.9 - Monson cell carcinoma, unspecified Category: Medical Plan: S/P radiation therapy of the right forearm and axilla from 02/2022 to 03/2022 He was diagnosed with recurrent Monson Cell carcinoma in 08/2022 and PET scan done in 09/2022 revealed (+) axillary adenopathy and multiple sites of probable bone metastases Patient was started on Pembrolizumab immunotherapy for his recurrent Raji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 on 10/06/2022 and he is currently still on the same treatment and appears to be tolerating his immunotherapy well Goal is immunotherapy x 2 years and he is scheduled to get his last treatment dose in a couple of months Follow-up with oncology as scheduled for continuing management (7) Neuropathy: Code(s): G62.9 - Polyneuropathy, unspecified Category: Medical Plan: Patient continues to report increased pain in both legs - states that his current Rx help but only to some extent Continue Gabapentin 200 mg TID and Duloxetine 30 mg QD (8) Mood disorder: Code(s): F39 - Unspecified mood [affective] disorder Category: Medical Plan: Patient's states that his mood and depression have improved a lot on his Rx Continue Duloxetine 30 mg QD (9) Obesity (BMI 30-39.9): Code(s): E66.9 - Obesity, unspecified Category: Medical Plan: Reinforced diet; exercise and weight loss are not really realistic given patient's neuropathy and other physical issues and comorbidities Plan Follow up in 4 months Orders: Orders Complete Blood Count Auto Diff 4 Months D64.9 - Anemia, unspecified Comprehensive [place]. Panel Fast 4 Months E78.00 - Pure hypercholesterolemia, unspecified Lipid Panel 4 Months E78.00 - Pure hypercholesterolemia, unspecified TSH reflex Free T4 4 Months E78.00 - Pure hypercholesterolemia, unspecified UA CC w/rflx Micro + Cult 4 Months R30.0 - Dysuria Hemoglobin A1c 4 Months E11.9 - Type 2 diabetes mellitus without complications Microalbumin, Random (w Creat) 4 Months E11.9 - Type 2 diabetes mellitus without complications Vitamin D 25-OH Total 4 Months E55.9 - Vitamin D deficiency, unspecified
[2024-08-30 10:56] VITALS: BP 130/66; PULSE 58; O2SAT 94; BMI 34.8
== END 2024-08-30 11:40 | disposition home or self-care (01) ==
PROVIDERS: PCP Internal Medicine; Visit Provider Internal Medicine
DX: I12.9 Hypertensive chronic kidney disease with stage 1 through stage 4 chronic kidney disease, or unspecified chronic kidney disease (principal); E11.22 Type 2 diabetes mellitus with diabetic chronic kidney disease; N18.2 Chronic kidney disease, stage 2 (mild); Z79.4 Long term (current) use of insulin; I48.20 Chronic atrial fibrillation, unspecified; C67.9 Malignant neoplasm of bladder, unspecified; C4A.9 Merkel cell carcinoma, unspecified; F39 Unspecified mood [affective] disorder; E78.00 Pure hypercholesterolemia, unspecified; G62.9 Polyneuropathy, unspecified; E66.9 Obesity, unspecified

== ENCOUNTER → 2024-08-30 10:42 | Outpatient (BNVA) | payer MEDICARE, SELFPAY | PROVIDERS: PCP Internal Medicine; Visit Provider Internal Medicine | DX: I12.9 Hypertensive chronic kidney disease with stage 1 through stage 4 chronic kidney disease, or unspecified chronic kidney disease (principal); E11.22 Type 2 diabetes mellitus with diabetic chronic kidney disease; N18.2 Chronic kidney disease, stage 2 (mild); Z79.4 Long term (current) use of insulin; E78.00 Pure hypercholesterolemia, unspecified; I48.20 Chronic atrial fibrillation, unspecified; C67.9 Malignant neoplasm of bladder, unspecified; C4A.9 Merkel cell carcinoma, unspecified; G62.9 Polyneuropathy, unspecified; F39 Unspecified mood [affective] disorder; E66.9 Obesity, unspecified | CPT/HCPCS: 99212 ==

== ENCOUNTER 2024-09-07 22:04 | Emergency (ER) | payer MEDICARE, SELFPAY ==
[2024-09-07 22:06] VITALS: BP 187/73; PULSE 69; RESP 18; TEMP 36.8; O2SAT 97; BMI 34.7
[2024-09-07 22:26] LABS: MANUAL DIFF FLAG NO
[2024-09-07 22:28] LABS: Basophils Absolute Auto 0.1 X10*3/uL (0.0-0.2); Basophils Percent Auto 1.1 % (0-2); Eosinophils Absolute Auto 0.2 X10*3/uL (0.0-0.4); Eosinophils Percent Auto 3.3 % (0-4); Hematocrit 39.5 % (42.0-52.0); Hemoglobin 12.9 g/dl (14.0-18.0); Imm Gran Abs Auto 0.03 X10*3/uL (0.00-0.03); Imm Gran Pct Auto 0.4 % (0.0-0.4); Lymphocytes Percent Auto 13.2 % (20-40); Mean Corpuscular HGB Conc 32.7 g/dl (31.0-36.0); Mean Corpuscular Hemoglobin 28.6 pg (27.0-33.0); Mean Corpuscular Volume 87.6 fL (80.0-98.0); Mean Platelet Volume 10.2 fL (9.4-12.4); Monocytes Absolute Auto 0.6 X10*3/uL (0.1-1.2); Monocytes Percent Auto 7.6 % (2-11); Neutrophils Absolute Auto 5.5 x10*3/uL (2.0-8.3); Neutrophils Percent Auto 74.4 % (45-73); Platelet Count 169 X10*3/uL (160-400); Red Blood Count 4.51 X10*6/uL (4.60-5.80); White Blood Count 7.4 X10*3/uL (4.8-10.8)
[2024-09-07 22:37] LABS: INTERNATIONAL NORM RATIO 2.1 (0.9-1.1); Prothrombin Time 24.7 SEC (10.9-12.4)
[2024-09-07 22:52] LABS: Alanine Aminotransferase 19 U/L (0-40); Albumin Level 3.4 g/dL (3.5-5.0); Alkaline Phosphatase 121 U/L (39-117); Anion Gap 18 (12-20); Aspartate Amino Transferase 25 U/L (5-37); Bilirubin Total 0.6 mg/dL (0.0-1.0); Blood Urea Nitrogen 15 mg/dL (9-16); Calcium 9.6 mg/dL (8.4-10.2); Carbon Dioxide 25 mmol/L (22-29); Chloride 104 mmol/L (96-108); Creatinine Clr Calc Pharmacy 84.1; Estimated Glomerular Filt Rate > 60; Glucose Random 166 mg/dL (60-115); Sodium 143 mmol/L (135-145); Total Protein 6.9 g/dL (6.5-8.0)
[2024-09-08 01:03] VITALS: BP 187/73; PULSE 69; RESP 18; TEMP 36.8; O2SAT 97
[2024-09-08] MEDS: Silver Nitrate Applicator STICK..EA. 1 APPL TOPICAL (01:50)
--- NOTE | 2024-09-08 01:57 | ED.EPISTAXIS ---
History of Present Illness General Chief Complaint: Epistaxis Stated Complaint: nose keep bleeding/cancer pt/blood thinners/diabet Time Seen by Provider: 09/08/24 01:28 EDT Source: patient Mode of arrival: ambulatory Limitations: no limitations History of Present Illness HPI Narrative: Patient history of atrial fibrillation on Xarelto comes here for intermittent bleeding for last 3 days got worse no melena no bleeding from any other place for last 4 hours patient has not been bleeding Related Data Home Medications ?Medication ?Instructions ?Recorded ?Confirmed latanoprost 0.005 % eye drops 1 drp ophthalmic-Right BEDTIME 08/20/20 08/30/24 nitroglycerin 0.4 mg sublingual 0.4 mg sublingual Q5M PRN Chest 08/25/20 08/30/24 tablet Pain insulin glargine 100 unit/mL 40 unit subcut BEDTIME 03/11/23 08/30/24 subcutaneous solution (Lantus U-100 Insulin) dulaglutide 1.5 mg/0.5 mL 1.5 mg subcut .QMONDAY 02/22/24 08/30/24 subcutaneous pen injector (Trulicity) ibuprofen 200 mg tablet (Advil) 200 mg PO Q6H PRN Pain 02/22/24 08/30/24 insulin lispro 100 unit/mL 1 sliding scale dose subcut TIDAC 02/22/24 08/30/24 subcutaneous solution (Humalog U-100 Insulin) moxifloxacin 0.5 % eye drops 1 drp ophthalmic-Left BID 02/22/24 08/30/24 prednisolone acetate 1 % eye 1 drp ophthalmic-Left BID 02/22/24 08/30/24 drops,suspension rivaroxaban 20 mg tablet (Xarelto) 20 mg PO DAILY@1700 02/22/24 08/30/24 Previous Rx's ?Medication ?Instructions ?Recorded pen needle, diabetic 32 gauge x #100 ea 02/28/22 (BD Ultra-Fine Madeline Pen Needle) flash glucose scanning reader #1 ea 04/04/23 (FreeStyle Alina 2 [place]) pen needle, diabetic 32 gauge x #100 ea 06/05/23 (BD Ultra-Fine Madeline Pen Needle) SHOWER CHAIR #1 ea 06/15/23 furosemide 20 mg tablet 20 mg PO DAILY 90 days #90 tabs 12/20/23 cholecalciferol (vitamin D3) 25 25 mcg PO DAILY #90 tabs 03/04/24 mcg (1,000 unit) tablet (Vitamin D3) flash glucose sensor (FreeStyle #2 ea 03/25/24 Alina 2 Sensor kit) phenazopyridine 100 mg tablet 100 mg PO Q8H PRN pain 14 days #20 04/30/24 tabs metoprolol tartrate 100 mg tablet 100 mg PO BID 90 days #180 tabs 05/06/24 ferrous sulfate 325 mg (65 mg 325 mg PO DAILY 90 days #90 tabs 05/10/24 iron) tablet (FeroSul) duloxetine 30 mg capsule,delayed 30 mg PO DAILY 90 days #90 caps 05/19/24 release atorvastatin 40 mg tablet 40 mg PO DAILY 90 days #90 tabs 05/29/24 blood-glucose meter,continuous #1 ea 05/30/24 (FreeStyle Alina 3 [place]) lisinopril 40 mg tablet 40 mg PO DAILY 90 days #90 tabs 05/30/24 gabapentin 100 mg capsule 200 mg (2 x 100 mg) PO TID 30 days 07/01/24 #180 caps blood-glucose sensor (FreeStyle #1 ea 07/25/24 Alina 3 Plus Sensor device) blood-glucose sensor (FreeStyle #1 ea 07/29/24 Alina 3 Sensor device) codeine 10 mg-guaifenesin 100 mg/5 5 ml PO Q6H PRN severe coughing 08/01/24 mL oral liquid #120 mL terazosin 10 mg capsule 10 mg PO BEDTIME 90 days #90 caps 08/08/24 Allergies Allergy/AdvReac Type Severity Reaction Status Date / Time colesevelam [From WelChol] AdvReac Mild constipatio Verified 09/07/24 22:11 n Review of Systems Review of Systems: Yes all other systems are reviewed and are negative [facility] Past Medical History Medical History (Reviewed 09/08/24 @ 01:06 EST by Enoch Galvan MD) History of recent pneumonia (02/24/24) CHF (congestive heart failure) Chronic a-fib [place] cell cancer 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 On beta nahid at home Anemia Bladder cancer Chronic atrial fibrillation Chronic anticoagulation History of colon polyps Erectile dysfunction Chronic kidney disease (CKD), stage II (mild) Obesity (BMI 30-39.9) Benign essential hypertension Pure hypercholesterolemia Iron deficiency anemia [facility] (current) use of insulin 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 CAD (coronary artery disease) Hyperlipidemia LDL goal <70 Essential hypertension Type 2 diabetes mellitus with diabetic polyneuropathy Diabetes mellitus Surgical History (Reviewed 09/08/24 @ 01:06 EST by Enoch Galvan MD) History of surgery History of esophagogastroduodenoscopy (EGD) Hx of cystoscopy History of cystoscopy Hx of colonoscopy History of cataract surgery History of endoscopy Hx of removal of cyst Family History Family History (Reviewed 09/08/24 @ 01:06 EST by Enoch Galvan MD) Father Medical history unknown Mother Diabetes Daughter In good health Son In good health Sister In good health Sister In good health Brother In good health Brother In good health Brother In good health Social History Social History (Reviewed 09/08/24 @ 01:06 EST by Enoch Galvan MD) Household Members: Spouse and Family Housing: House Are you a primary plant health care technician to a significant other at home: No Do you presently have visiting nurse or other home services: No Alcohol intake: current Alcohol intake frequency: holidays/special occasions only Alcohol type: beer Comment: medicated in pacu Patient Tobacco Use Status: Former Tobacco user Tobacco use type: Cigarette Years Smoked: 20 e-Cigarette/Vaping Use: Never Used Second Hand Smoke Exposure: Yes Advance Directives: No Advance Directives Information Provided: No Advance Directives Date on File: 09/07/21 Do you have a plan to hurt others: No Plan service: No Current occupational status: retired Current occupational exposures/hazards: No Cognitive needs: Yes (cane) Hearing needs: No Vision needs: Yes Physical Exam Vital Signs: Vital Signs: Last Vital Signs Temp 98.2 F 09/07/24 22:06 Pulse 69 09/07/24 22:06 Resp 18 09/07/24 22:06 BP 187/73 H 09/07/24 22:06 Pulse Ox 97 09/07/24 22:06 O2 Del Method Room Air 09/07/24 22:06 BMI result Body Mass Index 34.7 Appearance: Alert. Oriented X3. No acute distress. Eyes: PERRLA, No Nystagmus ENT: Pharynx normal. Oral Mucosa moist no active nasal bleeding prominent blood capillary at Little's area Neck: Normal inspection. Neck supple. CVS: Irregularly irregular heart rate and rhythm. Pulses normal. Respiratory: No respiratory distress. Equal air entry bilateral, no wheezing/rales/rhonchi Abdomen: Soft and nontender. Bowel sounds are present, no mass palpable, no CVA tenderness Skin: Skin warm and dry. Normal skin color. Normal skin turgor. Extremities: No lower extremity edema. No calf tenderness Neuro: Oriented X 3. No motor deficit. Medications Administered Discontinued Medications Generic Name Dose Route Start Last Admin Trade Name Jacksonq PRN Reason Stop Dose Admin Silver Nitrate 1 appl 09/08/24 01:43 EST 09/08/24 01:50 EDT Silver Nitrate Applicator Stick..Ea. TOPICAL 09/08/24 01:44 EST 1 appl ONCE ONE Administration Medical Decision Making Medical Decision Making [facility] Narrative: Patient with recurrent minor anterior epistaxis no active bleeding at this time bleeding area was cauterized using silver nitrate Lab Data [facility] Lab Attestation statement: I reviewed the patient's lab results. 09/07/24 22:22 09/07/24 22:22 Labs: Lab Results 09/07/24 Range/Units 22:22 WBC 7.4 (4.8-10.8) X10*3/uL RBC 4.51 L (4.60-5.80) X10*6/uL Hgb 12.9 L (14.0-18.0) g/dl Hct 39.5 L (42.0-52.0) % MCV 87.6 (80.0-98.0) fL MCH 28.6 (27.0-33.0) pg MCHC 32.7 (31.0-36.0) g/dl RDW 17.0 H (11.0-16.0) % Plt Count 169 D (160-400) X10*3/uL MPV 10.2 (9.4-12.4) fL Immature Gran % (Auto) 0.4 (0.0-0.4) % Neut % (Auto) 74.4 H (45-73) % Lymph % (Auto) 13.2 L (20-40) % Titus % (Auto) 7.6 (2-11) % Eos % (Auto) 3.3 (0-4) % Baso % (Auto) 1.1 (0-2) % Lymph # (Auto) 1.0 L (1.2-4.9) X10*3/uL Titus # (Auto) 0.6 (0.1-1.2) X10*3/uL Eos # (Auto) 0.2 (0.0-0.4) X10*3/uL Baso # (Auto) 0.1 (0.0-0.2) X10*3/uL Abs Immat Gran (auto) 0.03 (0.00-0.03) X10*3/uL Absolute Neuts (auto) 5.5 (2.0-8.3) x10*3/uL Absolute Nucleated RBC 0.000 (0.0-0.012) X10*3/uL Nucleated RBC % (auto) 0.0 (0.0-0.2) /100WBC PT 24.7 H (10.9-12.4) SEC INR 2.1 H (0.9-1.1) Sodium 143 (135-145) mmol/L Potassium 4.0 (3.3-5.1) mmol/L Chloride 104 (96-108) mmol/L Carbon Dioxide 25 (22-29) mmol/L Anion Gap 18 (12-20) BUN 15 (9-16) mg/dL Creatinine 0.87 (0.5-1.4) mg/dL Estim Creat Clear Calc 84.1 Estimated GFR > 60 Random Glucose 166 H (60-115) mg/dL Calcium 9.6 D (8.4-10.2) mg/dL Total Bilirubin 0.6 (0.0-1.0) mg/dL AST 25 (5-37) U/L ALT 19 (0-40) U/L Alkaline Phosphatase 121 H (39-117) U/L Total Protein 6.9 (6.5-8.0) g/dL Albumin 3.4 L (3.5-5.0) g/dL Procedures Epistaxis Control Nostril: Yes right Direct inspection: Yes anterior source identified Direct inspection method: Yes nasal rhinoscope Epistaxis treatment: Yes silver nitrate cautery Results of treatment: Yes bleeding controlled Complications: Yes none Discharge Plan Discharge Clinical Impression: Acute anterior epistaxis Patient Disposition: Home, Self-Care Instructions: Nosebleed (ED) Additional Instructions: Local care as advised Hold Xarelto for the day if increase epistaxis 80 follow up with your financial aid counselor Prescriptions: No Action (DME) FreeStyle Alina 2 [place] Misc See Rx Instructions .ROUTE .MEDSUPPLY Qty: 1 5RF Rx Instructions: As directed (DME) pen needle, diabetic [BD Ultra-Fine Madeline Pen Needle] 32 gauge x 5/32 needle See Rx Instructions .Route Qty: 100 5RF Rx Instructions: As directed 4 times a day (DME) SHOWER CHAIR See Rx Instructions .Route .MEDSUPPLY Qty: 1 0RF Rx Instructions: As directed furosemide 20 mg tablet 20 mg PO DAILY 90 Days Qty: 90 1RF cholecalciferol (vitamin D3) [Vitamin D3] 25 mcg (1,000 unit) tablet 25 mcg PO DAILY Qty: 90 2RF (DME) FreeStyle Alina 2 Sensor Kit See Rx Instructions .ROUTE .MEDSUPPLY Qty: 2 11RF Rx Instructions: As directed every 2 weeks metoprolol tartrate 100 mg tablet 100 mg PO BID 90 Days Qty: 180 1RF ferrous sulfate [FeroSul] 325 mg (65 mg iron) tablet 325 mg PO DAILY 90 Days Qty: 90 1RF duloxetine 30 mg capsule,delayed release(DR/EC) 30 mg PO DAILY 90 Days Qty: 90 1RF atorvastatin 40 mg tablet 40 mg PO DAILY 90 Days Qty: 90 1RF lisinopril 40 mg tablet 40 mg PO DAILY 90 Days Qty: 90 1RF (DME) FreeStyle Alina 3 [place] Misc See Rx Instructions .Route Qty: 1 1RF Rx Instructions: As directed gabapentin 100 mg capsule 200 mg PO TID 30 Days Qty: 180 3RF (DME) FreeStyle Alina 3 Plus Sensor Device See Rx Instructions .Route Qty: 1 2RF Rx Instructions: As directed (DME) FreeStyle Alina 3 Sensor Device See Rx Instructions .Route Qty: 1 3RF Rx Instructions: As directed codeine-guaifenesin 10-100 mg/5 mL liquid 5 ml PO Q6H PRN (Reason: severe coughing) Qty: 120 0RF terazosin 10 mg capsule 10 mg PO BEDTIME 90 Days Qty: 90 1RF Xarelto 20 mg tablet 20 mg PO DAILY@1700 prednisolone acetate 1 % drops,suspension 1 drp ophthalmic-Left BID moxifloxacin 0.5 % drops 1 drp ophthalmic-Left BID Trulicity 1.5 mg/0.5 mL Pen Injector 1.5 mg SUBCUT .QMONDAY insulin lispro [Humalog U-100 Insulin] 100 unit/mL solution 1 sliding scale dose SUBCUT TIDAC Protocol: Insulin Correction Scale Less than or equal to 110 ---- Give (units): 2 111 to 150 Give (units): 4 151 to 200 Give (units): 6 201 to 250 Give (units): 8 251 to 300 Give (units): 10 301 to 350 Give (units): 10 Greater than 350 Give (units): 10 Call MD if Blood Glucose > : 300 Patient Comments: Sliding scale: 70-100: 2 units; 101-150: 4 units; 151-200: 6 units; 201-250: 8 units; 250-300: 10 units ibuprofen [Advil] 200 mg Tablet 200 mg PO Q6H PRN (Reason: Pain) nitroglycerin 0.4 mg tablet, sublingual 0.4 mg sublingual Q5M PRN (Reason: Chest Pain) Rx Instructions: do not exceed 3 doses per episode insulin glargine [Lantus U-100 Insulin] 100 unit/mL solution 40 unit subcut BEDTIME latanoprost 0.005 % drops 1 drp ophthalmic-Right BEDTIME (DME) pen needle, diabetic [BD Ultra-Fine Madeline Pen Needle] 32 gauge x 5/32 needle See Rx Instructions .ROUTE .MEDSUPPLY Qty: 100 3RF Rx Instructions: As directed once daily phenazopyridine 100 mg tablet 100 mg PO Q8H PRN (Reason: pain) 14 Days Qty: 20 0RF Interventions: ED Discharge Assessment Last Done: 09/08/24 01:03 Print Language: Italian
== END 2024-09-08 01:05 | disposition home or self-care (01) ==
PROVIDERS: Emergency Provider Internal Medicine; PCP Internal Medicine
DX: R04.0 Epistaxis (principal); E11.9 Type 2 diabetes mellitus without complications; I10 Essential (primary) hypertension; E78.00 Pure hypercholesterolemia, unspecified; I48.20 Chronic atrial fibrillation, unspecified; C67.9 Malignant neoplasm of bladder, unspecified; Z79.4 Long term (current) use of insulin; Z79.01 Long term (current) use of anticoagulants; Z79.85 Long-term (current) use of injectable non-insulin antidiabetic drugs; Z79.02 Long term (current) use of antithrombotics/antiplatelets; Z87.891 Personal history of nicotine dependence
CPT/HCPCS: 30901; 36415; 80053; 85025; 85610; 99282; 99283

== ENCOUNTER 2024-09-11 09:42 | Outpatient (AMB) | payer MEDICARE, SELFPAY ==
--- NOTE | 2024-09-11 09:49 | MHC.OFFVIS ---
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 He is a patient of Dr. Andrade. He is seen for the following urologic conditions - complex renal cyst - weakness of stream - hematuria - bladder cancer Six-month follow-up bladder cancer evaluation Bladder cancer initial diagnosis 2009 recurrent 2020 high-grade superficial Prior history of superficial bladder cancer - managed with [facility] Underwent surveillance cystoscopy for 10 years stopping in 2014 Cystoscopy - 04/26 recurrent bladder lesion, 12/28 NAD, 01/26 NAD TURBT - 05/26 T1 high-grade bladder cancer, 09/26 chronic inflammation, 04/29 chronic inflammation, otherwise clear Immunotherapy - 05/26 gemcitabine 6 week induction, 12/28 3 week boost, 02/26 3 week boost Therapeutic plan - 6 month follow-up to 5 years Complex renal cyst Left-sided renal complex cyst Imaging - 04/26 CT scan left side 2cm simple renal cyst Bladder outlet obstruction Initial symptoms Weak stream, Nocturia 2-3, Bother 3 Good response to terazosin 5 mg Continue medications PFSH Medical History (Reviewed 09/08/24 @ 01:06 EST by Enoch Galvan MD) History of recent pneumonia (02/24/24) CHF (congestive heart failure) Chronic a-fib [place] cell cancer 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 On beta nahid at home Anemia Bladder cancer Chronic atrial fibrillation Chronic anticoagulation History of colon polyps Erectile dysfunction Chronic kidney disease (CKD), stage II (mild) Obesity (BMI 30-39.9) Benign essential hypertension Pure hypercholesterolemia 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 CAD (coronary artery disease) Hyperlipidemia LDL goal <70 Essential hypertension Type 2 diabetes mellitus with diabetic polyneuropathy Diabetes mellitus Surgical History (Reviewed 09/08/24 @ 01:06 EST by Enoch Galvan MD) History of surgery History of esophagogastroduodenoscopy (EGD) Hx of cystoscopy History of cystoscopy Hx of colonoscopy History of cataract surgery History of endoscopy Hx of removal of cyst Family History (Reviewed 09/08/24 @ 01:06 EST by Enoch Galvan MD) Father Medical history unknown Mother Diabetes Daughter In good health Son In good health Sister In good health Sister In good health Brother In good health Brother In good health Brother In good health Social History (Reviewed 09/08/24 @ 01:06 EST by Enoch Galvan MD) Household Members: Spouse and Family Housing: House Are you a primary ocular care technologist to a significant other at home: No Do you presently have visiting nurse or other home services: No Alcohol intake: current Alcohol intake frequency: holidays/special occasions only Alcohol type: beer Comment: medicated in pacu Patient Tobacco Use Status: Former Tobacco user Tobacco use type: Cigarette Years Smoked: 20 e-Cigarette/Vaping Use: Never Used Second Hand Smoke Exposure: Yes Advance Directives Date on File: 09/07/21 service: No Current occupational status: retired Current occupational exposures/hazards: No Cognitive needs: Yes (cane) Hearing needs: No Vision needs: Yes Office Procedures Cystoscopy Consent Discussed risk and benefit or proposed procedure with the patient. Information consent for procedure given to the patient. Discussed technical aspects, risks, benefits and alternatives in full. Addressed all of the patient's questions and concerns regarding the procedure. The patient demonstrated knowledge and understanding. They wish to proceed with this procedure. Preparation The patient was prepped in the usual manner. A assemblyman or woman was present and in the room. Genitalia was prepped with betadine solution in a sterile manner. Lidocaine Jelly 2% was placed into the urethra and 16Fr flexible Olympus cystoscope was inserted into the meatus after adequate lubrication. Procedure Cystoscopy performed using a disposable Urovue digital 16 Naur[place] cystoscope. Meatus circumcised Urethra anterior and posterior urethra normal Prostatic Urethra TURP defect Bladder examination with retroflexion of cystoscope Bladder Orifices normal shape and position Bladder Capacity median Trabeculations grade 2 Cellule Formation yes Diverticulum Formation - Mucosal Erythema mucosal erythema diffuse and patchy Bladder Tumor healing location still on left sidewall [id number] DISPOSABLE SCOPE URO-G FLEXIBLE SCOPE Procedure code (CPT) selection complete Office Meds lidocaine HCl 2 % mucosal jelly in applicator Performing Provider: Aquiles Valderrama MD Performing Location: [facility] [place] [place] [facility] Administered by: Aquiles Valderrama MD on 09/11/24 10:43 Dose Route Admin Location Dispensed Lot Number Expiration Date [facility] Letterpress Setter 10 mL intra-urethral 10 mL Results AMB Urinalysis, Automated UA Leukoctes 0 Wai/uL Last Edit by MONSTER Levine on 09/11/24 10:03 UA Nitrite Negative Last Edit by MONSTER Levine on 09/11/24 10:03 UA Urobilinogen 0.2 mg/dL Last Edit by MONSTER Levine on 09/11/24 10:03 UA Protein 0 mg/dL Last Edit by MONSTER Levine on 09/11/24 10:03 UA pH 6.5 Last Edit by MONSTER Levine on 09/11/24 10:03 UA Blood 0 Javan/uL Last Edit by MONSTER Levine on 09/11/24 10:03 UA Specific [place] 1.015 Last Edit by Rosangela Proctor CCM on 09/11/24 10:03 UA Ketone Negative Last Edit by MONSTER Levine on 09/11/24 10:03 UA Bilirubin 0 mg/dL Last Edit by MONSTER Levine on 09/11/24 10:03 UA Glucose 0 mg/dL Last Edit by MONSTER Levine on 09/11/24 10:03 Results Reviewed Results Reviewed: Laboratory Last Values Urine pH (Auto) 6.5 09/11/24 10:02 Specific [place] (Auto) 1.015 09/11/24 10:02 Urine Protein (Auto) 0 mg/dL 09/11/24 10:02 Glucose (UA)(Auto) 0 mg/dL 09/11/24 10:02 Urine Ketones (Auto) Negative 09/11/24 10:02 Urine Blood (Auto) 0 Javan/uL 09/11/24 10:02 Urine Nitrite (Auto) Negative 09/11/24 10:02 Urine Bilirubin (Auto) 0 mg/dL 09/11/24 10:02 Urine Urobilinogen (Auto) 0.2 mg/dL 09/11/24 10:02 Leukocyte Esterase (Auto) 0 Wai/uL 09/11/24 10:02 Assessment & Plan Assessment & Plan (1) Erectile dysfunction: Code(s): N52.9 - Male erectile dysfunction, unspecified Category: Medical Qualifiers: Erectile dysfunction type: unspecified Qualified Code(s): N52.9 - Male erectile dysfunction, unspecified (2) Bladder cancer: Comment: 05/26 recurrent high-grade superficial bladder cancer Code(s): C67.9 - Malignant neoplasm of bladder, unspecified Category: Medical Plan Six-month follow-up repeat cysto Orders: Orders Urine Cytology Today N39.0 - Urinary tract infection, site not specified AMB Urinalysis Automated Today Z13.9 - Encounter for screening, unspecified AMB Cystoscopy Today C67.9 - Malignant neoplasm of bladder, unspecified Medications: New lidocaine HCl 2% 10 mL intra-urethral ONCE 10 mL 0RF C67.9 - Malignant neoplasm of bladder, unspecified Patient Instructions: Imaging studies, laboratory and physical exam results were discussed and reviewed in detail. No major barriers to patient understanding were identified. An opportunity to ask questions regarding the treatment plan was provided. All questions were answered. The patient expressed understanding and agreement with the above treatment plan. The patient is aware they should contact our office by phone for worsening of their current condition or the appearance of new urologic symptoms. Compliance is encouraged with any medications and followup testing that is ordered. It is a privilege to participate in the urologic care of your patient. If you have any questions or concerns regarding treatment for the above conditions, or other urologic issues, please do not hesitate to contact me. The office telephone contact is [phone]. This note is constructed using voice recognition software. While every effort has been made to ensure accuracy business taxes specialist errors may have been included. Yours sincerely, Dr Aquiles Valderrama MD, MARCELINO [facility] - Urology Providers of Expert, Compassionate Care for the Genitourinary System Coding Level of Care Code Est Pt Level 3 (89990) Diagnoses Erectile dysfunction, unspecified erectile dysfunction type N52.9 Erectile dysfunction type: unspecified Bladder cancer C67.9 CPT Codes Cystoscopy - CPT: [id number] ([id number])
== END 2024-09-11 10:46 | disposition home or self-care (01) ==
LOC: HO.HUSH 09:42
PROVIDERS: PCP Internal Medicine; Visit Provider Urology
DX: C67.9 Malignant neoplasm of bladder, unspecified (principal); N52.9 Male erectile dysfunction, unspecified; Z13.9 Encounter for screening, unspecified
CPT/HCPCS: 52000; 99213

== ENCOUNTER 2024-09-11 09:42 | Outpatient (REF) | payer MEDICARE, SELFPAY ==
[2024-09-11 16:54] LABS: Urine Cytology See Pathology rpt
== END 2024-09-11 09:43 | disposition home or self-care (01) ==
LOC: HO.LAB 09:42
PROVIDERS: PCP Internal Medicine; Visit Provider Urology
DX: N39.0 Urinary tract infection, site not specified (principal); C67.9 Malignant neoplasm of bladder, unspecified; N52.9 Male erectile dysfunction, unspecified; Z98.890 Other specified postprocedural states; Z79.899 Other long term (current) drug therapy
CPT/HCPCS: 52000; 81003; 88112; 99212

== ENCOUNTER 2024-10-18 10:48 | Emergency (ER) | payer MEDICARE, SELFPAY ==
[2024-10-18 10:57] VITALS: BP 95/44; PULSE 77; PULSE 86; RESP 20; TEMP 36.4; O2SAT 97; O2SAT 98; BMI 34.7
--- NOTE | 2024-10-18 11:01 | ED_ITS ---
HPI - Nausea/Vomiting/Diarrhea General Chief complaint: Nausea/Vomiting/Diarrhea Stated complaint: NAUSEA VOMITING Time Seen by Provider: 10/18/24 11:00 Source: patient, EMS, RN notes reviewed and old records reviewed Mode of arrival: EMS History of Present Illness ED Provider: Inna James PA-C HPI Narrative: 79-year-old male with a past medical history of CHF, AFib on Xarelto, [place] Cell cancer currently on chemotherapy, anemia, bladder CA, CKD, HTN, HLD, CAD, diabetes, presenting to the ED via EMS complaining of nausea, dry heaving, and watery diarrhea since yesterday. Denies abdominal pain, brbpr, melena, dysuria/hematuria, suspicious food intake, recent travel, sick contacts. Denies recent antibiotic use Related Data Home Medications ?Medication ?Instructions ?Recorded ?Confirmed latanoprost 0.005 % eye drops 1 drp ophthalmic-Right BEDTIME 08/20/20 08/30/24 nitroglycerin 0.4 mg sublingual 0.4 mg sublingual Q5M PRN Chest 08/25/20 08/30/24 tablet Pain insulin glargine 100 unit/mL 40 unit subcut BEDTIME 03/11/23 08/30/24 subcutaneous solution (Lantus U-100 Insulin) ibuprofen 200 mg tablet (Advil) 200 mg PO Q6H PRN Pain 02/22/24 08/30/24 insulin lispro 100 unit/mL 1 sliding scale dose subcut TIDAC 02/22/24 08/30/24 subcutaneous solution (Humalog U-100 Insulin) moxifloxacin 0.5 % eye drops 1 drp ophthalmic-Left BID 02/22/24 08/30/24 prednisolone acetate 1 % eye 1 drp ophthalmic-Left BID 02/22/24 08/30/24 drops,suspension rivaroxaban 20 mg tablet (Xarelto) 20 mg PO DAILY@1700 02/22/24 08/30/24 Previous Rx's ?Medication ?Instructions ?Recorded pen needle, diabetic 32 gauge x #100 ea 02/28/22 (BD Ultra-Fine Madeline Pen Needle) flash glucose scanning reader #1 ea 04/04/23 (FreeStyle Alina [address] [place]) pen needle, diabetic 32 gauge x #100 ea 06/05/23 (BD Ultra-Fine Madeline Pen Needle) SHOWER CHAIR #1 ea 06/15/23 furosemide 20 mg tablet 20 mg PO DAILY 90 days #90 tabs 12/20/23 cholecalciferol (vitamin D3) 25 25 mcg PO DAILY #90 tabs 03/04/24 mcg (1,000 unit) tablet (Vitamin D3) flash glucose sensor (FreeStyle #2 ea 03/25/24 Alina 2 Sensor kit) phenazopyridine 100 mg tablet 100 mg PO Q8H PRN pain 14 days #20 04/30/24 tabs metoprolol tartrate 100 mg tablet 100 mg PO BID 90 days #180 tabs 05/06/24 ferrous sulfate 325 mg (65 mg 325 mg PO DAILY 90 days #90 tabs 05/10/24 iron) tablet (FeroSul) duloxetine 30 mg capsule,delayed 30 mg PO DAILY 90 days #90 caps 05/19/24 release atorvastatin 40 mg tablet 40 mg PO DAILY 90 days #90 tabs 05/29/24 blood-glucose meter,continuous #1 ea 05/30/24 (FreeStyle Alina 3 [place]) lisinopril 40 mg tablet 40 mg PO DAILY 90 days #90 tabs 05/30/24 gabapentin 100 mg capsule 200 mg (2 x 100 mg) PO TID 30 days 07/01/24 #180 caps blood-glucose sensor (FreeStyle #1 ea 07/25/24 Alina 3 Plus Sensor device) blood-glucose sensor (FreeStyle #1 ea 07/29/24 Alina 3 Sensor device) codeine 10 mg-guaifenesin 100 mg/5 5 ml PO Q6H PRN severe coughing 08/01/24 mL oral liquid #120 mL terazosin 10 mg capsule 10 mg PO BEDTIME 90 days #90 caps 08/08/24 dulaglutide 1.5 mg/0.5 mL 1.5 mg (0.5 mL) subcut .QMONDAY #6 09/12/24 subcutaneous pen injector mL (Trulicity) cefuroxime axetil 250 mg tablet 250 mg PO BID 7 days #14 tabs 10/18/24 Allergies Allergy/AdvReac Type Severity Reaction Status Date / Time colesevelam [From WelChol] AdvReac Mild constipatio Verified 10/18/24 10:58 n Review of Systems 2 Review of Systems: Yes all other systems are reviewed and are negative Constitutional: Constitutional: Reports as per [facility] Past Medical History Attestation statement: The following information was validated with the patient. 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 CAD (coronary artery disease) Hyperlipidemia LDL goal <70 Essential hypertension Type 2 diabetes mellitus with diabetic polyneuropathy Diabetes mellitus Surgical History History of surgery History of esophagogastroduodenoscopy (EGD) Hx of cystoscopy History of cystoscopy Hx of colonoscopy History of cataract surgery History of endoscopy Hx of removal of cyst Family History Family History Father Medical history unknown Mother Diabetes Daughter In good health Son In good health Sister In good health Sister In good health Brother In good health Brother In good health Brother In good health Social History Social History Household Members: Spouse and Family Housing: House Are you a primary acute care physician to a significant other at home: No Do you presently have visiting nurse or other home services: No Alcohol intake: current Alcohol intake frequency: holidays/special occasions only Alcohol type: beer Comment: medicated in pacu Patient Tobacco Use Status: Former Tobacco user Tobacco use type: Cigarette Years Smoked: 20 Smoked in Last 30 Days: No e-Cigarette/Vaping Use: Never Used Second Hand Smoke Exposure: Yes Use of substances other than those prescribed or required for medical reasons: No Advance Directives: Yes Advance Directives on File: Yes Advance Directives Date on File: 09/07/21 service: No Current occupational status: retired Current occupational exposures/hazards: No Cognitive needs: Yes (cane) Hearing needs: No Vision needs: Yes Physical Exam 2 Vital Signs: Vital Signs: Last Vital Signs Temp 97.5 F 10/18/24 10:57 Pulse 67 10/18/24 12:10 Resp 16 10/18/24 12:10 BP 137/59 L 10/18/24 12:10 Pulse Ox 97 10/18/24 12:10 O2 Del Method Room Air 10/18/24 12:10 BMI result Body Mass Index 34.7 Const: General: cooperative, healthy appearing and no acute distress O rientation/consciousness: patient oriented x3 Limitations: no limitations HEENT: Head: Yes normal to inspection and Yes atraumatic Ears: hearing grossly normal bilaterally General nose exam: Normal external nose present Face and sinus: Yes normal facial exam Eyes: General: appearance normal, both eyes and all related structures EOM: EOMs intact bilaterally Neck: Neck: Yes normal visual inspection and Yes no meningeal signs Resp: Effort & Inspection: normal respiratory effort and no respiratory distress Auscultation: clear to auscultation bilaterally Cardio: Rate: regular rate Heart sounds: S1 normal heart sound present and S2 normal heart sound present GI: Inspection: Yes normal to inspection Palpation (GI): Soft to palpation, nontender, no guarding and not rigid Skin: Rashes: no rashes Wounds: no wounds Neuro: General: patient oriented x3, tone normal and no meningeal signs C ranial nerves: Yes CN's II-XII intact bilaterally Gait exam (Neuro): Normal gait present Extrem: General: Yes normal to inspection Course Course Course Narrative: -1500--labs reassuring. H&H at patient's baseline. > patient tolerated p.o. in the ED without difficulty. Has not had any episodes of diarrhea since arrival -viral studies negative -1539--BP normalized. -UA with WBCs, trace leuks and casts > will treat with p.o. antibiotics Results discussed with patient including worrisome signs and symptoms and strict return precautions, and when to return to the emergency department. They verbalized understanding and feel safe for discharge at this time. Medications Administered Discontinued Medications Generic Name Dose Route Start Last Admin Trade Name Freq PRN Reason Stop Dose Admin Sodium Chloride 1,000 mls @ 999 mls/hr 10/18/24 11:15 10/18/24 15:03 Ns IV 10/18/24 12:15 Infused .Q1H1M ROBERT Infusion Medical Decision Making Medical Decision Making [facility] Narrative: 79-year-old male with a past medical history of CHF, AFib on Xarelto, [place] Cell cancer currently on chemotherapy, anemia, bladder CA, CKD, HTN, HLD, CAD, diabetes, presenting to the ED via EMS complaining of nausea, dry heaving, and watery diarrhea since yesterday. On exam BP soft, NAD, nontoxic appearing, abdomen soft/nontender. Concern for gastroenteritis vs metabolic abnormalities vs dehydration vs C diff or infectious diarrhea. Low suspicion for appendicitis /diverticulitis, pancreatitis or cholecystitis/lithiasis at this time without tenderness on exam Plan: Labs, UA, viral studies, stool studies, IVF, re-evaluate Please refer to course for remaining clinical decision making, interpretation of labs/imaging results, and discussions with consultants and/or family members. Differential Diagnosis Differential Diagnoses: The differential diagnosis associated with the presentation includes As above Admission/Observation Consideration of admission/observation: Escalation of care including admission/observation considered Lab Data [facility] Lab Attestation statement: I reviewed the patient's lab results. 10/18/24 11:05 10/18/24 11:25 Labs: Lab Results 10/18/24 10/18/24 10/18/24 Range/Units 11:05 11:11 11:25 WBC 9.4 (4.8-10.8) X10*3/uL RBC 4.74 (4.60-5.80) X10*6/uL Hgb 13.8 L (14.0-18.0) g/dl Hct 41.4 L (42.0-52.0) % MCV 87.3 (80.0-98.0) fL MCH 29.1 (27.0-33.0) pg MCHC 33.3 (31.0-36.0) g/dl RDW 14.8 (11.0-16.0) % Plt Count 153 L (160-400) X10*3/uL MPV 10.4 (9.4-12.4) fL Immature Gran % (Auto) 0.5 H (0.0-0.4) % Neut % (Auto) 83.3 H (45-73) % Lymph % (Auto) 7.9 L (20-40) % [place] % (Auto) 5.3 (2-11) % Eos % (Auto) 2.1 (0-4) % Baso % (Auto) 0.9 (0-2) % Lymph # (Auto) 0.7 L (1.2-4.9) X10*3/uL [place] # (Auto) 0.5 (0.1-1.2) X10*3/uL Eos # (Auto) 0.2 (0.0-0.4) X10*3/uL Baso # (Auto) 0.1 (0.0-0.2) X10*3/uL Abs Immat Gran (auto) 0.05 H (0.00-0.03) X10*3/uL Absolute Neuts (auto) 7.8 (2.0-8.3) x10*3/uL Absolute Nucleated RBC 0.000 (0.0-0.012) X10*3/uL Nucleated RBC % (auto) 0.0 (0.0-0.2) /100WBC Sodium 143 (135-145) mmol/L Potassium 3.4 (3.3-5.1) mmol/L Chloride 105 (96-108) mmol/L Carbon Dioxide 31 H (22-29) mmol/L Anion Gap 10 L (12-20) BUN 13 (9-16) mg/dL Creatinine 0.97 (0.5-1.4) mg/dL Estim Creat Clear Calc 75.5 Estimated GFR > 60 Random Glucose 174 H (60-115) mg/dL Calcium 9.0 D (8.4-10.2) mg/dL Magnesium 1.9 (1.6-2.6) mg/dL Total Bilirubin 0.4 (0.0-1.0) mg/dL AST 19 (5-37) U/L ALT 13 (0-40) U/L Alkaline Phosphatase 116 (39-117) U/L Total Protein 6.3 L (6.5-8.0) g/dL Albumin 3.2 L (3.5-5.0) g/dL Lipase 7 L (8-78) U/L Urine Color Urine Appearance Urine pH (5.0-9.0) Ur Specific [place] (1.005-1.025) Urine Protein (Neg-Trace) mg/dL Urine Glucose (UA) (Negative) mg/dL Urine Ketones (Negative) mg/dL Urine Blood (Negative) Urine Nitrite (Negative) Ur Leukocyte Esterase (Negative) Urine RBC (0-2) /HPF Urine WBC (0-5) /HPF Ur Squamous Epith Cells (0-2) /HPF Urine Bacteria (None Seen) Hyaline Casts (0-2) /LPF Influenza Type A (PCR) NEGATIVE (Negative) Influenza Type B (PCR) NEGATIVE (Negative) RSV RNA Qual (PCR) NEGATIVE (Negative) SARS-CoV-2 RNA (RT-PCR) NEGATIVE (Negative) 10/18/24 Range/Units 15:18 WBC (4.8-10.8) X10*3/uL RBC (4.60-5.80) X10*6/uL Hgb (14.0-18.0) g/dl Hct (42.0-52.0) % MCV (80.0-98.0) fL MCH (27.0-33.0) pg MCHC (31.0-36.0) g/dl RDW (11.0-16.0) % Plt Count (160-400) X10*3/uL MPV (9.4-12.4) fL Immature Gran % (Auto) (0.0-0.4) % Neut % (Auto) (45-73) % Lymph % (Auto) (20-40) % [place] % (Auto) (2-11) % Eos % (Auto) (0-4) % Baso % (Auto) (0-2) % Lymph # (Auto) (1.2-4.9) X10*3/uL [place] # (Auto) (0.1-1.2) X10*3/uL Eos # (Auto) (0.0-0.4) X10*3/uL Baso # (Auto) (0.0-0.2) X10*3/uL Abs Immat Gran (auto) (0.00-0.03) X10*3/uL Absolute Neuts (auto) (2.0-8.3) x10*3/uL Absolute Nucleated RBC (0.0-0.012) X10*3/uL Nucleated RBC % (auto) (0.0-0.2) /100WBC Sodium (135-145) mmol/L Potassium (3.3-5.1) mmol/L Chloride (96-108) mmol/L Carbon Dioxide (22-29) mmol/L Anion Gap (12-20) BUN (9-16) mg/dL Creatinine (0.5-1.4) mg/dL Estim Creat Clear Calc Estimated GFR Random Glucose (60-115) mg/dL Calcium (8.4-10.2) mg/dL Magnesium (1.6-2.6) mg/dL Total Bilirubin (0.0-1.0) mg/dL AST (5-37) U/L ALT (0-40) U/L Alkaline Phosphatase (39-117) U/L Total Protein (6.5-8.0) g/dL Albumin (3.5-5.0) g/dL Lipase (8-78) U/L Urine Color Yellow Urine Appearance Clear Urine pH 5.0 (5.0-9.0) Ur Specific [place] 1.015 (1.005-1.025) Urine Protein Trace (Neg-Trace) mg/dL Urine Glucose (UA) Negative (Negative) mg/dL Urine Ketones Negative (Negative) mg/dL Urine Blood Negative (Negative) Urine Nitrite Negative (Negative) Ur Leukocyte Esterase Trace H (Negative) Urine RBC 0-2 (0-2) /HPF Urine WBC 6-10 H (0-5) /HPF Ur Squamous Epith Cells 0-2 (0-2) /HPF Urine Bacteria None Seen (None Seen) Hyaline Casts 11-20 (0-2) /LPF Influenza Type A (PCR) (Negative) Influenza Type B (PCR) (Negative) RSV RNA Qual (PCR) (Negative) SARS-CoV-2 RNA (RT-PCR) (Negative) Radiology Impression Discussion of test interpretation with radiology: I have reviewed the radiologist's reading. Independent Historian Clinical information obtained from an independent historian. History obtained from or confirmed by: EMS External Record Review External record reviewed: Inpatient record, Office record, Outpatient record, Prior outpatient labs, Prior outpatient radiology, Primary care record and Outside ED record Tests considered The following testing was considered but not selected: As above Prescription Management I considered prescription management with: Other Chronic Conditions Patient?s care impacted by: Other Social Determinants Patient?s care significantly limited by Social Determinants of Health including: Other Social Determinant of Health Discharge Plan Discharge Clinical Impression: Diarrhea, Nausea UTI (urinary tract infection) Qualifiers: Urinary tract infection type: site unspecified Hematuria presence: without hematuria Qualified Code(s): N39.0 - Urinary tract infection, site not specified Patient Disposition: Home, Self-Care Instructions: Urinary Tract Infection in Men (DC), Acute Diarrhea (ED) Additional Instructions: Your blood work is reassuring Please stay hydrated at home You have a UTI. ceftin is an antibiotic please take as prescribed Continue home prescribed medications Please have close follow-up with your doctor If her symptoms persist or worsen you have persistent nausea, vomiting, diarrhea, you are unable to eat or drink return to the ED Prescriptions: New cefuroxime axetil 250 mg tablet 250 mg PO BID 7 Days Qty: 14 0RF No Action (DME) FreeStyle Alina 2 [place] Misc See Rx Instructions .ROUTE .MEDSUPPLY Qty: 1 5RF Rx Instructions: As directed (DME) pen needle, diabetic [BD Ultra-Fine Madeline Pen Needle] 32 gauge x 5/32 needle See Rx Instructions .Route Qty: 100 5RF Rx Instructions: As directed 4 times a day (DME) SHOWER CHAIR See Rx Instructions .Route .MEDSUPPLY Qty: 1 0RF Rx Instructions: As directed furosemide 20 mg tablet 20 mg PO DAILY 90 Days Qty: 90 1RF cholecalciferol (vitamin D3) [Vitamin D3] 25 mcg (1,000 unit) tablet 25 mcg PO DAILY Qty: 90 2RF (DME) FreeStyle Alina 2 Sensor Kit See Rx Instructions .ROUTE .MEDSUPPLY Qty: 2 11RF Rx Instructions: As directed every 2 weeks metoprolol tartrate 100 mg tablet 100 mg PO BID 90 Days Qty: 180 1RF ferrous sulfate [FeroSul] 325 mg (65 mg iron) tablet 325 mg PO DAILY 90 Days Qty: 90 1RF duloxetine 30 mg capsule,delayed release(DR/EC) 30 mg PO DAILY 90 Days Qty: 90 1RF atorvastatin 40 mg tablet 40 mg PO DAILY 90 Days Qty: 90 1RF lisinopril 40 mg tablet 40 mg PO DAILY 90 Days Qty: 90 1RF (DME) FreeStyle Alina 3 [place] Misc See Rx Instructions .Route Qty: 1 1RF Rx Instructions: As directed gabapentin 100 mg capsule 200 mg PO TID 30 Days Qty: 180 3RF (DME) FreeStyle Alina 3 Plus Sensor Device See Rx Instructions .Route Qty: 1 2RF Rx Instructions: As directed (DME) FreeStyle Alina 3 Sensor Device See Rx Instructions .Route Qty: 1 3RF Rx Instructions: As directed codeine-guaifenesin 10-100 mg/5 mL liquid 5 ml PO Q6H PRN (Reason: severe coughing) Qty: 120 0RF terazosin 10 mg capsule 10 mg PO BEDTIME 90 Days Qty: 90 1RF Trulicity 1.5 mg/0.5 mL pen injector 1.5 mg SUBCUT .QMONDAY Qty: 6 0RF Xarelto 20 mg tablet 20 mg PO DAILY@1700 prednisolone acetate 1 % drops,suspension 1 drp ophthalmic-Left BID moxifloxacin 0.5 % drops 1 drp ophthalmic-Left BID insulin lispro [Humalog U-100 Insulin] 100 unit/mL solution 1 sliding scale dose SUBCUT TIDAC Protocol: Insulin Correction Scale Less than or equal to 110 ---- Give (units): 2 111 to 150 Give (units): 4 151 to 200 Give (units): 6 201 to 250 Give (units): 8 251 to 300 Give (units): 10 301 to 350 Give (units): 10 Greater than 350 Give (units): 10 Call MD if Blood Glucose > : 300 Patient Comments: Sliding scale: 70-100: 2 units; 101-150: 4 units; 151-200: 6 units; 201-250: 8 units; 250-300: 10 units ibuprofen [Advil] 200 mg Tablet 200 mg PO Q6H PRN (Reason: Pain) nitroglycerin 0.4 mg tablet, sublingual 0.4 mg sublingual Q5M PRN (Reason: Chest Pain) Rx Instructions: do not exceed 3 doses per episode insulin glargine [Lantus U-100 Insulin] 100 unit/mL solution 40 unit subcut BEDTIME latanoprost 0.005 % drops 1 drp ophthalmic-Right BEDTIME (DME) pen needle, diabetic [BD Ultra-Fine Madeline Pen Needle] 32 gauge x 5/32 needle See Rx Instructions .ROUTE .MEDSUPPLY Qty: 100 3RF Rx Instructions: As directed once daily phenazopyridine 100 mg tablet 100 mg PO Q8H PRN (Reason: pain) 14 Days Qty: 20 0RF Referrals: Guido Andrade MD [Primary Care Provider] - 3 days Print Language: Eritrean
[2024-10-18 11:10] LABS: MANUAL DIFF FLAG NO
[2024-10-18 11:11] LABS: Basophils Absolute Auto 0.1 X10*3/uL (0.0-0.2); Basophils Percent Auto 0.9 % (0-2); Eosinophils Absolute Auto 0.2 X10*3/uL (0.0-0.4); Eosinophils Percent Auto 2.1 % (0-4); Hematocrit 41.4 % (42.0-52.0); Hemoglobin 13.8 g/dl (14.0-18.0); Imm Gran Abs Auto 0.05 X10*3/uL (0.00-0.03); Imm Gran Pct Auto 0.5 % (0.0-0.4); Lymphocytes Absolute Auto 0.7 X10*3/uL (1.2-4.9); Lymphocytes Percent Auto 7.9 % (20-40); Mean Corpuscular HGB Conc 33.3 g/dl (31.0-36.0); Mean Corpuscular Hemoglobin 29.1 pg (27.0-33.0); Mean Corpuscular Volume 87.3 fL (80.0-98.0); Mean Platelet Volume 10.4 fL (9.4-12.4); Monocytes Absolute Auto 0.5 X10*3/uL (0.1-1.2); Monocytes Percent Auto 5.3 % (2-11); Neutrophils Absolute Auto 7.8 x10*3/uL (2.0-8.3); Neutrophils Percent Auto 83.3 % (45-73); Platelet Count 153 X10*3/uL (160-400); Red Blood Count 4.74 X10*6/uL (4.60-5.80); Red Cell Distribution Width 14.8 % (11.0-16.0); White Blood Count 9.4 X10*3/uL (4.8-10.8)
[2024-10-18] MEDS: 0.9 % Sodium Chloride 1,000 ML 999 ML IV (11:26)
[2024-10-18 11:47] LABS: Alanine Aminotransferase 13 U/L (0-40); Albumin Level 3.2 g/dL (3.5-5.0); Alkaline Phosphatase 116 U/L (39-117); Anion Gap 10 (12-20); Aspartate Amino Transferase 19 U/L (5-37); Bilirubin Total 0.4 mg/dL (0.0-1.0); Blood Urea Nitrogen 13 mg/dL (9-16); Carbon Dioxide 31 mmol/L (22-29); Chloride 105 mmol/L (96-108); Creatinine Clr Calc Pharmacy 75.5; Estimated Glomerular Filt Rate > 60; Glucose Random 174 mg/dL (60-115); Lipase 7 U/L (8-78); Magnesium 1.9 mg/dL (1.6-2.6); Potassium 3.4 mmol/L (3.3-5.1); Sodium 143 mmol/L (135-145); Total Protein 6.3 g/dL (6.5-8.0)
[2024-10-18 12:06] LABS: Influenza A PCR NEGATIVE (Negative); Influenza B PCR NEGATIVE (Negative); Resp Syncy Virus RNA Qual PCR NEGATIVE (Negative); SARS COV2 PCR INHOUSE NEGATIVE (Negative)
[2024-10-18 12:10] VITALS: BP 137/59; PULSE 67; RESP 16; O2SAT 97
[2024-10-18 15:32] LABS: Color Urine Yellow; Glucose Urine UA Negative (Negative); Leukocyte Esterase Urine Trace (Negative); Nitrite Urine Negative (Negative); Specific Gravity - Urine 1.015 (1.005-1.025); UMIC TRIGGER UACC YES; Urine Blood Negative (Negative); Urine Ketones Negative (Negative); Urine Protein Trace mg/dL (Neg-Trace)
[2024-10-18 15:33] LABS: Appearance Urine Clear
[2024-10-18 15:35] LABS: Bacteria Urine None Seen (None Seen); RBC Urine 0-2 /HPF (0-2); Squamous Epithelial Cell Urine 0-2 /HPF (0-2); UACC Culture Trigger YES
[2024-10-18 15:52] VITALS: BP 104/51; PULSE 70; RESP 16; TEMP 36.4; O2SAT 97
== END 2024-10-18 15:56 | disposition home or self-care (01) ==
PROVIDERS: Physician Assistant; Emergency Provider Student in an Organized Health Care Education/Training Program; PCP Internal Medicine
DX: R11.0 Nausea (principal); R19.7 Diarrhea, unspecified; N39.0 Urinary tract infection, site not specified; I48.91 Unspecified atrial fibrillation; E11.22 Type 2 diabetes mellitus with diabetic chronic kidney disease; I13.0 Hypertensive heart and chronic kidney disease with heart failure and stage 1 through stage 4 chronic kidney disease, or unspecified chronic kidney disease; N18.2 Chronic kidney disease, stage 2 (mild); I50.9 Heart failure, unspecified; C67.9 Malignant neoplasm of bladder, unspecified; Z79.60 Long term (current) use of unspecified immunomodulators and immunosuppressants; Z79.01 Long term (current) use of anticoagulants; Z79.899 Other long term (current) drug therapy; Z03.818 Encounter for observation for suspected exposure to other biological agents ruled out
CPT/HCPCS: 0241U; 36415; 80053; 81001; 83690; 83735; 85025; 87086; 96360; 96361; 99284

== ENCOUNTER 2024-11-13 10:04 | Outpatient (AMB) | payer MEDICARE, SELFPAY ==
[2024-11-13 10:12] VITALS: BP 118/60; PULSE 72; BMI 37.0
--- NOTE | 2024-11-13 10:12 | A.OFFVIS_ITS ---
Vital Signs 11/13/24 10:12 Height 5 ft 6 in Weight 229 lb 4.492 oz BMI 37.0 BP 118/60 Blood Pressure Location Lt brachial Position Sitting Pulse 72 Pulse Source Monitor Intake Visit Reasons: r/s 09/02/24 1 yr followup w/ekg Allergies colesevelam [From WelChol] Adverse Reaction (Mild, Verified 10/18/24 10:58) constipation Medication List - Last Reconciled 11/13/24 by Delano Rosales MD atorvastatin 40 mg PO DAILY 90 days blood-glucose meter,continuous (FreeStyle Alina 3 [place]) As directed blood-glucose sensor (FreeStyle Alina 3 Plus Sensor device) As directed blood-glucose sensor (FreeStyle Alina 3 Sensor device) As directed cholecalciferol (vitamin D3) (Vitamin D3) 25 mcg PO DAILY dulaglutide (Trulicity) 1.5 mg (0.5 mL) subcut .QMONDAY duloxetine 30 mg PO DAILY 90 days ferrous sulfate (FeroSul) 325 mg PO DAILY 90 days flash glucose scanning reader (FreeStyle Alina 2 [place]) As directed flash glucose sensor (FreeStyle Alina 2 Sensor kit) As directed every 2 weeks furosemide 20 mg PO DAILY 90 days gabapentin 200 mg (2 x 100 mg) PO TID 30 days ibuprofen (Advil) 200 mg PO Q6H PRN insulin glargine (Lantus U-100 Insulin) 40 units subcut BEDTIME insulin lispro (Humalog U-100 Insulin) 1 sliding scale dose See Protocol subcut TIDAC latanoprost 0.005% 1 drp ophthalmic-Right BEDTIME lisinopril 40 mg PO DAILY 90 days metoprolol tartrate 100 mg PO BID 90 days moxifloxacin 0.5% 1 drp ophthalmic-Left BID nitroglycerin 0.4 mg sublingual Q5M PRN pen needle, diabetic (BD Ultra-Fine Madeline Pen Needle) As directed 4 times a day pen needle, diabetic (BD Ultra-Fine Madeline Pen Needle) As directed once daily prednisolone acetate 1% 1 drp ophthalmic-Left BID rivaroxaban (Xarelto) 20 mg PO QPM [SHOWER CHAIR As directed] terazosin 10 mg PO BEDTIME 90 days HPI Comments Details: Kamlesh comes for follow-up. As per the he does not exercise much. Does not go for walk. Has weakness in his legs. Otherwise no other heart symptoms. Denies any palpitations. Denies any orthopnea, PND, leg edema. Denies any exertional chest pain. Takes all his medications. No bleeding issues or neurologic events. 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 CAD (coronary artery disease) Hyperlipidemia LDL goal <70 Essential hypertension Type 2 diabetes mellitus with diabetic polyneuropathy Diabetes mellitus Surgical History History of surgery History of esophagogastroduodenoscopy (EGD) Hx of cystoscopy History of cystoscopy Hx of colonoscopy History of cataract surgery History of endoscopy Hx of removal of cyst Family History Father Medical history unknown Mother Diabetes Daughter In good health Son In good health Sister In good health Sister In good health Brother In good health Brother In good health Brother In good health Social History Household Members: Spouse and Family Housing: House Are you a primary health care / medical job titles to a significant other at home: No Do you presently have visiting nurse or other home services: No Alcohol intake: current Alcohol intake frequency: holidays/special occasions only Alcohol type: beer Comment: medicated in pacu Patient Tobacco Use Status: Former Tobacco user Tobacco use type: Cigarette Years Smoked: 20 e-Cigarette/Vaping Use: Never Used Second Hand Smoke Exposure: Yes Advance Directives Date on File: 09/07/21 service: No Current occupational status: retired Current occupational exposures/hazards: No Cognitive needs: Yes (cane) Hearing needs: No Vision needs: Yes Review of Systems Const Denies weakness ENT Denies dizziness Card Denies chest pain, Denies chest pain with activity, Denies syncope, Denies rapid heart rate, Denies pedal edema, Denies edema, Denies leg edema, Denies lightheadedness, Denies palpitations, Denies dyspnea, Denies dyspnea on exertion and Denies orthopnea Resp Denies cough, Denies dyspnea and Denies dyspnea on exertion GI Denies hematochezia and Denies change in stool character Musc Denies abnormal gait, Denies muscle cramps, Denies muscle weakness, Denies numbness, Denies radiating pain into limb and Denies tingling Neuro Denies abnormal gait, Denies dizziness, Denies syncope, Denies numbness, Denies tingling and Denies weakness Endo Denies palpitations Physical Exam Vital Signs: Last Vital Signs Pulse 72 11/13/24 10:12 BP 118/60 11/13/24 10:12 BMI result Body Mass Index 37.0 Const General: cooperative, comfortable and no acute distress Nutritional Appearance: obese and other (Frail appearing) Orientation/consciousness: patient oriented x3 Limitations: ambulation with cane Neck Neck: Yes normal visual inspection and Yes no JVD Carotids: normal carotid upstroke Chest Chest palpation & inspection: normal inspection of the chest Resp Effort & Inspection: normal respiratory effort Auscultation: clear to auscultation bilaterally, no crackles, no rales, no rhonchi, no wheezes and diminished lung sounds Cardio Other: Heart tones irregularly irregular Jugular venous distension: no JVD Rate: regular rate Heart sounds: S1 normal heart sound present, S2 normal heart sound present, no gallops, no murmurs and no rubs Peripheral pulses: Peripheral pulses 2+ throughout GI Inspection: Yes normal to inspection Neuro General: patient oriented x3 Extrem General: Yes normal to inspection, No no pedal edema and No calf tenderness Office Procedures EKG Details: EKG shows atrial fibrillation with right axis deviation [id number], Complete Assessment & Plan Assessment & Plan (1) Chronic atrial fibrillation: Code(s): I48.20 - Chronic atrial fibrillation, unspecified Category: Medical Plan: Chronic rate control atrial fibrillation without any obvious symptoms or evidence of heart failure. Continue current rate control approach. Continue full oral anticoagulation due to risk for thromboembolic complication. Currently on Xarelto therapy. Quarterly renal function test to be recommended. Recommend to increase activity level and participate in regular exercise to improved functionality. (2) Benign essential hypertension: Code(s): I10 - Essential (primary) hypertension Category: Medical Plan: Hypertension with significant LVH without any evidence of amyloidosis by testing. Continue aggressive blood pressure control which is currently well optimized. Low-salt diet was discussed. Signs and symptoms of heart failure were discussed. Continue aggressive vascular risk factor modification with aggressive control of diabetes as well as lipids being pursue through your office. (3) CAD (coronary artery disease): Comment: No current symptoms. Continue aggressive medical management. Code(s): I25.10 - Atherosclerotic heart disease of [place] coronary artery without angina pectoris Category: Medical Plan: Nonobstructive CAD. Currently having no symptoms of angina. Currently on full oral anticoagulation Xarelto. Avoid additional aspirin therapy. Continue aggressive vascular risk factor modifications above. Will follow up in the clinic in 1 year's time, sooner p.r.n.. Thank you for allowing me to partake in his care Coding Level of Care Code Est Pt Level 4 (82077) Complex EM visit Add On G2211 Diagnoses Chronic atrial fibrillation I48.20 Benign essential hypertension I10 CAD (coronary artery disease) I25.10 CPT Codes EKG - CPT: 83095-[id number], Complete ([id number])
== END 2024-11-13 10:34 | disposition home or self-care (01) ==
PROVIDERS: PCP Internal Medicine; Visit Provider Internal Medicine Cardiovascular Disease
DX: I48.20 Chronic atrial fibrillation, unspecified (principal); I10 Essential (primary) hypertension; I25.10 Atherosclerotic heart disease of native coronary artery without angina pectoris
CPT/HCPCS: 93010; 99214; G2211

== ENCOUNTER → 2024-11-13 10:04 | Outpatient (BNVA) | payer MEDICARE, SELFPAY | PROVIDERS: PCP Internal Medicine; Visit Provider Internal Medicine Cardiovascular Disease | DX: I48.20 Chronic atrial fibrillation, unspecified (principal); I25.10 Atherosclerotic heart disease of native coronary artery without angina pectoris; I10 Essential (primary) hypertension; R94.31 Abnormal electrocardiogram [ECG] [EKG] | CPT/HCPCS: 93005; 99212 ==

== ENCOUNTER 2024-12-17 07:45 | Outpatient (REF) | payer MEDICARE, SELFPAY ==
--- OUTSIDE RECORDS SUMMARY | 2024-12-17 07:48 | XMS_ITS | Clinical Summary ---
Author Organization [facility], Address [address] [place] [address] Phone Care Team Providers Care Chief Science Officer Name Role Phone Guido Andrade MD Primary Care Provider [phone] Allergies No known active allergies Medications terazosin (HYTRIN) 10 MG capsule Take 10 mg by mouth every night Active rivaroxaban (XARELTO) 20 MG tablet Take 20 mg by mouth 1 (one) time each day with dinner Active metoprolol succinate XL (TOPROL-XL) 100 MG 24 hr tablet Take 100 mg by mouth in the morning and 100 mg in the evening. Do not crush or chew. . Active lisinopril 40 MG tablet Take 40 mg by mouth 1 (one) time each day Active insulin lispro (HumaLOG) 100 UNIT/ML injection Inject under the skin 3 (three) times a day before meals Active gabapentin (NEURONTIN) 100 MG capsule Take 100 mg by mouth in the morning and 100 mg in the evening and 100 mg before bedtime. Active furosemide (LASIX) 20 MG tablet Take 20 mg by mouth in the morning and 20 mg in the evening and 20 mg before bedtime. Active ferrous sulfate 325 (65 Fe) MG tablet Take 325 mg by mouth 1 (one) time each day with breakfast Active cyanocobalamin (VITAMIN B-12) 1000 MCG tablet Take 100 mcg by mouth 1 (one) time each day Active cholecalciferol (VITAMIN D-3) 25 MCG (1000 UT) tablet Take 1,000 Units by mouth 1 (one) time each day Active atorvastatin (LIPITOR) 40 MG tablet Take 40 mg by mouth 1 (one) time each day Active oxyCODONE (Roxicodone) 5 MG immediate release tablet Take 1 tablet (5 mg total) by mouth every 4 (four) hours if needed for moderate pain for up to 5 doses 5 tablet 2 Active oxyCODONE (Roxicodone) 5 MG immediate release tablet Take 1 tablet (5 mg total) by mouth every 4 (four) hours if needed for moderate pain for up to 5 doses 5 tablet 2 Active oxyCODONE (Roxicodone) 5 MG immediate release tablet Take 1 tablet (5 mg total) by mouth every 4 (four) hours if needed for moderate pain for up to 5 doses 5 tablet 2 Active Active Problems Problem Noted Date Diagnosed Date Severe obesity 10/05/2022 Type 2 diabetes mellitus 10/05/2022 Hypercholesterolemia 10/05/2022 [place] cell carcinoma 09/27/2022 Atrial fibrillation 09/27/2022 Bladder cancer 09/27/2022 Malignant melanoma of nose 09/27/2022 Hypertension 09/27/2022 Back pain 09/27/2022 Resolved Problems Problem Noted Date Diagnosed Date Resolved Date Diabetes mellitus 09/27/2022 10/05/2022 Social History Tobacco Use Types Packs/Day Years Used Date Smoking Tobacco: Former Cigarettes Smokeless Tobacco: Never Tobacco Cessation:Counseling Given: Not Answered Alcohol Use Standard Drinks/Week Comments Yes 0 (1 standard drink = 0.6 oz pur e alcohol) socially Sex and Gender Information Value Date Recorded Sex Assigned at Not on file Legal Sex Male 1:46 PM EST Gender Identity Not on file Sexual Orientation Not on file Last Filed Vital Signs Vital Sign Reading Time Taken Comments Blood Pressure 107/67 10/05/2022 1:56 PM EST Pulse 78 10/05/2022 1:56 PM EST Temperature 36.8 ??C (98.2 ??F) 10/05/2022 1:56 PM ES T Respiratory Rate 14 10/05/2022 1:56 PM EST Oxygen Saturation 98% 10/05/2022 1:56 PM EST Inhaled Oxygen Concentration - - Weight 113 kg (250 lb) 10/05/2022 1:56 PM EST Height 172.7 cm (5' 8 ) 10/05/2022 1:56 PM EST Body Mass Index 38.01 10/05/2022 1:56 PM EST Plan of Treatment Health Maintenance Due Date Last Done Comments Pneumococcal Vaccine: 65+ Ye ars (1 of 2 - PCV) 1951 Diabetes: Hemoglobin A1C 09/27/2022 Diabetes: Ophthalmology Exam 09/27/2022 Diabetes: Pedal Pulse Checked 09/27/2022 Diabetes: Sensory Foot Exam 09/27/2022 Diabetes: Visual Foot Exam 09/27/2022 Influenza Vaccine (#1) 2024 Hepatitis B Vaccine Aged Out No longe r eligible based on patient's age to complete this topic Insurance [facility] Care Teams Chief Science Officer Relationship Specialty Start Date End Date Guido Andrade MD [address] [place] [address] PCP - General Internal Medicine 09/20/22
[2024-12-17 08:01] LABS: MANUAL DIFF FLAG NO
[2024-12-17 08:19] LABS: Basophils Absolute Auto 0.1 X10*3/uL (0.0-0.2); Eosinophils Absolute Auto 0.2 X10*3/uL (0.0-0.4); Hematocrit 44.2 % (42.0-52.0); Hemoglobin 14.3 g/dl (14.0-18.0); Imm Gran Abs Auto 0.04 X10*3/uL (0.00-0.03); Imm Gran Pct Auto 0.6 % (0.0-0.4); Lymphocytes Percent Auto 13.6 % (20-40); Mean Corpuscular HGB Conc 32.4 g/dl (31.0-36.0); Mean Corpuscular Hemoglobin 27.9 pg (27.0-33.0); Mean Corpuscular Volume 86.2 fL (80.0-98.0); Mean Platelet Volume 10.2 fL (9.4-12.4); Monocytes Absolute Auto 0.5 X10*3/uL (0.1-1.2); Monocytes Percent Auto 6.9 % (2-11); Neutrophils Absolute Auto 5.2 x10*3/uL (2.0-8.3); Neutrophils Percent Auto 74.9 % (45-73); Platelet Count 146 X10*3/uL (160-400); Red Blood Count 5.13 X10*6/uL (4.60-5.80); Red Cell Distribution Width 13.9 % (11.0-16.0)
[2024-12-17 08:32] LABS: Appearance Urine Cloudy; Color Urine Yellow; Glucose Urine UA Negative (Negative); Leukocyte Esterase Urine Small (1+) (Negative); Nitrite Urine Negative (Negative); Specific Gravity - Urine 1.015 (1.005-1.025); UMIC TRIGGER UACC YES; Urine Blood Large (3+) (Negative); Urine Ketones Negative (Negative); Urine Protein Negative (Neg-Trace)
[2024-12-17 08:37] LABS: Bacteria Urine None Seen (None Seen); Hyaline Casts Urine 0-2 /LPF (0-2); RBC Urine >20 /HPF (0-2); Squamous Epithelial Cell Urine 0-2 /HPF (0-2); UACC Culture Trigger YES
[2024-12-17 09:09] LABS: Creatinine Urine 77.02 mg/dL; Microalbum/Creatinine Ratio Ur 62.3 ug/mg cr (<30)
[2024-12-17 09:11] LABS: Estimated Average Glucose 154 mg/dL; Hemoglobin A1C 198.3436 umol/L; Total Hemoglobin (HGBA1C) 3728.0197 umol/L
[2024-12-17 09:22] LABS: Alanine Aminotransferase 10 U/L (0-40); Albumin Level 3.4 g/dL (3.5-5.0); Anion Gap 11 (12-20); Aspartate Amino Transferase 26 U/L (5-37); Bilirubin Total 0.5 mg/dL (0.0-1.0); Blood Urea Nitrogen 17 mg/dL (9-16); Carbon Dioxide 32 mmol/L (22-29); Chloride 105 mmol/L (96-108); Cholesterol 136 mg/dL (<200); Estimated Glomerular Filt Rate > 60; Glucose Fasting 119 mg/dL (60-99); HDL Cholesterol 37 mg/dL (>40); LDL Cholesterol Calculated 71 mg/dL (<100); Potassium 3.1 mmol/L (3.3-5.1); Sodium 145 mmol/L (135-145); Total Protein 6.9 g/dL (6.5-8.0); Triglycerides 144 mg/dL (<150)
[2024-12-17 09:37] LABS: Alkaline Phosphatase 120 U/L (39-117)
[2024-12-17 09:46] LABS: TSH reflex Free T4 3.39 uIU/mL (0.32-4.0); Vitamin D 25-OH Total 45.1 ng/mL (>30)
== END 2024-12-17 07:46 | disposition home or self-care (01) ==
LOC: HO.LAB 07:45
PROVIDERS: PCP Internal Medicine; Visit Provider Internal Medicine
DX: D64.9 Anemia, unspecified (principal); E55.9 Vitamin D deficiency, unspecified; E78.00 Pure hypercholesterolemia, unspecified; Z13.1 Encounter for screening for diabetes mellitus
CPT/HCPCS: 36415; 80053; 80061; 81001; 82043; 82306; 82570; 83036; 84443; 85025; 87086

== ENCOUNTER 2024-12-31 10:41 | Outpatient (AMB) | payer MEDICARE, SELFPAY ==
[2024-12-31 10:57] VITALS: BP 102/62; PULSE 66; O2SAT 95; BMI 37.4
--- NOTE | 2024-12-31 10:57 | A.OFFPC_ITS ---
Vital Signs 12/31/24 10:57 Height 5 ft 6 in Weight 232 lb BMI 37.4 BP 102/62 Blood Pressure Location Lt brachial Position Sitting Pulse 66 Pulse Source Pulse Oximeter Pulse Oximetry (%) 95 Oxygen Delivery Method Room Air Intake Visit Reasons: 4mth f/u General Maintenance Technician Required: No Accompanied by: Self / Same As Patient Allergies colesevelam [From WelChol] Adverse Reaction (Mild, Verified 12/31/24 11:32) constipation Medication List - Last Reconciled 12/31/24 by Guido Andrade MD atorvastatin 40 mg PO DAILY 90 days blood-glucose meter,continuous (FreeStyle Alina 3 [place]) As directed blood-glucose sensor (FreeStyle Alina 3 Plus Sensor device) As directed blood-glucose sensor (FreeStyle Alina 3 Sensor device) As directed cholecalciferol (vitamin D3) (Vitamin D3) 25 mcg PO DAILY dulaglutide (Trulicity) 1.5 mg (0.5 mL) subcut QWEEK duloxetine 30 mg PO DAILY ferrous sulfate (FeroSul) 325 mg PO DAILY 90 days flash glucose scanning reader (FreeStyle Alina 2 [place]) As directed flash glucose sensor (FreeStyle Alina 2 Sensor kit) As directed every 2 weeks furosemide 20 mg PO DAILY 90 days gabapentin 200 mg (2 x 100 mg) PO TID 30 days ibuprofen (Advil) 200 mg PO Q6H PRN insulin glargine (Lantus U-100 Insulin) 40 units subcut BEDTIME insulin lispro (Humalog U-100 Insulin) 1 sliding scale dose See Protocol subcut TIDAC latanoprost 0.005% 1 drp ophthalmic-Right BEDTIME lisinopril 40 mg PO DAILY 90 days metoprolol tartrate 100 mg PO BID 90 days moxifloxacin 0.5% 1 drp ophthalmic-Left BID nitroglycerin 0.4 mg sublingual Q5M PRN pen needle, diabetic (BD Ultra-Fine Madeline Pen Needle) As directed 4 times a day pen needle, diabetic (BD Ultra-Fine Madeline Pen Needle) As directed once daily prednisolone acetate 1% 1 drp ophthalmic-Left BID rivaroxaban (Xarelto) 20 mg PO QPM [SHOWER CHAIR As directed] terazosin 10 mg PO BEDTIME 90 days Tobacco use date assessed: 12/31/24 Fall risk assessment: No Falls in past year Last assessed Fall Risk: 12/31/24 Dental Screening Dental Screen Date: 12/31/24 Did you have a dental visit in the last 12 months?: No Did you have a dental problem in the last 6 months where you did not have access to dental care?: No Was dental information given to patient?: No HPI 4mth f/u HPI Details Patient comes in today for his follow up visit States that he feels okay He completed immunotherapy with Pembrolizumab (Keytruda) for his [place] Cell cancer about a month ago - last dose was on 11/14/2024 States that he will be getting a repeat/follow up CT again sometime next month and will be seeing oncology for follow up in February 2025 States that his fatigue has improved somewhat since he completed his immuno therapy but his states that he still sleeps a lot during the day Patient states that he generally does not sleep well at night as he has to wake up multiple times to go to the bathroom States that his current meds do not seem to be helping much with his nocturia/urinary frequency He denies any headaches or dizziness Denies any chest pains, no SOB No nausea/vomiting, no abdominal pain No change in bowel habits noted Needs his Vitamin D3 Rx refilled He had his follow up labs done a couple of weeks ago - to discuss his results [facility] Medical History History of recent pneumonia (02/24/24) CHF (congestive heart failure) Chronic a-fib [place] cell cancer 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 On beta nahid at home Anemia Bladder cancer Chronic atrial fibrillation Chronic anticoagulation History of colon polyps Erectile dysfunction Chronic kidney disease (CKD), stage II (mild) Obesity (BMI 30-39.9) Benign essential hypertension Pure hypercholesterolemia Iron deficiency anemia halfway (current) use of insulin 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 CAD (coronary artery disease) Hyperlipidemia LDL goal <70 Essential hypertension Type 2 diabetes mellitus with diabetic polyneuropathy Diabetes mellitus Surgical History History of surgery History of esophagogastroduodenoscopy (EGD) Hx of cystoscopy History of cystoscopy Hx of colonoscopy History of cataract surgery History of endoscopy Hx of removal of cyst Family History Father Medical history unknown Mother Diabetes Daughter In good health Son In good health Sister In good health Sister In good health Brother In good health Brother In good health Brother In good health Social History Household Members: Spouse and Family Housing: House Are you a primary health care social worker to a significant other at home: No Do you presently have visiting nurse or other home services: No Alcohol intake: current Alcohol intake frequency: holidays/special occasions only Alcohol type: beer Comment: medicated in pacu Patient Tobacco Use Status: Former Tobacco user Tobacco use type: Cigarette Years Smoked: 20 e-Cigarette/Vaping Use: Never Used Second Hand Smoke Exposure: Yes Advance Directives Date on File: 09/07/21 service: No Current occupational status: retired Current occupational exposures/hazards: No Cognitive needs: Yes (cane) Hearing needs: No Vision needs: Yes Questionnaire PHQ-9 Over the last 2 weeks, how often have you been bothered by any of the following problems? 1. Little interest or pleasure in doing things: not at all 2. Feeling down, depressed, or hopeless: several days 3. Trouble falling or staying asleep, or sleeping too much: not at all 4. Feeling tired or having little energy: several days 5. Poor appetite or overeating: several days 6. Feeling bad about yourself - or that you are a failure or have let yourself or your family down: several days 7. Trouble concentrating on things, such as reading the newspaper or watching television: not at all 8. Moving or speaking so slowly that other people could have noticed. Or the opposite - being so fidgety or restless that you have been moving around a lot more than usual: not at all 9. Thoughts that you would be better off or of hurting yourself in some way: not at all Total score: 4 Depression Screening Interpretation: Positive Depression Screening Follow-up: Existing condition and In treatment Depression Screening Done: Yes 45461 - PHQ-9 Billing: Yes Source: Developed by Drs. Rich Garrido, Kym RodriguezConrad and colleagues, with an educational micheline from [employer]. Thrive Questionnaire Date Thrive assessed: 12/31/24 I am a: Patient What is your living situation today?: I have a steady place to live Within the past 12 months, did the food you bought not last and you didn't have the money to get more?: Never true Within the past 12 months, did you worry whether your food would run out before you got money to buy more?: Never true Do you have trouble paying for medicines?: No Do you have trouble getting transportation to medical appointments?: No Do you have trouble paying your heating and electricity bill?: No Do you have trouble taking care of your child, family member or friend?: No Do you have trouble with day-to-day activities such as bathing, preparing meals, shopping, managing finances, etc.?: No Are you currently unemployed and looking for a job?: No Are you interested in more education?: No Please select the resources that you would like help with: None Currently or been in a relationship where the following occur: No concerns reported THRIVE Score: 0 AUDIT C Alcohol Use Questionnaire (AUDIT-C) 1. How often do you have a drink containing alcohol?: Never 2. How many drinks containing alcohol do you have on a typical day when you are drinking?: 3 or 4 3. How often do you have six or more drinks on one occasion?: Never Total Score: 1 Score Reviewed/Action Taken: Yes MARKUS-7 AMB Questionnaire MARKUS-7 Date MARKUS - 7 assessed: 12/31/24 Feeling nervous, anxious, or on edge: 0 = Not at all Not being able to stop or control worryin = Not at all Worrying too much about different things: 0 = Not at all Trouble relaxin = Not at all Being so restless that it is hard to sit still: 0 = Not at all Becoming easily annoyed or irritable: 0 = Not at all Feeling afraid as if something awful might happen: 0 = Not at all Total MARKUS-7 score (0-4 normal; 5-9 mild; 10-14 moderate; 15-21 severe): 0 Source: Developed by Drs. Rich Garrido, Conrad Tafoya and colleagues, with an educational micheline from [employer]. Review of Systems Const Denies chills, Reports fatigue, Denies fever(s) and Denies headache(s) ENT Denies dysphagia, Denies dizziness, Denies otalgia, Denies headache(s), Denies neck pain, Denies odynophagia and Denies sore throat Card Denies chest pain, Denies palpitations and Denies dyspnea Resp Denies chest congestion, Denies cough and Denies dyspnea GI Denies abdominal pain, Denies constipation, Denies dysphagia, Denies heartburn, Denies diarrhea, Denies nausea, Denies odynophagia and Denies vomiting Denies difficulty urinating, Denies dysuria, Reports nocturia, Reports urinary frequency and Denies urinary hesitancy Musc Denies back pain and Denies neck pain Skin/Breast Denies rash Neuro Details: (+) bilateral leg pain Denies dizziness and Denies headache(s) Psych Denies depression (better on Rx) Endo Reports fatigue and Denies palpitations Physical exam (Primary Care) Vital Signs: Last Vital Signs Pulse 66 12/31/24 10:57 BP 102/62 12/31/24 10:57 Pulse Ox 95 12/31/24 10:57 Oxygen Delivery Method Room Air 12/31/24 10:57 BMI result Body Mass Index 37.4 Tobacco/Smoking Status: Tobacco use Status Tobacco use date assessed 12/31/24 12/31/24 11:04 Patient Tobacco Use Status Former Tobacco user 12/31/24 10:58 Tobacco use type Cigarette 12/31/24 10:58 e-Cigarette/Vaping Use Never Used 12/31/24 10:58 PHQ-9: PHQ-9 Score PHQ-9: Total score 4 12/31/24 11:15 Depression Screening Interpretation: Positive Depression Screening Follow-up: Existing condition and In treatment Thrive Assessment: Date of Thrive Assessment Date Thrive assessed 12/31/24 12/31/24 11:04 Currently or been in a relationship where the following occur: No concerns reported Const General: no acute distress and alert HENMT Ears: TM's normal bilaterally and EAC's normal Throat: Yes posterior oropharynx normal and Yes tonsils normal (no TP congestion noted) Neck Neck: Yes supple and No lymphadenopathy Thyroid: Thyroid normal Resp Auscultation: clear to auscultation bilaterally, no rales and no wheezes Cardio Rate: regular rate Rhythm: abnormal rhythm irregularly irregular Heart sounds: no murmurs GI Palpation (GI): Soft to palpation and nontender Auscultation: normal bowel sounds General: Yes no CVA tenderness Back/Spine/Pelvis Back: no CVA tenderness Thoracic/Lumbar Spine: No lumbar spinal tenderness Skin Rashes: no rashes Extrem General: Yes no clubbing, cyanosis or edema Results Reviewed Results Reviewed: Laboratory Tests 08/06/24 12/17/24 12/17/24 09:18 07:54 07:59 WBC 7.0 Hgb 14.3 Hct 44.2 Plt Count 146 L Sodium 145 Potassium 3.1 L Creatinine 1.02 Estimated GFR > 60 Fasting Glucose 119 H Hemoglobin A1c % 7.5 H 7.0 H Calcium 9.0 AST 26 ALT 10 Triglycerides 144 Cholesterol 136 LDL Cholesterol, Calc 71 HDL Cholesterol 37 L 25-OH Vitamin D Total 45.1 TSH 3.39 Ur Specific [place] 1.015 Urine Protein Negative Urine Glucose (UA) Negative Urine Blood Large (3+) H Urine Nitrite Negative Ur Leukocyte Esterase Small (1+) H Microalb/Creat Ratio 62.3 H Coding Level of Care Code Est Pt Level 4 (72919) Complex EM visit Add On G2211 Diagnoses Type 2 diabetes mellitus with stage 2 chronic kidney disease, with long-term current use of insulin E11.22; N18.2; Z79.4 Diabetes mellitus ocean transportation intermediary insulin use: with ocean transportation intermediary use Chronic kidney disease stage: stage 2 (mild) Pure hypercholesterolemia E78.00 Benign essential hypertension I10 Chronic atrial fibrillation I48.20 Malignant neoplasm of urinary bladder, unspecified site C67.9 Bladder location: unspecified site [place] cell cancer C4A.9 Neuropathy G62.9 Mood disorder F39 Obesity (BMI 30-39.9) E66.9 Additional Codes PHQ-9 - 33027 - PHQ-9 Billing: Yes ([id number]) Assessment & Plan Assessment & Plan (1) Type 2 diabetes mellitus with diabetic chronic kidney disease: Code(s): E11.22 - Type 2 diabetes mellitus with diabetic chronic kidney disease Category: Medical Qualifiers: Diabetes mellitus halfway insulin use: with halfway use Chronic kidney disease stage: stage 2 (mild) Qualified Code(s): E11.22 - Type 2 diabetes mellitus with diabetic chronic kidney disease; N18.2 - Chronic kidney disease, stage 2 (mild); Z79.4 - halfway (current) use of insulin Plan: His HgbA1c was at 7.0% on his labs done a couple of weeks ago (was previously at 7.5% a few months ago) - goal is <7.0% Reinforced diabetic diet Continue Lantus 40 units daily at bedtime, Humalog 2 - 10 units with breakfast and lunch and dinner dosed per sliding scale and Trulicity 1.5 mg once a week Follow up with endocrinology (Dr. Fontaine) as scheduled for his diabetes management (2) Pure hypercholesterolemia: Code(s): E78.00 - Pure hypercholesterolemia, unspecified Category: Medical Plan: Results of his labs done a couple of weeks ago reviewed and discussed with patient Reinforced low cholesterol diet Continue Atorvastatin 40 mg QD Will recheck his labs and fasting lipids in 4 months for follow up - (3) Benign essential hypertension: Code(s): I10 - Essential (primary) hypertension Category: Medical Plan: Reinforced low sodium diet - goal is systolic BP of at least 130 mm or less Continue Metoprolol 100 mg BID and Lisinopril 30 mg QD - dose was lowered a few months ago due to his recurrent bouts of low blood pressure and related symptoms back then Patient is reminded to continue monitoring his blood pressure regularly (4) Chronic atrial fibrillation: Code(s): I48.20 - Chronic atrial fibrillation, unspecified Category: Medical Plan: Patient is currently still in atrial fibrillation but remains rate-controlled; he has had no acute symptoms related to his AF Continue Metoprolol 100 mg BID Continue Xarelto 20 mg QD for thromboembolism prevention Follow up with cardiology as scheduled (5) Urinary bladder cancer: Comment: Low-grade recurrent Code(s): C67.9 - Malignant neoplasm of bladder, unspecified Category: Medical Qualifiers: Bladder location: unspecified site Qualified Code(s): C67.9 - Malignant neoplasm of bladder, unspecified Plan: S/P intravesical chemotherapy (BCG) for his bladder cancer in 2020 and had bladder fulguration on 04/15/2024 Follow up with urology as scheduled for continuing management and surveillance (6) [place] cell cancer: Comment: of the right forearm - diagnosed by biopsy Code(s): C4A.9 - Raji cell carcinoma, unspecified Category: Medical Plan: S/P radiation therapy of the right forearm and axilla from 02/2022 to 03/2022 He was diagnosed with recurrent Raji Cell carcinoma in 08/2022 and PET scan do ne in 09/2022 revealed (+) axillary adenopathy and multiple sites of probable bone metastases Patient was started on Pembrolizumab immunotherapy for his recurrent [place]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 on 10/06/2022 and he completed his treatment with Keytruda on 11/14/2024, achieving his goal of immunotherapy x 2 years He will be getting a repeat CT done next month prior to his next oncology appointment in February 2025 Follow-up with oncology as scheduled for continuing management (7) Neuropathy: Code(s): G62.9 - Polyneuropathy, unspecified Category: Medical Plan: Patient continues to report increased pain in both legs - states that his current Rx help but only to some extent Continue Gabapentin 200 mg TID and Duloxetine 30 mg QD (8) Mood disorder: Code(s): F39 - Unspecified mood [affective] disorder Category: Medical Plan: Patient's states that his mood and depression have improved a lot on his Rx Continue Duloxetine 30 mg QD (9) Obesity (BMI 30-39.9): Code(s): E66.9 - Obesity, unspecified Category: Medical Plan: Reinforced diet; exercise and weight loss are not really realistic given patient's neuropathy and other physical issues and comorbidities Plan Follow up in 4 months Orders: Orders Complete Blood Count Auto Diff 4 Months D64.9 - Anemia, unspecified Lipid Panel 4 Months E78.00 - Pure hypercholesterolemia, unspecified Comprehensive [place]. Panel Fast 4 Months E78.00 - Pure hypercholesterolemia, unspecified Hemoglobin A1c 4 Months E11.9 - Type 2 diabetes mellitus without complications TSH reflex Free T4 4 Months E78.00 - Pure hypercholesterolemia, unspecified UA CC w/rflx Micro + Cult 4 Months R30.0 - Dysuria Microalbumin, Random (w Creat) 4 Months E11.9 - Type 2 diabetes mellitus without complications Vitamin D 25-OH Total 4 Months E55.9 - Vitamin D deficiency, unspecified Medications: Changed From cholecalciferol (vitamin D3) (Vitamin D3) 25 mcg PO DAILY 90 tabs 2RF To cholecalciferol (vitamin D3) (Vitamin D3) 25 mcg PO DAILY 90 days 90 tabs 3RF
--- OUTSIDE RECORDS SUMMARY | 2024-12-31 12:49 | XMS_ITS ---
Author Organization [facility] Address [address] [address] Care Team Providers Care Potato Pancake Frier Name Role Phone Merlin Andrade MDneth Primary Care Provider Елена Garcia [phone] REASON FOR VISIT Seen Sooner Medications Medication [...] No Encounters Encounter Location Date Provider Diagnosis [facility] [address] [place] [address] 11/18/2024 Елена Black Plan Of Treatment Next Appt Details Provider Name:Елена Oconnor , 04/07/2025 02:30:00 PM, [address] [place], [address], Progress Notes * Kamlesh KUNZ JrDOB:[birth year] (79 yo M)Acc No.[id number]:11/18/2024 Progress Notes Patient:?Kamlesh KUNZ Jr Provider:?Елена Oconnor DPM :1945???Age:79 Y???Sex:Male Chance e:11/18/2024 Address:[address] [place], [place] [address] Pcp:Guido Andrade MD Subjective: * Chief Complaints: * ???1. Seen Sooner. * ROS:?General/Constitutional:?Nausea?denies.?Vomiting?denies.?Hunger Thirst?denies.?Loss appetite?denies.?Chills?denies.?Fatigue?denies.?Fever?denies.?Night Sweats?denies.?Unexplained weight loss?denies.?Unexplained weight gain?denies.?HEENTM:?Dentures?denies.?Dizziness?denies.?Glasses/contacts?denies.?Retinopathy?de nies.?Blurred/double vision?denies.?TMJ?denies.?Discharge/drainage?denies.?Implants?denies.?Sore throat?denies.?Dental implants?denies.?Hard of hearing ?denies.?Difficulty chewing/swallowing/speaking?denies.?Nose bleeds?denies.?Sore mouth?denies.?Respiratory:?On Oxygen?denies.?Pneumonia/pleurisy?denies.?Bronchitis?denies.?Emphysema?denies.?C oughing?denies.?Cough blood?denies.?Shortness of breath?denies.?Wheezing?denies.?Cardiovascular:?Pacemaker?denies.?MVP?denies.?WPW?denies.?CHF?denies.?Heart attack?denies.?Septal defect?denies.?Rapid beat?denies.?Chest pain ?denies.?Atrial Fib.?denies.?Murmur/Palpitations?denies.?Gastrointestinal:?Hemorrhoids?denies.?Stomach/Abdominal pain?denies.?Dark blood stool?denies.?Irritable bowel ?denies.?Constipation?denies.?Diarrhea?denies.?Hematology:?Swelling?denies.?Clots?denies.?Varicose Veins?denies.?Bruising?denies.?Bleeding problem?denies.?Genitourinary:?Blood urine?denies.?Frequent/Painfu/urination/bladder control?denies.?Kidney stones?denies.?Infection (UTI)?denies.?Nephropathy?denies.?sex trans dis (STD)?denies.?Prostate?denies.?Musculoskeletal:?Hammertoes?denies.?Bunions?denies.?Back Pain?denies.?Muscle Cramps/ Resting?denies.?Muscle cramps / walking?denies.?Generalized aches and pains?denies.?Weakness?denies.?Integ.:?Pat?denies.?Scars?denies.?Corns/calluses?denies.?Ingrown nails?denies.?Painful nails?denies.?Open Sores?denies.?Rashes?denies.?Neurologic:?Difficulty sleeping?denies.?Brain disorder?denies.?Numbness?denies.?Balance trouble?denies.?Confusion?denies.?Fainting/blackouts?denies.?Tingling?denies.?Tr emors?denies.? * Medical History:?CAD (Choles terol), Cancer, Cataracts, Diabetic, High Blood Pressure, Numbness. * Family History:?Mother: dece ased, diabetes, cancer, foot problems, diagnosed with Other specified conditions influencing health status, Diabetic - NIDDM, Other malignant neoplasm of unspecified site.?Father: .? * Social History:?Tobacco Use:?Tobacco Use/Smoking?Are you a:?former smoker ?Additional Findings: Tobacco Non-User?Current non-smoker ?Tobacco use other than smoking?Are you an other tobacco user??No ???Drugs/Alcohol:?Drugs?Have you used drugs other than those for medical reasons in the past 12 months??No ?Alcohol Screen?Did you have a drink containing alcohol in the past year??Yes ?Points?0 ?Interpretation?Negative ???Miscellaneous:?Caffeine: yes, frequency:. ?Marital status: . * Medications:?Taking Trulicit y , Notes to Pharmacist: once a week, [...] tablet Orally Once a day Objective: * Vitals:? Assessment: Plan: * Treatment: * Images: * The named appointment provid er may or may not be the originator of this progress note, and it is not deemed complete until electronically signed by the appointment provider. Sign off status: Pending * Provider:Yuliana Oconnor DPM Date:?2024 Generated for Stephanie thomson/Ludy/Reynaldo on:?12/31/2024 12:49 PM EST
--- OUTSIDE RECORDS SUMMARY | 2024-12-31 12:49 | XMS_ITS ---
[facility] Address [address] [place] [address] Care Team Providers Care Staffing And Scheduling Coordinator Name Role Phone Merlin Andrade MDneth Primary Care Provider Unava ilable Black, Елена Unavailable [phone] Allergies No Known Allergies REASON FOR VISIT At Risk Footcare, Skin Problem, Toe Irritation Medications Medication SIG (Take, Route, Frequency, Duration) Notes Start Date End Date Status DULoxetine HCl 30 MG 1 capsule Orally On ce a day Active Vitamin D3 25 MCG (1000 UT) 1 capsule Orally Once a day Active Lisinopril 40 MG 1 tablet Orally Once a day Active Atorvastatin Calcium 40 MG 1 tablet Orally Once a day Active Ciclopirox Olamine 0.77 % 1 application Externally Twice a day to skin of feet including between the toes for 30 days Active Xarelto 20 MG 1 tablet with food Orally Once a day Active Gabapentin 100 MG 2 capsules Orally Three Times a Day Active Metoprolol Tartrate 100 MG 1 tablet with food Orally Twice a day Active Furosemide 20 MG 1 tablet Orally Once a day Active Ferrous Sulfate 325 (65 Fe) MG 1 tablet Orally Three times a Week Active Lisinopril 40 MG 1 tablet Orally Once a day Active Atorvastatin Calcium 40 MG 1 tablet Orally Once a day Active Trulicity Active Basaglar KwikPen 100 UNIT/ML as directed Subcutaneous Active HumaLOG KwikPen Acti ve Metoprolol Tartrate 100 MG 1 tablet with food Orally Twice a day Active Furosemide 20 MG 1 tablet Orally Once a day Active Ferrous Sulfate 325 (65 Fe) MG 1 tablet Orally Three times a Week Active DULoxetine HCl 30 MG 1 capsule Orally On ce a day Active Vitamin D3 1000 UNIT 1 capsule Orally On ce a day Active Basaglar KwikPen 38 units before bed Active HumaLOG KwikPen Acti ve Xarelto 20 MG 1 tablet with food Orally Once a day Active Gabapentin 300mg three times a day orally daily Active Extra Depth Orthopedic Shoes (1 Pair) with Customized Heat Molded Multidensity Innersoles (3 Pair) as directed Dx: NIDDM/Polyneuropathy (E11.42), Hammertoe Foot Deformity (M20.41,M20.42), Preulcerative Skin Lesion(s) (L85.1 12/30/2024 Active Trulicity once a week Active Social History Tobacco Use: Social History Observation Description Date Details (start date - stop date) Never Smoker NA - NA Tobacco use other than smoking: Question Answer Notes Are you an other tobacco user? No Tobacco Control (Standard) Question Answer Notes Tobacco use: Nonsmoker Additional Findings: Tobacco non-user Current no nsmoker AUDIT-C (Standard) Question Answer Notes Did you have a drink contain ing alcohol in the past year? Yes How often did you have a dri nk containing alcohol in the past year? Monthly or less (1 point) How many drinks did you have on a typical day when you were drinking in the past year? 1 or 2 drinks (0 point) How often did you have six o r more drinks on one occasion in the past year? Never (0 point) Points 1 Interpretation Negative Problems Problem Type SNOMED Code ICD Code Onset Dates Problem Status W/U Status Risk Notes Problem Acquired hammer toe of right foot (1919955102330 105) Other hammer toe(s) (acquired), right foot (M20.41) Active confirmed Problem Acquired hammer toe of left foot (5710982131694 103) Other hammer toe(s) (acquired), left foot (M20.42) Active confirmed Problem Arthritis (9052479) Arthritis (M19.90) Active confirmed Vital Signs Height 5 ft 9 in in 12/30/2024 Weight 232 lbs 12/30/2024 BMI 34.26 kg/m2 12/30/2024 Blood pressure systolic 131 mm Hg 12/30/19 25 Blood pressure diastolic 71 mm Hg 025 Heart Rate 65 /min 12/30/2024 Procedures Procedure Date Ordered Date Performed Result Body Sit e 35391-FQAHPMB NAIL, 6 OR MORE 12/30/2024 N/A 11092-AHGT SKIN LESIONS, OVER 4 12/30/2024 N/A Encounters Encounter Location Date Provider Diagnosis [facility] [place] [address] [place] [address] 12/30/2024 Елена Oconnor Type 2 diabetes mellitus with diabetic polyneuropathy E11.42 ; Other hammer toe(s) (acquired), right foot M20.41 ; Tinea unguium B35.1 ; Tinea pedis of both feet B35.3 ; Other hammer toe(s) (acquired), left foot M20.42 ; Arthritis M19.90 and Neuritis M79.2 Assessments Encounter Date Diagnosis (ICD Code) Assessment Notes Treatment Notes Treatment Clinical Notes Section Notes 12/30/2024 Type 2 diabetes mellitus with diabetic polyneuropathy (ICD-10 - E11.42) Patient Educated with: DIABETIC FOOT CARE INSTRUCTIONS. pdf (DIABETIC FOOT CARE INSTRUCTIONS. pdf) 12/30/2024 Other hammer toe(s) (acquired), right foot (ICD-10 - M20.41) Patient Educated with: DIABETIC FOOT CARE INSTRUCTIONS. pdf (DIABETIC FOOT CARE INSTRUCTIONS. pdf) 12/30/2024 Tinea unguium (ICD-10 - B35.1) 12/30/2024 Tinea pedis of both feet (ICD-10 - B35.3) 12/30/2024 Other hammer toe(s) (acquired), left foot (ICD-10 - M20.42) 12/30/2024 Arthritis (ICD-10 - M19.90) 12/30/2024 Neuritis (ICD-10 - M79.2) Plan Of Treatment Medication Medication Name Sig Start Date Stop Date Notes Ciclopirox Olamine 0.77 % 1 application Externally Twice a day to skin of feet including between the toes for 30 days Extra Depth Orthopedic Shoes (1 Pair) with Customized Heat Molded Multidensity Innersoles (3 Pair) as directed Dx: NIDDM/Polyneuropathy (E11.42), Hammertoe Foot Deformity (M20.41,M20.42), Preulcerative Skin Lesion(s) (L85.1 12/30/2024 Treatment Notes Assessment Notes Type 2 diabetes mellitus wit h diabetic polyneuropathy Patient Educated with: DIABETIC FOOT CARE INSTRUCTIONS.pdf (DIABETIC FOOT CARE INSTRUCTIONS.pdf) Other hammer toe(s) (acquired), right fo ot Patient Educated with: DIABETIC FOOT CARE INSTRUCTIONS.pdf (DIABETIC FOOT CARE INSTRUCTIONS.pdf) Pending Test Test Name Order Date 40409-NIMQFCF NAIL, 6 OR MORE 12/30/2024 94423-ZHGC SKIN LESIONS, OVER 4 12/30/19 25 Next Appt Details Follow Up: 3 Months, Reason: Provider Name:Елена Oconnor , 04/07/2025 02:30:00 PM, [address] [place] [address], [phone], Procedure Notes * Category Sub-Category Detail Notes Debride Nail 6-10 Nail debridement Due to the cl inical pathology outlined in the exam findings, performance of this nail treatment is medically necessary as its management by an unskilled/untrained nonprofessional would put this patients foot and overall health at risk. Therefore, debridement to affected nail(s), as described in exam ( T1, T2, T3, T4, T6, T7, T8, T9 ), was performed exclusively by the physician of record to reduce/remove overall nail length, girth, thickness, subungual debris, and necrotic tissue, by manual and/or electrical means through the use of a nail nipper and/or dremel-type machine grinder, to a more viable healthy nail plate or bed tissue 6-10 nails in total. Silver nitrate was used for any petechial bleeding as necessary. Definitive antifungal treatment options, both pharmaceutical and surgical, have been reviewed and discussed with the patient. The patient solely prefers the use of intermittent/as needed professional debridement services for their nail condition and understands the need for additional periodic treatments to maintain effectiveness in symptomatic relief - 88441 Keratoma Treatment Parring or Cutting o f Benign Hyperkeratotic Lesion(s) (-57) More than 4 Lesions - Due to the at risk nature of the patients medical condition as documented in the exam findings, performance of this keratoderma treatment is medically necessary as its management by an unskilled/untrained nonprofessional would put this patients foot and overall health at risk. Therefore, the benign hyperkeratotic lesions, ( 5 ) in total, locations as stated and described in the exam (IPJ, TA, T5, SUB MTH (s), 1, B/L,5, Right,), were pared, and/or cut utilizing a sterile 15 blade, tissue nippers, and/or power dremel instrumentation by the physician of record - 30167 Progress Notes * Kamlesh KUNZ JrDOB:[birth year] (79 yo M)Acc No.[id number]:12/30/2024 Progress Note Patient:?Kamlesh KUNZ Jr Provider:?Елена Oconnor DPM :1945???Age:79 Y???Sex:Male Chance e:12/30/2024 Address:[address] [place] [address] [facility] [place], [id number] Pcp:Guido Andrade MD Subjective: * Chief Complaints: * ???At Risk FootcareSkin Prob lemToe Irritation * HPI: ???At Risk footcare:?Pt States Last PCP Visit:?Date?10/04/2024 ???Skin problems:?Nature:?scaling , redness.?Location:?B/L .?Duration:?, several months.?Course:?, improved, at 70%.?Treatments:?Medication (Ciclopirox Olamine 0.77 Cream), admits intermittent adherence to recommended application.?Toe pain:?Location:?B/L feet.?Duration:?several years.?Course:?worse.?Aggravated by:?shoes, any pressure.?Treatments:?change in shoes.?Ankle Pain:?Nature:?warmth and numbness?.?Location:?, Front of, Right ankle.?Duration: ?several months.?Onset/Cause:?sudden, unknown, denies trauma.?Course:?intermittent.?Aggravated by:?standing.? * ROS:?General/Constitutional:?Nausea?denies.?Vomiting?denies.?Hunger Thirst?denies.?Loss appetite?denies.?Chills?denies.?Fatigue?denies.?Fever?denies.?Night Sweats?denies.?Unexplained weight loss?denies.?Unexplained weight gain?denies.?HEENTM:?Dentures?denies.?Dizziness?denies.?Glasses/contacts?denies.?Retinopathy?den ies.?Blurred/double vision?denies.?TMJ?denies.?Discharge/drainage?denies.?Implants?denies.?Sore throat?denies.?Dental implants?denies.?Hard of hearing ?denies.?Difficulty chewing/swallowing/speaking?denies.?Nose bleeds?denies.?Sore mouth?denies.?Respiratory:?On O xygen?denies.?Pneumonia/pleurisy?denies.?Bronchitis?denies.?Emphysema?denies.?Co ughing?denies.?Cough blood?denies.?Shortness of breath?denies.?Wheezing?denies.?Cardiovascular:?Pacemaker?denies.?MVP?denies.?WPW?denies.?CHF?denies.?Heart attack?denies.?Septal defect?denies.?Rapid beat?denies.?Chest pain ?denies.?Atrial Fib.?denies.?Murmur/Palpitations?denies.?Gastrointestinal:?Hemorrhoids?denies.?Stomach/Abdominal pain?denies.?Dark blood stool?denies.?Irritable bowel ?denies.?Constipation?denies.?Diarrhea?denies.?Hematology:?Swelling?denies.?Clots?denies.?Varicose Veins?denies.?Bruising?denies.?Bleeding problem?denies.?Genitourinary:?Blood urine?denies.?Frequent/Painfu/urination/bladder control?denies.?Kidney stones?denies.?Infection (UTI)?denies.?Nephropathy?denies.?sex trans dis (STD)?denies.?Prostate?denies.?Musculoskeletal:?Hammertoes?denies.?Bunions?denies.?Back Pain?denies.?Muscle Cramps/ Resting?denies.?Muscle cramps / walking?denies.?Generalized aches and pains?denies.?Weakness?denies.?Integ.:?Pat?denies.?Scars?denies.?Corns/calluses?denies.?Ingrown nails?denies.?Painful nails?denies.?Open Sores?denies.?Rashes?denies.?Neurologic:?Difficulty sleeping?denies.?Brain disorder?denies.?Numbness?denies.?Balance t rouble?denies.?Confusion?denies.?Fainting/blackouts?denies.?Tingling?denies.?Suresh mors?denies.? * Medical History:? 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 * Social History:?Tobacco Use:?Tobacco use other than smoking?Are you an other tobacco user??No ?Tobacco Control (Standard)?Tobacco use:?Nonsmoker ?Additional Findings: Tobacco non-user?Current nonsmoker ???Drugs/Alcohol:?Drugs?Have you used drugs other than those for medical reasons in the past 12 months??No ???Miscellaneous:?Caffeine: yes, frequency: , 1-2 cups per day. ?Children: yes. ?Exercise: yes, walking. ?Marital status: . 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 ???Drug/Alcohol:?AUDIT-C (Standard)?Did you have a drink containing alcohol in the past year??Yes ?How often did you have a drink containing alcohol in the past year??Monthly or less (1 point) ?How many drinks did you have on a typical day when you were drinking in the past year??1 or 2 drinks (0 point) ?How often did you have six or more drinks on one occasion in the past year??Never (0 point) ?Points?1 ?Interpretation?Negative * Medications:?TakingTrulicity , Notes to Pharmacist: once a weekAsim Hernandez , Notes to Pharmacist: [facility] Xarelto 20 MG Tablet 1 tablet with food Orally Once a day Gabapentin 300mg tablets three times a day orally daily Metoprolol Tartrate 100 MG Tablet 1 tablet with food Orally Twice a day Furosemide 20 MG Tablet 1 tablet Orally Once a day Ferrous Sulfate 325 (65 Fe) MG Tablet 1 tablet Orally Three times a Week DULoxetine HCl 30 MG Capsule Delayed Release Particles 1 capsule Orally Once a day Vitamin D3 1000 UNIT Capsule 1 capsule Orally Once a day Lisinopril 40 MG Tablet 1 tablet Orally Once a day Atorvastatin Calcium 40 MG Tablet 1 tablet Orally Once a day Trulicity Basaglnaye Hernandez 100 UNIT/ML Solution Pen-injector as directed Subcutaneous HumaLOG David Xarelto 20 MG Tablet 1 tablet with food Orally Once a day Gabapentin 100 MG Capsule 2 capsules Orally Three Times a Day Metoprolol Tartrate 100 MG Tablet 1 tablet with food Orally Twice a day Furosemide 20 MG Tablet 1 tablet Orally Once a day Ferrous Sulfate 325 (65 Fe) MG Tablet 1 tablet Orally Three times a Week DULoxetine HCl 30 MG Capsule Delayed Release Particles 1 capsule Orally Once a day Vitamin D3 25 MCG (1000 UT) Capsule 1 capsule Orally Once a day Lisinopril 40 MG Tablet 1 tablet Orally Once a day Atorvastatin Calcium 40 MG Tablet 1 tablet Orally Once a day Ciclopirox Olamine 0.77 % Cream 1 application Externally Twice a day to skin of feet including between the toes Medication List reviewed and reconciled with the patientTaking Destiny , Notes to Pharmacist: once a weekTaking Asim Hernandez , Notes to Pharmacist: 38 units before bedTaking Rubens Hernandez Taking Xarelto 20 MG Tablet 1 tablet with food Orally Once a day Taking Gabapentin 300mg tablets three times a day orally daily Taking Metoprolol Tartrate 100 MG Tablet 1 tablet with food Orally Twice a day Taking Furosemide 20 MG Tablet 1 tablet Orally Once a day Taking Ferrous Sulfate 325 (65 Fe) MG Tablet 1 tablet Orally Three times a Week Taking DULoxetine HCl 30 MG Capsule Delayed Release Particles 1 capsule Orally Once a day Taking Vitamin D3 1000 UNIT Capsule 1 capsule Orally Once a day Taking Lisinopril 40 MG Tablet 1 tablet Orally Once a day Taking Atorvastatin Calcium 40 MG Tablet 1 tablet Orally Once a day Taking Trulicity Taking Asim Hernandez 100 UNIT/ML Solution Pen-injector as directed Subcutaneous Taking Rubens Hernandez Taking Xarelto 20 MG Tablet 1 tablet with food Orally Once a day Taking Gabapentin 100 MG Capsule 2 capsules Orally Three Times a Day Taking Metoprolol Tartrate 100 MG Tablet 1 tablet with food Orally Twice a day Taking Furosemide 20 MG Tablet 1 tablet Orally Once a day Taking Ferrous Sulfate 325 (65 Fe) MG Tablet 1 tablet Orally Three times a Week Taking DULoxetine HCl 30 MG Capsule Delayed Release Particles 1 capsule Orally Once a day Taking Vitamin D3 25 MCG (1000 UT) Capsule 1 capsule Orally Once a day Taking Lisinopril 40 MG Tablet 1 tablet Orally Once a day Taking Atorvastatin Calcium 40 MG Tablet 1 tablet Orally Once a day Taking Ciclopirox Olamine 0.77 % Cream 1 application Externally Twice a day to skin of feet including between the toes Medication List reviewed and reconciled with the patient * Allergies:?N.K.D.A.yes[Aller gies Verified] Objective: * Vitals:?Ht: 5 ft 9 in, Wt: 2 32, BMI: 34.26, Shoe size: 10, BP: 131/71 mm Hg, HR: 65 /min, BS: 201, Ht-cm: 175.26 cm, Wt-k.23 kg. * Examination: ???Ophthalmology Referral: ?DIABETES EYE EXAM?CQM Exceptions:: ?Hemoglobin A1c not performed?General Examination: ?GENERAL APPEARANCE:?Reveals a pleasant, alert, well nourished, well- developed, well hydrated individual, who demonstrates proper attention to hygiene/body habitus, and is in no acute distress, Pt serves as own historian for office visit today, Pt accompanied by, Daughter, and/who is physically present in exam room at time of visit.?ORIENTED:?person, place, and time.?FOOT EXAM:?Footwear Evaluation?Neurological: ?SENSORY:? Neurological exam demonstrates, reduced light touch sensation, reduced sharp/dull pin prick discrimination , B/L, 5.07 monofilament test performed at plantar aspects of 5 varied sites per foot shows sensation, reduced , B/L.?TINEL'S COMPRESSION:?Negative tarsal tunnel, chinmay pedis, and medial calcaneal nerves.?Nails: ?NAILS are:?Elongated, overgrown, dystrophic, lytic, greater than 3mm thick, discolored and friable with crumbly malodorous subungual debris, with dull to no pain on palpation due to neuropathy, ?T1, T2, T3, T4, T6, T7, T8, T9.?Dermatologic: ?SKIN FINDINGS:?Skin exam reveals Keratotic lesion(s) located at IPJ, TA, T5, SUB MTH (s), 1, B/L,5, Right, Skin shows sign(s) of, erythema, scaling, in a moccasin fashion, no fissure(s) present, B/L, Left, approximately 70? percent LESS.?Vascular: ?DP PULSES (B):?2/4, B/L.?PT PULSES (B):?2/4, B/L.?CAPILLARY FILL TIME:?immediate, all digits, B/L.?TROPHIC CONDITION-TEXTURE/ELASTICITY/TURGOR/HAIR GROWTH (B):?normal, B/L.?TEMPERTURE GRADIENT (C):?normal, warm to cool, proximal to distal, B/L, B/L.?PIGMENTATION:?normal, B/L.?EDEMA (C):?absent, B/L.?Orthopedic: ?MUSCLE STRENGTH:?5/5 all groups in a symmetrical fashion, B/L.?DIGITAL DEFORMITIES:??Digital contracture, PIPJ, 2-5 B/L, incompl- reducible to push-up test, no over, nor underlapping,?there is?evidence of shoe producing skin irritation.?ANKLE PAIN LOCATED:?RIGHT, Anterior ankle, ( +) swelling, ( -) ecchymosis, (-)pain with ankle joint ROM, (-) calor?(+) crepitus with ankle joint ROM, No pain at, ATFL, CFL, PTFL, Syndesmosis.?FOOTWEAR:?worn, non-supportive, shoe gear properties exacerbate patient's foot/toe deformity.? Assessment: * Assessment: 1.?Type 2 diabetes mellitus with diabetic polyneuropathy - E11.42???2.?Other hammer toe(s) (acquired), right foot - M20.41 (Primary)???Specify :Chronic problem, Worse (4),Rx Management (4)???3.?Tinea unguium - B35.1???4.?Tinea pedis of both feet - B35.3???Specify :Response to treatment - Improvement???5.?Other hammer toe(s) (acquired), left foot - M20.42???Specify :Chronic problem, Worse (4),Rx Management (4)???6.?Arthritis - M19.90???7.?Neuritis - M79.2??? Plan: * Treatment: 2.?Type 2 diabetes mellitus with diabetic polyneuropathy?Procedure: 11001-AMSI SKIN LESIONS, OVER 4 Notes: Patient Educated with: DIABETIC FOOT CARE INSTRUCTIONS.pdf (DIABETIC FOOT CARE INSTRUCTIONS.pdf)?? 3.?Tinea unguium?Procedure: 31333-QYNACJU NAIL, 6 OR MORE 4.?Tinea pedis of both feet? Continue Ciclopirox Olamine Cream, 0.77 %, 1 application, Externally, Twice a day to skin of feet including between the toes, 30 days, 60, Refills 2.?? * Procedures:?Debride Nail 6-10:?Nail debridement?Due to the clinical pathology outlined in the exam findings, performance of this nail treatment is medically necessary as its management by an unskilled/untrained nonprofessional would put this patients foot and overall health at risk. Therefore, debridement to affected nail(s), as described in exam ( T1, T2, T3, T4, T6, T7, T8, T9 ), was performed exclusively by the physician of record to reduce/remove overall nail length, girth, thickness, subungual debris, and necrotic tissue, by manual and/or electrical means through the use of a nail nipper and/or dremel-type machine grinder, to a more viable healthy nail plate or bed tissue 6-10 nails in total. Silver nitrate was used for any petechial bleeding as necessary. Definitive antifungal treatment options, both pharmaceutical and surgical, have been reviewed and discussed with the patient. The patient solely prefers the use of intermittent/as needed professional debridement services for their nail condition and understands the need for additional periodic treatments to maintain effectiveness in symptomatic relief - 01613.?Keratoma Treatment:?Parring or Cutting of Benign Hyperkeratotic Lesion(s)?(-57) More than 4 Lesions - Due to the at risk nature of the patients medical condition as documented in the exam findings, performance of this keratoderma treatment is medically necessary as its management by an unskilled/untrained nonprofessional would put this patients foot and overall health at risk. Therefore, the benign hyperkeratotic lesions, ( 5 ) in total, locations as stated and described in the exam (IPJ, TA, T5, SUB MTH (s), 1, B/L,5, Right,), were pared, and/or cut utilizing a sterile 15 blade, tissue nippers, and/or power dremel instrumentation by the physician of record - [id number].? * Procedure Codes:?07151 DEBRI DE NAIL, 6 OR MORE, Modifiers: XS 08096 TRIM SKIN LESIONS, OVER 4, Modifiers: XS * Preventive Medicine:? ??Counseling:?Discussion:?-14: Office or other outpatient visit for the evaluation and management of an established patient, which required a medically appropriate history and/or examination and MODERATE level of DECISION MAKING for: 1 OR MORE CHRONIC PROBLEM(S) THATS WORSENING, 2 STABLE CHRONIC PROBLEMS, A NEWLY DIAGNOSED PROBLEM WITH UNCERTAIN PROGNOSIS, AN ACUTE COMPLICATED INJURY WITH MULTIPLE TREATMENT OPTIONS, OR AN ACUTE PROBLEM WITH ACCOMPANYING SYSTEMIC SYMPTOMS, THAT POSE(S) A MODERATE RISK OF MORBIDITY. THIS CONDITION MAY ALSO INCLUDE RX DRUG MANAGEMENT, OR A DECISON FOR MINOR SURGERY. The visit on the day of the encounter encompassed interpreting the data and educating the patient as to the nature of their condition, treatment options available according to their individual PMH, meds, allergies, and overall health/living conditions, as well as any potential risks or complications that may occur from a failure to adhere to, and participate in, the recommended course of therapy. The discussion included a complete verbal, and/or written explanation of the examination results, any x-rays taken, the proposed diagnosis, and outline of the treatment plan. A schedule for future care needs was also explained. The patient verbalized an understanding of the instructions at this time and agreed to be an active participant in their treatment. If the patient should think of any questions or concerns after the visit, I have encouraged the patient to call the office.?Arthritis:?The patient was counseled on the various etiologies for their Arthritis including genetic, history of injury or trauma, abnormal foot biomechanics leading to excessive joint wear, and use/overuse. We discussed the various treatment options from no treatment, to topical analgesics such as Biofreeze gel, Aspercream, Voltaren gel, Lidoderm patches, CBD oils, THC creams, and Custom-compounded topical cream preparations to natural oral products such as Glucosamine Sulfate/Chondroitin/MSM/Collegen to analgesic Tylenol, to anti-inflammatory medications such as Ibuprofen/Naproxen, and the use of oral steroids if needed. Cardiac, Kidney, and GI issues were discussed RE: potential complications of oral anti-inflammatories. We discussed several other treatment options consisting of accom shoes, supportive innersoles, AFO bracing/support, cortisone injection therapy, and surgical resection of the arthritic joint(s) or fusion reconstruction if necessary. We discussed the advantages and disadvantages of conservative (vs) surgical treamtents including pain relief, improved function/activities of daily life, return to exercise to failure, expense, systemic complications, infection, [id number], prolongued postop course. Patient questions re: the various treatment options available, their successes and potential failures, and emt intermediate effects were discussed and the answers were verbally confirmed understood, Recommended Topical analgesics including Biofreeze/Aspercream/Voltaren gel.?Digital Surgery:?We elected to try conservative treatment at the present time.?Digital Treatment:?HT- I explained to the patient the possible etiologies of Hammertoes, including genetics/foot type/shoegear/activity level/exercise routine and the risks/benefits of all the different treatment options for their pain including: No treatment at all, Rest, Ice, New/supportive/wider/deeper Shoe gear, Digital Padding/Strapping/Taping/Bracing/Gel protective sleeves, Foot/Ankle AFO Bracing, Stretching exercises, Deep Tissue Massage, Arch support/shoe inserts with splay metatarsal padding, and Custom orthoses. I insisted that any digital devices be removed daily and not worn overnight for safety. The patient is to carefully examine the toes daily for any skin irritation while using any splinting or padding device. The advantages and disadvantages of each option were discussed and the patients questions re: shoe gear, padding, custom vs prefabricated inserts, activity level, and consistency in home treatment regimens for optimal success were answered to their verbally confirmed satisfaction, Recomm, rest, ice, proper shoegear, padding, orthotics, anti-inflammatories or tylenol as tolerated, topical analgesics, cortisone injections.?Shoe Gear Counseling:?The patient and I reviewed the types of shoes they should be wearing. My recommendation included obtaining a well-fitted shoe with a good supportive, non-foldable nor twistable sole, plenty of toe/room for the forefoot, and proper arch support. Based on todays examination, I recommended the patient look for new shoes, by having their feet professionally measured. We discussed that generally the best time of the day for a shoe fitting is the afternoon. Different shoes types and brands to best match the patients occupation and vocation were discussed. Specific brand selection will be up to the patient, their individual foot condition/deformities, and fit. The patient and I reviewed the standard new shoe break in period by wearing them for a few hours a day while checking for redness or sores as wear time is increased. The patient verbally confirmed to understanding the information discussed.?Tinea Pedis:?Given recent successful results to treatment, The patient is to cont the rx cream as directed.? ??Screening/Special Tests:?Fall Risk?Screening:?No falls in the past year ?FALLS: Screening for Future Fall Risk?Have you had any falls with injury in the past year??No * Follow Up:?3 Months * Images: * Sign off status: Completed true * Provider:?Елена Oconnor DPM Date:?2024 Generated for Stephanie thomson/Ludy/Reynaldo on:?12/31/2024 12:48 PM EST History and Physical Notes * HPI (History of Present Illness) Category Sub-Category Detail Notes Category Not es Toe pain Location: B/L feet Duration: several years Course: worse Aggravated by: shoes, any pressure Treatments: change in shoes Ankle Pain Duration: several months Nature: warmth and numbness Course: intermittent Location: , Front of, Right an kle Onset/Cause: sudden, unknown, den ies trauma Aggravated by: standing Skin problems Nature: scaling , redness Location: B/L Duration: , several months Course: , improved, at 70% Treatments: Medication (Ciclopir ox Olamine 0.77 Cream), admits intermittent adherence to recommended application At Risk footcare Pt States Last PCP Visit: Date: 4 Examination Category Sub-Category Detail Notes Category Not es Neurological SENSORY: Neurological exa m demonstrates, reduced light touch sensation, reduced sharp/dull pin prick discrimination , B/L, 5.07 monofilament test performed at plantar aspects of 5 varied sites per foot shows sensation, reduced , B/L TINEL'S COMPRESSION: Negative tarsal inés rikki, chinmay pedis, and medial calcaneal nerves Dermatologic SKIN FINDINGS: Skin exam reveal s Keratotic lesion(s) located at IPJ, TA, T5, SUB MTH (s), 1, B/L,5, Right, Skin shows sign(s) of, erythema, scaling, in a moccasin fashion, no fissure(s) present, B/L, Left, approximately 70 percent LESS Orthopedic ANKLE PAIN LOCATED: RIGHT, Anter ior ankle, ( +) swelling, ( -) ecchymosis, (-)pain with ankle joint ROM, (-) calor (+) crepitus with ankle joint ROM, No pain at, ATFL, CFL, PTFL, Syndesmosis FOOTWEAR: worn, non-supportive , shoe gear properties exacerbate patient's foot/toe deformity DIGITAL DEFORMITIES: Digital contracture , PIPJ, 2-5 B/L, incompl-reducible to push-up test, no over, nor underlapping, there is evidence of shoe producing skin irritation MUSCLE STRENGTH: 5/5 all groups in a symmetrical fashion, B/L General Examination GENERAL APPEARANCE: Reveals a pleasant, alert, well nourished, well-developed, well hydrated individual, who demonstrates proper attention to hygiene/body habitus, and is in no acute distress, Pt serves as own historian for office visit today, Pt accompanied by, Daughter, and/who is physically present in exam room at time of visit FOOT EXAM: Lower Extremity Neurological Exa m performed:: Yes Visual exam of foot performed:: Yes Date: 12/30/2024 Sensory testing performed:: sensations d iminished Sensory and motor testing performed:: se nsations diminished Pedal pulse taking performed:: 2+ ORIENTED: person, place, and t delmer Footwear Evaluation Footwear Evaluation performe d:: Yes Ophthalmology Referral DIABETES EYE EXAM Procedure Perform ed:: Yes ?Date of Exam Performed: 11/06/2024 Diabetic Retinopathy Screening:: Yes Findings of Diabetic Eye Exam:: no retin opathy Vascular DP PULSES (B): 2/4, B/L PT PULSES (B): 2/4, B/L CAPILLARY FILL TIME: immediate, all digi ts, B/L TEMPERTURE GRADIENT (C): normal, warm to cool, proximal to distal, B/L, B/L TROPHIC CONDITION-TEXTURE/ELASTICITY/TURGOR/HAIR GROWTH (B): normal, B/L EDEMA (C): absent, B/L PIGMENTATION: normal, B/L Nails NAILS are: Elongated, overg rown, dystrophic, lytic, greater than 3mm thick, discolored and friable with crumbly malodorous subungual debris, with dull to no pain on palpation due to neuropathy, T1, T2, T3, T4, T6, T7, T8, T9 CQM Exceptions: Hemoglobin A1c not performed Reason:: No r rose marie specified
--- OUTSIDE RECORDS SUMMARY | 2024-12-31 12:49 | XMS_ITS | Patient Health Record ---
[facility] Organization [facility] Address [address] [place] [address] Care Team Providers Care Dean Of Men Name Role Phone Guido Andrade MD Primary Care Provider Unakhalif ilable Black, Елена Unavailable [phone] Allergies No Known Allergies Reason For Referral No Information Medications Medication SIG (Take, Route, Frequency, Duration) Notes Start Date End Date Status Xarelto 20 MG 1 tablet with food Orally Once a day Active Gabapentin 300mg three times a day orally daily Active Metoprolol Tartrate 100 MG 1 tablet with food Orally Twice a day Active Ciclopirox Olamine 0.77 % 1 application Externally Twice a day to skin of feet including between the toes for 30 days Active Furosemide 20 MG 1 tablet Orally Once a day Active Ferrous Sulfate 325 (65 Fe) MG 1 tablet Orally Three times a Week Active DULoxetine HCl 30 MG 1 capsule Orally On ce a day Active Vitamin D3 1000 UNIT 1 capsule Orally On ce a day Active DULoxetine HCl 30 MG 1 capsule Orally On ce a day Active Vitamin D3 25 MCG (1000 UT) 1 capsule Orally Once a day Active Trulicity once a week Active Lisinopril 40 MG 1 tablet Orally Once a day Active Basaglar KwikPen 38 units before bed Active Atorvastatin Calcium 40 MG 1 tablet Orally Once a day Active HumaLOG KwikPen Acti ve HumaLOG KwikPen Acti ve Xarelto 20 MG 1 tablet with food Orally Once a day Active Gabapentin 100 MG 2 capsules Orally Three Times a Day Active Metoprolol Tartrate 100 MG 1 tablet with food Orally Twice a day Active Furosemide 20 MG 1 tablet Orally Once a day Active Extra Depth Orthopedic Shoes (1 Pair) with Customized Heat Molded Multidensity Innersoles (3 Pair) as directed Dx: NIDDM/Polyneuropathy (E11.42), Hammertoe Foot Deformity (M20.41,M20.42), Preulcerative Skin Lesion(s) (L85.1 12/30/2024 Active Ferrous Sulfate 325 (65 Fe) MG 1 tablet Orally Three times a Week Active Lisinopril 40 MG 1 tablet Orally Once a day Active Atorvastatin Calcium 40 MG 1 tablet Orally Once a day Active Trulicity Active Basaglar KwikPen 100 UNIT/ML as directed Subcutaneous Active Social History Tobacco Use: Social History [...] Problem Acquired hammer toe of right foot (0225520620288325 ) Other hammer toe(s) (acquired), right foot (M20.41) Active confirmed Problem Acquired hammer toe of left foot (6626652200050179 ) Other hammer toe(s) (acquired), left foot (M20.42) Active confirmed Problem Polyneuropathy due to type 2 diabetes mellitus (482808309) Type 2 diabetes mellitus with diabetic polyneuropathy (E11.42) Active confirmed Problem Arthritis (5787988) Arthritis (M19.90) Active confirmed Vital Signs Heart Rate 65 /min 12/30/2024 Blood pressure diastolic 71 mm Hg 12/30/2024 Height 5 ft 9 in in 12/30/2024 Blood pressure systolic 131 mm Hg 12/30/2024 Weight 232 lbs 12/30/2024 BMI 34.26 kg/m2 12/30/2024 Procedures Procedure Date Ordered Date Performed Result Body Sit e 19434-XSMPDMD NAIL, 6 OR MORE 09/19/2024 N/A 81339-DFYE SKIN LESIONS, OVER 4 09/19/2024 N/A 86247-JNDMJYH NAIL, 6 OR MORE 12/30/2024 N/A 65470-OJKF SKIN LESIONS, OVER 4 12/30/2024 N/A Encounters Encounter Location Date Provider Diagnosis [address] [address] 09/19/2024 Елена Oconnor Type 2 diabetes mellitus with diabetic polyneuropathy E11.42 ; Tinea unguium B35.1 and Tinea pedis of both feet B35.[address] [address] 12/30/2024 Елена Oconnor Type 2 diabetes mellitus with diabetic polyneuropathy E11.42 ; Other hammer toe(s) (acquired), right foot M20.41 ; Tinea unguium B35.1 ; Tinea pedis of both feet B35.3 ; Other hammer toe(s) (acquired), left foot M20.42 ; Arthritis M19.90 and Neuritis M79.[address] [address] 07/22/2024 Елена Oconnor [address] [address] 12/30/2024 Елена Oconnor Assessments Encounter Date Diagnosis (ICD Code) Assessment Notes Treatment Notes Treatment Clinical Notes Section Notes 09/19/2024 Type 2 diabetes mellitus with diabetic polyneuropathy (ICD-10 - E11.42) Patient Educated with: DIABETIC FOOT CARE INSTRUCTIONS. pdf (DIABETIC FOOT CARE INSTRUCTIONS. pdf) 09/19/2024 Tinea unguium (ICD-10 - B35.1) 12/30/2024 Other hammer toe(s) (acquired), right foot (ICD-10 - M20.41) Patient Educated with: DIABETIC FOOT CARE INSTRUCTIONS. pdf (DIABETIC FOOT CARE INSTRUCTIONS. pdf) 12/30/2024 Type 2 diabetes mellitus with diabetic polyneuropathy (ICD-10 - E11.42) Patient Educated with: DIABETIC FOOT CARE INSTRUCTIONS. pdf (DIABETIC FOOT CARE INSTRUCTIONS. pdf) 12/30/2024 Tinea unguium (ICD-10 - B35.1) 09/19/2024 Tinea pedis of both feet (ICD-10 - B35.3) Patient Educated with: ATHELETE .pdf (ATHELETE .pdf) 12/30/2024 Tinea pedis of both feet (ICD-10 - B35.3) 12/30/2024 Other hammer toe(s) (acquired), left foot (ICD-10 - M20.42) 12/30/2024 Arthritis (ICD-10 - M19.90) 12/30/2024 Neuritis (ICD-10 - M79.2) Plan Of Treatment Pending Test Test Name Order Date 31135-SLMZLVD NAIL, 6 OR MORE 09/19/2024 58601-YGQAFTG NAIL, 6 OR MORE 12/30/2024 58174-SWWU SKIN LESIONS, OVER 4 09/19/20 23801-VIDF SKIN LESIONS, OVER 4 12/30/19 Next Appt Details Provider Name:Елена Oconnor , 04/07/2025 02:30:00 PM, [address] [facility], [place], [address], Insurance Providers Payer Name Payer Address Payer Phone Subscriber Number Group Number Insured Name Patient Relationship to Insured Coverage Start Date Coverage End Date [employer] [place] Medicare [employer]vantage [facility] [address] [place] [address] [id number] Kamlesh Clement Self - patient is the insured Medical (General) History Medical History History ICD Code CAD (Cholesterol) Cancer Cataracts Diabetic High Blood Pressure Numbness Surgical History Surgery Date(Month/Year) Bladder cancer removed 06/2024 Hospitalization History Reason Date(Month/Year) C-Bloody nose 09/14/24
--- OUTSIDE RECORDS SUMMARY | 2024-12-31 12:49 | XMS_ITS | Clinical Summary ---
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
--- OUTSIDE RECORDS SUMMARY | 2024-12-31 12:49 | XMS_ITS ---
Author Organization [facility] Address [address] [place] [address] Care Team Providers Care Wire Temperer Name Role Phone Raymond LEYVA Gorham Primary Care Provider Unava ilable Елена Oconnor Unavailable [phone] REASON FOR VISIT A1C Encounters Encounter Location Date Provider Diagnosis [facility] [address] [place] [address] 12/30/2024 Елена Oconnor Plan Of Treatment Next Appt Details Provider Name:Елена Benitez Elvin , 04/07/2025 02:30:00 PM, [address] [place], [address], Progress Notes * Kamlesh KUNZ JrDOB:[birth year] (79 yo M)Acc No.[id number]:12/30/2024 Patient:?Kamlesh KUNZ Jr :1945???Age:79 Y???Sex:Male Address:[address] [place] [address] * true * Date:? Generated for Salmai alix/Ludy/eTransmitting on:?12/31/2024 12:49 PM EST
== END 2024-12-31 11:53 | disposition home or self-care (01) ==
PROVIDERS: PCP Internal Medicine; Visit Provider Internal Medicine
DX: I12.9 Hypertensive chronic kidney disease with stage 1 through stage 4 chronic kidney disease, or unspecified chronic kidney disease (principal); E11.22 Type 2 diabetes mellitus with diabetic chronic kidney disease; Z79.4 Long term (current) use of insulin; I48.20 Chronic atrial fibrillation, unspecified; C67.9 Malignant neoplasm of bladder, unspecified; C4A.9 Merkel cell carcinoma, unspecified; F39 Unspecified mood [affective] disorder; N18.2 Chronic kidney disease, stage 2 (mild); E78.00 Pure hypercholesterolemia, unspecified; G62.9 Polyneuropathy, unspecified; E66.9 Obesity, unspecified

== ENCOUNTER → 2024-12-31 10:41 | Outpatient (BNVA) | payer MEDICARE, SELFPAY | PROVIDERS: PCP Internal Medicine; Visit Provider Internal Medicine | DX: I12.9 Hypertensive chronic kidney disease with stage 1 through stage 4 chronic kidney disease, or unspecified chronic kidney disease (principal); E11.22 Type 2 diabetes mellitus with diabetic chronic kidney disease; N18.2 Chronic kidney disease, stage 2 (mild); Z79.4 Long term (current) use of insulin; E78.00 Pure hypercholesterolemia, unspecified; I48.20 Chronic atrial fibrillation, unspecified; C67.9 Malignant neoplasm of bladder, unspecified; C4A.9 Merkel cell carcinoma, unspecified; G62.9 Polyneuropathy, unspecified; F39 Unspecified mood [affective] disorder; E66.9 Obesity, unspecified | CPT/HCPCS: 96127; 99212 ==

== ENCOUNTER 2025-03-14 09:42 | Outpatient (REF) | payer MEDICARE, SELFPAY ==
--- OUTSIDE RECORDS SUMMARY | 2025-03-14 15:38 | XMS_ITS | Clinical Summary ---
Author Organization [facility], Address [address] [place] [address] Phone Care Team Providers Care Deputy Sheriff Civil Division Name Role Phone Guido Andrade MD Primary Care Provider [phone]- [phone] Allergies No known active allergies Medications terazosin [...] patient's age to complete this topic Insurance [facility] Care Teams Deputy Sheriff Civil Division Relationship Specialty Start Date End Date Guido Andrade MD [address] [place] [address] PCP - General Internal Medicine 09/20/22
[2025-03-14 15:44] LABS: Urine Cytology See Pathology rpt
== END 2025-03-14 09:43 | disposition home or self-care (01) ==
LOC: HO.LAB 09:42
PROVIDERS: PCP Internal Medicine; Visit Provider Urology
DX: C67.9 Malignant neoplasm of bladder, unspecified (principal)
CPT/HCPCS: 88112

== ENCOUNTER 2025-03-14 09:42 | Outpatient (AMB) | payer MEDICARE, SELFPAY ==
--- OUTSIDE RECORDS SUMMARY | 2025-03-14 10:05 | XMS_ITS ---
Author Organization [facility] Address [address] [place] [address] Care Team Providers Care Upstairs Maid Name Role Phone Raymond LEYVA Akutan Primary Care Provider Unava ilable Елена Oconnor Unavailable [phone] REASON FOR VISIT A1C Encounters Encounter Location Date Provider Diagnosis [facility] [address] [place] [address] 12/31/2024 Елена Oconnor Plan Of Treatment Next Appt Details Provider Name:Елена Benitez Elvin , 04/07/2025 02:30:00 PM, [address] [place], [address], Progress Notes * Kamlesh KUNZ JrDOB:[birth year] (79 yo M)Acc No.[id number]:12/31/2024 Patient:?Kamlesh KUNZ Jr :1945???Age:79 Y???Sex:Male Address:[address] [place] [address] * true * Date:? Generated for Printi alix/Faramirog/eTransmitting on:?03/14/2025 10:05 AM EDT
--- OUTSIDE RECORDS SUMMARY | 2025-03-14 10:05 | XMS_ITS | Clinical Summary ---
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 Care Teams Adjunct History Instructor Relationship Specialty Start Date End Date Guido Andrade MD [address] [place] [address] PCP - General Internal Medicine 09/20/22
--- OUTSIDE RECORDS SUMMARY | 2025-03-14 10:05 | XMS_ITS | Patient Health Record ---
Author Organization [facility] Address [address] [place] [address] Care Team Providers Care Weatherization Installer Name Role Phone Guido Andrade MD Primary Care Provider Unakhalif ilable Black, Елена Unavailable [phone] Allergies No Known Allergies Results Component Value Reference Range Notes HEMOGLOBIN A1C (GLYCOHEMOGLO BIN) Reviewed date:12/31/2024 02:57:52 PM Interpretation: Performing Lab: Notes/Report: HEMOGLOBIN A1C % (HH) 7.0 Reason For Referral No Information Medications Medication [...] Problem Acquired hammer toe of right foot (2614509691127080 ) Other hammer toe(s) (acquired), right foot (M20.41) Active confirmed Problem Acquired hammer toe of left foot (0244062193749670 ) Other hammer toe(s) (acquired), left foot (M20.42) Active confirmed Problem Polyneuropathy due to type 2 diabetes mellitus (555897508) Type 2 diabetes mellitus with diabetic polyneuropathy (E11.42) Active confirmed Problem Arthritis (4389348) Arthritis (M19.90) Active confirmed Vital Signs Heart Rate 65 /min 12/30/2024 Blood pressure diastolic 71 mm Hg 12/30/2024 Height 5 ft 9 in in 12/30/2024 Blood pressure systolic 131 mm Hg 12/30/2024 Weight 232 lbs 12/30/2024 BMI 34.26 kg/m2 12/30/2024 Procedures Procedure Date Ordered Date Performed Result Body Sit e 17692-ZTBNUGV NAIL, 6 OR MORE 09/19/2024 N/A 72854-PJVP SKIN LESIONS, OVER 4 09/19/2024 N/A 86793-PUEIWBX NAIL, 6 OR MORE 12/30/2024 N/A 48482-AXNG SKIN LESIONS, OVER 4 12/30/2024 N/A Encounters Encounter Location Date Provider Diagnosis [address] [address] 09/19/2024 Елена Oconnor Type 2 diabetes mellitus with diabetic polyneuropathy E11.42 ; Tinea unguium B35.1 and Tinea pedis of both feet B35.[address] [address] 12/30/2024 Елена Oconnor Type 2 diabetes mellitus with diabetic polyneuropathy E11.42 ; Other hammer toe(s) (acquired), right foot M20.41 ; Tinea unguium B35.1 ; Tinea pedis of both feet B35.3 ; Other hammer toe(s) (acquired), left foot M20.42 ; Arthritis M19.90 and Neuritis M79.[address] [address] 07/22/[address] [address] 12/30/[address] [address] 12/31/2024 Елена Oconnor Assessments Encounter Date Diagnosis (ICD [...] Treatment Pending Test Test Name Order Date 04948-KXXWCPY NAIL, 6 OR MORE 09/19/2024 40398-XQEZHPA NAIL, 6 OR MORE 12/30/2024 80920-IAFU SKIN LESIONS, OVER 4 09/19/20 09220-OSUF SKIN LESIONS, OVER 4 12/30/19 Next Appt Details Provider Name:Елена Benitez Elvin , 04/07/2025 02:30:00 PM, [address] [facility], [place], [address], Insurance Providers Payer Name Payer Address Payer Phone Subscriber Number Group Number Insured Name Patient Relationship to Insured Coverage Start Date Coverage End Date [employer] [place] Medicare Advantage [facility] [address] [place] [address] [phone] [id number] Kamlesh Clement Self - patient is the insured Medical (General) History Medical History History ICD Code CAD (Cholesterol) Cancer Cataracts Diabetic High Blood Pressure Numbness Surgical History Surgery Date(Month/Year) Bladder cancer removed 06/2024 Hospitalization History Reason Date(Month/Year) C-Bloody nose 09/14/24
--- OUTSIDE RECORDS SUMMARY | 2025-03-14 10:05 | XMS_ITS ---
Author Organization [facility] Address [address] [place] [address] Care Team Providers Care Access Manager Name Role Phone Merlin Andrade MDneth Primary Care Provider Unava ilable Black, Елена Unavailable [phone] Allergies No Known Allergies REASON FOR VISIT [...] Problem Acquired hammer toe of right foot (2500569236122 105) Other hammer toe(s) (acquired), right foot (M20.41) Active confirmed Problem Acquired hammer toe of left foot (8720360258371 103) Other hammer toe(s) (acquired), left foot (M20.42) Active confirmed Problem Arthritis (5208468) Arthritis (M19.90) Active confirmed Vital Signs Height 5 ft 9 in in 12/30/2024 Weight 232 lbs 12/30/2024 BMI 34.26 kg/m2 12/30/2024 Blood pressure systolic 131 mm Hg 12/30/19 25 Blood pressure diastolic 71 mm Hg 025 Heart Rate 65 /min 12/30/2024 Procedures Procedure Date Ordered Date Performed Result Body Sit e 54052-XNNGXNR NAIL, 6 OR MORE 12/30/2024 N/A 99767-HISA SKIN LESIONS, OVER 4 12/30/2024 N/A Encounters Encounter Location Date Provider Diagnosis [facility] [address] [place] [address] 12/30/2024 Елена Oconnor Type 2 diabetes mellitus [...] INSTRUCTIONS.pdf) Pending Test Test Name Order Date 34645-SSUMRUD NAIL, 6 OR MORE 12/30/2024 85638-KTLV SKIN LESIONS, OVER 4 12/30/19 25 Next Appt Details Follow Up: 3 Months, Reason: Provider Name:Елена Oconnor , 04/07/2025 02:30:00 PM, [address] [place] [address], [address], Procedure Notes * Category Sub-Category Detail Notes [...] use of a nail nipper and/or dremel-type milk powder grinder, to a more viable healthy nail [...] to maintain effectiveness in symptomatic relief - 36729 Keratoma Treatment Parring or Cutting o f [...] instrumentation by the physician of record - 05181 Progress Notes * Kamlesh KUNZ JrDOB:[birth year] (79 yo M)Acc No.[id number]:12/30/2024 Progress Note Patient:?Kamlesh KUNZ Jr Provider:?Елена Oconnor DPM :1945???Age:79 Y???Sex:Male Chance e:12/30/2024 Address:[address] [place] [address] [facility] [place], [id number] Pcp:Guido Andrade MD Subjective: * Chief Complaints: [...] yes, walking. ?Marital status: . 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 ???Drug/Alcohol:?AUDIT-C (Standard)?Did you have a drink containing [...] , Notes to Pharmacist: 38 units before bedOhio[facility] David Xarelto 20 MG Tablet 1 tablet [...] 201, Ht-cm: 175.26 cm, Wt-k.23 kg. * ???Past Orders: ???Lab:HEMOGLOBIN A1C (GLYCO HEMOGLOBIN) (Order Date - 12/10/2024) (Collection Date & Time - 12/31/2024 02:57 PM) ? Value Reference Range ?HEMOGLOBIN A1C % (HH) 7.0 * Examination: ???Ophthalmology Referral: ?DIABETES EYE EXAM?Procedure Performed:?Yes ?Date of Exam Performed?11/06/2024 ?Diabetic Retinopathy Screening:?Yes ?Findings of Diabetic Eye Exam:?no retinopathy?General Examination: ?GENERAL APPEARANCE:?Reveals a pleasant, alert, well nourished, well- developed, well hydrated individual, who demonstrates proper attention to hygiene/body habitus, and is in no acute distress, Pt serves as own historian for office visit today, Pt accompanied by, Daughter, and/who is physically present in exam room at time of visit.?ORIENTED:?person, place, and time.?FOOT EXAM:?Lower Extremity Neurological Exam performed:?Yes ?Visual exam of foot performed:?Yes ?Date?12/30/2024 ?Sensory testing performed:?sensations diminished ?Sensory and motor testing performed:?sensations diminished ?Pedal pulse taking performed:?2+ ?Footwear Evaluation?Footwear Evaluation performed:?Yes?Neurological: ?SENSORY:? Neurological exam demonstrates, reduced light touch [...] 2.?Type 2 diabetes mellitus with diabetic polyneuropathy?Procedure: 10382-KFGO SKIN LESIONS, OVER 4 Notes: Patient Educated with: DIABETIC FOOT CARE INSTRUCTIONS.pdf (DIABETIC FOOT CARE INSTRUCTIONS.pdf)?? 3.?Tinea unguium?Procedure: 94320-QCRPKFA NAIL, 6 OR MORE 4.?Tinea pedis of [...] use of a nail nipper and/or dremel-type milk powder grinder, to a more viable healthy nail [...] to maintain effectiveness in symptomatic relief - 70471.?Keratoma Treatment:?Parring or Cutting of Benign Hyperkeratotic Lesion(s)?(-57) [...] instrumentation by the physician of record - 06733.? * Procedure Codes:?07359 DEBRI DE NAIL, 6 OR MORE, Modifiers: XS 15521 TRIM SKIN LESIONS, OVER 4, Modifiers: XS [...] exercise to failure, expense, systemic complications, infection, [id number]-nfk-[id number], prolongued postop course. Patient questions re: the various treatment options available, their successes and potential failures, and residential effects were discussed and the answers were [...] Oconnor DPM Date:?2024 Generated for Stephanie thomson/Ludy/Reynaldo on:?03/14/2025 10:04 AM EDT History and Physical Notes * HPI (History [...] No pain at, ATFL, CFL, PTFL, Syndesmosis FOOTWEAR EVALUATION: worn, non-supportiv e, shoe gear properties exacerbate patient's foot/toe deformity [...]
--- OUTSIDE RECORDS SUMMARY | 2025-03-14 10:05 | XMS_ITS ---
Author Organization [facility] Address [address] [place] [address] Care Team Providers Care Clerical Associate Name Role Phone Raymond LEYVA Kalida Primary Care Provider Unava ilable Елена Oconnor Unavailable [phone] REASON FOR VISIT A1C Encounters Encounter Location Date Provider Diagnosis [facility] [address] [place] [address] 12/30/2024 Елена Oconnor Plan Of Treatment Next Appt Details Provider Name:Елена Benitez Elvin , 04/07/2025 02:30:00 PM, [address] [place], [address], Progress Notes * Kamlesh KUNZ JrDOB:[birth year] (79 yo M)Acc No.[id number]:12/30/2024 Patient:?Kamlesh KUNZ Jr :1945???Age:79 Y???Sex:Male Address:[address] [place] [address] * true * Date:? Generated for Salmai alix/Ludy/eTransmitting on:?03/14/2025 10:04 AM EDT
--- NOTE | 2025-03-14 10:18 | A.OFFVIS_ITS ---
Intake Visit Reasons: cysto Allergies colesevelam (From WelChol) Adverse Reaction (Mild, Verified 12/31/24 11:32) constipation HPI Comments Details: Kamlesh is a pleasant male. He is a patient of Dr. Andrade. He is seen for the following urologic conditions - complex renal cyst - weakness of stream - hematuria - bladder cancer Six-month follow-up bladder cancer evaluation Has changes consistent with immunotherapy but no lesions Bladder cancer initial diagnosis 2009, recurrent 2020 high-grade superficial Prior history of superficial bladder cancer - managed with [facility] Underwent surveillance cystoscopy for 10 years stopping in 2014 Cystoscopy - 04/26 recurrent bladder lesion, 12/28 NAD, 01/26 NAD TURBT - 05/26 T1 high-grade bladder cancer, 09/26 chronic inflammation, 04/29 chronic inflammation, otherwise clear Immunotherapy - 05/26 gemcitabine 6 week induction, 12/28 3 week boost, 02/26 3 week boost Cytology - 09/29 NAD Therapeutic plan - 6 month follow-up to 5 years Complex renal cyst Left-sided renal complex cyst Imaging - 04/26 CT scan left side 2cm simple renal cyst Bladder outlet obstruction Initial symptoms Weak stream, Nocturia 2-3, Bother 3 Good response to terazosin 5 mg Continue medications PFSH Medical History History of recent pneumonia (02/24/24) CHF (congestive heart failure) Chronic a-fib [place] cell cancer 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 On beta nahid at home Anemia Bladder cancer Chronic atrial fibrillation Chronic anticoagulation History of colon polyps Erectile dysfunction Chronic kidney disease (CKD), stage II (mild) Obesity (BMI 30-39.9) Benign essential hypertension Pure hypercholesterolemia 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 deficiency 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 CAD (coronary artery disease) Hyperlipidemia LDL goal <70 Essential hypertension Type 2 diabetes mellitus with diabetic polyneuropathy Diabetes mellitus Surgical History History of surgery History of esophagogastroduodenoscopy (EGD) Hx of cystoscopy History of cystoscopy Hx of colonoscopy History of cataract surgery History of endoscopy Hx of removal of cyst Family History Father Medical history unknown Mother Diabetes Daughter In good health Son In good health Sister In good health Sister In good health Brother In good health Brother In good health Brother In good health Social History Household Members: Spouse and Family Housing: House Are you a primary manager respiratory care to a significant other at home: No Do you presently have visiting nurse or other home services: No Alcohol intake: current Alcohol intake frequency: holidays/special occasions only Alcohol type: beer Comment: medicated in pacu Patient Tobacco Use Status: Former Tobacco user Tobacco use type: Cigarette Years Smoked: 20 e-Cigarette/Vaping Use: Never Used Second Hand Smoke Exposure: Yes Advance Directives Date on File: 09/07/21 service: No Current occupational status: retired Current occupational exposures/hazards: No Cognitive needs: Yes (cane) Hearing needs: No Vision needs: Yes Review of Systems Const Denies chills and Denies fever(s) Card Reports no additional complaints and Denies syncope Resp Denies cough GI Denies abdominal pain and Denies heartburn Reports as per HPI and Denies change in libido Neuro Denies syncope Psych Denies change in libido Endo Denies change in libido Physical Exam Const General: cooperative, healthy appearing, comfortable and no acute distress Orientation/consciousness: patient oriented x3 HEENT Face and sinus: Yes normal facial exam Mouth: moist mucous membranes Neck Neck: Yes normal visual inspection, Yes full ROM and Yes trachea midline Chest Chest palpation & inspection: normal inspection of the chest Resp Effort & Inspection: normal respiratory effort, able to speak in complete sentences and no respiratory distress GI Inspection: Yes normal to inspection Back/Spine/Pelvis Cervical Spine: normal cervical lordosis Thoracic/Lumbar Spine: thoracic and lumbar spine normal to inspection Skin General skin exam: no rashes or lesions noted Neuro General: patient oriented x3, gait normal, tone normal and moves all extremities Extrem General: Yes normal to inspection and Yes capillary refill normal Office Procedures Cystoscopy Consent Discussed risk and benefit or proposed procedure with the patient. Information consent for procedure given to the patient. Discussed technical aspects, risks, benefits and alternatives in full. Addressed all of the patient's questions and concerns regarding the procedure. The patient demonstrated knowledge and understanding. They wish to proceed with this procedure. Preparation The patient was prepped in the usual manner. A travel med surg rn was present and in the room. Genitalia was prepped with betadine solution in a sterile manner. Lidocaine Jelly 2% was placed into the urethra and 16Fr flexible Olympus cystoscope was inserted into the meatus after adequate lubrication. Procedure Cystoscopy performed using a disposable Urovue digital 16 Indian cystoscope. Meatus circumcised Urethra anterior and posterior urethra normal Prostatic Urethra unremarkable Bladder examination with retroflexion of cystoscope Bladder Orifices normal shape and position Bladder Capacity Normal Trabeculations Grade 0 Cellule Formation None Diverticulum Formation None Mucosal Erythema None Bladder Tumor None [id number] DISPOSABLE SCOPE URO-G FLEXIBLE SCOPE Procedure code (CPT) selection complete Office Meds lidocaine HCl 2 % mucosal jelly in applicator Performing Provider: Aquiles Valderrama MD Performing Location: [facility] Administered by: Marissa Mendoza RN on 03/14/25 10:37 Dose Route Admin Location Dispensed Lot Number Expiration Date [facility] Home Service Consultant 10 mL intra-urethral 10 mL nitrofurantoin monohydrate/macrocrystals 100 mg capsule Performing Provider: Aquiles Valderrama MD Performing Location: [facility] Administered by: Marissa Mendoza RN on 03/14/25 10:37 Dose Route Admin Location Dispensed Lot Number Expiration Date [place] Home Service Consultant 100 mg PO 1 cap Results AMB Urinalysis, Automated UA Leukoctes 0 Wai/uL Last Edit by Ro Moore on 03/14/25 12:14 UA Nitrite Negative Last Edit by Ro Moore on 03/14/25 12:14 UA Urobilinogen 0.2 mg/dL Last Edit by Ro Moore on 03/14/25 12:14 UA Protein 0 mg/dL Last Edit by Ro Moore on 03/14/25 12:14 UA pH 6.0 Last Edit by Ro Moore on 03/14/25 12:14 UA Blood 0 Javan/uL Last Edit by Ro Moore on 03/14/25 12:14 UA Specific [place] 1.015 Last Edit by Ro Moore on 03/14/25 12:14 UA Ketone Negative Last Edit by Ro Moore on 03/14/25 12:14 UA Bilirubin 0 mg/dL Last Edit by Ro Moore on 03/14/25 12:14 UA Glucose 0 mg/dL Last Edit by Ro Moore on 03/14/25 12:14 Results Reviewed Results Reviewed: Laboratory Last Values Urine pH (Auto) 6.0 03/14/25 11:06 Specific [place] (Auto) 1.015 03/14/25 11:06 Urine Protein (Auto) 0 mg/dL 03/14/25 11:06 Glucose (UA)(Auto) 0 mg/dL 03/14/25 11:06 Urine Ketones (Auto) Negative 03/14/25 11:06 Urine Blood (Auto) 0 Javan/uL 03/14/25 11:06 Urine Nitrite (Auto) Negative 03/14/25 11:06 Urine Bilirubin (Auto) 0 mg/dL 03/14/25 11:06 Urine Urobilinogen (Auto) 0.2 mg/dL 03/14/25 11:06 Leukocyte Esterase (Auto) 0 Wai/uL 03/14/25 11:06 Assessment & Plan Assessment & Plan (1) Bladder cancer: Comment: 05/26 recurrent high-grade superficial bladder cancer Code(s): C67.9 - Malignant neoplasm of bladder, unspecified Category: Medical (2) Erectile dysfunction: Code(s): N52.9 - Male erectile dysfunction, unspecified Category: Medical Qualifiers: Erectile dysfunction type: unspecified Qualified Code(s): N52.9 - Male erectile dysfunction, unspecified (3) Bladder outlet obstruction: Code(s): N32.0 - Bladder-neck obstruction Category: Medical Plan Twelve month follow-up Orders: Orders AMB Cystoscopy 03/14/25 R31.9 - Hematuria, unspecified, N32.0 - Bladder-neck obstruction, N39.0 - Urinary tract infection, site not specified AMB Urinalysis Automated 03/14/25 Z13.9 - Encounter for screening, unspecified Urine Cytology 03/14/25 C67.9 - Malignant neoplasm of bladder, unspecified Medications: Refilled terazosin 10 mg PO BEDTIME 90 caps 1RF 90 days Patient Instructions: This note is constructed using voice recognition software. While every effort has been made to ensure accuracy service desk analyst errors may have been included. Imaging studies, laboratory and physical exam results were discussed and re viewed in detail. No major barriers to patient understanding were identified. An opportunity to ask questions regarding the treatment plan was provided. All questions were answered. The patient expressed understanding and agreement with the above treatment plan. The patient is aware they should contact our office by phone for worsening of their current condition or the appearance of new urologic symptoms. Compliance is encouraged with any medications and followup testing that is ordered. It is a privilege to participate in the urologic care of your patient. If you have any questions or concerns regarding treatment for the above conditions, or other urologic issues, please do not hesitate to contact me. The office telephone contact is [phone]. Sincerely, Dr Aquiles Valderrama MD, [facility] - Urology Compassionate Specialist Care for the Genitourinary System Coding Level of Care Code Est Pt Level 3 (07425) Complex EM visit Add On G2211 Diagnoses Bladder cancer C67.9 Erectile dysfunction, unspecified erectile dysfunction type N52.9 Erectile dysfunction type: unspecified Bladder outlet obstruction N32.0 CPT Codes Cystoscopy - CPT: 27906-Swzwsfzxlb ([id number])
== END 2025-03-14 10:55 | disposition home or self-care (01) ==
LOC: HO.HUSH 09:43
PROVIDERS: PCP Internal Medicine; Visit Provider Urology
DX: R31.9 Hematuria, unspecified (principal); N32.0 Bladder-neck obstruction; N39.0 Urinary tract infection, site not specified; Z13.9 Encounter for screening, unspecified
CPT/HCPCS: 52000; 99213

== ENCOUNTER 2025-04-25 07:48 | Outpatient (REF) | payer MEDICARE, SELFPAY ==
--- OUTSIDE RECORDS SUMMARY | 2025-04-25 07:50 | XMS_ITS | Clinical Summary ---
Author Organization [facility], Address [address] [place] [address] Phone Care Team Providers Care Electronic Integrated Systems Mechanic Name Role Phone Guido Andrade MD Primary Care Provider +1- [phone] Allergies No known active allergies Medications terazosin [...] 79 10/05/2022 1:56 PM EST Temperature 36.8 C (98.2 F) 10/05/2022 1:56 PM EST Respiratory Rate 14 10/05/2022 1:56 PM EST [...] age to complete this topic Insurance [facility] Care Teams Electronic Integrated Systems Mechanic Relationship Specialty Start Date End Date Guido Andrade MD [address] [place] [address] PCP - General Internal Medicine 09/20/22
[2025-04-25 07:59] LABS: MANUAL DIFF FLAG NO
[2025-04-25 08:34] LABS: Basophils Absolute Auto 0.1 X10*3/uL (0.0-0.2); Basophils Percent Auto 0.8 % (0-2); Eosinophils Absolute Auto 0.2 X10*3/uL (0.0-0.4); Eosinophils Percent Auto 2.1 % (0-4); Hematocrit 42.3 % (42.0-52.0); Hemoglobin 13.7 g/dl (14.0-18.0); Imm Gran Abs Auto 0.03 X10*3/uL (0.00-0.03); Imm Gran Pct Auto 0.4 % (0.0-0.4); Lymphocytes Absolute Auto 1.2 X10*3/uL (1.2-4.9); Lymphocytes Percent Auto 16.4 % (20-40); Mean Corpuscular HGB Conc 32.4 g/dl (31.0-36.0); Mean Corpuscular Hemoglobin 28.5 pg (27.0-33.0); Mean Corpuscular Volume 88.1 fL (80.0-98.0); Mean Platelet Volume 10.7 fL (9.4-12.4); Monocytes Absolute Auto 0.5 X10*3/uL (0.1-1.2); Monocytes Percent Auto 6.7 % (2-11); Neutrophils Absolute Auto 5.3 x10*3/uL (2.0-8.3); Neutrophils Percent Auto 73.6 % (45-73); Platelet Count 149 X10*3/uL (160-400); White Blood Count 7.2 X10*3/uL (4.8-10.8)
[2025-04-25 08:43] LABS: Estimated Average Glucose 134 mg/dL; Hemoglobin A1c % 6.3 % (<6.0); Total Hemoglobin (HGBA1C) 3624.6027 umol/L
[2025-04-25 08:56] LABS: Appearance Urine Cloudy; Color Urine Yellow; Glucose Urine UA Negative (Negative); Leukocyte Esterase Urine Large (3+) (Negative); Nitrite Urine Negative (Negative); PH 7.5 (5.0-9.0); UMIC TRIGGER UACC YES; Urine Blood Large (3+) (Negative); Urine Ketones Negative (Negative); Urine Protein Trace mg/dL (Neg-Trace)
[2025-04-25 09:03] LABS: Bacteria Urine 1+ (None Seen); Hyaline Casts Urine 0-2 /LPF (0-2); RBC Urine >20 /HPF (0-2); Squamous Epithelial Cell Urine 0-2 /HPF (0-2); UACC Culture Trigger YES; WBC Urine >50 /HPF (0-5)
[2025-04-25 09:28] LABS: Alanine Aminotransferase 14 U/L (0-40); Albumin Level 3.6 g/dL (3.5-5.0); Alkaline Phosphatase 107 U/L (39-117); Anion Gap 11 (12-20); Aspartate Amino Transferase 22 U/L (5-37); Bilirubin Total 0.6 mg/dL (0.0-1.0); Blood Urea Nitrogen 14 mg/dL (9-16); Carbon Dioxide 30 mmol/L (22-29); Chloride 104 mmol/L (96-108); Cholesterol 133 mg/dL (<200); Estimated Glomerular Filt Rate > 60; Glucose Fasting 146 mg/dL (60-99); HDL Cholesterol 34 mg/dL (>40); LDL Cholesterol Calculated 70 mg/dL (<100); Potassium 3.2 mmol/L (3.3-5.1); Sodium 142 mmol/L (135-145); Total Protein 6.4 g/dL (6.5-8.0); Triglycerides 149 mg/dL (<150)
[2025-04-25 09:36] LABS: TSH reflex Free T4 3.48 uIU/mL (0.32-4.0); Vitamin D 25-OH Total 44.2 ng/mL (>30)
[2025-04-25 10:30] LABS: Creatinine Urine 48.29 mg/dL; Microalbum/Creatinine Ratio Ur 136.6 ug/mg cr (<30)
== END 2025-04-25 07:49 | disposition home or self-care (01) ==
LOC: HO.LAB 07:48
PROVIDERS: PCP Internal Medicine; Visit Provider Internal Medicine
DX: D64.9 Anemia, unspecified (principal); E78.00 Pure hypercholesterolemia, unspecified; E11.9 Type 2 diabetes mellitus without complications; E55.9 Vitamin D deficiency, unspecified; R30.0 Dysuria
CPT/HCPCS: 36415; 80053; 80061; 81001; 82043; 82306; 82570; 83036; 84443; 85025; 87086

== ENCOUNTER 2025-05-14 10:57 | Outpatient (AMB) | payer MEDICARE, SELFPAY ==
[2025-05-14 10:59] VITALS: BP 118/56; PULSE 63; O2SAT 97; BMI 36.8
--- NOTE | 2025-05-14 10:59 | MHC.PC.OV ---
Vital Signs 05/14/25 10:59 Height 5 ft 6 in Weight 228 lb 2 oz BMI 36.8 BP 118/56 L Blood Pressure Location Lt brachial Position Sitting Pulse 63 Pulse Source Pulse Oximeter Pulse Oximetry (%) 97 Oxygen Delivery Method Room Air Intake Visit Reasons: 4 month f/u - see comments Resolution Agent Required: No Accompanied by: Self / Same As Patient Allergies colesevelam (From [employer]) Adverse Reaction (Mild, Verified 05/14/25 11:35) constipation Medication List - Last Reconciled 05/14/25 by Guido Andrade MD ascorbic acid (vitamin C) 1 g PO DAILY 90 days atorvastatin 40 mg PO DAILY 90 days blood-glucose sensor (FreeStyle Alina 3 Plus Sensor device) As directed blood-glucose sensor (FreeStyle Alina 3 Sensor device) As directed blood-glucose,enrolled agent,cont (FreeStyle Alina 3 [place]) As directed cholecalciferol (vitamin D3) (Vitamin D3) 25 mcg PO DAILY 90 days dulaglutide (Trulicity) 1.5 mg (0.5 mL) subcut QWEEK duloxetine 30 mg PO DAILY ferrous sulfate (FeroSul) 325 mg PO DAILY 90 days flash glucose scanning reader (FreeStyle Alina 2 [place]) As directed flash glucose sensor (FreeStyle Alina 2 Sensor kit) As directed every 2 weeks furosemide 20 mg PO DAILY 90 days gabapentin 200 mg (2 x 100 mg) PO TID 30 days ibuprofen (Advil) 200 mg PO Q6H PRN insulin glargine (Lantus U-100 Insulin) 40 units subcut BEDTIME insulin lispro (Humalog U-100 Insulin) 1 sliding scale dose See Protocol subcut TIDAC latanoprost 0.005% 1 drp ophthalmic-Right BEDTIME lisinopril 40 mg PO DAILY 90 days methenamine hippurate 1 g PO DAILY 90 days metoprolol tartrate 100 mg PO BID 90 days moxifloxacin 0.5% 1 drp ophthalmic-Left BID nitroglycerin 0.4 mg sublingual Q5M PRN pen needle, diabetic (BD Ultra-Fine Madeline Pen Needle) As directed 4 times a day pen needle, diabetic (BD Ultra-Fine Madeline Pen Needle) As directed once daily prednisolone acetate 1% 1 drp ophthalmic-Left BID rivaroxaban (Xarelto) 20 mg PO QPM [SHOWER CHAIR As directed] terazosin 10 mg PO BEDTIME 90 days Tobacco use date assessed: 05/14/25 Fall risk assessment: No Falls in past year Last assessed Fall Risk: 05/14/25 Dental Screening Dental Screen Date: 05/14/25 Did you have a dental visit in the last 12 months?: No Did you have a dental problem in the last 6 months where you did not have access to dental care?: No Was dental information given to patient?: No HPI 4 month f/u - see comments HPI Details Patient comes in today for his follow up visit States that he feels okay He still does not sleep well at night as he has to wake up multiple times to go to the bathroom His states that he would often takes naps throughout the day whenever he feels tired He denies any headaches or dizziness Denies any chest pains, no increased SOB No nausea/vomiting, no abdominal pain No change in bowel habits noted He had his follow up labs done a couple of weeks ago - to discuss his results [facility] Medical History History of recent pneumonia (02/24/24) CHF (congestive heart failure) Chronic a-fib [place] cell cancer 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 On beta nahid at home Anemia Bladder cancer Chronic atrial fibrillation Chronic anticoagulation History of colon polyps Erectile dysfunction Chronic kidney disease (CKD), stage II (mild) Obesity (BMI 30-39.9) Benign essential hypertension Pure hypercholesterolemia Iron deficiency anemia [facility] (current) use of insulin 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 CAD (coronary artery disease) Hyperlipidemia LDL goal <70 Essential hypertension Type 2 diabetes mellitus with diabetic polyneuropathy Diabetes mellitus Surgical History History of surgery History of esophagogastroduodenoscopy (EGD) Hx of cystoscopy History of cystoscopy Hx of colonoscopy History of cataract surgery History of endoscopy Hx of removal of cyst Family History Father Medical history unknown Mother Diabetes Daughter In good health Son In good health Sister In good health Sister In good health Brother In good health Brother In good health Brother In good health Social History Household Members: Spouse and Family Housing: House Are you a primary toddler caregiver to a significant other at home: No Do you presently have visiting nurse or other home services: No Alcohol intake: current Alcohol intake frequency: holidays/special occasions only Alcohol type: beer Comment: medicated in pacu Patient Tobacco Use Status: Former Tobacco user Tobacco use type: Cigarette Years Smoked: 20 e-Cigarette/Vaping Use: Never Used Second Hand Smoke Exposure: Yes Advance Directives Date on File: 09/07/21 service: No Current occupational status: retired Current occupational exposures/hazards: No Cognitive needs: Yes (cane) Hearing needs: No Vision needs: Yes Questionnaire PHQ-9 Over the last 2 weeks, how often have you been bothered by any of the following problems? 1. Little interest or pleasure in doing things: not at all 2. Feeling down, depressed, or hopeless: not at all 3. Trouble falling or staying asleep, or sleeping too much: not at all 4. Feeling tired or having little energy: not at all 5. Poor appetite or overeating: not at all 6. Feeling bad about yourself - or that you are a failure or have let yourself or your family down: not at all 7. Trouble concentrating on things, such as reading the newspaper or watching television: not at all 8. Moving or speaking so slowly that other people could have noticed. Or the opposite - being so fidgety or restless that you have been moving around a lot more than usual: not at all 9. Thoughts that you would be better off or of hurting yourself in some way: not at all Total score: 0 Depression Screening Interpretation: Negative Depression Screening Done: Yes 86605 - PHQ-9 Billing: Yes Source: Developed by Drs. Rich Garrido, Kym Rodriguez, Conrad Barraza and colleagues, with an educational micheline from [employer]. Thrive Questionnaire Date Thrive assessed: 05/14/25 I am a: Patient What is your living situation today?: I have a steady place to live Within the past 12 months, did the food you bought not last and you didn't have the money to get more?: Never true Within the past 12 months, did you worry whether your food would run out before you got money to buy more?: Never true Do you have trouble paying for medicines?: No Do you have trouble getting transportation to medical appointments?: No Do you have trouble paying your heating and electricity bill?: No Do you have trouble taking care of your child, family member or friend?: No Do you have trouble with day-to-day activities such as bathing, preparing meals, shopping, managing finances, etc.?: No Are you currently unemployed and looking for a job?: No Are you interested in more education?: No Please select the resources that you would like help with: None Currently or been in a relationship where the following occur: No concerns reported THRIVE Score: 0 AUDIT C Alcohol Use Questionnaire (AUDIT-C) 1. How often do you have a drink containing alcohol?: Never 3. How often do you have six or more drinks on one occasion?: Never Total Score: 0 Score Reviewed/Action Taken: Yes MARKUS-7 AMB Questionnaire MARKUS-7 Date MARKUS - 7 assessed: 05/14/25 Feeling nervous, anxious, or on edge: 0 = Not at all Not being able to stop or control worryin = Not at all Worrying too much about different things: 0 = Not at all Trouble relaxin = Not at all Being so restless that it is hard to sit still: 0 = Not at all Becoming easily annoyed or irritable: 0 = Not at all Feeling afraid as if something awful might happen: 0 = Not at all Total MARKUS-7 score (0-4 normal; 5-9 mild; 10-14 moderate; 15-21 severe): 0 Source: Developed by Drs. Rich Garrido, Kym Rodriguez, Conrad Barraza and colleagues, with an educational micheline from [employer]. Review of Systems Const Denies chills, Reports fatigue, Denies fever(s) and Denies headache(s) ENT Denies dysphagia, Denies dizziness, Denies otalgia, Denies headache(s), Denies neck pain, Denies odynophagia and Denies sore throat Card Denies chest pain, Denies palpitations and Denies dyspnea Resp Denies chest congestion, Denies cough and Denies dyspnea GI Denies abdominal pain, Denies constipation, Denies dysphagia, Denies heartburn, Denies diarrhea, Denies nausea, Denies odynophagia and Denies vomiting Denies difficulty urinating, Denies dysuria, Reports nocturia, Reports urinary frequency and Denies urinary hesitancy Musc Denies back pain and Denies neck pain Skin/Breast Denies rash Neuro Details: (+) bilateral leg pain, on and off Denies dizziness and Denies headache(s) Psych Denies depression (better on Rx) Endo Reports fatigue and Denies palpitations Physical exam (Primary Care) Vital Signs: Last Vital Signs Pulse 63 05/14/25 10:59 BP 118/56 L 05/14/25 10:59 Pulse Ox 97 05/14/25 10:59 Oxygen Delivery Method Room Air 05/14/25 10:59 BMI result Body Mass Index 36.8 Tobacco/Smoking Status: Tobacco use Status Tobacco use date assessed 05/14/25 05/14/25 11:05 Patient Tobacco Use Status Former Tobacco user 05/14/25 11:05 Tobacco use type Cigarette 05/14/25 11:05 e-Cigarette/Vaping Use Never Used 05/14/25 11:05 PHQ-9: PHQ-9 Score PHQ-9: Total score 0 05/14/25 11:47 Depression Screening Interpretation: Negative Thrive Assessment: Date of Thrive Assessment Date Thrive assessed 05/14/25 05/14/25 11:05 Currently or been in a relationship where the following occur: No concerns reported Const General: no acute distress and alert HENMT Ears: TM's normal bilaterally and EAC's normal Throat: Yes posterior oropharynx normal and Yes tonsils normal (no TP congestion noted) Neck Neck: Yes supple and No lymphadenopathy Thyroid: Thyroid normal Resp Auscultation: clear to auscultation bilaterally, no rales and no wheezes Cardio Rate: regular rate Rhythm: abnormal rhythm irregularly irregular Heart sounds: no murmurs GI Palpation (GI): Soft to palpation and nontender Auscultation: normal bowel sounds General: Yes no CVA tenderness Back/Spine/Pelvis Back: no CVA tenderness Thoracic/Lumbar Spine: No lumbar spinal tenderness Skin Rashes: no rashes Extrem General: Yes no clubbing, cyanosis or edema Results Reviewed Results Reviewed: Laboratory Tests 04/25/25 04/25/25 07:54 07:58 WBC 7.2 Hgb 13.7 L Hct 42.3 Plt Count 149 L Sodium 142 Potassium 3.2 L Creatinine 1.05 Estimated GFR > 60 Fasting Glucose 146 H Hemoglobin A1c % 6.3 H Calcium 9.0 AST 22 ALT 14 Triglycerides 149 Cholesterol 133 LDL Cholesterol, Calc 70 HDL Cholesterol 34 L 25-OH Vitamin D Total 44.2 TSH 3.48 Ur Specific [place] 1.010 Urine Protein Trace Urine Glucose (UA) Negative Urine Blood Large (3+) H Urine Nitrite Negative Ur Leukocyte Esterase Large (3+) H Microalb/Creat Ratio 136.6 H Coding Level of Care Code Est Pt Level 4 (73562) Complex EM visit Add On G2211 Diagnoses Type 2 diabetes mellitus with stage 2 chronic kidney disease, with long-term current use of insulin E11.22; N18.2; Z79.4 Chronic kidney disease stage: stage 2 (mild) Diabetes mellitus halfway insulin use: with long term care phlebotomist use Pure hypercholesterolemia E78.00 Benign essential hypertension I10 Chronic atrial fibrillation I48.20 Malignant neoplasm of urinary bladder, unspecified site C67.9 Bladder location: unspecified site Urinary frequency R35.0 [place] cell cancer C4A.9 Neuropathy G62.9 Mood disorder F39 Obesity (BMI 30-39.9) E66.9 Additional Codes PHQ-9 - 70470 - PHQ-9 Billing: Yes ([id number]) Assessment & Plan Assessment & Plan (1) Type 2 diabetes mellitus with diabetic chronic kidney disease: Code(s): E11.22 - Type 2 diabetes mellitus with diabetic chronic kidney disease Category: Medical Qualifiers: Chronic kidney disease stage: stage 2 (mild) Diabetes mellitus long term care phlebotomist insulin use: with halfway use Qualified Code(s): E11.22 - Type 2 diabetes mellitus with diabetic chronic kidney disease; N18.2 - Chronic kidney disease, stage 2 (mild); Z79.4 - [facility] (current) use of insulin Plan: His HgbA1c was at 6.3% on his labs done a couple of weeks ago (was previously at 7.0% a few months ago) - goal is <7.0% Reinforced diabetic diet Continue Lantus 40 units daily at bedtime, Humalog 2 - 10 units with breakfast and lunch and dinner dosed per sliding scale and Trulicity 1.5 mg once a week Follow up with endocrinology (Dr. Fontaine) as scheduled for his diabetes management (2) Pure hypercholesterolemia: Code(s): E78.00 - Pure hypercholesterolemia, unspecified Category: Medical Plan: Results of his labs done a couple of weeks ago reviewed and discussed with patient Reinforced low cholesterol diet Continue Atorvastatin 40 mg QD Will recheck his labs and fasting lipids in 4 months for follow up - (3) Benign essential hypertension: Code(s): I10 - Essential (primary) hypertension Category: Medical Plan: Reinforced low sodium diet - goal is systolic BP of at least 130 mm or less Continue Metoprolol 100 mg BID and Lisinopril 40 mg QD Patient is reminded to continue monitoring his blood pressure regularly (4) Chronic atrial fibrillation: Code(s): I48.20 - Chronic atrial fibrillation, unspecified Category: Medical Plan: Patient is currently still in atrial fibrillation but remains rate-controlled; he has had no acute symptoms related to his AF Continue Metoprolol 100 mg BID; continue Xarelto 20 mg QD for thromboembolism prevention Follow up with cardiology as scheduled (5) Urinary bladder cancer: Comment: Low-grade recurrent Code(s): C67.9 - Malignant neoplasm of bladder, unspecified Category: Medical Qualifiers: Bladder location: unspecified site Qualified Code(s): C67.9 - Malignant neoplasm of bladder, unspecified Plan: S/P intravesical chemotherapy (BCG) for his bladder cancer in 2020 and had bladder fulguration on 04/15/2024 Follow up with urology as scheduled for continuing management and surveillance (6) Urinary frequency: Code(s): R35.0 - Frequency of micturition Category: Medical Plan: Continue Terazosin 10 mg Q HS Follow up with urology as scheduled (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 Code(s): C4A.9 - [place] cell carcinoma, unspecified Category: Medical Plan: S/P radiation therapy of the right forearm and axilla from 02/2022 to 03/2022 He was diagnosed with recurrent Raji Cell carcinoma in 08/2022 and PET scan done in 09/2022 revealed (+) axillary adenopathy and multiple sites of probable bone metastases Patient was started on Pembrolizumab immunotherapy for his recurrent Raji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 on 10/06/2022 and he completed his treatment with Keytruda on 11/14/2024, achieving his goal of immunotherapy x [address] done a few months ago reportedly came back negative for recurrence Follow-up with oncology as scheduled for continuing management (8) Neuropathy: Code(s): G62.9 - Polyneuropathy, unspecified Category: Medical Plan: Patient continues to report increased pain in both legs - states that his current Rx help but only to some extent Continue Gabapentin 200 mg TID and Duloxetine 30 mg QD (9) Mood disorder: Code(s): F39 - Unspecified mood [affective] disorder Category: Medical Plan: Patient's states that his mood and depression have improved a lot on his Rx Continue Duloxetine 30 mg QD (10) Obesity (BMI 30-39.9): Code(s): E66.9 - Obesity, unspecified Category: Medical Plan: Reinforced diet; exercise and weight loss are not really realistic given patient's neuropathy and other physical issues and comorbidities Plan Follow up in 4 months Orders: Orders Lipid Panel 4 Months E78.00 - Pure hypercholesterolemia, unspecified TSH reflex Free T4 4 Months E78.00 - Pure hypercholesterolemia, unspecified Complete Blood Count Auto Diff 4 Months D64.9 - Anemia, unspecified Comprehensive [place]. Panel Fast 4 Months E78.00 - Pure hypercholesterolemia, unspecified Microalbumin, Random (w Creat) 4 Months E11.9 - Type 2 diabetes mellitus without complications Hemoglobin A1c 4 Months E11.9 - Type 2 diabetes mellitus without complications UA CC w/rflx Micro + Cult 4 Months R30.0 - Dysuria Vitamin D 25-OH Total 4 Months E55.9 - Vitamin D deficiency, unspecified
--- OUTSIDE RECORDS SUMMARY | 2025-05-14 12:05 | XMS_ITS | Clinical Summary ---
Author Organization [facility], Address [address] [place] [address] Phone Care Team Providers Care Bible Teacher Name Role Phone Guido Andrade MD Primary Care Provider [phone] Allergies No known active allergies Medications terazosin [...] Type 2 diabetes mellitus 10/05/2022 Hypercholesterolemia 10/05/2022 [place] cell carcinoma 09/27/2022 Atrial fibrillation 09/27/2022 Bladder [...] Visual Foot Exam 09/27/2022 Influenza Vaccine (#1) 2025 Hepatitis B Vaccine Aged Out No longe r eligible based on patient's age to complete this topic Insurance [facility] Care Teams Bible Teacher Relationship Specialty Start Date End Date Guido Andrade MD [address] [place] [address] PCP - General Internal Medicine 09/20/22
--- OUTSIDE RECORDS SUMMARY | 2025-05-14 12:06 | XMS_ITS | Patient Health Record ---
Author Organization [facility] Address [address] [place] [address] Care Team Providers Care Boom Crane Operator Name Role Phone Adrian Andrade MDh Primary Care Provider Unakhalif ilable Black, Елена Unavailable [phone] Allergies No Known Allergies Results Component Value Reference Range Notes HEMOGLOBIN A1C (GLYCOHEMOGLO BIN) Reviewed date:12/31/2024 02:57:52 PM Interpretation: Performing Lab: Notes/Report: HEMOGLOBIN A1C % (HH) 7.0 Reason For Referral No Information Medications Medication SIG (Take, Route, Frequency, Duration) Notes Start Date End Date Status Basaglar KwikPen 38 units before bed Active Trulicity Active Trulicity once a week Active HumaLOG KwikPen Acti ve Basaglar KwikPen 100 UNIT/ML as directed Subcutaneous Active Gabapentin 100 MG 2 capsules Orally Three Times a Day Active Xarelto 20 MG 1 tablet with food Orally Once a day Active Furosemide 20 MG 1 tablet Orally Once a day Active Metoprolol Tartrate 100 MG 1 tablet with food Orally Twice a day Active DULoxetine HCl 30 MG 1 capsule Orally On ce a day Active Ferrous Sulfate 325 (65 Fe) MG 1 tablet Orally Three times a Week Active Vitamin D3 25 MCG (1000 UT) 1 capsule Orally Once a day Active Atorvastatin Calcium 40 MG 1 tablet Orally Once a day Active Lisinopril 40 MG 1 tablet Orally Once a day Active Xarelto 20 MG 1 tablet with food Orally Once a day Active Extra Depth Orthopedic Shoes (1 Pair) with Customized Heat Molded Multidensity Innersoles (3 Pair) as directed Dx: NIDDM/Polyneuropathy (E11.42), Hammertoe Foot Deformity (M20.41,M20.42), Preulcerative Skin Lesion(s) (L85.1 12/30/2024 Active HumaLOG David Acti ve Ciclopirox Olamine 0.77 % 1 application Externally Twice a day to skin of feet including between the toes; Duration: 30 days Active Metoprolol Tartrate 100 MG 1 tablet with food Orally Twice a day Active Gabapentin 300mg three times a day orally daily Active Ferrous Sulfate 325 (65 Fe) MG 1 tablet Orally Three times a Week Active Furosemide 20 MG 1 tablet Orally Once a day Active Vitamin D3 1000 UNIT 1 capsule Orally On ce a day Active DULoxetine HCl 30 MG 1 capsule Orally On ce a day Active Atorvastatin Calcium 40 MG 1 tablet Orally Once a day Active Lisinopril 40 MG 1 tablet Orally Once a day Active Social History Tobacco Use: Social History [...] Problem Status W/U Status Risk Notes Problem Polyneuropathy due to type 2 diabetes mellitus ([id number]) Type 2 diabetes mellitus with diabetic polyneuropathy (E11.42) Active confirmed Vital Signs Heart Rate 65 /min 12/30/2024 Blood pressure diastolic 70 mm Hg 04/07/2025 Height 5 ft 9 in in 04/07/2025 Blood pressure systolic 130 mm Hg 04/07/2025 Weight 231 lbs 04/07/2025 BMI 34.11 kg/m2 04/07/2025 Procedures Procedure Date Ordered Date Performed Result Body Sit e 71288-[id number] NAIL, 6 OR MORE 09/19/2024 N/A 62455-WKEP SKIN LESIONS, OVER 4 09/19/2024 N/A 44925-GSJXHED NAIL, 6 OR MORE 12/30/2024 N/A 38537-WGYJ SKIN LESIONS, OVER 4 12/30/2024 N/A 21584-DRVIBAN NAIL, 6 OR MORE 04/07/2025 N/A 82226-WQVT SKIN LESIONS, OVER 4 04/07/2025 N/A Encounters Encounter Location Date Provider Diagnosis [address] [address] 09/19/2024 Елена Oconnor Type 2 diabetes mellitus with diabetic polyneuropathy E11.42 ; Tinea unguium B35.1 and Tinea pedis of both feet B35.[address] [address] 12/30/2024 Елена Oconnor Type 2 diabetes mellitus with diabetic polyneuropathy E11.42 ; Other hammer toe(s) (acquired), right foot M20.41 ; Tinea unguium B35.1 ; Tinea pedis of both feet B35.3 ; Other hammer toe(s) (acquired), left foot M20.42 ; Arthritis M19.90 and Neuritis M79.[address] [address] 04/07/2025 Елена Oconnor Type 2 diabetes mellitus with diabetic polyneuropathy E11.42 and Tinea unguium B35.[address] [address] 07/22/[address] [address] 12/30/2024 Еленаraquel Oconnor [address] [address] 12/31/2024 Елена Oconnor Assessments Encounter Date Diagnosis [...] INSTRUCTIONS. pdf (DIABETIC FOOT CARE INSTRUCTIONS. pdf) 04/07/2025 Type 2 diabetes mellitus with diabetic polyneuropathy (ICD-10 - E11.42) 04/07/2025 Tinea unguium (ICD-10 - B35.1) 12/30/2024 Tinea unguium (ICD-10 - B35.1) 09/19/2024 Tinea pedis of both feet (ICD-10 - B35.3) Patient Educated with: ATHELETE .pdf (ATHELETE .pdf) 12/30/2024 Tinea pedis of both feet (ICD-10 - B35.3) 12/30/2024 Other hammer toe(s) (acquired), left foot (ICD-10 - M20.42) 12/30/2024 Arthritis (ICD-10 - M19.90) 12/30/2024 Neuritis (ICD-10 - M79.2) 04/07/2025 Other Plan Of Treatment Pending Test Test Name Order Date [id number] NAIL, 6 OR MORE 09/19/2024 20202-FNVVMNC NAIL, 6 OR MORE 12/30/2024 08281-EEWXRYW NAIL, 6 OR MORE 04/07/2025 92111-BBQT SKIN LESIONS, OVER 4 09/19/20 24 25460-ABKH SKIN LESIONS, OVER 4 04/07/20 80160-OFWG SKIN LESIONS, OVER 4 12/30/19 Next Appt Details Provider Name:Елена Oconnor , 07/10/2025 01:00:00 PM, [address] [facility], [place], [address], Insurance Providers Payer Name Payer Address Payer Phone Subscriber Number Group Number Insured Name Patient Relationship to Insured Coverage Start Date Coverage End Date [employer] [place] [employer] [address] [place] [address] [id number] Kamlesh Clement Self - patient is the insured 4 Medical (General) History Medical History History ICD Code CAD (Cholesterol) Cancer Cataracts Diabetic High Blood Pressure Numbness Other hammer toe(s) (acquired), right fo ot M20.41 Arthritis M19.90 Other hammer toe(s) (acquired), left denise t M20.42 Surgical History Surgery Date(Month/Year) Bladder cancer removed 06/2024 Hospitalization History Reason Date(Month/Year) [facility]Bloody nose 09/14/24
== END 2025-05-14 11:43 | disposition home or self-care (01) ==
LOC: HO.HMCH 10:58
PROVIDERS: PCP Internal Medicine; Visit Provider Internal Medicine
DX: I12.9 Hypertensive chronic kidney disease with stage 1 through stage 4 chronic kidney disease, or unspecified chronic kidney disease (principal); E11.22 Type 2 diabetes mellitus with diabetic chronic kidney disease; N18.2 Chronic kidney disease, stage 2 (mild); I48.20 Chronic atrial fibrillation, unspecified; Z79.4 Long term (current) use of insulin; C67.9 Malignant neoplasm of bladder, unspecified; C4A.9 Merkel cell carcinoma, unspecified; E78.00 Pure hypercholesterolemia, unspecified; R35.0 Frequency of micturition; E66.9 Obesity, unspecified; Z68.36 Body mass index [BMI] 36.0-36.9, adult; G62.9 Polyneuropathy, unspecified; F39 Unspecified mood [affective] disorder

== ENCOUNTER → 2025-05-14 10:57 | Outpatient (BNVA) | payer MEDICARE, SELFPAY | PROVIDERS: PCP Internal Medicine; Visit Provider Internal Medicine | DX: E11.22 Type 2 diabetes mellitus with diabetic chronic kidney disease (principal); I12.9 Hypertensive chronic kidney disease with stage 1 through stage 4 chronic kidney disease, or unspecified chronic kidney disease; N18.2 Chronic kidney disease, stage 2 (mild); E78.00 Pure hypercholesterolemia, unspecified; I48.20 Chronic atrial fibrillation, unspecified; C67.9 Malignant neoplasm of bladder, unspecified; R35.0 Frequency of micturition; C4A.9 Merkel cell carcinoma, unspecified; E11.40 Type 2 diabetes mellitus with diabetic neuropathy, unspecified; F39 Unspecified mood [affective] disorder; E66.9 Obesity, unspecified; Z68.36 Body mass index [BMI] 36.0-36.9, adult; Z79.01 Long term (current) use of anticoagulants; Z79.4 Long term (current) use of insulin; Z79.899 Other long term (current) drug therapy; Z13.31 Encounter for screening for depression; Z13.30 Encounter for screening examination for mental health and behavioral disorders, unspecified | CPT/HCPCS: 96127; 99212 ==

== ENCOUNTER 2025-08-11 13:31 | Outpatient (REF) | payer MEDICARE, SELFPAY ==
--- NOTE | ~2025-08-11 | XR_ITS ---
EXAMINATION: XR ELBOW, LEFT CLINICAL INFORMATION: M25.522 - Pain in left elbow COMPARISON: None available. TECHNIQUE: AP, lateral, and oblique views of the left elbow. FINDINGS: No visible acute fracture or dislocation. Joint space is maintained. No significant effusion is seen. There is patchy lucencies in the region of the radial tuberosity, which could be related to physiological variation, underlying bony lesion cannot be excluded. There are no priors available for comparison. No abnormal soft tissue calcification. XR/XR elbow LT min 3V IMPRESSION: Patchy lucencies in the region of the radial tuberosity, could be related to physiological variation, underlying bone lesion not excluded. Correlate for focal symptoms. Consider further evaluation with bone scan as clinically indicated. Electronically signed by: Sathya Espinal MD 08/11/2025 04:17 PM EDT
--- NOTE | ~2025-08-11 | XR_ITS ---
EXAMINATION: XR SHOULDER, LEFT CLINICAL INFORMATION: M25.512 - Pain in left shoulder COMPARISON: X-ray 03/22/2014 TECHNIQUE: AP external rotation, Grashey, scapular Y, and axillary views of the left shoulder. FINDINGS: Mild acromioclavicular arthritis. Mild glenohumeral joint arthritis.. No visible acute fracture or dislocation. No abnormal soft tissue calcification. No suspicious lung findings. XR/XR shoulder LT min 2V IMPRESSION: Mild glenohumeral acromioclavicular arthritis. Electronically signed by: Sathya Espinal MD 08/11/2025 04:08 PM EDT
--- NOTE | ~2025-08-11 | XR_ITS ---
EXAMINATION: XR CERVICAL SPINE 2-3 VIEWS HISTORY: M54.2 - Cervicalgia COMPARISON: There are no prior studies available for comparison. FINDINGS: AP, lateral, swimmer's, and open-mouth odontoid views of the cervical spine are submitted. Osseous mineralization is normal. Seven cervical vertebral bodies are identified maintaining normal height and alignment without evidence of fracture or subluxation. There is moderate degenerative disc disease with disc space narrowing and osteophyte formation, most prominent at the C3-4 level. The odontoid and lateral masses of C1 are intact. There is no prevertebral soft tissue swelling. XR/XR cervical spine 3V IMPRESSION: Degenerative changes of the cervical spine as described. Electronically signed by: Rich Sanford MD 08/12/2025 10:49 AM EDT
== END 2025-08-11 13:32 | disposition home or self-care (01) ==
LOC: HO.XRAY 13:31
PROVIDERS: PCP Internal Medicine; Visit Provider Internal Medicine
DX: Z00.00 Encounter for general adult medical examination without abnormal findings (principal); M54.2 Cervicalgia; M25.512 Pain in left shoulder; M25.522 Pain in left elbow; E11.22 Type 2 diabetes mellitus with diabetic chronic kidney disease; I12.9 Hypertensive chronic kidney disease with stage 1 through stage 4 chronic kidney disease, or unspecified chronic kidney disease; N18.2 Chronic kidney disease, stage 2 (mild); E78.00 Pure hypercholesterolemia, unspecified; I48.20 Chronic atrial fibrillation, unspecified; C67.9 Malignant neoplasm of bladder, unspecified; R35.0 Frequency of micturition; C4A.9 Merkel cell carcinoma, unspecified; G62.9 Polyneuropathy, unspecified; F39 Unspecified mood [affective] disorder; E66.9 Obesity, unspecified; Z79.4 Long term (current) use of insulin; Z68.36 Body mass index [BMI] 36.0-36.9, adult
CPT/HCPCS: 72040; 73030; 73080; 96127; 99397

== ENCOUNTER 2025-08-11 13:31 | Outpatient (AMB) | payer MEDICARE, SELFPAY ==
--- OUTSIDE RECORDS SUMMARY | 2024-11-18 09:00 | XMS_ITS ---
Author Organization [facility] Address [address] [place] [address] Care Team Providers Care Shade Cutter Name Role Phone Merlin Andrade MDneth Primary Care Provider Елена Garcia [phone] REASON FOR VISIT Seen Sooner Medications Medication [...] No Encounters Encounter Location Date Provider Diagnosis [facility] [address] [place] [address] 11/18/2024 Елена Black Plan Of Treatment Next Appt Details Provider Name:Елена Oconnor , 10/13/2025 02:45:00 PM, [address] [facility], [place], [address], Progress Notes * Kamlesh KUNZ JrDOB:[birth year] (79 yo M)Acc No.[id number]:11/18/2024 Progress Notes Patient: Kamlesh GAMEZ Jr Provider: Joselyn Oconnor DPM :1945 A ge:79 Y S ex:Male Date:11/18/2024 Address:[address] [place] [address] [facility] Pcp:Guido Andrade MD Subjective: * Chief Complaints: [...] enies. C ardiovascular: Pacemaker d enies. 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 W PW d enies. C [...] 0 11/18/2024 Generated for Stephanie thomson/Ludy/Reynaldo on: 03:53 PM EDT
[2025-08-11 14:10] VITALS: BP 116/78; PULSE 62; O2SAT 94; BMI 36.6
--- NOTE | 2025-08-11 14:10 | MHC.PC.OV ---
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 Accompanied by: Self / Same As Patient Allergies colesevelam (From WelChfrintit) Adverse Reaction (Mild, Verified 08/11/25 14:33) constipation Medication List - Last Reconciled 08/11/25 by Guido Andrade MD ascorbic acid (vitamin C) 1 g PO DAILY 90 days atorvastatin 40 mg PO DAILY 90 days blood-glucose sensor (FreeStyle Alina 3 Plus Sensor device) As directed blood-glucose sensor (FreeStyle Alina 3 Sensor device) As directed blood-glucose,enrollment services dean,cont (FreeStyle Alina 3 Udell) As directed cholecalciferol (vitamin D3) (Vitamin D3) 25 mcg PO DAILY 90 days dulaglutide (Trulicity) 1.5 mg (0.5 mL) subcut QWEEK duloxetine 30 mg PO DAILY ferrous sulfate (FeroSul) 325 mg PO DAILY 90 days flash glucose scanning reader (Artax BiopharmaStyle Alina 2 Udell) As directed flash glucose sensor (FreeStyle Alina 2 Sensor kit) As directed every 2 weeks furosemide 20 mg PO DAILY 90 days gabapentin 200 mg (2 x 100 mg) PO TID 30 days ibuprofen (Advil) 200 mg PO Q6H PRN insulin glargine (Lantus U-100 Insulin) 40 units subcut BEDTIME insulin lispro (Humalog U-100 Insulin) 1 sliding scale dose See Protocol subcut TIDAC latanoprost 0.005% 1 drp ophthalmic-Right BEDTIME lisinopril 40 mg PO DAILY 90 days methenamine hippurate 1 g PO DAILY 90 days metoprolol tartrate 100 mg PO BID 90 days moxifloxacin 0.5% 1 drp ophthalmic-Left BID nitroglycerin 0.4 mg sublingual Q5M PRN pen needle, diabetic (BD Ultra-Fine Madeline Pen Needle) As directed 4 times a day pen needle, diabetic (BD Ultra-Fine Madeline Pen Needle) As directed once daily prednisolone acetate 1% 1 drp ophthalmic-Left BID rivaroxaban (Xarelto) 20 mg PO QPM [SHOWER CHAIR As directed] terazosin 10 mg PO BEDTIME 90 days Tobacco use date assessed: 08/11/25 Fall risk assessment: No Falls in past year Last assessed Fall Risk: 08/11/25 Dental Screening Dental Screen Date: 08/11/25 Did you have a dental visit in the last 12 months?: No Did you have a dental problem in the last 6 months where you did not have access to dental care?: No Was dental information given to patient?: No HPI annual exam HPI Details Patient comes in today for his annual physical examination States that he feels okay He still does not sleep well as he has to wake up multiple times to go to the bathroom His states that he would often takes naps throughout the day whenever he feels tired to compensate for his lack of sleep Adds that lately, he has been experiencing frequent pain in his left arm and thinks that he may hava arthritis in the arm His states that he has a habit now of staying up late at night watching television and often ends up sleeping with his head on his left forearm and he would then wake up with his arm feeling numb and/or painful He denies any headaches or dizziness Denies any chest pains, no increased SOB No nausea/vomiting, no abdominal pain No change in bowel habits noted He was not able to get his follow up labs done prior to coming in for his appointment today He had his screening colonoscopy last done with Dr. Montenegro back in April 2020 - was supposedly advised repeat colonoscopy in 1 year to check on one of the polypectomy sites and repeat in 3 to 5 years due to (+) tubular adenoma on pathology of one of his polyps but patient has not had a repeat colonoscopy done since He continues to follow up with Dr. 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 CAD (coronary artery disease) Hyperlipidemia LDL goal <70 Essential hypertension Type 2 diabetes mellitus with diabetic polyneuropathy Diabetes mellitus Surgical History History of surgery History of esophagogastroduodenoscopy (EGD) Hx of cystoscopy History of cystoscopy Hx of colonoscopy History of cataract surgery History of endoscopy Hx of removal of cyst Family History Father Medical history unknown Mother Diabetes Daughter In good health Son In good health Sister In good health Sister In good health Brother In good health Brother In good health Brother In good health Social History Household Members: Spouse and Family Housing: House Are you a primary director of medicare to a significant other at home: No Do you presently have visiting nurse or other home services: No Alcohol intake: current Alcohol intake frequency: holidays/special occasions only Alcohol type: beer Comment: medicated in pacu Patient Tobacco Use Status: Former Tobacco user Tobacco use type: Cigarette Years Smoked: 20 e-Cigarette/Vaping Use: Never Used Second Hand Smoke Exposure: Yes Advance Directives Date on File: 09/07/21 service: No Current occupational status: retired Current occupational exposures/hazards: No Cognitive needs: Yes (cane) Hearing needs: No Vision needs: Yes Questionnaire PHQ-9 Over the last 2 weeks, how often have you been bothered by any of the following problems? 1. Little interest or pleasure in doing things: not at all 2. Feeling down, depressed, or hopeless: not at all 3. Trouble falling or staying asleep, or sleeping too much: not at all 4. Feeling tired or having little energy: not at all 5. Poor appetite or overeating: not at all 6. Feeling bad about yourself - or that you are a failure or have let yourself or your family down: not at all 7. Trouble concentrating on things, such as reading the newspaper or watching television: not at all 8. Moving or speaking so slowly that other people could have noticed. Or the opposite - being so fidgety or restless that you have been moving around a lot more than usual: not at all 9. Thoughts that you would be better off or of hurting yourself in some way: not at all Total score: 0 Depression Screening Interpretation: Negative Depression Screening Done: Yes 71204 - PHQ-9 Billing: Yes Source: Developed by Drs. Rich Garrido, Conrad Tafoya and colleagues, with an educational micheline from [employer]. Thrive Questionnaire Date Thrive assessed: 08/11/25 I am a: Patient What is your living situation today?: I have a steady place to live Within the past 12 months, did the food you bought not last and you didn't have the money to get more?: Never true Within the past 12 months, did you worry whether your food would run out before you got money to buy more?: Never true Do you have trouble paying for medicines?: No Do you have trouble getting transportation to medical appointments?: No Do you have trouble paying your heating and electricity bill?: No Do you have trouble taking care of your child, family member or friend?: No Do you have trouble with day-to-day activities such as bathing, preparing meals, shopping, managing finances, etc.?: No Are you currently unemployed and looking for a job?: No Are you interested in more education?: No Please select the resources that you would like help with: None Currently or been in a relationship where the following occur: No concerns reported THRIVE Score: 0 AUDIT C Alcohol Use Questionnaire (AUDIT-C) 1. How often do you have a drink containing alcohol?: Never 3. How often do you have six or more drinks on one occasion?: Never Total Score: 0 Score Reviewed/Action Taken: Yes MARKUS-7 AMB Questionnaire MARKUS-7 Date MARKUS - 7 assessed: 05/14/25 Source: Developed by Drs. Rich Garrido, Conrad Tafoya and colleagues, with an educational micheline from [employer]. Review of Systems Const Denies chills, Denies fatigue, Denies fever(s), Denies headache(s), Denies malaise and Denies weakness Eyes Denies blurry vision, Denies change in vision, Denies irritation and Denies itchy eyes ENT Denies dysphagia, Denies dizziness, Denies otalgia, Denies headache(s), Denies nasal congestion, Reports neck pain (at times), Denies odynophagia and Denies sore throat Card Denies chest pain, Denies rapid heart rate, Denies irregular heart rhythm, Denies palpitations and Denies dyspnea Resp Denies chest congestion, Denies cough, Denies dyspnea and Denies wheezing GI Denies abdominal pain, Denies bloating, Denies constipation, Denies dysphagia, Denies heartburn, Denies diarrhea, Denies nausea, Denies odynophagia and Denies vomiting Denies hematuria, Denies difficulty urinating, Denies dysuria, Reports nocturia, Reports urinary frequency and Denies urinary urgency Musc Denies back pain, Reports arthralgias (on and off in the left shoulder and left elbow lately; also left arm pain), Denies joint swelling, Denies muscle weakness and Reports neck pain (at times) Skin/Breast Denies change in pigmentation, Denies lesions, Denies rash and Denies unusual bruising Neuro Details: (+) bilateral leg pain, on and off; recurrent pain in the left arm (see HPI) Denies dizziness, Denies headache(s), Denies paresthesias and Denies weakness Psych Denies depression (better on Rx) Endo Denies fatigue and Denies palpitations Aller/Immun Denies itchy eyes and Denies wheezing Physical exam (Primary Care) Vital Signs: Last Vital Signs Pulse 62 08/11/25 14:10 BP 116/78 08/11/25 14:10 Pulse Ox 94 08/11/25 14:10 Oxygen Delivery Method Room Air 08/11/25 14:10 BMI result Body Mass Index 36.6 Tobacco/Smoking Status: Tobacco use Status Tobacco use date assessed 08/11/25 08/11/25 14:13 Patient Tobacco Use Status Former Tobacco user 08/11/25 14:13 Tobacco use type Cigarette 08/11/25 14:13 e-Cigarette/Vaping Use Never Used 08/11/25 14:13 Depression Screening Interpretation: Negative Thrive Assessment: Date of Thrive Assessment Date Thrive assessed 05/14/25 08/11/25 14:13 Currently or been in a relationship where the following occur: No concerns reported Const General: no acute distress and alert Orientation/consciousness: patient oriented x3 HENMT Head: Yes normocephalic and Yes atraumatic Ears: TM's normal bilaterally and EAC's normal General nose exam: No nasal discharge present Face and sinus: Yes normal facial exam and Yes sinuses nontender Teeth and gingiva: dentition normal Throat: Yes posterior oropharynx normal and Yes tonsils normal (no TP congestion noted) Eyes Eyelids: Yes eyelids normal Conjunctivae: conjunctivae normal Pupils: Equal, round and reactive pupils present EOM: EOMs intact bilaterally Neck Neck: No lymphadenopathy and Yes tender (mild) Thyroid: Thyroid normal Resp Auscultation: clear to auscultation bilaterally, no rales and no wheezes Cardio Rate: regular rate Rhythm: abnormal rhythm irregularly irregular Heart sounds: no murmurs GI Palpation (GI): Soft to palpation and nontender Auscultation: normal bowel sounds General: Yes no CVA tenderness Back/Spine/Pelvis Back: no CVA tenderness Cervical Spine: Cervical spine tenderness (mild) Thoracic/Lumbar Spine: No lumbar spinal tenderness Skin Lesions: no lesions Rashes: no rashes Neuro General: patient oriented x3, moves all extremities, no focal motor deficits and CN's II-XI intact bilaterally Cranial nerves: Yes Equal, round and reactive pupils present Cognition (Neuro): normal cognition Gait exam (Neuro): Normal gait present Extrem General: Yes no clubbing, cyanosis or edema Left upper extremity: shoulder/upper arm Details: tenderness (mild) Location: of the A-C joint and elbow/forearm Details: tenderness Location: of the olecranon Coding Level of Care Code Est Pt Prev Care >65y(20376) Diagnoses Annual physical exam Z00.00 Type 2 diabetes mellitus with stage 2 chronic kidney disease, with long-term current use of insulin E11.22; N18.2; Z79.4 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 Chronic kidney disease stage: stage 2 (mild) Pure hypercholesterolemia E78.00 Benign essential hypertension I10 Chronic atrial fibrillation I48.20 Malignant neoplasm of urinary bladder, unspecified site C67.9 Bladder location: unspecified site Urinary frequency R35.0 [place] cell cancer C4A.9 Neuropathy G62.9 Radicular pain in left arm M79.2 Mood disorder F39 Obesity (BMI 30-39.9) E66.9 Additional Codes PHQ-9 - 22326 - PHQ-9 Billing: Yes ([id number]) Assessment & Plan Assessment & Plan (1) Annual physical exam: Code(s): Z00.00 - Encounter for general adult medical examination without abnormal findings Category: Medical Plan: Results of his labs done back in April 2025 reviewed; patient was not able to get his labs done prior to coming in for his appointment today He had his screening colonoscopy last done with Dr. 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 Fontaine) as scheduled for his diabetes management (3) Pure hypercholesterolemia: Code(s): E78.00 - Pure hypercholesterolemia, unspecified Category: Medical Plan: Patient was not able to get his follow-up labs done Reinforced low cholesterol diet Continue Atorvastatin 40 mg QD Will recheck his labs and fasting lipids in 4 months for follow up - will just have him use his current orders (updated) for his next lab draw (4) Benign essential hypertension: Code(s): I10 - Essential (primary) hypertension Category: Medical Plan: Reinforced low sodium diet - goal is systolic BP of at least 130 mm or less Continue Metoprolol 100 mg BID and Lisinopril 40 mg QD Patient is reminded to continue monitoring his blood pressure regularly (5) Chronic atrial fibrillation: Code(s): I48.20 - Chronic atrial fibrillation, unspecified Category: Medical Plan: Patient is currently still in atrial fibrillation but remains rate-controlled; he has had no acute symptoms related to his AF Continue Metoprolol 100 mg BID; continue Xarelto 20 mg QD for thromboembolism prevention Follow up with cardiology as scheduled (6) Urinary bladder cancer: Comment: Low-grade recurrent Code(s): C67.9 - Malignant neoplasm of bladder, unspecified Category: Medical Qualifiers: Bladder location: unspecified site Qualified Code(s): C67.9 - Malignant neoplasm of bladder, unspecified Plan: S/P intravesical chemotherapy (BCG) for his bladder cancer in 2020 and had bladder fulguration on 04/15/2024 for recurrent CA Follow up with urology as scheduled for continuing management and surveillance (7) Urinary frequency: Code(s): R35.0 - Frequency of micturition Category: Medical Plan: Continue Terazosin 10 mg Q HS Follow up with urology as scheduled (8) [place] cell cancer: Comment: of the right forearm - diagnosed by biopsy Code(s): C4A.9 - Raji cell carcinoma, unspecified Category: Medical Plan: S/P radiation therapy of the right forearm and axilla from 02/2022 to 03/2022 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 and PET scan done in 09/2022 revealed (+) axillary adenopathy and multiple sites of probable bone metastases Patient was started on Pembrolizumab immunotherapy for his 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 on 10/06/2022 and he completed his treatment with Keytruda on 11/14/2024, achieving his goal of immunotherapy x [address] done a few months ago reportedly came back negative for recurrence Follow-up with oncology as scheduled for continuing management (9) Neuropathy: Code(s): G62.9 - Polyneuropathy, unspecified Category: Medical Plan: Patient continues to report increased pain in both legs - states that his current Rx help but only to some extent Continue Gabapentin 200 mg TID and Duloxetine 30 mg QD (10) Radicular pain in left arm: Code(s): M79.2 - Neuralgia and neuritis, unspecified Category: Medical Plan: Have advised patient that his recent left arm symptoms are likely due to nerve compression brought about by his lying down on his arm often that he can probably avoid this by changing his sleeping habits and avoid lying down or pressing down on his arm Will send him for x-rays of the cervical spine, left shoulder elbow for further evaluation to see if any of these is also contributing to his left arm symptoms (11) Mood disorder: Code(s): F39 - Unspecified mood [affective] disorder Category: Medical Plan: Patient's states that his mood and depression have improved a lot on his Rx Continue Duloxetine 30 mg QD (12) Obesity (BMI 30-39.9): Code(s): E66.9 - Obesity, unspecified Category: Medical Plan: Reinforced diet; exercise and weight loss are not really realistic given patient's neuropathy and other physical issues and comorbidities Plan Follow up in 4 months Orders: Orders XR cervical spine 3V 08/11/25 M54.2 - Cervicalgia, M79.2 - Neuralgia and neuritis, unspecified XR shoulder LT min 2V 08/11/25 M25.512 - Pain in left shoulder, M79.2 - Neuralgia and neuritis, unspecified XR elbow LT min 3V 08/11/25 M25.522 - Pain in left elbow, M79.2 - Neuralgia and neuritis, unspecified
--- OUTSIDE RECORDS SUMMARY | 2025-08-11 15:53 | XMS_ITS | Clinical Summary ---
Author Organization [facility] Address [address] [place] [address] Phone Care Team Providers Care Software Quality Engineer Name Role Phone Guido Andrade MD Primary Care Provider [phone] Allergies No known active allergies Medications atorvastatin (LIPITOR) 40 MG tablet Take 40 mg by mouth. 2 Active cholecalciferol (VITAMIN D3) 25 MCG (1,000 unit) tablet Take 1,000 Units by mouth. Active cyanocobalamin, vitamin B-12, 1000 MCG tablet Take 100 mcg by mouth. Active FEROSUL 325 mg (65 mg iron) tablet Take 1 tablet by mouth every morning. 3 Active furosemide (LASIX) 20 MG tablet Take 20 mg by mouth. 2 Active gabapentin (NEURONTIN) 100 MG capsule Take 300 mg by mouth. 2 Active lidocaine-priloca ine (EMLA) cream Apply topically. 3 Active lisinopril (PRINIVIL,ZESTRIL ) 40 MG tablet Take 40 mg by mouth. 2 Active metoprolol succinate (TOPROL-XL) 100 MG 24 hr tablet Take 100 mg by mouth. Active ondansetron (ZOFRAN) 4 MG tablet Take by mouth. 2 Active BD DEVANTE 2ND GEN PEN NEEDLE 32 gauge x 5/32 Ndle 4 (four) times a day. 3 Active prochlorperazine (COMPAZINE) 5 MG tablet Take by mouth. 2 Active rivaroxaban (XARELTO) 20 mg Tab Take 20 mg by mouth. 2 Active terazosin (HYTRIN) 10 MG capsule Take 10 mg by mouth. 2 Active latanoprost (XALATAN) 0.005 % ophthalmic solution 2 (two) times a day. 3 Active FREESTYLE DEEPA 3 SENSOR Nohemi CHANGE EVERY 14 DAYS DIRECTED 5 Active DULoxetine (CYMBALTA) 30 MG capsule Take 1 capsule by mouth every morning. 5 Active insulin glargine 100 unit/mL (3 mL) InPn injection penIndications:Ty pe 2 diabetes mellitus with diabetic polyneuropathy, with long-term current use of insulin Inject 36 Units under the skin nightly at bedtime. 35 mL 1 5 Active dulaglutide (TRULICITY) 1.5 mg/0.5 mL subcutaneous injectionIndicati ons:Type 2 diabetes mellitus with diabetic polyneuropathy, with long-term current use of insulin Inject 0.5 mL (1.5 mg total) under the skin every 7 days. 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 His last hemoglobin A1c was 5.5% but this was falsely low due to anemia. Hemoglobin/hematocrit now in the reference range. Based on his CGM the last 2 weeks he has poor glycemic control. It is usually postprandial hyperglycemia. He is tolerating Trulicity 0.75 mg weekly and I will increase it to 1.5 mg weekly. I confirmed that he has no contraindications such as pancreatitis or medullary thyroid carcinoma. He will continue with the Humalog that he is using is very small doses. But if at all possible we could potentially stop these medications though prandial insulin if he does well with Trulicity. In the meantime he should continue Lantus at the current dose. I will refer to CDE. Hyperlipidemia LDL goal <70 05/10/2023 Assessment & Plan (02/14/2025 11:07 AM EDT): Controlled LDL 50 on atorvastatin 40 is due for repeat lipid panel will request for the follow-up visit in 6 months. Assessment & Plan (2024 10:57 AM EDT): Controlled. LDL 50 mg/dL he should continue atorvastatin 40 mg no changes required. Assessment & Plan (05/15/2024 10:17 AM EDT): Based on lab work done on 07/28/2023 LDL 55 mg/dL. Controlled continue atorvastatin 40 mg daily. He will need to repeat lipid panel prior to the follow-up visit in 3 months time. Assessment & Plan (02/14/2024 10:23 AM EDT): Controlled. LDL 55 mg/dL continue atorvastatin 40 mg. Assessment & Plan (11/15/2023 10:32 AM EST): Controlled. LDL 55 mg/dL. He should continue atorvastatin 40 mg no changes required. Assessment & Plan (08/09/2023 9:50 AM EDT): Controlled. LDL 55 mg/dL patient continue atorvastatin 40 mg no changes required. Assessment & Plan (05/10/2023 11:37 AM EDT): I do not have lipid panel he is on atorvastatin 40 mg I will request lipid panel to be done fasting prior to the follow-up visit. Type 2 diabetes mellitus wit h diabetic polyneuropathy, with long-term current use of insulin 05/10/2023 Assessment & Plan (02/14/2025 11:07 AM EDT): Controlled. Hemoglobin A1c 6.6 doing better than before and not having any more hypoglycemia mostly because his lunchtime glucoses are better. Still has elevated glucose at nighttime but may be due to snacking as he has to eat something with his evening medications. Wakes up in the morning low 70s sometimes high 60s. Will decrease Lantus to 36 units. Continue Trulicity and lispro correction scale the same. Assessment & Plan (2024 11:13 AM EDT): Controlled based on hemoglobin A1c of 7.8% for his age this is appropriate. Given age and comorbidities I do not recommend aggressive A1c goals of less than 7%. The [place] [employer] recommends a goal of A1c of 7.5 to 8% in older patients with moderate comorbidities and life expectancy less than 10 years. The [place] [employer] recommends a goal of less than 7.5% in patients with few comorbidities and significant life expectancy, a goal of less than 8% in patients with intermediate life expectancy and multiple chronic comorbidities, and a more relaxed goal of 8-8.5% in older patients with very complex medical issues/poor health and a limited health expectancy. Assessment & Plan (05/15/2024 10:29 AM EDT): Based on the CGM he appears to have good glycemic control but is having postprandial hyperglycemia due to snacking in the evening with crackers and peanut butter. I will give him a correction scale starting at 70-100 = 1 unit and increasing by 1 unit every 50 mg/dL for his bedtime snack. As for breakfast lunch and dinner he should continue his current correction scale which is 70-100 = 2 units increasing by 2 units every 50 mg/dL. Despite the snacking in the evening his glucose to drop significantly so I am going to ask him to decrease the Lantus to 38 units. But he must do the injection of prandial insulin/Humalog at bedtime if he does eat his snack. Of course the insulin administration should be done before snacking. Assessment & Plan (02/14/2024 10:22 AM EDT): Uncontrolled. Hemoglobin A1c has increased to 7.2% which does not appear too bad but the problem is that he is only 32% in range previously it was 66% in range and before that 83% in range so he is getting worse. He needs more prandial insulin. I gave him a correction scale starting at 70-100 = 2 units increasing by 2 units every 50 mg/dL. I am not going to change the Lantus he should continue 40 units and continue Trulicity 1.5 mg. Repeat lab work in 3 months just a hemoglobin A1c. Assessment & Plan (11/15/2023 10:29 AM EST): Based on hemoglobin A1c his control but actually based on the CGM he only has 60% in target and this has decreased from 83%. He does not have hypoglycemia. But he has postprandial hyperglycemia from 12 PM to 9 PM. He was unable to tolerate the higher dose of Trulicity so he is back to 1.5 mg. It is possible that the postprandial hyperglycemia may have been due poor food choices during the holidays but this may not be the case because he actually lost 9 pounds. So I think what we should do is observe and have him return in 3 months if his levels are still elevated postprandially then we can increase the Humalog with meals. Assessment & Plan (08/09/2023 10:19 AM EDT): Controlled. Hemoglobin A1c 6.9%. He still has glucose in the 70s range in the morning this may be due to too much Lantus or potentially too much Humalog with dinner. I will decrease the Lantus to 40 units. But the issue with decreasing the Lantus is that he tends to have more postprandial hyperglycemia. We can increase the Humalog that he is getting with meals but I suggested increasing Trulicity to 3 mg and stopping Humalog. This will only work if the patient is asymptomatic with the higher dose of Trulicity. If not we will have to go back to Humalog administration. He is wanting to try the higher dose of Trulicity. So I asked him once he starts getting Trulicity 3 mg from the pharmacy he should stop the Humalog and just use Lantus 40 units in the evening and Trulicity 3 mg weekly. Encounters Date Type Department Care Team Description 05/30/2025 Telephone [facility] [address] [place] [address] Jaci Carver MA Forms & Paperwork (P&O Solution) from Last 3 Months Family History Medical History Relation Comments No Known Problems Father Diabetes Mother Relation Status Comments Father Mother Social History Tobacco Use Types Packs/Day Years Used Date Smoking Tobacco: Former Cigarettes Smokeless Tobacco: Never Tobacco Cessation:Counseling Given: Not Answered Alcohol Use Standard Drinks/Week Comments Yes 0 (1 standard drink = 0.6 oz pur e alcohol) rarely 1 Education Answer Date Recorded Are you interested in more education? Not on zulema e 04/04/2023 Are you concerned about learning? Not on file 04/04/2023 No 04/04/2023 No 04/04/2023 Digital Access Answer Date Recorded No 04/04/2023 No 04/04/2023 Reliable internet access at home? Not on file 04/04/2023 Device with a working camera? Not on file Sex and Gender Information Value Date Recorded Sex Assigned at Not on file Legal Sex Male 11:20 AM EDT Gender Identity Not on file Sexual Orientation Not on file Last Filed Vital Signs Vital Sign Reading Time Taken Comments Blood Pressure 120/60 02/14/2025 10:40 AM EDT Pulse 65 02/14/2025 10:40 AM EDT Temperature - - Respiratory Rate - - Oxygen Saturation 99% 02/14/2025 10:40 AM EDT Inhaled Oxygen Concentration - - Weight 105.2 kg (232 lb) 02/14/2025 10:40 AM EDT Height 171.2 cm (5' 7.4 ) 2024 10:57 AM ED T Body Mass Index 35.9 2024 10:57 AM EDT Plan of Treatment Upcoming Encounters Date Type Department Care Team (Late st Contact Info) Description 08/19/2025 10:30 AM EDT Office Visit [facility] [address] [place] [address] Trev Fontaine DO [address] [place] [address] [email or web address] Health Maintenance Due Date Last Done Comments Adult Td,Tdap Booster 1945 DEPRESSION SCREENING 1958 SMOKING Hx and SMOKELESS TOBACCO SCREENING 1959 HEPATITIS C SCREENING 1964 PNEUMOCOCCAL VACCINES (50+ years) (1 of 2 - PCV) 1965 ZOSTER VACCINES (1 of 2) 1996 RSV VACCINE (1 - 1-dose 75+ series) 2021 DIABETIC EYE EXAM 05/10/2023 INFLUENZA VACCINE (#1) 2025 COVID-19 VACCINE ( - season) 2025 CREATININE LEVEL 08/08/2025 08/08/2024 POTASSIUM LEVEL 08/08/2025 08/08/2024 HEMOGLOBIN A1C 08/12/2025 02/10/2025, 10/0 01/2024, 05/08/2024, Additional history exists BLOOD PRESSURE 2025 02/14/2025 HEPATITIS A VACCINES Aged Out No long er eligible based on patient's age to complete this topic HIB VACCINES Aged Out No longer eligi ble based on patient's age to complete this topic MENINGOCOCCAL VACCINES (ACWY) Aged Out No longer eligible based on patient's age to complete this topic MENINGOCOCCAL VACCINES (B) Aged Out N o longer eligible based on patient's age to complete this topic Medical Devices Not on file Procedures Procedure Name Priority Date/Time Associated Diagnosis Comments HEMOGLOBIN A1C Routine 02/10/2025 11:25 AM EDT Type 2 diabetes mellitus with diabetic polyneuropathy, with long-term current use of insulin COMPREHENSIVE METABOLIC PANEL Routine 08/08/2024 11:10 AM EDT Type 2 diabetes mellitus with diabetic polyneuropathy, with long-term current use of insulin from Last 3 Months or Most Recently Relevant to Health Maintenance Results * (ABNORMAL) Hemoglobin A1c (02/10/2025 11:25 AM EDT) HEMOGLOBIN A1C 6.6(H) 4.3 - 5.8 % [facility] Blood 02/10/2025 11:2 5 AM EDT 02/10/2025 11:27 AM EDT us Trev Fontaine DO LAB BLOOD ORDERABLES Final Resul t [address] [address] * (ABNORMAL) Comprehensive metabolic panel (08/08/2024 11:10 AM EDT) SODIUM 142 133 - 146 mmol/L [facility] POTASSIUM 4.3 3.3 - 5.1 mmol/L [facility] CHLORIDE 101 96 - 108 mmol/L [facility] CO2 32 21 - 35 mmol/L [facility] BUN 16 6 - 19 mg/dL [facility] CREATININE 1.00 0.5 - 1.5 mg/dL [facility] GLUCOSE 172(H) 70 - 99 mg/dL [facility] ALBUMIN 3.1(L) 3.9 - 4.8 g/dL [facility] TOTAL PROTEIN 7.0 6.5 - 8.0 g/dL [facility] CALCIUM 9.3 8.4 - 10.3 mg/dL [facility] ALKALINE PHOSPHATASE 142(H) 39 - 117 U/L [facility] TOTAL BILIRUBIN 0.5 0.0 - 1.2 mg/dL [facility] AST 20 0 - 37 U/L [facility] ALT 17 0 - 40 U/L [facility] GLOBULIN 3.9 1 - 4.8 g/dL [facility] EGFR 78 >59 mL/min/1.7 3m2 [facility] Comment:Estimated glomerular filtration rate calculated using the CKD-EPI refit equation. ANION GAP 13 10 - 20 mmol/L [facility] Blood 08/08/2024 11:1 0 AM EDT 08/08/2024 11:30 AM EDT Trev Fontaine DO LAB BLOOD ORDERABLES Final Resul t [address] [address] from Last 3 Months or Most Recently Relevant to Health Maintenance Insurance [employer] Care Teams Software Quality Engineer Relationship Specialty Start Date End Date Guido Andrade MD [address] [place] [address] [facility] [place] [address] PCP - General Internal Medicine 03/15/23 Additional Source Comments The information contained in this document represents components of the legal health record. It is not the complete legal health record.[facility]
--- OUTSIDE RECORDS SUMMARY | 2025-08-11 15:53 | XMS_ITS | Patient Health Record ---
Author Organization [facility] Address [address] [facility] [place] [address] Care Team Providers Care Heating And Air Conditioning Mechanic Name Role Phone Guido Andrade MD Primary Care Provider Unava ilable Black, Елена Unavailable [phone] Allergies No Known Allergies Results Component Value Reference Range Notes HEMOGLOBIN A1C (GLYCOHEMOGLO BIN) Reviewed date:07/10/2025 12:57:59 PM Interpretation: Performing Lab: Notes/Report: HEMOGLOBIN A1C % (HH) 7.0 HEMOGLOBIN A1C (GLYCOHEMOGLO BIN) Reviewed date:12/31/2024 02:57:52 PM Interpretation: Performing Lab: Notes/Report: HEMOGLOBIN A1C % (HH) 7.0 Reason For Referral No Information Medications Medication SIG (Take, Route, Frequency, Duration) Notes Start Date End Date Status Metoprolol Tartrate 100 MG 1 tablet with food Orally Twice a day Active Furosemide 20 MG 1 tablet Orally Once a day Active Ferrous Sulfate 325 (65 Fe) MG 1 tablet Orally Three times a Week Active DULoxetine HCl 30 MG 1 capsule Orally On ce a day Active HumaLOG KwikPen Acti ve Xarelto 20 MG 1 tablet with food Orally Once a day Active Gabapentin 100 MG 2 capsules Orally Three Times a Day Active Xarelto 20 MG 1 tablet with food Orally Once a day Active Vitamin D3 25 MCG (1000 UT) 1 capsule Orally Once a day Active Trulicity once a week Active Lisinopril 40 MG 1 tablet Orally Once a day Active Basaglar KwikPen 38 units before bed Active Atorvastatin Calcium 40 MG 1 tablet Orally Once a day Active HumaLOG KwikPen Acti ve Furosemide 20 MG 1 tablet Orally Once a day Active Ferrous Sulfate 325 (65 Fe) MG 1 tablet Orally Three times a Week Active DULoxetine HCl 30 MG 1 capsule Orally On ce a day Active Vitamin D3 1000 UNIT 1 capsule Orally On ce a day Active Ciclopirox Olamine 0.77 % 1 application Externally Twice a day to skin of feet including between the toes; Duration: 30 days Active Extra Depth Orthopedic Shoes (1 Pair) with Customized Heat Molded Multidensity Innersoles (3 Pair) as directed Dx: NIDDM/Polyneuropathy (E11.42), Hammertoe Foot Deformity (M20.41,M20.42), Preulcerative Skin Lesion(s) (L85.1 12/30/2024 Active Gabapentin 300mg three times a day orally daily Active Metoprolol Tartrate 100 MG 1 tablet with food Orally Twice a day Active Lisinopril 40 MG 1 tablet Orally Once a day Active Atorvastatin Calcium 40 MG 1 tablet Orally Once a day Active Trulicity Active Basaglar KwikPen 100 UNIT/ML as directed Subcutaneous Active Immunizations Vaccine Route Administration Date Status Comme nts Influenza Unknown 07/10/2025 Refused Social History Tobacco Use: Social History Observation [...] containing alcohol in the p ast year? No Points 0 Interpretation Negative Problems Problem Type SNOMED Code ICD Code Onset Dates Problem Status W/U Status Risk Notes Problem Polyneuropathy due to type 2 diabetes mellitus (106885176) Type 2 diabetes mellitus with diabetic polyneuropathy (E11.42) Active confirmed Vital Signs Heart Rate 65 /min 12/30/2024 Blood pressure diastolic 70 mm Hg 07/10/2025 Height 5 ft 9 in in 07/10/2025 Blood pressure systolic 130 mm Hg 07/10/2025 Weight 230 lbs 07/10/2025 BMI 33.96 kg/m2 07/10/2025 Procedures Procedure Date Ordered Date Performed Result Body Sit e 87216-SWCRSDV NAIL, 6 OR MORE 09/19/2024 N/A 64604-IASP SKIN LESIONS, OVER 4 09/19/2024 N/A 33549-FTBJSFH NAIL, 6 OR MORE 12/30/2024 N/A 13198-NSJK SKIN LESIONS, OVER 4 12/30/2024 N/A 95668-TOUJUWC NAIL, 6 OR MORE 04/07/2025 N/A 06812-MZXI SKIN LESIONS, OVER 4 04/07/2025 N/A 21487-LDLDAGZ NAIL, 6 OR MORE 07/10/2025 N/A 65417-JSCD SKIN LESIONS, OVER 4 07/10/2025 N/A Encounters Encounter Location Date Provider Diagnosis [address] [address] 09/19/2024 Елена Black Type 2 diabetes mellitus with diabetic polyneuropathy E11.42 ; Tinea unguium B35.1 and Tinea pedis of both feet B35.[address] [address] 12/30/2024 Елена Black Type 2 diabetes mellitus with diabetic polyneuropathy E11.42 ; Other hammer toe(s) (acquired), right foot M20.41 ; Tinea unguium B35.1 ; Tinea pedis of both feet B35.3 ; Other hammer toe(s) (acquired), left foot M20.42 ; Arthritis M19.90 and Neuritis M79.[address] [address] 04/07/2025 Елена Black Type 2 diabetes mellitus with diabetic polyneuropathy E11.42 and Tinea unguium B35.[address] [address] 07/10/2025 Елена Black Type 2 diabetes mellitus with diabetic polyneuropathy E11.42 and Tinea unguium B35.[address] [address] 12/30/2024 Елнеа Black [address] [address] 12/31/2024 Елена Black Assessments Encounter Date Diagnosis (ICD Code) Assessment [...] E11.42) 04/07/2025 Tinea unguium (ICD-10 - B35.1) 07/10/2025 Type 2 diabetes mellitus with diabetic polyneuropathy (ICD-10 - E11.42) 07/10/2025 Tinea unguium (ICD-10 - B35.1) 12/30/2024 Tinea [...] Treatment Pending Test Test Name Order Date 28773-QHOGMKC NAIL, 6 OR MORE 09/19/2024 88642-RUIZZRH NAIL, 6 OR MORE 12/30/2024 72117-BUJRMBT NAIL, 6 OR MORE 04/07/2025 09956-IAXWWZT NAIL, 6 OR MORE 07/10/2025 12421-TRBO SKIN LESIONS, OVER 4 09/19/20 24 06558-MTED SKIN LESIONS, OVER 4 07/10/20 38570-UYTD SKIN LESIONS, OVER 4 04/07/20 25 97214-AVON SKIN LESIONS, OVER 4 12/30/19 25 Next Appt Details Provider Name:Елена Oconnor , 10/13/2025 02:45:00 PM, [address] [facility], [place], [address], Insurance Providers Payer Name Payer Address Payer Phone Subscriber Number Group Number Insured Name Patient Relationship to Insured Coverage Start Date Coverage End Date [employer] [address] [place] [address] [phone] [id number] GennaKamlesh schulz Self - patient is the insured 4 Medical (General) History Medical History History ICD Code CAD (Cholesterol) Cancer Cataracts Diabetic High Blood Pressure Numbness Other hammer toe(s) (acquired), right fo ot M20.41 Arthritis M19.90 Other hammer toe(s) (acquired), left denise t M20.42 Surgical History Surgery Date(Month/Year) Bladder cancer removed 06/2024 Hospitalization History Reason Date(Month/Year[place] [facility] [place]14[place]
== END 2025-08-11 16:43 | disposition home or self-care (01) ==
LOC: HO.HMCH 13:32
PROVIDERS: PCP Internal Medicine; Visit Provider Internal Medicine
DX: Z00.00 Encounter for general adult medical examination without abnormal findings (principal); I12.9 Hypertensive chronic kidney disease with stage 1 through stage 4 chronic kidney disease, or unspecified chronic kidney disease; E11.22 Type 2 diabetes mellitus with diabetic chronic kidney disease; Z79.4 Long term (current) use of insulin; I48.20 Chronic atrial fibrillation, unspecified; C67.9 Malignant neoplasm of bladder, unspecified; C4A.9 Merkel cell carcinoma, unspecified; N18.2 Chronic kidney disease, stage 2 (mild); E78.00 Pure hypercholesterolemia, unspecified; R35.0 Frequency of micturition; G62.9 Polyneuropathy, unspecified; M79.2 Neuralgia and neuritis, unspecified

== ENCOUNTER → 2025-08-11 15:13 | Outpatient (BNV) | payer MEDICARE, SELFPAY | PROVIDERS: PCP Internal Medicine; Visit Provider Radiology Diagnostic Ultrasound | DX: M25.512 Pain in left shoulder (principal); M25.522 Pain in left elbow | CPT/HCPCS: 73030; 73080 ==

== ENCOUNTER 2025-09-12 10:48 | Outpatient (AMB) | payer MEDICARE, SELFPAY ==
--- OUTSIDE RECORDS SUMMARY | 2024-11-18 08:00 | XMS_ITS ---
Author Organization [facility] Address [address] [facility] [place] [address] Care Team Providers Care Lay Out Former Name Role Phone Merlin Andrade MDneth Primary Care Provider Елена Garcia [phone] REASON FOR VISIT Seen Sooner Medications Medication SIG (Take, Route, Frequency, Duration) Notes Start Date End Date Status DULoxetine HCl 30 MG 1 capsule Orally Once a day Active Vitamin D3 1000 UNIT 1 capsule Orally Once a day Active Ferrous Sulfate 325 (65 Fe) MG 1 tablet Orally Three times a Week Active Lisinopril 40 MG 1 tablet Orally Once a day Active Atorvastatin Calcium 40 MG 1 tablet Orally Once a day Active Furosemide 20 MG 1 tablet Orally Once a day Active Metoprolol Tartrate 100 MG 1 tablet with food Orally Twice a day Active Xarelto 20 MG 1 tablet with food Orally Once a day Active Gabapentin 300mg three times a day orally daily Active HumaLOG KwikPen Acti ve Basaglar KwikPen 38 units before bed Active Trulicity once a week Active Social History Tobacco Use: Social History Observation Description Date Details (start date - stop date) Former Smoker NA - NA Tobacco Use/Smoking Question Answer Notes Are you a: former smoker Additional Findings: Tobacco Non-User Current no n-smoker Alcohol Screen Question Answer Notes Did you have a drink containing alcohol in the p ast year? Yes Points 0 Interpretation Negative Tobacco use other than smoking: Question Answer Notes Are you an other tobacco user? No Encounters Encounter Location Date Provider Diagnosis [facility] [address] [place] [address] 11/18/2024 Елена Black Plan Of Treatment Next Appt Details Provider Name:Елена Oconnor , 10/13/2025 02:45:00 PM, [address] [facility], [place], [address], Progress Notes * Kamlesh KUNZ JrDOB:[birth year] (80 yo M)Acc No.[id number]:11/18/2024 Progress Notes Patient: Kamlesh GAMEZ Jr Provider: Joselyn Oconnor DPM :1945 A ge:79 Y S ex:Male Date:11/18/2024 [facility]:[address] [place] [address] [facility] Pcp:Guido Andrade MD Subjective: * Chief Complaints: * 1 . Seen Sooner. * ROS: G eneral/Constitutional: Nausea d enies. V omiting d enies. H que Thirst d enies. L oss appetite d enies. C hills d enies. F atigue d enies.?Fever d enies. N ight Sweats d enies. U nexplained weight loss d enies. U nexplained weight gain d enies. H EENTM: Dentures d enies. D izziness d enies. G lasses/contacts d enies. R etinopathy d enies. B lurred/double vision d enies. T MJ?denies. D ischarge/drainage d enies. I mplants d enies. S ore throat d enies. D ental implants d enies. H brigida of hearing d enies. D ifficulty chewing/swallowing/speaking d enies. N ose bleeds d enies. S ore mouth d enies. ? R espiratory: On Oxygen d enies. P neumonia/pleurisy d enies.?Bronchitis d enies. E mphysema d enies. C oughing d enies. C ough blood?denies. S hortness of breath d enies. W heezing d enies. C ardiovascular: Pacemaker d enies. M DESULFURIZER MACHINE d enies. W PW d enies. C HF d enies. H eart attack d enies. S eptal defect d enies. R apid beat d enies. C hest pain d enies. A trial Fib. d enies. M urmur/Palpitations d enies. G astrointestinal: Hemorrhoids d enies. S tomach/Abdominal pain d enies. D ark blood stool d enies. I rritable bowel d enies. C onstipation d enies. D iarrhea d enies. H ematology: Swelling d enies. C lots d enies. V aricose Veins d enies. B ruising d enies. B leeding problem d enies. G enitourinary: Blood urine d enies. F requent/Painfu/urination/bladder control d enies. K idney stones d enies. I nfection (UTI) d enies. N ephropathy d enies. s ex trans dis (STD) d enies. P rostate d enies. M usculoskeletal: Hammertoes d enies. B unions d enies. B ack Pain d enies. M uscle Cramps/ Resting d enies. M uscle cramps / walking d enies.?Generalized aches and pains d enies. W eakness d enies. I nteg.: Pat d enies. S cars d enies. C orns/calluses?denies. I ngrown nails d enies. P ainful nails d enies. O pen Sores d enies. R ashes d enies. N eurologic: Difficulty sleeping d enies. B rain disorder d enies. N umbness d enies. B alance trouble d enies. C onfusion d enies. F ainting/blackouts d enies. T ingling d enies. T remors d enies. * Medical History: C AD (Cholesterol), Cancer, Cataracts, Diabetic, High Blood Pressure, Numbness. * Family History: M other: , diabetes, cancer, foot problems, diagnosed with Other specified conditions influencing health status, Diabetic - NIDDM, Other malignant neoplasm of unspecified site. F ather: . * Social History: T obacco Use: T obacco Use/Smoking A re you a: f ormer smoker A dditional Findings: Tobacco Non-User C urrent non-smoker Tobacco use other than smoking A re you an other tobacco user? N o D rugs/Alcohol: D rugs H ave you used drugs other than those for medical reasons in the past 12 months? N o Alcohol Screen D id you have a drink containing alcohol in the past year? Y es P oints 0 I nterpretation N egative M iscellaneous: C affeine: yes, frequency:. Marital status: . * Medications: T aking Trulicity , Notes to Pharmacist: once a week, Taking Basaglar KwikPen , Notes to Pharmacist: 38 units before bed, Taking HumaLOG KwikPen , Taking Xarelto 20 MG Tablet 1 tablet with food Orally Once a day , Taking Gabapentin 300mg tablets three times a day orally daily , Taking Metoprolol Tartrate 100 MG Tablet 1 tablet with food Orally Twice a day , Taking Furosemide 20 MG Tablet 1 tablet Orally Once a day , Taking Ferrous Sulfate 325 (65 Fe) MG Tablet 1 tablet Orally Three times a Week , Taking DULoxetine HCl 30 MG Capsule Delayed Release Particles 1 capsule Orally Once a day , Taking Vitamin D3 1000 UNIT Capsule 1 capsule Orally Once a day , Taking Lisinopril 40 MG Tablet 1 tablet Orally Once a day , Taking Atorvastatin Calcium 40 MG Tablet 1 tablet Orally Once a day Objective: * Vitals: Assessment: Plan: * Treatment: * Images: * The named appointment provid er may or may not be the originator of this progress note, and it is not deemed complete until electronically signed by the appointment provider. Sign off status: Pending * Provider: Joselyn Oconnor DPM Date: 0 11/18/2024 Generated for Stephanie thomson/Ludy/Reynaldo on: 11/12/2024 12:49 PM EST
--- NOTE | 2025-09-12 10:58 | A.OFFVIS_ITS ---
Intake Visit Reasons: 6M Cysto(Bladder Ca) Intake Note: Patient is Present for Cystoscopy Urology Med: Methenamine, Terazosin, Vitamin C Antibiotic Allergy:None Blood Thinner: Xarelto URO- G Disposable Cystoscope lot: [id number] exp:04/14/2028 Etymology Professor Required: No Accompanied by: Self / Same As Patient Allergies colesevelam (From WelChol) Adverse Reaction (Mild, Verified 09/12/25 10:59) constipation HPI Comments Details: Kamlesh is a pleasant male. He is a patient of Dr. Andrade. He is seen for the following urologic conditions - complex renal cyst - weakness of stream - hematuria - bladder cancer Six-month follow-up bladder cancer evaluation Small lesions seen within the bladder Last cytology suspicious for high-grade Bladder cancer initial diagnosis 2009, recurrent 2020 high-grade superficial Prior history of superficial bladder cancer - managed with [facility] Underwent surveillance cystoscopy for 10 years stopping in 2014 Cystoscopy - 04/26 recurrent bladder lesion, 12/28 NAD, 01/26 NAD TURBT - 05/26 T1 high-grade bladder cancer, 09/26 chronic inflammation, 04/29 chronic inflammation, otherwise clear Immunotherapy - 05/26 gemcitabine 6 week induction, 12/28 3 week boost, 02/26 3 week boost Cytology - 09/29 NAD Therapeutic plan - 12m f/u Upper tract imaging Complex renal cyst Left-sided renal complex cyst Imaging - 04/26 CT scan left side 2cm simple renal cyst Bladder outlet obstruction Initial symptoms Weak stream, Nocturia 2-3, Bother 3 Good response to terazosin 5 mg Continue medications PFSH Medical History History of recent pneumonia (02/24/24) CHF (congestive heart failure) Chronic a-fib [place] cell cancer 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 On beta nahid at home Anemia Bladder cancer Chronic atrial fibrillation Chronic anticoagulation History of colon polyps Erectile dysfunction Chronic kidney disease (CKD), stage II (mild) Obesity (BMI 30-39.9) Benign essential hypertension Pure hypercholesterolemia Iron deficiency anemia nursing home (current) use of insulin 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 CAD (coronary artery disease) Hyperlipidemia LDL goal <70 Essential hypertension Type 2 diabetes mellitus with diabetic polyneuropathy Diabetes mellitus Surgical History History of surgery History of esophagogastroduodenoscopy (EGD) Hx of cystoscopy History of cystoscopy Hx of colonoscopy History of cataract surgery History of endoscopy Hx of removal of cyst Family History Father Medical history unknown Mother Diabetes Daughter In good health Son In good health Sister In good health Sister In good health Brother In good health Brother In good health Brother In good health Social History Household Members: Spouse and Family Housing: House Are you a primary health care technician to a significant other at home: No Do you presently have visiting nurse or other home services: No Alcohol intake: current Alcohol intake frequency: holidays/special occasions only Alcohol type: beer Comment: medicated in pacu Patient Tobacco Use Status: Former Tobacco user Tobacco use type: Cigarette Years Smoked: 20 e-Cigarette/Vaping Use: Never Used Second Hand Smoke Exposure: Yes Advance Directives Date on File: 09/07/21 service: No Current occupational status: retired Current occupational exposures/hazards: No Cognitive needs: Yes (cane) Hearing needs: No Vision needs: Yes Review of Systems Const Denies chills and Denies fever(s) Card Reports no additional complaints and Denies syncope Resp Denies cough GI Denies abdominal pain and Denies heartburn Reports as per HPI and Denies change in libido Neuro Denies syncope Psych Denies change in libido Endo Denies change in libido Physical Exam Const General: cooperative, healthy appearing, comfortable and no acute distress Orientation/consciousness: patient oriented x3 HEENT Face and sinus: Yes normal facial exam Mouth: moist mucous membranes Neck Neck: Yes normal visual inspection, Yes full ROM and Yes trachea midline Chest Chest palpation & inspection: normal inspection of the chest Resp Effort & Inspection: normal respiratory effort, able to speak in complete sentences and no respiratory distress GI Inspection: Yes normal to inspection Back/Spine/Pelvis Cervical Spine: normal cervical lordosis Thoracic/Lumbar Spine: thoracic and lumbar spine normal to inspection Skin General skin exam: no rashes or lesions noted Neuro General: patient oriented x3, gait normal, tone normal and moves all extremities Extrem General: Yes normal to inspection and Yes capillary refill normal Office Procedures Cystoscopy Consent Discussed risk and benefit or proposed procedure with the patient. Information consent for procedure given to the patient. Discussed technical aspects, risks, benefits and alternatives in full. Addressed all of the patient's questions and concerns regarding the procedure. The patient demonstrated knowledge and understanding. They wish to proceed with this procedure. Preparation The patient was prepped in the usual manner. A furniture reproducer was present and in the room. Genitalia was prepped with betadine solution in a sterile manner. Lidocaine Jelly 2% was placed into the urethra and 16Fr flexible Olympus cystoscope was inserted into the meatus after adequate lubrication. Procedure Consent confirmed Cystoscopy performed using a disposable Urovue digital 16 [place] cystoscope. Meatus circumcised Urethra anterior and posterior urethra normal Prostatic Urethra unremarkable Bladder examination with retroflexion of cystoscope Bladder Orifices normal shape and position Bladder Capacity Normal Trabeculations Grade 0 Cellule Formation None Diverticulum Formation None Mucosal Erythema None Bladder Tumor small bladder tumors grade 1 [id number]-[id number] DISPOSABLE SCOPE URO-G FLEXIBLE SCOPE Procedure code (CPT) selection complete Office Meds lidocaine HCl 2 % mucosal jelly in applicator Performing Provider: Aquiles Valderrama MD Performing Location: [facility] Administered by: Kaiden Leal LPN on 09/12/25 11:09 Dose Route Admin Location Dispensed Lot Number Expiration Date ND Ramp Supervisor 10 mL intra-urethral 10 mL nitrofurantoin monohydrate/macrocrystals 100 mg capsule Performing Provider: Aquiles Valderrama MD Performing Location: [facility] Administered by: Kaiden Leal LPN on 09/12/25 11:09 Dose Route Admin Location Dispensed Lot Number Expiration Date ND Ramp Supervisor 100 mg PO 1 cap Results AMB Urinalysis, Automated UA Leukoctes 0 Wai/uL Last Edit by BRIA Ring on 09/12/25 11:04 UA Nitrite Negative Last Edit by BRIA Ring on 09/12/25 11:04 UA Urobilinogen 0.2 mg/dL Last Edit by BRIA Ring on 09/12/25 11:0 4 UA Protein 30 mg/dL Last Edit by BRIA Ring on 09/12/25 11:04 UA pH 6.0 Last Edit by BRIA Ring on 09/12/25 11:04 UA Blood 10 Javan/uL Last Edit by Josie Dinero RMA on 09/12/25 11:04 UA Specific [place] 1.025 Last Edit by Josie Dinero, RMA on 09/12/25 11: 04 UA Ketone Negative Last Edit by Josie Dinero, RMA on 09/12/25 11:04 UA Bilirubin 0 mg/dL Last Edit by Josie Dinero RMA on 09/12/25 11:04 UA Glucose 0 mg/dL Last Edit by Josie Dinero, RMA on 09/12/25 11:04 Results Reviewed Results Reviewed: Laboratory Last Values Urine pH (Auto) 6.0 09/12/25 11:00 Specific [place] (Auto) 1.025 09/12/25 11:00 Urine Protein (Auto) 30 mg/dL 09/12/25 11:00 Glucose (UA)(Auto) 0 mg/dL 09/12/25 11:00 Urine Ketones (Auto) Negative 09/12/25 11:00 Urine Blood (Auto) 10 Javan/uL 09/12/25 11:00 Urine Nitrite (Auto) Negative 09/12/25 11:00 Urine Bilirubin (Auto) 0 mg/dL 09/12/25 11:00 Urine Urobilinogen (Auto) 0.2 mg/dL 09/12/25 11:00 Leukocyte Esterase (Auto) 0 Wai/uL 09/12/25 11:00 Assessment & Plan Assessment & Plan (1) Erectile dysfunction: Code(s): N52.9 - Male erectile dysfunction, unspecified Category: Medical Qualifiers: Erectile dysfunction type: unspecified Qualified Code(s): N52.9 - Male erectile dysfunction, unspecified (2) Renal stones: Code(s): N20.0 - Calculus of kidney Category: Medical (3) Bladder cancer: Comment: 05/26 recurrent high-grade superficial bladder cancer Code(s): C67.9 - Malignant neoplasm of bladder, unspecified Category: Medical Plan Bladder immunotherapy Bladder immuno/chemotherapy was discussed today. These medications are used to create an immune reaction against bladder cancer. The intention is to destroy any tumor cells left on the bladder surface. Since BCG and gemcitabine involved immunostimulation they are not indicated in situations where there is immune weakness. Medications are placed directly into the bladder. It should be held for one to 2 hours. The toilet should be disinfected with a cap full of household bleach prior to urination. Side effects from BCG and gemcitabine generally include mucosa-related changes such as urinary urgency and/or frequency, and hematuria BCG may also invoke an infection type response. An elevated temperature may be indicative of more serious issues and should be reported to the Dr. The intention with bladder immunotherapy is to reduce the frequency of bladder cancer recurrence by 50%. Availability of BCG is highly variable. There is a single manufacture who has had difficulty with quality analyst/technical writer since 2016. Multiple protocols are available - mitomycin-C for alkalinization - 40mg/200mg in 40cc NSal - A Randomized Clinical Trial of Intravesical Instillation of Mitomycin-C and Combination of Mitomycin-C and Cytarabine (Luda-C) in Non-Muscle Invasive Bladder Cancer - Mariah Marin BJU Int. 2021;129(4):534-541. 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 Crossref DOI link:? https://doi.org/10.1200/JCO.2023.41.6_suppl.507 ) Will undergo - mitomycin-C gel weekly administration Orders: Orders AMB Urinalysis Automated 09/12/25 Z13.9 - Encounter for screening, unspecified, C67.9 - Malignant neoplasm of bladder, unspecified Urine Cytology 09/12/25 C67.9 - Malignant neoplasm of bladder, unspecified AMB Cystoscopy 09/12/25 R35.0 - Frequency of micturition, R39.15 - Urgency of urination, N32.0 - Bladder-neck obstruction CT urogram 09/12/25 R31.0 - Gross hematuria, C67.9 - Malignant neoplasm of bladder, unspecified Patient Instructions: This note is constructed using voice recognition software. While every effort has been made to ensure accuracy industrial engineer errors may have been included. Imaging studies, laboratory and physical exam results were discussed and reviewed in detail. No major barriers to patient understanding were identified. An opportunity to ask questions regarding the treatment plan was provided. All questions were answered. The patient expressed understanding and agreement with the above treatment plan. The patient is aware they should contact our office by phone for worsening of their current condition or the appearance of new urologic symptoms. Compliance is encouraged with any medications and followup testing that is ordered. It is a privilege to participate in the urologic care of your patient. If you have any questions or concerns regarding treatment for the above conditions, or other urologic issues, please do not hesitate to contact me. The office telephone contact is [phone]. Sincerely, Dr Aquiles Valderrama MD, [facility] - Urology Compassionate Specialist Care for the Genitourinary System Coding Level of Care Code Est Pt Level 4 (79483) Diagnoses Erectile dysfunction, unspecified erectile dysfunction type N52.9 Erectile dysfunction type: unspecified Renal stones N20.0 Bladder cancer C67.9 CPT Codes Cystoscopy - CPT: 35296-[id number] ([id number])
--- OUTSIDE RECORDS SUMMARY | 2025-09-12 12:49 | XMS_ITS | Clinical Summary ---
Author Organization [facility] Address [address] [place] [id number] Phone Care Team Providers Care Hand Tapper Name Role Phone Guido Andrade MD Primary Care Provider [phone] Allergies No known active allergies Medications cholecalciferol (VITAMIN D3) 25 MCG (1,000 unit) tablet Take 1,000 Units by mouth. Active cyanocobalamin, vitamin B-12, 1000 MCG tablet Take 100 mcg by mouth. Active FEROSUL 325 mg (65 mg iron) tablet Take 1 tablet by mouth every morning. 02/20/20 23 Active furosemide (LASIX) 20 MG tablet Take 20 mg by mouth. 01/19/20 22 Active gabapentin (NEURONTIN) 100 MG capsule Take 300 mg by mouth. 01/19/20 22 Active lidocaine-prilo abdi (EMLA) cream Apply topically. 11/17/19 23 Active lisinopril (PRINIVIL,ZESTR IL) 40 MG tablet Take 40 mg by mouth. 01/19/20 22 Active metoprolol succinate (TOPROL-XL) 100 MG 24 hr tablet Take 100 mg by mouth. Active ondansetron (ZOFRAN) 4 MG tablet Take by mouth. 10/03/20 22 Active BD DEVANTE 2ND GEN PEN NEEDLE 32 gauge x Ndle 4 (four) times a day. 04/06/20 Active prochlorperazin e (COMPAZINE) 5 MG tablet Take by mouth. 10/17/20 Active rivaroxaban (XARELTO) 20 mg Tab Take 20 mg by mouth. 01/19/20 Active terazosin (HYTRIN) 10 MG capsule Take 10 mg by mouth. 01/19/20 Active latanoprost (XALATAN) 0.005 % ophthalmic solution 2 (two) times a day. 07/19/20 Active FREESTYLE DEEPA 3 SENSOR Nohemi CHANGE EVERY 14 DAYS DIRECTED 01/21/20 Active DULoxetine (CYMBALTA) 30 MG capsule Take 1 capsule by mouth every morning. 02/11/20 25 Active rosuvastatin (CRESTOR) 40 MG tabletIndicatio ns:Hyperlipidem ia LDL goal <50 Take 1 tablet (40 mg total) by mouth daily. 90 tablet 2 08/19/20 25 Active dulaglutide (TRULICITY) 1.5 mg/0.5 mL subcutaneous injectionIndica tions:Type 2 diabetes mellitus with diabetic polyneuropathy, with long-term current use of insulin Inject 0.5 mL (1.5 mg total) under the skin every 7 days. 6 mL 1 08/19/20 25 Active insulin glargine 100 unit/mL (3 mL) InPn injection penIndications: Type 2 diabetes mellitus with diabetic polyneuropathy, with long-term current use of insulin Inject 36 Units under the skin nightly at bedtime. 35 mL 1 08/19/20 25 Active insulin lispro (ADMELOG, HUMALOG) 100 unit/mL injection penIndications: Type 2 diabetes mellitus with diabetic polyneuropathy, with long-term current use of insulin Use 3 times a day before meals based on the following correction scale: 70-100 =2 unit 101-150 =4 units 151-200 = 6 units 201-250 =8 units 251-300 =10 units 301-350 =12 units 351-400 =14 units greater than 400 =16 units 15 mL 1 08/19/20 25 Active atorvastatin (LIPITOR) 40 MG tablet Take 40 mg by mouth. 01/19/20 22 025 Discontinued insulin glargine 100 unit/mL (3 mL) InPn injection penIndications: Type 2 diabetes mellitus with diabetic polyneuropathy, with long-term current use of insulin Inject 36 Units under the skin nightly at bedtime. 35 mL 1 02/15/20 025 Discontinued(R eorder) dulaglutide (TRULICITY) 1.5 mg/0.5 mL subcutaneous injectionIndica tions:Type 2 diabetes mellitus with diabetic polyneuropathy, with long-term current use of insulin Inject 0.5 mL (1.5 mg total) under the skin every 7 days. 6 mL 1 02/15/20 25 025 Discontinued(R eorder) insulin lispro (ADMELOG, HUMALOG) 100 unit/mL injection penIndications: Type 2 diabetes mellitus with diabetic polyneuropathy, with long-term current use of insulin Use 3 times a day before meals based on the following correction scale: 70-100 =2 unit 101-150 =4 units 151-200 = 6 units 201-250 =8 units 251-300 =10 units 301-350 =12 units 351-400 =14 units greater than 400 =16 units 15 mL 02/15/20 025 Discontinued(R eorder) Active Problems Problem Noted Date Diagnosed Date Serum phosphorus decreased 08/19/2025 Assessment & Plan (08/19/2025 10:59 AM EDT): I will repeat serum phosphorus obtain magnesium and PTH level. I informed him that dairy foods are rich in phosphorus. Type 2 diabetes mellitus wit h microalbuminuria, [...] LDL goal <70 05/10/2023 Assessment & Plan (08/19/2025 10:54 AM EDT): Based on new guidelines the LDL should be less than 50 mg/dL due to his history of CAD. He is LAD is currently 67 mg/dL. He is using atorvastatin 40 mg I will change the medication to rosuvastatin 40 mg which potentially could decrease his LDL to the target. He was advised to continue taking atorvastatin until he receives rosuvastatin 40. Assessment & Plan (02/14/2025 11:07 AM EDT): [...] use of insulin 05/10/2023 Assessment & Plan (08/19/2025 10:58 AM EDT): Controlled. Hemoglobin A1c 6.7%. CGM shows 73% in range. He is having mild elevations in the evening after his snacks. He was reminded that he can use the correction scale for snacks. Assessment & Plan (02/14/2025 11:07 AM EDT): [...] A1c goals of less than 7%. The [place] [employer] recommends a goal of A1c of 7.5 to 8% in older patients with moderate comorbidities and life expectancy less than 10 years. The [place] diabetes [employer] recommends a goal of less [...] Encounters Date Type Department Care Team Description 08/19/2025 10:30 AM EDT Office Visit [facility] [address] [place] [address] Trev Fontaine DO Type 2 diabetes mellitus with diabetic polyneuropathy, with long-term current use of insulin (Primary Dx); Hyperlipidemia LDL goal <50; Serum phosphorus decreased 08/14/2025 9:11 AM EDT - 08/14/2025 11:59 PM EDT Hospital Encounter [facility] [address] [place] [address] Trev Fontaine DO Discharge Disposition: Home or Self Care from Last 3 Months Family History Medical [...] Sign Reading Time Taken Comments Blood Pressure 120/70 08/19/2025 10:34 AM EDT Pulse 64 08/19/2025 10:34 AM EDT Temperature - - Respiratory Rate - - Oxygen Saturation 99% 02/14/2025 10: 40 AM EDT Inhaled Oxygen Concentration - - Weight 103.1 kg (227 lb 6.4 oz) 025 10:34 AM EDT Height 171.2 cm (5' 7.4 ) 2024 10 :57 AM EDT Body Mass Index 35.19 2024 10:57 AM EDT Plan of Treatment Upcoming Encounters Date Type Department Care Team (Late st Contact Info) Description 02/17/2026 10:30 AM EDT Office Visit [facility] [address] [place] [address] [phone] Trev Fontaine DO [address] [place] [id number] [email or web address] Health Maintenance Due Date [...] 2025 COVID-19 VACCINE ( - season) 2025 HEMOGLOBIN A1C 02/12/2026 08/14/2025, 04/0 05/2025, 08/08/2024, Additional history exists BLOOD PRESSURE 02/17/2026 08/19/2025 CREATININE LEVEL 08/14/2026 08/14/2025, 08/08/2024 POTASSIUM LEVEL 08/14/2026 08/14/2025, 08/08/2024 HEPATITIS A VACCINES Aged Out No long [...] Procedure Name Priority Date/Time Associated Diagnosis Comments MICROALBUMIN/CREATIN INE RATIO, RANDOM URINE Routine 08/14/2025 9:32 AM EDT Type 2 diabetes mellitus with diabetic polyneuropathy, with long-term current use of insulin HEMOGLOBIN A1C Routine 08/14/2025 9:24 AM EDT Type 2 diabetes mellitus with diabetic polyneuropathy, with long-term current use of insulin RENAL PANEL Routine 08/14/2025 9:24 AM EDT Type 2 diabetes mellitus with diabetic polyneuropathy, with long-term current use of insulin LIPID PANEL Routine 08/14/2025 9:24 AM EDT Type 2 diabetes mellitus with diabetic polyneuropathy, with long-term current use of insulin Hyperlipidemia LDL goal <70 from Last 3 Months Results * (ABNORMAL) Microalbumin/creatinine ratio, random urine (08/14/2025 9:32 AM EDT) URINE MICROALBUMIN 1.9 0 - 2.3 mg/dL [facility] URINE CREATININE 47 mg/dL [facility] MICROALB/CRE RATIO 40.4(H) 0 - 20 mg/g Cre [facility] Urine (Urine) 08/14/2025 9:3 2 AM EDT 08/14/2025 9:38 AM EDT us Trev Fontaine DO LAB URINE ORDERABLES Final Resul t [facility] [address] [place] [address] * (ABNORMAL) Renal panel (08/14/2025 9:24 AM EDT) SODIUM 142 133 - 146 mmol/L [facility] POTASSIUM 3.3 3.3 - 5.1 mmol/L [facility] CHLORIDE 100 96 - 108 mmol/L [facility] CO2 30 21 - 35 mmol/L [facility] GLUCOSE 118(H) 70 - 99 mg/dL [facility] BUN 15 6 - 19 mg/dL [facility] CREATININE 0.80 0.5 - 1.5 mg/dL [facility] CALCIUM 8.9 8.4 - 10.3 mg/dL [facility] PHOSPHORUS 2.6(L) 2.7 - 4.5 mg/dL [facility] ALBUMIN 3.9 3.9 - 4.8 g/dL [facility] EGFR 91 >59 mL/min/1.7 3m2 [facility] Comment:Estimated glomerular filtration rate calculated using the CKD-EPI refit equation. ANION GAP 15 10 - 20 mmol/L [facility] Blood 08/14/2025 9:24 AM EDT 08/14/2025 9:30 AM EDT [facility]LOOD BKR ORDERABLES Final R esult Performing Organization Address City/[facility]/ZIP Co de Phone Number [address] [phone] * (ABNORMAL) Hemoglobin A1c (08/14/2025 9:24 AM EDT) HEMOGLOBIN A1C 6.7(H) 4.3 - 5.8 % [facility] Blood 08/14/2025 9:24 AM EDT 08/14/2025 9:31 AM EDT [facility] LAB BLOOD BKR ORDERABLES Final R esult [address] [id number] * Lipid panel (08/14/2025 9:24 AM EDT) HDL 38 mg/dL [facility] Comment: Interpretation <40 mg/dL: Low HDL cholesterol (major risk factor for CHD) Greater than or equal to 60 mg/dL: High HDL cholesterol ( negative risk factor for CHD) HDL - cholesterol is affected by a number of factors, e.g. smoking, excerise, hormones, sex and age. CHOLESTEROL 136 0 - 240 mg/dL [facility] TRIGLYCERIDES 153 30 - 160 mg/dL [facility] LDL 67 50 - 129 mg/dL [facility] Comment: LDL levels in terms of risk for coronary heart disease: <100 mg/dL: Optimal 100-129 mg/dL: Near or above optimal 130-159 mg/dL: Borderline high 160-189 mg/dL: High >190 mg/dL: Very High CARDIAC RISK RATIO 3.6 3.4 - 5.0 [facility] Blood 08/14/2025 9:24 AM EDT 08/14/2025 9:30 AM EDT us Trev Fontaine DO LAB BLOOD BKR ORDERABLES Final R esult Performing Organization Address City/State/[facility] Co de Phone Number [address] [phone] from Last 3 Months Insurance [employer] Member Subscriber Plan / Payer (Ef fective 2020-Present) Name:Kamlesh Clement Relation to Subscriber:Self Name:UrbanoKamlesh Payer ID:Not on file Type:Medicare Address: [place] [id number] [employer] Care Teams Hand Tapper Relationship Specialty Start Date End Date Guido Andrade MD [address] [place] [address] Dr Angelo Tip YULI PATTERSON [id number] PCP - General Internal Medicine 03/15/23 Additional Source Comments The information contained in this document represents components of the legal health record. It is not the complete legal health record.[facility]
--- OUTSIDE RECORDS SUMMARY | 2025-09-12 12:49 | XMS_ITS | Clinical Summary ---
Author Organization [facility], Address [address] [place] [address] Phone Care Team Providers Care Safety Intern Name Role Phone Guido Andrade MD Primary Care Provider [phone] Allergies No known active allergies Medications terazosin [...] Type 2 diabetes mellitus 10/05/2022 Hypercholesterolemia 10/05/2022 [place] cell carcinoma 09/27/2022 Atrial fibrillation 09/27/2022 Bladder [...] age to complete this topic Insurance [facility] Care Teams Safety Intern Relationship Specialty Start Date End Date Guido Andrade MD [address] [place] [address] PCP - General Internal Medicine 09/20/22
--- OUTSIDE RECORDS SUMMARY | 2025-09-12 12:49 | XMS_ITS | Patient Health Record ---
[facility] Organization [facility] Address [address] [facility] [place] [address] Care Team Providers Care Devulcanizer Operator Name Role Phone Guido Andrade MD Primary Care Provider Unava ilable Black, Елена Unavailable [phone] Allergies No Known Allergies Results Component Value [...] Polyneuropathy due to type 2 diabetes mellitus (346743170) Type 2 diabetes mellitus with diabetic polyneuropathy (E11.42) Active confirmed Vital Signs Heart Rate 65 /min 12/30/2024 Blood pressure diastolic 70 mm Hg 07/10/2025 Height 5 ft 9 in in 07/10/2025 Blood pressure systolic 130 mm Hg 07/10/2025 Weight 230 lbs 07/10/2025 BMI 33.96 kg/m2 07/10/2025 Procedures Procedure Date Ordered Date Performed Result Body Sit e 56078-OCTLVGF NAIL, 6 OR MORE 09/19/2024 N/A 60906-JHHA SKIN LESIONS, OVER 4 09/19/2024 N/A 81174-HASUBQV NAIL, 6 OR MORE 12/30/2024 N/A 87738-CCCL SKIN LESIONS, OVER 4 12/30/2024 N/A 94963-PMGIBHC NAIL, 6 OR MORE 04/07/2025 N/A 25669-ZASE SKIN LESIONS, OVER 4 04/07/2025 N/A 73100-XUKNLPN NAIL, 6 OR MORE 07/10/2025 N/A 17180-KMHT SKIN LESIONS, OVER 4 07/10/2025 N/A Encounters Encounter Location Date Provider Diagnosis [address] [address] 09/19/2024 Елена Black Type 2 diabetes mellitus with diabetic polyneuropathy E11.42 ; Tinea unguium B35.1 and Tinea pedis of both feet B35.[address] [address] 12/30/2024 Елена Black Type 2 diabetes mellitus with diabetic polyneuropathy E11.42 ; Other hammer toe(s) (acquired), right foot M20.41 ; Tinea unguium B35.1 ; Tinea pedis of both feet B35.3 ; Other hammer toe(s) (acquired), left foot M20.42 ; Arthritis M19.90 and Neuritis M79.[address] [address] 04/07/2025 Елена Black Type 2 diabetes mellitus with diabetic polyneuropathy E11.42 and Tinea unguium B35.[address] [address] 07/10/2025 Елена Black Type 2 diabetes mellitus with diabetic polyneuropathy E11.42 and Tinea unguium B35.[address] [address] 12/30/2024 Елена Black [address] [address] 12/31/2024 Елена Black Assessments Encounter Date Diagnosis [...] Treatment Pending Test Test Name Order Date 28988-ZDPZDNW NAIL, 6 OR MORE 09/19/2024 35300-NNCZIVI NAIL, 6 OR MORE 12/30/2024 34439-MXOZEVE NAIL, 6 OR MORE 04/07/2025 59818-RLIPEGC NAIL, 6 OR MORE 07/10/2025 68620-ONHK SKIN LESIONS, OVER 4 09/19/20 24 29783-GAMA SKIN LESIONS, OVER 4 07/10/20 85234-MCER SKIN LESIONS, OVER 4 04/07/20 25 62313-NGLZ SKIN LESIONS, OVER 4 12/30/19 25 Next Appt Details Provider Name:Елена Oconnor , 10/13/2025 02:45:00 PM, [address] [facility], [place], [address], Insurance Providers Payer Name Payer Address Payer Phone Subscriber Number Group Number Insured Name Patient Relationship to Insured Coverage Start Date Coverage End Date [employer] [place] Medicare Advantage [address] [place] [address] [id number] GennaKamlesh schulz Self - patient is the insured 4 Medical (General) History Medical History History ICD Code CAD (Cholesterol) Cancer Cataracts Diabetic High Blood Pressure Numbness Other hammer toe(s) (acquired), right fo ot M20.41 Arthritis M19.90 Other hammer toe(s) (acquired), left denise t M20.42 Surgical History Surgery Date(Month/Year) Bladder cancer removed 06/2024 Hospitalization History Reason Date(Month/Year) [facility] [place]-Bloody nose 09/14/24
== END 2025-09-12 11:55 | disposition home or self-care (01) ==
LOC: HO.HUSH 10:49
PROVIDERS: PCP Internal Medicine; Visit Provider Urology
DX: R35.0 Frequency of micturition (principal); R39.15 Urgency of urination; N32.0 Bladder-neck obstruction; C67.9 Malignant neoplasm of bladder, unspecified
CPT/HCPCS: 52000

== ENCOUNTER 2025-09-12 10:48 | Outpatient (REF) | payer MEDICARE, SELFPAY | END 2025-09-12 10:49 | disposition home or self-care (01) | LOC: HO.LAB 10:48 | PROVIDERS: PCP Internal Medicine; Visit Provider Urology | DX: C67.9 Malignant neoplasm of bladder, unspecified (principal); N20.0 Calculus of kidney; N52.9 Male erectile dysfunction, unspecified; Z13.89 Encounter for screening for other disorder | CPT/HCPCS: 52000; 81003; 88112 ==

== ENCOUNTER 2025-10-13 08:01 | Outpatient (REF) | payer MEDICARE, SELFPAY ==
[2025-10-13 17:41] LABS: Blood Urea Nitrogen 16 mg/dL (9-16); Estimated Glomerular Filt Rate 56
== END 2025-10-13 08:02 | disposition home or self-care (01) ==
LOC: HO.LAB 08:01
PROVIDERS: PCP Internal Medicine; Visit Provider Urology
DX: N20.0 Calculus of kidney (principal)
CPT/HCPCS: 36415; 81001; 82565; 84520

== ENCOUNTER 2025-10-27 08:17 | Outpatient (REF) | payer MEDICARE, SELFPAY ==
--- OUTSIDE RECORDS SUMMARY | 2024-11-18 08:00 | XMS_ITS ---
Author Organization [facility] Address [address] [facility] [place] [address] Care Team Providers Care Assistant Office Manager Name Role Phone Merlin Andrade MDneth Primary Care Provider Елена Garcia [phone] REASON FOR VISIT Seen Sooner Medications Medication [...] No Encounters Encounter Location Date Provider Diagnosis [facility] [address] [place] [address] 11/18/2024 Елена Black Plan Of Treatment Next Appt Details Provider Name:Елена Oconnor , 01/26/2026 02:15:00 PM, [address] [facility], [place], [address], Progress Notes * Kamlesh KUNZ JrDOB:[birth year] (80 yo M)Acc No.[id number]:11/18/2024 Progress Notes Patient: Kamlesh GAMEZ Jr Provider: Joselyn Oconnor DPM :1945 A ge:79 Y S ex:Male Date:11/18/2024 Address:[address] [place] [address] [facility] Pcp:Guido Andrade MD Subjective: * Chief Complaints: [...] enies. C ardiovascular: Pacemaker d enies. 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 W PW d enies. C [...] 0 11/18/2024 Generated for Stephanie thomson/Ludy/Reynaldo on: 12/28/2024 08:22 AM EST
--- NOTE | ~2025-10-27 | CT_ITS ---
EXAMINATION: CT ABDOMEN PELVIS UROGRAPHY WITHOUT THEN WITH IV CONTRAST HISTORY: R31.0 - Gross hematuria COMPARISON: Comparison is made with the prior unenhanced examination dated 03/01/2023. TECHNIQUE: CT scan of the abdomen and pelvis was performed before and after the intravenous administration of 85 mL Omnipaque 350. Postcontrast images were obtained using a split bolus technique. Coronal and sagittal reformatted images were generated and reviewed. Oral contrast material was not administered per department protocol. This CT exam was performed with one or more of the following dose reduction techniques: automated exposure control, adjustment of the mA and/or kV according to patient size, use of iterative reconstruction technique. DLP: 1168 mGy-cm ABDOMEN: LOWER CHEST: The visualized lung bases are clear. There is a moderate right pleural effusion and a trace left pleural effusion. CARDIOVASCULATURE: The heart is normal in size. There is no pericardial effusion. LIVER: The liver is normal in size and contour. No liver mass is identified. The hepatic and portal veins are patent. GALLBLADDER / BILE DUCTS: The gallbladder is unremarkable. There is no intra or extrahepatic biliary ductal dilatation. SPLEEN: The spleen is normal in size. No focal splenic lesion is identified. PANCREAS: The pancreas is unremarkable in appearance. ADRENAL GLANDS: Within normal limits. KIDNEYS/RETROPERITONEUM: No renal or ureteral calculi are identified. There is no hydronephrosis or hydroureter. There is a 1.2 cm hyperdense lesion at the upper pole of the right kidney measuring 48 HU in density on the unenhanced examination and 45 HU in density on the postcontrast images, compatible with a hyperdense cyst. The intrarenal collecting systems are unremarkable in appearance. No ureteral filling defects are identified. LYMPH NODES: No abdominal or pelvic lymphadenopathy. VASCULATURE: The abdominal aorta demonstrates atherosclerotic calcification, but is normal in caliber. MESENTERY/PERITONEUM: No free fluid. No masses. There is no free intraperitoneal gas. STOMACH: The stomach is collapsed, limiting evaluation. SMALL BOWEL: The small bowel is normal in caliber. COLON: There is diverticulosis of the sigmoid colon, without evidence of diverticulitis. APPENDIX: Normal. URINARY BLADDER/PELVIC ORGANS: There is asymmetric wall thickening of the right lateral aspect of the urinary bladder. The prostate is enlarged. BONES / SOFT TISSUES: No suspicious bony or soft tissue abnormalities. CT/CT urogram IMPRESSION: 1. Asymmetric wall thickening of the right lateral aspect of the urinary bladder. Further evaluation with cystoscopy is suggested. 2. 1.2 cm hyperdense cyst at the upper pole of the right kidney. 3. Moderate right pleural effusion and trace left pleural effusion. Electronically signed by: Rich Sanford MD 10/27/2025 10:42 AM [facility]
--- OUTSIDE RECORDS SUMMARY | 2025-10-27 08:22 | XMS_ITS | Clinical Summary ---
Author Organization [facility], Address [address] [place] [address] Phone Care Team Providers Care Airborne Missions Systems Name Role Phone Guido Andrade MD Primary Care Provider [phone]- [phone] Allergies No known active allergies Medications terazosin [...] Type 2 diabetes mellitus 10/05/2022 Hypercholesterolemia 10/05/2022 [place] cell carcinoma 09/27/2022 Atrial fibrillation 09/27/2022 Bladder [...] to complete this topic Insurance [facility] Care Teams Airborne Missions Systems Relationship Specialty Start Date End Date Guido Andrade MD [address] [place] [address] PCP - General Internal Medicine 09/20/22
--- OUTSIDE RECORDS SUMMARY | 2025-10-27 08:23 | XMS_ITS | Patient Health Record ---
Author Organization [facility] Address [address] [facility] [place] [address] Care Team Providers Care Cartridge Belt Puncher Name Role Phone Guido Andrade MD Primary Care Provider Unava ilable Black, Елена Unavailable [phone] Allergies No Known Allergies Results Component Value Reference Range Notes HEMOGLOBIN A1C (GLYCOHEMOGLO BIN) Reviewed date:07/10/2025 12:57:59 PM Interpretation: Performing Lab: Notes/Report: HEMOGLOBIN A1C % (HH) 7.0 HEMOGLOBIN A1C (GLYCOHEMOGLO BIN) Reviewed date:12/31/2024 02:57:52 PM Interpretation: Performing Lab: Notes/Report: HEMOGLOBIN A1C % (HH) 7.0 Reason For Referral No Information Medications Medication SIG (Take, Route, Frequency, Duration) Notes Start Date End Date Status Furosemide 20 MG 1 tablet Orally Once [...] KwikPen 100 UNIT/ML as directed Subcutaneous Active Vitamin D3 1000 UNIT 1 capsule Orally On ce a day Active Ferrous Sulfate 325 (65 Fe) MG 1 tablet Orally Three times a Week Active DULoxetine HCl 30 MG 1 capsule Orally On ce a day Active Xarelto 20 MG 1 [...] a day Active HumaLOG KwikPen Acti ve Ciclopirox Olamine 0.77 % 1 application Externally Twice a day to skin of feet including between the toes; Duration: 30 days Active Ferrous Sulfate 325 (65 Fe) MG 1 tablet Orally Three times a Week Active DULoxetine HCl 30 MG 1 capsule Orally On ce a day Active Immunizations Vaccine Route Administration Date Status [...] Polyneuropathy due to type 2 diabetes mellitus (483263822) Type 2 diabetes mellitus with diabetic polyneuropathy (E11.42) Active confirmed Vital Signs Heart Rate 65 /min 12/30/2024 Blood pressure diastolic 65 mm Hg 10/13/2025 Height 5 ft 9 in in 10/13/2025 Blood pressure systolic 130 mm Hg 10/13/2025 Weight 230 lbs 10/13/2025 BMI 33.96 kg/m2 10/13/2025 Procedures Procedure Date Ordered Date Performed Result Body Sit e 12493-NAPUGEN NAIL, 6 OR MORE 12/30/2024 N/A 89023-DKBH SKIN LESIONS, OVER 4 12/30/2024 N/A 08555-RCJGFFE NAIL, 6 OR MORE 04/07/2025 N/A 84165-EUZJ SKIN LESIONS, OVER 4 04/07/2025 N/A 38592-TSRZXQJ NAIL, 6 OR MORE 07/10/2025 N/A 30072-UYNU SKIN LESIONS, OVER 4 07/10/2025 N/A 18900-DSXCIEW NAIL, 6 OR MORE 10/13/2025 N/A 13775-IUDY SKIN LESIONS, OVER 4 10/13/2025 N/A 79764-Qvup. Subungual Hematoma 10/13/2025 N/A Encounters Encounter Location Date Provider Diagnosis [address] [address] 12/30/2024 Елена Black Type 2 diabetes mellitus with diabetic polyneuropathy E11.42 ; Other hammer toe(s) (acquired), right foot M20.41 ; Tinea unguium B35.1 ; Tinea pedis of both feet B35.3 ; Other hammer toe(s) (acquired), left foot M20.42 ; Arthritis M19.90 and Neuritis M79.[address] [address] 04/07/2025 Елена Black Type 2 diabetes mellitus with diabetic polyneuropathy E11.42 and Tinea unguium B35.[address] [address] 07/10/2025 Елена Black Type 2 diabetes mellitus with diabetic polyneuropathy E11.42 and Tinea unguium B35.[address] [address] 10/13/2025 Елена Black Type 2 diabetes mellitus with diabetic polyneuropathy E11.42 ; Tinea unguium B35.1 and Subungual hematoma of toe of right foot, initial encounter S90.221A [address] [address] 12/30/2024 Еленаraquel Oconnor [address] [address] 12/31/2024 Елена Black Assessments Encounter Date Diagnosis (ICD Code) Assessment Notes Treatment Notes Treatment Clinical Notes Section Notes 12/30/2024 Other hammer toe(s) (acquired), right foot [...] mellitus with diabetic polyneuropathy (ICD-10 - E11.42) 10/13/2025 Type 2 diabetes mellitus with diabetic polyneuropathy (ICD-10 - E11.42) 10/13/2025 Tinea unguium (ICD-10 - B35.1) 07/10/2025 Tinea unguium (ICD-10 - B35.1) 12/30/2024 Tinea unguium (ICD-10 - B35.1) 10/13/2025 Subungual hematoma of toe of right foot, initial encounter (ICD-10 - S90.221A) 12/30/2024 Tinea pedis of both feet (ICD-10 - B35.3) 12/30/2024 Other hammer toe(s) (acquired), left foot (ICD-10 - M20.42) 12/30/2024 Arthritis (ICD-10 - M19.90) 12/30/2024 Neuritis (ICD-10 - M79.2) 04/07/2025 Other Plan Of Treatment Pending Test Test Name Order Date 09728-MSSEBCQ NAIL, 6 OR MORE 09/19/2024 97507-HISRSJE NAIL, 6 OR MORE 12/30/2024 40687-QZXDKPB NAIL, 6 OR MORE 04/07/2025 43987-HUAQLIF NAIL, 6 OR MORE 07/10/2025 06480-JQVWTPN NAIL, 6 OR MORE 10/13/2025 96926-FNWR SKIN LESIONS, OVER 4 09/19/20 24 73221-SQNT SKIN LESIONS, OVER 4 12/08/20 25 13452-PCHJ SKIN LESIONS, OVER 4 07/10/20 25 16228-FNTI SKIN LESIONS, OVER 4 04/07/20 25 32994-VPQH SKIN LESIONS, OVER 4 12/30/19 25 16475-Nvtd. Subungual Hematoma 5 Next Appt Details Provider Name:Елена Oconnor , 01/26/2026 02:15:00 PM, [address] [facility], [place], [address], Insurance Providers Payer Name Payer Address Payer Phone Subscriber Number Group Number Insured Name Patient Relationship to Insured Coverage Start Date Coverage End Date [employer] [place] Medicare Advantage [address] [place] [address] [id number] Kamlesh Clement Self - patient is the insured 4 Medical (General) History Medical History History ICD Code CAD (Cholesterol) Cancer Cataracts Diabetic High Blood Pressure Numbness Other hammer toe(s) (acquired), right fo ot M20.41 Arthritis M19.90 Other hammer toe(s) (acquired), left denise t M20.42 Surgical History Surgery Date(Month/Year) Bladder cancer removed 06/2024 Hospitalization History Reason Date(Month/Year) [facility] [place]Bloody nose 09/14/24
--- OUTSIDE RECORDS SUMMARY | 2025-10-27 08:23 | XMS_ITS | Clinical Summary ---
Author Organization [facility] Address [address] [place] [address] Phone Care Team Providers Care Homeland Security Program Specialist Name Role Phone Guido Andrade MD Primary Care Provider +1 -[phone] Allergies No known active allergies Medications cholecalciferol [...] capsule by mouth every morning. 5 Active rosuvastatin (CRESTOR) 40 MG tabletIndications :Hyperlipidemia LDL goal <50 Take 1 tablet (40 mg total) by mouth daily. 90 tablet 2 5 Active dulaglutide (TRULICITY) 1.5 mg/0.5 mL subcutaneous injectionIndicati ons:Type 2 diabetes mellitus with diabetic polyneuropathy, with long-term current use of insulin Inject 0.5 mL (1.5 mg total) under the skin every 7 days. 6 mL 1 5 Active insulin glargine 100 unit/mL (3 mL) InPn injection penIndications:Ty pe 2 diabetes mellitus with diabetic polyneuropathy, with long-term current use of insulin Inject 36 Units under the skin nightly at bedtime. 35 mL 1 5 Active insulin lispro (ADMELOG, [...] A1c goals of less than 7%. The [place] [employer] recommends a goal of A1c of 7.5 to 8% in older patients with moderate comorbidities and life expectancy less than 10 years. The [place] diabetes Association recommends a goal of less [...] Description 08/19/2025 10:30 AM EDT Office Visit [facility] [address] [place] [address] [place] [address] Trev Fontaine DO Type 2 diabetes mellitus with diabetic polyneuropathy, with long-term current use of insulin (Primary Dx); Hyperlipidemia LDL goal <50; Serum phosphorus decreased 08/14/2025 9:11 AM EDT - 08/14/2025 11:59 PM EDT Hospital Encounter [facility] [place] [address] [place] [address] Trev Fontaine DO Discharge Disposition: Home or [...] Description 02/17/2026 10:30 AM EDT Office Visit [facility] [address] [place] [address] Trev Fontaine DO [address] [place] [address] [email or web address] Health Maintenance Due Date Last Done Comments [...] URINE MICROALBUMIN 1.9 0 - 2.3 mg/dL [facility] URINE CREATININE 47 mg/dL [facility] MICROALB/CRE RATIO 40.4(H) 0 - 20 mg/g Cre [facility] Urine (Urine) 08/14/2025 9:3 2 AM EDT 08/14/2025 9:38 AM EDT us Trev Fontaine DO LAB URINE ORDERABLES Final Resul t Performing Organization Address [facility]/ZIP Co de Phone Number [address] [address] * (ABNORMAL) Renal panel (08/14/2025 9:24 AM EDT) SODIUM 142 133 - 146 mmol/L [facility] POTASSIUM 3.3 3.3 - 5.1 mmol/L [facility] CHLORIDE 100 96 - 108 mmol/L [facility] CO2 30 21 - 35 mmol/L [facility] GLUCOSE 118(H) 70 - 99 mg/dL [facility] BUN 15 6 - 19 mg/dL [facility] CREATININE 0.80 0.5 - 1.5 mg/dL [facility] CALCIUM 8.9 8.4 - 10.3 mg/dL [facility] PHOSPHORUS 2.6(L) 2.7 - 4.5 mg/dL [facility] ALBUMIN 3.9 3.9 - 4.8 g/dL [facility] EGFR 91 >59 mL/min/1.7 3m2 [facility] Comment:Estimated glomerular filtration rate calculated using the CKD-EPI refit equation. ANION GAP 15 10 - 20 mmol/L [facility] Blood 08/14/2025 9:24 AM EDT 08/14/2025 9:30 AM EDT Trev Fontaine DO LAB BLOOD BKR ORDERABLES Final R esult Performing Organization Address City/[facility] Co de Phone Number [address] [address] * (ABNORMAL) Hemoglobin A1c (08/14/2025 9:24 AM EDT) HEMOGLOBIN A1C 6.7(H) 4.3 - 5.8 % [facility] Blood 08/14/2025 9:24 AM EDT 08/14/2025 9:31 AM EDT Trev Zhen DO LAB BLOOD BKR ORDERABLES Final R esult Performing Organization Address City/[facility]/ZIP Co de Phone Number [address] [address] * Lipid panel (08/14/2025 9:24 AM EDT) HDL 38 mg/dL [facility] Comment: Interpretation <40 mg/dL: Low HDL cholesterol (major risk factor for CHD) Greater than or equal to 60 mg/dL: High HDL cholesterol ( negative risk factor for CHD) HDL - cholesterol is affected by a number of factors, e.g. smoking, excerise, hormones, sex and age. CHOLESTEROL 136 0 - 240 mg/dL [facility] TRIGLYCERIDES 153 30 - 160 mg/dL [facility] LDL 67 50 - 129 mg/dL [facility] Comment: LDL levels in terms of risk for coronary heart disease: <100 mg/dL: Optimal 100-129 mg/dL: Near or above optimal 130-159 mg/dL: Borderline high 160-189 mg/dL: High >190 mg/dL: Very High CARDIAC RISK RATIO 3.6 3.4 - 5.0 [facility] Blood 08/14/2025 9:24 AM EDT 08/14/2025 9:30 AM EDT [facility] BLOOD BKR ORDERABLES Final R esult Performing Organization Address City/[facility]/ZIP Co de Phone Number [address] [address] from Last 3 Months Insurance [facility] [place] MED[employer] HMO REPLACEMENT [facility] MEDIC[facility] HMO REPLACEMENT [facility] [place] [employer] [facility]PLACEMENT [facility]MO REPLACEMENT [facility] [place] [employer]ACEMENT [employer] [place] [employer] H[employer] REPLACEMENT Care Teams Homeland Security Program Specialist Relationship Specialty Start Date End Date Guido Andrade MD [address] [place] [id number] PCP - General Internal Medicine 03/15/23 Additional Source Comments The information contained in this document represents components of the legal health record. It is not the complete legal health record.[facility]
[2025-10-27] MEDS: iohexoL 350 MG/ML 100 ML INFUS..BTL 85 ML IV (10:16)
== END 2025-10-27 08:18 | disposition home or self-care (01) ==
LOC: HO.CT 08:17
PROVIDERS: PCP Internal Medicine; Visit Provider Urology
DX: R31.0 Gross hematuria (principal); C67.9 Malignant neoplasm of bladder, unspecified
CPT/HCPCS: 74178; Q9967

== ENCOUNTER → 2025-10-27 08:19 | Outpatient (BNV) | payer MEDICARE, SELFPAY | PROVIDERS: PCP Internal Medicine; Visit Provider Radiology Diagnostic Radiology | DX: N28.1 Cyst of kidney, acquired (principal); N32.89 Other specified disorders of bladder; J90 Pleural effusion, not elsewhere classified | CPT/HCPCS: 74178 ==